=== PATIENT | female | born 1940 | race Caucasian/White ===

== ENCOUNTER 2020-03-26 14:16 | Outpatient (CLI) | payer MEDICARE, SELFPAY ==
--- NOTE | ~2020-03-26 | MM_ITS ---
EXAMINATION: MM screening bridger BI w mary HISTORY: Screening TECHNIQUE: Craniocaudal and mediolateral oblique 3-D tomosynthesis images were obtained and synthetic 2-D images were generated. CAD analysis was submitted and interpreted. COMPARISON: Comparison to multiple prior studies sequentially, with oldest reviewed study dated 02/12. BREAST PARENCHYMAL COMPOSITION: There are scattered areas of fibroglandular density. FINDINGS: There is no evidence of suspicious mass, calcification, or architectural distortion to sugg est malignancy in either breast. There has been no suspicious interval change. IMPRESSION: 1. No mammographic evidence of malignancy. 2. Recommend routine screening mammography in one year. BI-RADS Category 1: Negative Reviewed, dictated and finalized at location A.
== END 2020-03-26 14:17 | disposition home or self-care (01) ==
LOC: ANHIMG 14:18
PROVIDERS: PCP Family Medicine; Visit Provider Family Medicine
DX: Z12.31 Encounter for screening mammogram for malignant neoplasm of breast (principal)
CPT/HCPCS: 77063; 77067

== ENCOUNTER 2020-07-12 13:58 | Emergency (ER) | payer MEDICARE, SELFPAY ==
--- NOTE | ~2020-07-12 | XR_ITS ---
XR chest 1V portable 07/12/2020 14:39 Indication: Fever and cough Procedure: AP portable chest Comparison: Comparison to multiple prior studies sequentially, with oldest reviewed study dated 11/27. Findings: Heart size normal. Pacemaker leads stable. No focal air space disease, pulmonary edema, ple ural effusion or suspected pneumothorax. Impression: 1: No acute cardiopulmonary disease. Reviewed, dictated and finalized at location A. ITY ASSURANCE SPECIALIST Impression: 1: No acute cardiopulmonary disease.
[2020-07-12 14:01] VITALS: BP 146/78; PULSE 65; RESP 14; TEMP 36.1; O2SAT 99
--- NOTE | 2020-07-12 14:26 | ED.URI ---
HPI - URI/Sore Throat General Chief Complaint: Upper Respiratory Infection Stated Complaint: fever, cough, congestion Time Seen by Provider: 07/12/20 14:07 Source: patient Mode of arrival: ambulatory Limitations: no limitations History of Present Illness HPI Narrative: This is a 80 year old female that presents to the ER for cold symptoms x 3 days. Reports cough, congestion and fever. Also reports a couple episodes of loose stools today. Denies chest pain, shortness of breath or abdominal pain. Related Data Home Medications Medication Instructions Recorded Confirmed sotalol 80 mg tablet 80 mg PO DAILY 07/24/19 09/29/19 metoprolol tartrate 25 mg tablet 25 mg PO BID tablet 07/25/19 09/29/19 Allergies Allergy/AdvReac Type Severity Reaction Status Date / Time cefaclor Allergy Unknown upset Verified 05/20/20 12:35 stomach Cephalosporins Allergy Unknown Unknown Verified 05/20/20 12:35 ciprofloxacin Allergy Unknown rash Verified 05/20/20 12:35 hydrocodone Allergy Unknown UPSET Verified 05/20/20 12:35 STOMACH ibuprofen Allergy Unknown UPSET Verified 05/20/20 12:35 STOMACH propoxyphene Allergy Unknown UPSET Verified 05/20/20 12:35 STOMACH Quinolones Allergy Unknown Rash Verified 05/20/20 12:35 rofecoxib Allergy Unknown UPSET Verified 05/20/20 12:35 STOMACH OXYCODONE HCL Allergy Unknown very Uncoded 05/20/20 12:35 addictive Review of Systems Review of Systems: Narrative: CONSTITUTIONAL: Reports fever ENT: Reports rhinorrhea, congestion CARDIOVASCULAR: Denies chest pain, or edema. RESPIRATORY: Reports cough. Denies dyspnea. GASTROINTESTINAL: Reports diarrhea. Denies abdominal pain All systems reviewed & are unremarkable except as noted in HPI and below PMFSH Past Medical History Medical History (Updated 07/12/20 @ 15:48 by Rosita Adame PA-C) Abdominal pain Cervical disc disorder, unspecified, unspecified cervical region Depression with anxiety Mixed hyperlipidemia Other intervertebral disc degeneration, lumbar region Paroxysmal atrial fibrillation Family History Family History Mother Family history of malignant neoplasm of ovary Acute myocardial infarction Other Family history of arthritis Social History Social History Smoking status: Never smoker Alcohol intake: never Substance use: never Substance use type: does not use Gender identity (if verbalized by the patient): Female Exam Narrative: Exam Narrative: GENERAL: Elderly, well-nourished, and in no acute distress. HEAD: Normocephalic, atraumatic. EYES: EOMI. ENT: Nares clear, no rhinorrhea or epistaxis. Mucous membranes moist. Oropharynx without tonsillar hypertrophy exudate or other lesions. Bilateral TMs pearly xie non-bulging NECK: Supple. No adenopathy or masses. CHEST: Clear to auscultation. No respiratory distress. No wheezes rales or rhonchi HEART: Regular rate and rhythm. No murmur heard. Normal peripheral pulses. EXTREMITIES: Normal range of motion. No edema. SKIN: Warm, dry, no rash. NEURO: No focal deficits. Alert and oriented x3. PSYCH: Normal mood and affect Course Vital Signs Vital signs: Vital Signs Temperature 97.0 F L 07/12/20 14:01 Pulse Rate 65 07/12/20 14:01 Respiratory Rate 14 07/12/20 14:01 Blood Pressure 146/78 H 07/12/20 14:01 Pulse Oximetry 99 07/12/20 14:01 Temperature 97.0 F L 07/12/20 14:01 Pulse Rate 65 07/12/20 14:01 Respiratory Rate 14 07/12/20 14:01 Blood Pressure 146/78 H 07/12/20 14:01 Pulse Oximetry 99 07/12/20 14:01 MDM - URI/Sore Throat MDM Narrative Medical decision making narrative: Patient presents the emergency department for cold symptoms x3 days. She is afebrile and nontoxic-appearing. Denies any chest pain or shortness of breath. Oxygen saturation is normal on room air. CBC and metabolic panel without concerning finding
[2020-07-12 15:16] LABS: Basophils Percent Auto 0.5 % (0.2-1.2); Hematocrit 44.1 % (37.0-47.0); Hemoglobin 14.9 g/dL (12.0-15.0); Immature Granulocyte Absolute 0.01 K/mm3 (0.00-0.031); Immature Granulocyte Percent A 0.2 % (0-0.5); Immature Platelet Fraction Pct 5.2 % (0.9-11.2); Lymphocytes Absolute Auto 1.75 K/mm3 (0.9-3.2); Lymphocytes Percent Auto 41.3 % (18.3-44.2); Mean Corpuscular HGB Conc 33.8 g/dl (32-36); Mean Corpuscular Hemoglobin 32.3 pg (26-34); Mean Corpuscular Volume 95.7 fl (80-100); Monocytes Absolute Auto 0.6 K/mm3 (0.1-0.6); Monocytes Percent Auto 15.1 % (2.6-8.5); Neutrophils Absolute Auto 1.8 K/mm3 (1.3-6.7); Neutrophils Percent Auto 42.9 % (45.5-73.1); Platelet Count Result 147 k/mm3 (150-375); Red Blood Count 4.61 M/mm3 (4.2-5.4); Red Cell Distribution Width 12.4 % (11.5-14.5); White Blood Count 4.2 K/mm3 (4.5-10.0)
[2020-07-12 15:26] LABS: Alanine Aminotransferase 29 U/L (4-35); Albumin Level 4.1 g/dL (3.5-5.1); Alkaline Phosphatase 117 U/L (38-126); Anion Gap 8 mmol/L (8-16); Aspartate Amino Transferase 54 U/L (14-36); Bilirubin,Total 0.6 mg/dL (0.2-1.3); Blood Urea Nitrogen 18 mg/dL (7-17); Calcium 8.8 mg/dL (8.4-10.2); Carbon Dioxide 27 mmol/L (22-30); Chloride 101 mmol/L (98-107); Estimated CRCL calculation 44 ml/min; Estimated Glomerular Filt Rate 54; Glucose 107 mg/dL (65-105); Potassium 4.2 mmol/L (3.4-5.0); Sodium 136 mmol/L (137-145)
[2020-07-13 19:30] LABS: SARS-CoV-2 RNA PCR Positive
== END 2020-07-12 16:03 | disposition home or self-care (01) ==
PROVIDERS: Physician Assistant; Emergency Provider Emergency Medicine; PCP Family Medicine
DX: U07.1 COVID-19 (principal); F41.8 Other specified anxiety disorders; E78.2 Mixed hyperlipidemia; I48.0 Paroxysmal atrial fibrillation; Z95.0 Presence of cardiac pacemaker
CPT/HCPCS: 36415; 71045; 80053; 85025; 85055; 87635; 87804; 99283; C9803; U0003

== ENCOUNTER 2020-07-20 17:21 | Emergency (ER) | payer MEDICARE, SELFPAY ==
--- NOTE | ~2020-07-20 | XR_ITS ---
EXAMINATION: XR chest 1V portable INDICATION: Cough, COVID 19 positive TECHNIQUE: Portable AP chest at 1746 hours COMPARISON: 07/12/2020 FINDINGS: There are patchy bilateral airspace opacities. No pleural effusion or pneumothorax is ident ified. The cardiomediastinal silhouette is normal. A triple lead cardiac pacemaker of the left chest wall ends with leads in expected locations. IMPRESSION: 1. Patchy bilateral airspace opacities, consistent with atelectasis versus pneumonia. Reviewed, dictated and finalized at location A. OMER ACCOUNTS ADVISOR IMPRESSION: 1. Patchy bilateral airspace opacities, consistent with atelectasis versus pneu monia.
[2020-07-20 17:25] VITALS: BP 131/60; PULSE 98; RESP 22; TEMP 36.3; O2SAT 95
[2020-07-20 17:30] VITALS: PULSE 98
--- NOTE | 2020-07-20 17:31 | ECG_ITS ---
Measurements Intervals [place] Rate: 100 P: ID: 0 QRS: -23 QRSD: 80 T: 2 QT: 332 QTc: 429 Interpretive Statements ELECTRONIC VENTRICULAR PACEMAKER WITH INHIBITION UNDERLYING ATRIAL FIBRILLATION WITH RAPID VENTRICULAR RESPONSE CANNOT RULE OUT SEPTAL INFARCT, AGE INDETERMINATE BORDERLINE T WAVE ABNORMALITY- DIFFUSE LEADS ABNORMAL ECG Electronically Signed On 07-20-2020 17:58:14 TRAUMA REGISTRAR by Boby Bales D.O.
[2020-07-20 17:39] LABS: Basophils Percent Auto 0.2 % (0.2-1.2); Eosinophils Percent Auto 0.4 % (0-4.4); Hemoglobin 16.1 g/dL (12.0-15.0); Immature Granulocyte Absolute 0.01 K/mm3 (0.00-0.031); Immature Granulocyte Percent A 0.2 % (0-0.5); Lymphocytes Absolute Auto 2.15 K/mm3 (0.9-3.2); Lymphocytes Percent Auto 37.8 % (18.3-44.2); Mean Corpuscular HGB Conc 33.5 g/dl (32-36); Mean Corpuscular Hemoglobin 31.9 pg (26-34); Mean Corpuscular Volume 95.2 fl (80-100); Mean Platelet Volume 11.1 fl (7.4-10.4); Monocytes Absolute Auto 0.4 K/mm3 (0.1-0.6); Neutrophils Absolute Auto 3.1 K/mm3 (1.3-6.7); Neutrophils Percent Auto 54.4 % (45.5-73.1); Platelet Count Result 219 k/mm3 (150-375); Red Blood Count 5.04 M/mm3 (4.2-5.4); Red Cell Distribution Width 12.2 % (11.5-14.5); White Blood Count 5.7 K/mm3 (4.5-10.0)
[2020-07-20 17:52] LABS: Alanine Aminotransferase 26 U/L (4-35); Albumin Level 4.3 g/dL (3.5-5.1); Alkaline Phosphatase 121 U/L (38-126); Anion Gap 7 mmol/L (8-16); Aspartate Amino Transferase 45 U/L (14-36); Bilirubin,Total 0.7 mg/dL (0.2-1.3); Blood Urea Nitrogen 18 mg/dL (7-17); Calcium 9.1 mg/dL (8.4-10.2); Carbon Dioxide 31 mmol/L (22-30); Chloride 102 mmol/L (98-107); Estimated CRCL calculation 44 ml/min; Estimated Glomerular Filt Rate 54; Glucose 127 mg/dL (65-105); Potassium 4.2 mmol/L (3.4-5.0); Sodium 140 mmol/L (137-145)
--- NOTE | 2020-07-20 18:26 | ED.WEAKNESS ---
HPI - Weakness General Chief complaint: Weakness Stated complaint: COVID+/WEAKNESS Time Seen by Provider: 07/20/20 18:25 Source: patient Mode of arrival: ambulatory Limitations: no limitations History of Present Illness HPI Narrative: Patient 80 years old white female, presents with general weakness and sweating with activity. Patient is Covid +10 days ago. Patient denies any fever, chills, shortness of breath, chest pain. Related Data Home Medications Medication Instructions Recorded Confirmed sotalol 80 mg tablet 80 mg PO DAILY 07/24/19 09/29/19 metoprolol tartrate 25 mg tablet 25 mg PO BID tablet 07/25/19 09/29/19 Allergies Allergy/AdvReac Type Severity Reaction Status Date / Time cefaclor Allergy Unknown upset Verified 07/20/20 17:29 stomach Cephalosporins Allergy Unknown Unknown Verified 07/20/20 17:29 ciprofloxacin Allergy Unknown rash Verified 07/20/20 17:29 hydrocodone Allergy Unknown UPSET Verified 07/20/20 17:29 STOMACH ibuprofen Allergy Unknown UPSET Verified 07/20/20 17:29 STOMACH propoxyphene Allergy Unknown UPSET Verified 07/20/20 17:29 STOMACH Quinolones Allergy Unknown Rash Verified 07/20/20 17:29 rofecoxib Allergy Unknown UPSET Verified 07/20/20 17:29 STOMACH OXYCODONE HCL Allergy Unknown very Uncoded 05/20/20 12:35 addictive Review of Systems Review of Systems: Narrative: CONSTITUTIONAL: Denies fever, chills, or sweats. EYES: Denies visual changes, redness, or discharge. ENT: Denies rhinorrhea, congestion, sore throat, or otalgia. CARDIOVASCULAR: Denies chest pain, palpitations, or edema. RESPIRATORY: Denies cough or dyspnea. GASTROINTESTINAL: Denies abdominal pain, nausea, vomiting, or diarrhea. GENITOURINARY: Denies dysuria or hematuria. SKIN: Denies rash or itching. MUSCULOSKELETAL: Denies back pain, joint pain, or myalgia. NEUROLOGIC: Denies headache, numbness, or weakness. PSYCHIATRIC: Denies anxiety or depression. [facility] Past Medical History Medical History Abdominal pain Cervical disc disorder, unspecified, unspecified cervical region Depression with anxiety Mixed hyperlipidemia Other intervertebral disc degeneration, lumbar region Paroxysmal atrial fibrillation Family History Family History Mother Family history of malignant neoplasm of ovary Acute myocardial infarction Other Family history of arthritis Social History Social History Smoking status: Never smoker Alcohol intake: never Substance use: never Substance use type: does not use Gender identity (if verbalized by the patient): Female Exam Narrative: Exam Narrative: General appearance: Well-developed, well-nourished Skin: Normal color Head: Normocephalic, nontraumatic Eyes: Clear conjunctiva ENT: Oropharynx normal, ears normal, nose normal Neck: Supple, nontender Chest and respiratory: Airway patent, no respiratory distress, no accessory muscle use Heart: Regular rate/rhythm Abdomen: Soft, nontender, no organomegaly, quiet bowel sounds Vascular: Normal peripheral pulses, normal capillary refill. Musculoskeletal: Normal range of motion, nontender back Neurologic: Alert and oriented ?3, SMOKING PIPE DRILLER AND THREADER is normal as tested, no gross motor deficit Course Course Emergency Course: Stable Vital Signs Vital signs: Vital Signs Temperature 36.3 C L 07/20/20 17:25 Pulse Rate 98 07/20/20 17:25 Respiratory Rate 22 H 07/20/20 17:25 Blood Pressure 131/60 07/20/20 17:25 Pulse Oximetry 95 07/20/20 17:25 Temperature 36.3 C L 07/20/20 17:25 Pu
[2020-07-20 18:35] VITALS: BP 125/50; PULSE 75; RESP 16; O2SAT 95
--- NOTE | 2020-07-20 19:01 | PCRCNOTE ---
Attempted AGB'S twice pt refused Dr Crystal aware.
[2020-07-20 19:21] VITALS: BP 96/60; PULSE 79; RESP 18; O2SAT 94
[2020-07-20 19:58] VITALS: BP 113/63; PULSE 88; RESP 20; O2SAT 97
[2020-07-20 20:29] VITALS: BP 111/57; PULSE 87; RESP 16; O2SAT 96
== END 2020-07-20 20:33 | disposition home or self-care (01) ==
PROVIDERS: Emergency Provider Emergency Medicine; PCP Family Medicine
DX: U07.1 COVID-19 (principal); R53.1 Weakness; M50.90 Cervical disc disorder, unspecified, unspecified cervical region; E78.2 Mixed hyperlipidemia; I48.0 Paroxysmal atrial fibrillation; Z79.01 Long term (current) use of anticoagulants; Z95.0 Presence of cardiac pacemaker; R94.31 Abnormal electrocardiogram [ECG] [EKG]; F41.8 Other specified anxiety disorders
CPT/HCPCS: 36415; 36600; 71045; 80053; 85025; 93005; 99283

== ENCOUNTER 2020-11-20 22:36 | Emergency (ER) | payer MEDICARE, SELFPAY ==
--- NOTE | ~2020-11-20 | CT_ITS ---
EXAMINATION: CT abdomen pelvis w con INDICATION: Abdominal pain TECHNIQUE: Computed tomographic images of the abdomen and pelvis were obtained after the administrati on of 100 cc of Omnipaque 350 intravenous contrast. The dose-length product (DLP) was 1331.86 mGy-cm. Automated exposure control and iterative reconstruction technique were employed. COMPARISON: 01/03/2009 FINDINGS: Minimal dependent atelectasis is present in the lung bases. The heart size is normal. There is a small sliding hiatal hernia. Cysts of the liver measure up to 1.3 cm in the left hepatic lobe. The spleen, pancreas, and adrenal glands are normal. There is mild fundal thickening of the gallbladd er wall. The kidneys are unremarkable. There is wall thickening of the urinary bladder and urothelial enhancement of the bladder wall. There is also urothelial enhancement of the ureters and the renal p elves. No pathologically enlarged abdominal or pelvic lymph nodes are identified. There is no free in traperitoneal gas or evidence of bowel obstruction. There is severe thoracolumbar spondylosis. There are changes of posterior fusion at L5-S1. IMPRESSION: 1. Wall thickening of the urinary bladder and urothelial enhancement in the kidneys, ureters, and vishal dder, consistent with urinary tract infection. Reviewed, dictated and finalized at location A. IMPRESSION: 1. Wall thickening of the urinary bladder and urothelial enhancement in the kid neys, ureters, and bladder, consistent with urinary tract infection.
--- NOTE | ~2020-11-20 | XR_ITS ---
EXAMINATION: XR chest 1V portable DATE: 11/20/2020 23:38 INDICATION: Cough. TECHNIQUE: A single frontal view of the chest was obtained. COMPARISON: Chest single view 07/20/2020, thoracic spine CT 11/09/2017 FINDINGS: There is no pneumonia, pleural effusion, or pneumothorax. Cardiomegaly is noted. There is a left chest wall pacer with leads in the right atrium and right ventricle. Surgical clips overlie the neck. IMPRESSION: 1. Cardiomegaly. Reviewed, dictated and finalized at location A. IMPRESSION: 1. Cardiomegaly.
[2020-11-20 22:42] VITALS: BP 148/89; PULSE 88; RESP 20; TEMP 36.3; O2SAT 96
--- NOTE | 2020-11-20 23:09 | ED.GENADULT ---
HPI - General Adult General Chief complaint: Unspecified Stated complaint: hurt all over Time Seen by Provider: 11/20/20 23:14 Related Data Home Medications Medication Instructions Recorded Confirmed sotalol 80 mg tablet 80 mg PO DAILY 07/24/19 11/15/20 metoprolol tartrate 25 mg tablet 25 mg PO BID tablet 07/25/19 11/15/20 Allergies Allergy/AdvReac Type Severity Reaction Status Date / Time cefaclor Allergy Unknown upset Verified 11/15/20 11:01 stomach Cephalosporins Allergy Unknown Unknown Verified 11/15/20 11:01 ciprofloxacin Allergy Unknown rash Verified 11/15/20 11:01 hydrocodone Allergy Unknown UPSET Verified 11/15/20 11:01 STOMACH ibuprofen Allergy Unknown UPSET Verified 11/15/20 11:01 STOMACH propoxyphene Allergy Unknown UPSET Verified 11/15/20 11:01 STOMACH Quinolones Allergy Unknown Rash Verified 11/15/20 11:01 rofecoxib Allergy Unknown UPSET Verified 11/15/20 11:01 STOMACH OXYCODONE HCL Allergy Unknown very Uncoded 11/15/20 11:01 addictive PMFSH Past Medical History Medical History Abdominal pain Adult BMI 38.0-38.9 kg/sq m Cervical disc disorder, unspecified, unspecified cervical region Depression with anxiety Mixed hyperlipidemia Other intervertebral disc degeneration, lumbar region Paroxysmal atrial fibrillation Family History Family History Mother Family history of malignant neoplasm of ovary Acute myocardial infarction Other Family history of arthritis Social History Social History Smoking status: Never smoker Alcohol intake: never Substance use: never Substance use type: does not use Gender identity (if verbalized by the patient): Female Course Vital Signs Vital signs: Vital Signs Temperature 36.3 C L 11/20/20 22:42 Pulse Rate 88 11/20/20 22:42 Respiratory Rate 20 11/20/20 22:42 Blood Pressure 148/89 H 11/20/20 22:42 Pulse Oximetry 96 11/20/20 22:42 Temperature 36.3 C L 11/20/20 22:42 Pulse Rate 88 11/20/20 22:42 Respiratory Rate 20 05/05/21 22:42 Blood Pressure 148/89 H 11/20/20 22:42 Pulse Oximetry 96 11/20/20 22:42 Medical Decision Making Vital Signs Vital Signs: Vital Signs Temperature 36.3 C L 11/20/20 22:42 Pulse Rate 88 11/20/20 22:42 Respiratory Rate 20 11/20/20 22:42 Blood Pressure 148/89 H 11/20/20 22:42 Pulse Oximetry 96 11/20/20 22:42 Temperature 36.3 C L 11/20/20 22:42 Pulse Rate 88 11/20/20 22:42 Respiratory Rate 11/20/20 22:42 Blood Pressure 148/89 H 11/20/20 22:42 Pulse Oximetry 96 11/20/20 22:42 Discharge Plan Discharge Prescriptions: No Action warfarin [Coumadin] 5 mg tablet 5 mg PO DAILY Qty: 30 RF: 0 sotalol 80 mg tablet 80 mg PO DAILY RF: 0 metoprolol tartrate 25 mg tablet 25 mg PO BID RF: 0 meclizine 25 mg tablet 25 mg PO TID PRN (Reason: dizziness) Qty: 60 RF: 0 celecoxib [Celebrex] 100 mg capsule 100 mg PO BID Qty: 180 RF: 2 atorvastatin 10 mg tablet 10 mg PO DAILY Qty: 90 RF: 4 omeprazole 20 mg capsule,delayed release(DR/EC) See Rx Instructions .ROUTE .COMPLEX Qty: 180 RF: 3 warfarin 4 mg tablet 4 mg PO DAILY Qty: 30 RF: 5 benazepril 10 mg tablet 5 mg PO DAILY Qty: 90 RF: 4 furosemide 20 mg tablet See Rx Instructions .ROUTE .COMPLEX Qty: 180 RF: 3 warfarin 1 mg tablet 1 mg PO DAILY Qty: 90 RF: 0 venlafaxine 150 mg capsule,extended release 24hr See Rx Instructions .ROUTE .COMPLEX Qty: 90 RF: 1 levothyroxine 50 mcg tablet See Rx Instructions .ROUTE .COMPLEX Qty: 60 RF: 5
[2020-11-20 23:13] VITALS: RESP 21
--- NOTE | 2020-11-20 23:20 | PC.NURSE ---
EDMD presented to bedside.
--- NOTE | 2020-11-20 23:20 | PC.NURSE ---
Pt presents to ED with complaints of generalized body aches, nausea and fevers that onset today. Per daughter, who is present at bedside, pt was seen by pcp a few day ago and urine was tested for infection and she is due to receive results tomorrow. Pt states she is nauseous intermittently and denies diarrhea, headache, chest pain and sob at this time. 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 Pt denies constipation, pain and discomfort with urination. Noted to be alert and oriented x4. Breathing is even and unlabored and call button and personal items within reach. Pt advised to press call button for assistance.
[2020-11-20 23:24] VITALS: BP 152/74; PULSE 92; RESP 21; TEMP 37.6; O2SAT 95
--- NOTE | 2020-11-20 23:37 | PC.NURSE ---
CXR completed at bedside.
[2020-11-20] MEDS: SODIUM CHLORIDE 0.9% IV 1,000 ML 999 ML IV CONT (23:41)
--- NOTE | 2020-11-20 23:47 | PC.NURSE ---
Dana from lab called and said there was not enough urine to run the test
[2020-11-20 23:58] LABS: Basophils Percent Auto 0.2 % (0.2-1.2); Eosinophils Percent Auto 0.2 % (0-4.4); Hematocrit 39.7 % (37.0-47.0); Hemoglobin 13.2 g/dL (12.0-15.0); Immature Granulocyte Absolute 0.07 K/mm3 (0.00-0.031); Immature Granulocyte Percent A 0.5 % (0-0.5); Lymphocytes Absolute Auto 0.87 K/mm3 (0.9-3.2); Lymphocytes Percent Auto 6.7 % (18.3-44.2); Mean Corpuscular HGB Conc 33.2 g/dl (32-36); Mean Corpuscular Hemoglobin 31.8 pg (26-34); Mean Corpuscular Volume 95.7 fl (80-100); Mean Platelet Volume 11.2 fl (7.4-10.4); Monocytes Absolute Auto 0.7 K/mm3 (0.1-0.6); Neutrophils Absolute Auto 11.4 K/mm3 (1.3-6.7); Neutrophils Percent Auto 87.4 % (45.5-73.1); Platelet Count Result 154 k/mm3 (150-375); Red Blood Count 4.15 M/mm3 (4.2-5.4); White Blood Count 13.1 K/mm3 (4.5-10.0)
[2020-11-21 00:06] LABS: Alanine Aminotransferase 22 U/L (4-35); Albumin Level 3.8 g/dL (3.5-5.1); Alkaline Phosphatase 112 U/L (38-126); Anion Gap 5 mmol/L (8-16); Aspartate Amino Transferase 41 U/L (14-36); Bilirubin,Total 0.9 mg/dL (0.2-1.3); Blood Urea Nitrogen 20 mg/dL (7-17); Calcium 9.3 mg/dL (8.4-10.2); Carbon Dioxide 29 mmol/L (22-30); Chloride 103 mmol/L (98-107); Estimated CRCL calculation 43 ml/min; Estimated Glomerular Filt Rate 54; Glucose 119 mg/dL (65-105); Lactic Acid Reflex 1.2 mmol/L (0.7-2.1); Potassium 4.4 mmol/L (3.4-5.0); Sodium 137 mmol/L (137-145)
--- NOTE | 2020-11-21 01:16 | ED.GENADULT ---
HPI - General Adult General Chief complaint: Unspecified Stated complaint: hurt all over Time Seen by Provider: 11/20/20 23:14 History of Present Illness HPI narrative: Patient is a 80-year-old female who presents the emergency department with chief complaint of generalized malaise dysuria. The patient reports she saw her primary care physician and was started on Bactrim a urine culture was sent at that time and the patient has not received results. The patient reports he is taken a total of 3 doses of Bactrim but continues to have symptoms had a fever up to 102 today. Patient reports she just feels generally unwell feels very dehydrated. Patient reports that she took Tylenol about 4 PM this evening and reports that her temperature has come down. Related Data Home Medications Medication Instructions Recorded Confirmed sotalol 80 mg tablet 80 mg PO DAILY 07/24/19 11/15/20 metoprolol tartrate 25 mg tablet 25 mg PO BID tablet 07/25/19 11/15/20 Allergies Allergy/AdvReac Type Severity Reaction Status Date / Time cefaclor Allergy Unknown upset Verified 11/15/20 11:01 stomach Cephalosporins Allergy Unknown Unknown Verified 11/15/20 11:01 ciprofloxacin Allergy Unknown rash Verified 11/15/20 11:01 hydrocodone Allergy Unknown UPSET Verified 11/15/20 11:01 STOMACH ibuprofen Allergy Unknown UPSET Verified 11/15/20 11:01 STOMACH propoxyphene Allergy Unknown UPSET Verified 11/15/20 11:01 STOMACH Quinolones Allergy Unknown Rash Verified 11/15/20 11:01 rofecoxib Allergy Unknown UPSET Verified 11/15/20 11:01 STOMACH OXYCODONE HCL Allergy Unknown very Uncoded 11/15/20 11:01 addictive Review of Systems Review of Systems: Narrative: A 10 system review of systems was completed on the patient and is negative except for what is stated in the HPI. Nursing and ancillary documentation was reviewed. [facility] Past Medical History Medical History Abdominal pain Adult BMI 38.0-38.9 kg/sq m Cervical disc disorder, unspecified, unspecified cervical region Depression with anxiety Mixed hyperlipidemia Other intervertebral disc degeneration, lumbar region Paroxysmal atrial fibrillation Family History Family History Mother Family history of malignant neoplasm of ovary Acute myocardial infarction Other Family history of arthritis Social History Social History Smoking status: Never smoker Alcohol intake: never Substance use: never Substance use type: does not use Gender identity (if verbalized by the patient): Female Exam Narrative: Exam Narrative: GENERAL: Well-appearing, well-nourished, and in no acute distress. HEAD: Normocephalic, atraumatic. EYES: PERRLA and EOMI. ENT: Nares clear, no rhinorrhea or epistaxis. Mucous membranes moist. NECK: Supple. CHEST: Clear to auscultation. No respiratory distress. HEART: Regular rate and rhythm. No murmur heard. Normal peripheral pulses. ABDOMEN: Soft, nontender, nondistended, normal active bowel sounds. EXTREMITIES: Normal range of motion. No edema. SKIN: Warm, dry, no rash. NEURO: No focal deficits. Alert and oriented x3. PSYCH: Normal mood and affect. Course Vital Signs Vital signs: Vital Signs Temperature 36.3 C L 11/20/20 22:42 Pulse Rate 88 11/20/20 22:42 Respiratory Rate 20 11/20/20 22:42 Blood Pressure 148/89 H 11/20/20 22:42 Pulse Oximetry 96 11/20/20 22:42 Temperature 37.6 C H 11/20/20 23:24 Pulse Rate 92 11/20/20 23:24 Respiratory Rate 21 H 11/20/20 23:24 Blood Pressure 152/74 H 11/20/20 23:24 Pulse Oximetry 95 11/20/20 23:24 Medical Decision Making Vital Signs Vital Signs: Vital Signs Temperature 36.3 C L 11/20/20 22:42 Pulse Rate 88 11/20/20 22:42 Respiratory Rate 20 11/20/20 22:42 Blood Pressure
[2020-11-21 01:23] LABS: Add Urine Microscopic? YES; Appearance Urine Cloudy (Clear); Bacteria Urine Trace /hpf; Bilirubin Urine Negative (Negative); Blood Urine 3+ (Negative); Color Urine Yellow (Yellow); Glucose Urine UA Negative (Negative); Ketones Urine Negative (Negative); Leukocyte Esterase Ur 3+ LEU/UL (Negative); Nitrate Urine Negative (Negative); Protein Urine 2+ mg/dL (Negative); RBC Urine >75 /hpf (0-2); Specific Grav Ur 1.014 (1.001-1.035); Urobilinogen Urine Negative mg/dL (<2.0); WBC Clumps Urine Present /HPF; WBC Urine >75 /hpf
[2020-11-21 02:56] VITALS: BP 146/72; PULSE 88; RESP 19; TEMP 36.6; O2SAT 99
== END 2020-11-21 02:56 | disposition home or self-care (01) ==
PROVIDERS: Emergency Provider Emergency Medicine; PCP Family Medicine
DX: N39.0 Urinary tract infection, site not specified (principal); I48.0 Paroxysmal atrial fibrillation; Z79.01 Long term (current) use of anticoagulants; E78.2 Mixed hyperlipidemia; F41.8 Other specified anxiety disorders; M51.36 Other intervertebral disc degeneration, lumbar region; M50.90 Cervical disc disorder, unspecified, unspecified cervical region
CPT/HCPCS: 36415; 71045; 74177; 80053; 81001; 83605; 85025; 87077; 87086; 87088; 87186; 96361; 96374; 99284; A9270; J0131; J7030; Q9967

== ENCOUNTER 2020-11-23 10:58 | Inpatient (IN) | payer MEDICARE, SELFPAY ==
[2020-11-23] VITALS (8 sets, daily range): BP systolic 117–144; BP diastolic 52–78; PULSE 63–78; RESP 16–18; TEMP 36.2–37.9; O2SAT 92–98; BMI 40.4
[2020-11-23 11:29] LABS: Add Urine Microscopic? YES; Appearance Urine Cloudy (Clear); Bacteria Urine 2+ /hpf; Bilirubin Urine Negative (Negative); Blood Urine 3+ (Negative); Color Urine Yellow (Yellow); Glucose Urine UA Negative (Negative); Ketones Urine Negative (Negative); Leukocyte Esterase Ur 3+ LEU/UL (Negative); Mucus Urine Rare /lpf; Nitrate Urine Negative (Negative); Protein Urine 1+ mg/dL (Negative); RBC Urine >75 /hpf (0-2); Specific Grav Ur 1.008 (1.001-1.035); Urobilinogen Urine Negative mg/dL (<2.0); WBC Clumps Urine Present /HPF; WBC Urine >75 /hpf
--- NOTE | 2020-11-23 11:34 | ED.GENADULT ---
HPI - General Adult General Chief complaint: Urogenital-Female Stated complaint: UTI not feeling well Time Seen by Provider: 11/23/20 11:09 Source: patient Mode of arrival: ambulatory Limitations: no limitations History of Present Illness HPI narrative: Patient presents for evaluation of low back pain, malaise, generalized weakness and headache. She states she has a history of recurrent urinary tract infections was on antibiotics for 90 days. She completed antibiotic therapy about 9 days ago. 4 days later she developed urinary symptoms including dysuria, frequency, dribbling and suprapubic pressure. She states she saw her primary care provider 5 days ago and had a urinalysis performed. 3 days ago she experienced fever and she came to this emergency department for further evaluation. She was diagnosed with urinary tract infection was discharged on Bactrim. CT abdomen pelvis at that time showed inflammatory changes around the kidneys abd bladder consistent with urinary tract infection. Urine culture grew out E coli which was resistant to bactrim. She states two days ago her PCP contacted her and provided her with a prescription for another antibiotic. She took one dose of that medication and then resumed taking the bactim. She was not getting better so she came here for further evaluation. Currently she has low back pain, headache, nausea without vomiting and generalized weakness. Her daughter brought her here today and she was able to ambulate into the hospital. She denies any urinary symptoms at present. She also denies any abdominal pain. Related Data Home Medications Medication Instructions Recorded Confirmed sotalol 80 mg tablet 80 mg PO DAILY 07/24/19 11/15/20 metoprolol tartrate 25 mg tablet 25 mg PO BID tablet 07/25/19 11/15/20 sulfamethoxazole-trimethoprim 1 tablet 11/23/20 Allergies Allergy/AdvReac Type Severity Reaction Status Date / Time Cephalosporins Allergy Unknown Unknown Verified 11/23/20 11:13 ciprofloxacin Allergy Unknown rash Verified 11/23/20 11:13 Quinolones Allergy Unknown Rash Verified 11/23/20 11:13 cefaclor AdvReac Unknown upset Verified 11/23/20 11:49 stomach hydrocodone AdvReac Unknown UPSET Verified 11/23/20 11:49 STOMACH ibuprofen AdvReac Unknown UPSET Verified 11/23/20 11:49 STOMACH oxycodone AdvReac Unknown VERY Verified 11/23/20 11:49 ADDICTIVE propoxyphene AdvReac Unknown UPSET Verified 11/23/20 11:49 STOMACH rofecoxib AdvReac Unknown UPSET Verified 11/23/20 11:49 STOMACH Review of Systems Review of Systems: Narrative: CONSTITUTIONAL: Denies fever, chills, or sweats. EYES: Denies visual changes, redness, or discharge. ENT: Denies rhinorrhea, congestion, sore throat, or otalgia. CARDIOVASCULAR: Denies chest pain, palpitations, or edema. RESPIRATORY: Denies cough or dyspnea. GASTROINTESTINAL: Denies abdominal pain, nausea, vomiting, or diarrhea. GENITOURINARY: Denies dysuria or hematuria. SKIN: Denies rash or itching. MUSCULOSKELETAL: Reports low back pain. Denies joint pain, or myalgia. NEUROLOGIC: Reports headache and generalized weakness. Denies, numbness and dizziness PSYCHIATRIC: Denies anxiety or depression. [facility] Past Medical History Medical History Abdominal pain Adult BMI 38.0-38.9 kg/sq m Cervical disc disorder, unspecified, unspecified cervical region Depression with anxiety Mixed hyperlipidemia Other intervertebral disc degeneration, lumbar region Paroxysmal atrial fibrillation Family History Family History Mother Family history of malignant neoplasm of ovary Acute myocardial infarction Other Family history of arthritis Social History Social History Smoking status: Never smoker Alcohol intake: never Substance use: never Substance use type: does
[2020-11-23] MEDS: SODIUM CHLORIDE 0.9% IV 1,000 ML 100 ML IV CONT (12:13)
[2020-11-23] MEDS: diphenhydrAMINE HCl INJ 50 MG/ML VIAL 25 MG IV PUSH (12:13)
[2020-11-23] MEDS: ONDANSETRON INJ 4 MG/2 ML VIAL IV PUSH (12:13)
[2020-11-23 12:23] LABS: Basophils Percent Auto 0.2 % (0.2-1.2); Eosinophils Percent Auto 0.1 % (0-4.4); Hematocrit 36.9 % (37.0-47.0); Hemoglobin 12.2 g/dL (12.0-15.0); Immature Granulocyte Percent A 0.8 % (0-0.5); Lymphocytes Absolute Auto 0.83 K/mm3 (0.9-3.2); Lymphocytes Percent Auto 6.3 % (18.3-44.2); Mean Corpuscular HGB Conc 33.1 g/dl (32-36); Mean Corpuscular Hemoglobin 31.5 pg (26-34); Mean Corpuscular Volume 95.3 fl (80-100); Mean Platelet Volume 12.2 fl (7.4-10.4); Monocytes Absolute Auto 0.9 K/mm3 (0.1-0.6); Monocytes Percent Auto 6.5 % (2.6-8.5); Neutrophils Absolute Auto 11.3 K/mm3 (1.3-6.7); Neutrophils Percent Auto 86.1 % (45.5-73.1); Platelet Count Result 131 k/mm3 (150-375); Red Blood Count 3.87 M/mm3 (4.2-5.4); Red Cell Distribution Width 13.2 % (11.5-14.5); White Blood Count 13.1 K/mm3 (4.5-10.0)
[2020-11-23 12:32] LABS: Lactic Acid Reflex 1.1 mmol/L (0.7-2.1)
[2020-11-23 12:33] LABS: Alanine Aminotransferase 20 U/L (4-35); Albumin Level 3.5 g/dL (3.5-5.1); Alkaline Phosphatase 143 U/L (38-126); Anion Gap 3 mmol/L (8-16); Aspartate Amino Transferase 38 U/L (14-36); Bilirubin,Total 0.7 mg/dL (0.2-1.3); Blood Urea Nitrogen 22 mg/dL (7-17); Calcium 9.2 mg/dL (8.4-10.2); Carbon Dioxide 29 mmol/L (22-30); Chloride 100 mmol/L (98-107); Estimated CRCL calculation 28 ml/min; Estimated Glomerular Filt Rate 31; Glucose 126 mg/dL (65-105); Potassium 4.5 mmol/L (3.4-5.0); Sodium 132 mmol/L (137-145)
[2020-11-23 12:34] LABS: INR 4.6; Prothrombin Time 43.6 Seconds (11.1-14.7)
[2020-11-23 12:35] LABS: Alanine Aminotransferase 20 U/L (4-35); Albumin Level 3.5 g/dL (3.5-5.1); Alkaline Phosphatase 144 U/L (38-126); Anion Gap 4 mmol/L (8-16); Aspartate Amino Transferase 37 U/L (14-36); Bilirubin,Total 0.6 mg/dL (0.2-1.3); Blood Urea Nitrogen 22 mg/dL (7-17); Calcium 9.1 mg/dL (8.4-10.2); Carbon Dioxide 29 mmol/L (22-30); Chloride 100 mmol/L (98-107); Estimated CRCL calculation 28 ml/min; Estimated Glomerular Filt Rate 31; Glucose 129 mg/dL (65-105); Potassium 4.6 mmol/L (3.4-5.0); Sodium 133 mmol/L (137-145)
[2020-11-23 12:35] LABS: Partial Thromboplastin Time 86.2 SECONDS (22.3-36.8)
--- NOTE | 2020-11-23 15:14 | PC.NURSE ---
This patient, Arlet Richard, was admitted to [address] [place] [address] Room 330-01. Patient/family oriented to hospital policies and general routines including ID bracelet, bed and alarms, visiting hours, pain management, procedures, bathroom and other care routines, personal items, smoking policy, room service/diet, and visiting hours. Information on how to activate the Rapid Response Team has been discussed. Patient/Family are encouraged to report perceived risks to care and to ask questions if they do not understand what they are told or what they should do.
[2020-11-23] MEDS: ACETAMINOPHEN 325 MG TABLET 650 MG PO (18:49)
[2020-11-23] MEDS: SODIUM CHLORIDE 0.9% IV 1,000 ML 75 ML IV CONT (18:49)
[2020-11-23] MEDS: FAMOTIDINE 20 MG/2 ML VIAL IV PUSH (22:30)
[2020-11-24] VITALS (9 sets, daily range): BP systolic 137–143; BP diastolic 52–55; PULSE 78–86; RESP 16–18; TEMP 37.2–38.4; O2SAT 93–100
[2020-11-24] MEDS: ACETAMINOPHEN 325 MG TABLET 650 MG PO ×3 (04:34→22:12)
[2020-11-24 06:33] LABS: Basophils Percent Auto 0.1 % (0.2-1.2); Eosinophils Percent Auto 0.4 % (0-4.4); Hematocrit 31.5 % (37.0-47.0); Hemoglobin 10.6 g/dL (12.0-15.0); Immature Granulocyte Absolute 0.08 K/mm3 (0.00-0.031); Immature Granulocyte Percent A 0.8 % (0-0.5); Lymphocytes Absolute Auto 0.93 K/mm3 (0.9-3.2); Lymphocytes Percent Auto 9.5 % (18.3-44.2); Mean Corpuscular HGB Conc 33.7 g/dl (32-36); Mean Corpuscular Hemoglobin 31.5 pg (26-34); Mean Corpuscular Volume 93.5 fl (80-100); Monocytes Absolute Auto 1.3 K/mm3 (0.1-0.6); Neutrophils Absolute Auto 7.4 K/mm3 (1.3-6.7); Neutrophils Percent Auto 76.2 % (45.5-73.1); Platelet Count Result 124 k/mm3 (150-375); Red Blood Count 3.37 M/mm3 (4.2-5.4); Red Cell Distribution Width 13.2 % (11.5-14.5); White Blood Count 9.8 K/mm3 (4.5-10.0)
[2020-11-24 06:47] LABS: Alanine Aminotransferase 18 U/L (4-35); Alkaline Phosphatase 123 U/L (38-126); Anion Gap 5 mmol/L (8-16); Aspartate Amino Transferase 34 U/L (14-36); Bilirubin,Total 0.4 mg/dL (0.2-1.3); Blood Urea Nitrogen 20 mg/dL (7-17); Calcium 8.5 mg/dL (8.4-10.2); Carbon Dioxide 24 mmol/L (22-30); Chloride 103 mmol/L (98-107); Estimated CRCL calculation 37 ml/min; Estimated Glomerular Filt Rate 43; Glucose 98 mg/dL (65-105); Potassium 4.1 mmol/L (3.4-5.0); Sodium 132 mmol/L (137-145)
--- NOTE | 2020-11-24 09:20 | PM.IMHP ---
H&P: HPI History of Present Illness Date/Time: 11/24/20 14:20 80-year-old female presents to [facility] with chief complaint of weakness, LBP, malaise. Pt has h/o recurrent UTI usually on antibiotic prophylactically but ran out and unfortunately developed a PONCE. Pt was seen by her PCP and started on abx. She was then placed on Bactrim in local ER. When culture results were reviewed she was noted to have bacteria resistant to Bactrim and was switched back to her original medication by her PCP. However, patient felt that the 1st doctor did not have enough information to give her that antibiotic; therefore, she disagreed with the recommendation to return to using it. She continues using her Bactrim and has now come into the ER reporting the symptoms. UA continues to show positive for infection as anticipated since she has not adequately been treated. She states two days ago her PCP contacted her and provided her with a prescription for another antibiotic. She denies any urinary symptoms, abdominal pain, fever, chills, nausea, vomiting at present. Her admission is recommended for inpatient treatment of her SERGIO and urinary tract infection in light of poor medical compliance and failed outpatient treatment. Chief Complaint: weakness, back pain Review of Systems Review of Systems: All systems reviewed & are unremarkable except as noted in HPI and below PMFSH Past Medical History Medical History (Updated 11/24/20 @ 14:48 by Silvia Rodriguez MD) Abdominal pain Adult BMI 38.0-38.9 kg/sq m Cervical disc disorder, unspecified, unspecified cervical region Depression with anxiety Mixed hyperlipidemia Oral cancer Other intervertebral disc degeneration, lumbar region Paroxysmal atrial fibrillation Presence of permanent cardiac pacemaker Surgical History Surgical History (Updated 11/24/20 @ 14:48 by Silvia Rodriguez MD) History of hysterectomy History of oral surgery History of total knee arthroplasty Family History Family History Mother Family history of malignant neoplasm of ovary Acute myocardial infarction Other Family history of arthritis Social History Social History Smoking status: Never smoker Alcohol intake: never Substance use: never Substance use type: does not use Gender identity (if verbalized by the patient): Female Sexual Orientation (if Verbalized by the Patient): Straight or Heterosexual Spiritual care concerns: No Meds Home Medications and Allergies Home Medications Medication Instructions Recorded Confirmed Type sotalol 80 mg tablet 80 mg PO BID 07/24/19 11/23/20 History metoprolol tartrate 25 mg tablet 25 mg PO BID tablet 07/25/19 11/23/20 History atorvastatin 10 mg tablet 10 mg PO DAILY #90 tablet 05/07/20 11/23/20 Rx omeprazole 20 mg capsule,delayed See Rx Instructions .ROUTE 05/18/20 11/23/20 Rx release .COMPLEX #180 cap warfarin 4 mg tablet 4 mg PO DAILY #30 tablet 05/29/20 11/23/20 Rx benazepril 10 mg tablet 5 mg PO DAILY #90 tablet 07/17/20 11/23/20 Rx furosemide 20 mg tablet See Rx Instructions .ROUTE 07/23/20 11/23/20 Rx .COMPLEX #180 tablet venlafaxine 150 mg See Rx Instructions .ROUTE 09/06/20 11/23/20 Rx capsule,extended release 24 hr .COMPLEX #90 capsule levothyroxine 50 mcg tablet See Rx Instructions .ROUTE 11/04/20 11/23/20 Rx .COMPLEX #60 tablet celecoxib [Celebrex] 100 mg PO DAILY 11/23/20 11/23/20 History meclizine 25 mg PO DAILY PRN 11/23/20 11/23/20 History Allergies Allergy/AdvReac Type Severity Reaction Status Date / Time Cephalosporins Allergy Unknown Unknown Verified 11/23/20 11:13 ciprofloxacin Allergy Unknown rash Verified 11/23/20 11:13 Quinolones Allergy Unknown Rash Verified 11/23/20 11:13 cefaclor AdvReac Unknown upset Verified 11/23/20 11:49 stomach hydrocodone AdvReac Unknown UPSET Verified 11/23/20 11:49 STOMACH ib
[2020-11-24] MEDS: SODIUM CHLORIDE 0.9% IV 1,000 ML 75 ML IV CONT (10:28)
[2020-11-24] MEDS: FAMOTIDINE 20 MG/2 ML VIAL IV PUSH ×2 (10:29→22:06)
[2020-11-24] MEDS: SOTALOL HCL 80 MG TABLET PO (17:38)
[2020-11-24] MEDS: PANTOPRAZOLE 40 MG TABLET PO (17:38)
[2020-11-24] MEDS: METOPROLOL TARTRATE 25 MG TABLET PO (21:15)
[2020-11-25] VITALS (9 sets, daily range): BP systolic 114–173; BP diastolic 47–71; PULSE 63–88; RESP 16–20; TEMP 36.8–37.2; O2SAT 96–100
[2020-11-25] MEDS: SODIUM CHLORIDE 0.9% IV 1,000 ML 75 ML IV CONT ×2 (00:58→16:20)
[2020-11-25] MEDS: LEVOTHYROXINE SODIUM 50 MCG TABLET BY MOUTH (05:37)
[2020-11-25] MEDS: PANTOPRAZOLE 40 MG TABLET PO ×2 (06:05→16:21)
[2020-11-25 06:30] LABS: INR 2.7; Prothrombin Time 28.9 Seconds (11.1-14.7)
[2020-11-25] MEDS: VENLAFAXINE HCL XR 75 MG CAP.ER.24H BY MOUTH (10:54)
[2020-11-25] MEDS: METOPROLOL TARTRATE 25 MG TABLET PO ×2 (10:54→21:35)
[2020-11-25] MEDS: SOTALOL HCL 80 MG TABLET PO ×2 (10:55→16:21)
[2020-11-25] MEDS: lisinopriL 5 MG TABLET PO (10:56)
[2020-11-25] MEDS: ATORVASTATIN 10 MG TABLET PO (10:56)
[2020-11-25] MEDS: FAMOTIDINE 20 MG/2 ML VIAL IV PUSH ×2 (10:57→21:35)
[2020-11-25 12:39] LABS: Hematocrit 32.6 % (37.0-47.0); Hemoglobin 10.7 g/dL (12.0-15.0); Mean Corpuscular HGB Conc 32.8 g/dl (32-36); Mean Corpuscular Hemoglobin 31.3 pg (26-34); Mean Corpuscular Volume 95.3 fl (80-100); Mean Platelet Volume 11.2 fl (7.4-10.4); Platelet Count Result 151 k/mm3 (150-375); Red Blood Count 3.42 M/mm3 (4.2-5.4); Red Cell Distribution Width 13.5 % (11.5-14.5); White Blood Count 7.5 K/mm3 (4.5-10.0)
[2020-11-25 12:55] LABS: Anion Gap 3 mmol/L (8-16); Blood Urea Nitrogen 12 mg/dL (7-17); Calcium 8.4 mg/dL (8.4-10.2); Carbon Dioxide 29 mmol/L (22-30); Chloride 105 mmol/L (98-107); Estimated CRCL calculation 40 ml/min; Estimated Glomerular Filt Rate 48; Glucose 129 mg/dL (65-105); Potassium 3.7 mmol/L (3.4-5.0); Sodium 137 mmol/L (137-145)
--- NOTE | 2020-11-25 13:37 | PM.IMCN ---
Assessment and Plan Assessment and plan (1) Urinary tract infection: Qualifiers: Hematuria presence: with hematuria Urinary tract infection type: site unspecified Qualified Code(s): N39.0 - Urinary tract infection, site not specified; R31.9 - Hematuria, unspecified Code(s): N39.0 - Urinary tract infection, site not specified Status: Acute (2) Adult BMI 38.0-38.9 kg/sq m: Code(s): Z68.38 - Body mass index [BMI] 38.0-38.9, adult Status: Acute (3) Hypothyroid: Code(s): E03.9 - Hypothyroidism, unspecified Status: Acute (4) Paroxysmal atrial fibrillation: Code(s): I48.0 - Paroxysmal atrial fibrillation Status: Acute (5) Acute kidney injury superimposed on chronic kidney disease: Code(s): N17.9 - Acute kidney failure, unspecified; N18.9 - Chronic kidney disease, unspecified Status: Acute (6) CKD stage G3a/A1, GFR 45-59 and albumin creatinine ratio <30 mg/g: Code(s): N18.31 - Chronic kidney disease, stage 3a Status: Acute (7) Hypertension: Code(s): I10 - Essential (primary) hypertension Status: Acute Additional Plan Patient will be admitted for treatment of her UTI and light of high risk for continued noncompliance in the outpatient setting. She is placed on Zosyn due to multiple drug allergies. She reports having CKD 3 with GFR usually in the 40s. Currently she is with SERGIO on CKD and will be placed on IV fluids. Patient is on sotalol and warfarin for PAF as well as levothyroxine and continue his medications. Her antihypertensive in an antidepressant medication will be continued as well. Anticipate length of stay > 48 hours for IV antibiotic therapy. HPI Data of Consult Consult date: 11/25/20 Requesting Physician: Olga Thurman NP Primary Care Provider: Víctor Benson MD Consult Narrative Narrative: Arlet Richard is a 80 year old female Review of Systems Review of Systems: All systems reviewed & are unremarkable except as noted in HPI and below Constitutional: Constitutional: Denies excessive sweating, Denies headache(s), Denies increased appetite, Denies snoring and Denies weight gain Eyes: Eyes: Denies exophthalmos, Denies diplopia, Denies floaters and Denies loss of peripheral vision ENT: Denies facial pain, Denies headache(s), Denies odynophagia and Denies tinnitus Respiratory: Respiratory: Denies snoring Gastrointestinal: Gastrointestinal: Denies odynophagia Neurologic: Denies headache(s) Endocrine: Endocrine: Denies excessive sweating PMF Past Medical History Medical History (Updated 11/24/20 @ 14:48 by Silvia Rodriguez MD) Abdominal pain Adult BMI 38.0-38.9 kg/sq m Cervical disc disorder, unspecified, unspecified cervical region Depression with anxiety Mixed hyperlipidemia Oral cancer Other intervertebral disc degeneration, lumbar region Paroxysmal atrial fibrillation Presence of permanent cardiac pacemaker Surgical History Surgical History (Updated 11/24/20 @ 14:48 by Silvia Rodriguez MD) History of hysterectomy History of oral surgery History of total knee arthroplasty Family History Family History Mother Family history of malignant neoplasm of ovary Acute myocardial infarction Other Family history of arthritis Social History Social History Smoking status: Never smoker Alcohol intake: never Substance use: never Substance use type: does not use Gender identity (if verbalized by the patient): Female Sexual Orientation (if Verbalized by the Patient): Straight or Heterosexual Spiritual care concerns: No Meds Home Medications and Allergies Home Medications Medication Instructions Recorded Confirmed Type sotalol 80 mg tablet 80 mg PO BID 07/24/19 11/23/20 History metoprolol tartrate 25 mg tablet 25 mg PO BID tablet 07/25/19 11/23/20
[2020-11-25] MEDS: FUROSEMIDE 20 MG TABLET PO (14:10)
[2020-11-25] MEDS: ACETAMINOPHEN 325 MG TABLET 650 MG PO (16:19)
[2020-11-25] MEDS: SACCHAROMYCES BOULARDII 250 MG CAPSULE PO (16:23)
--- NOTE | 2020-11-25 21:57 | PM.IMPN ---
Progress Note: A&P Assessment and Plan (1) Urinary tract infection: Qualifiers: Hematuria presence: with hematuria Urinary tract infection type: site unspecified Qualified Code(s): N39.0 - Urinary tract infection, site not specified; R31.9 - Hematuria, unspecified Code(s): N39.0 - Urinary tract infection, site not specified Status: Acute Assessment and Plan: Patient admitted for treatment of her UTI and in light of high risk for continued noncompliance in the outpatient setting. Patient is on sotalol and warfarin for PAF as well as levothyroxine and continue his medications. Her antihypertensive in an antidepressant medication will be continued as well. Anticipate length of stay > 48 hours for IV antibiotic therapy. Tolerating PO well No N/V/D Aerobic and anaerobic blood cultures from November 23 returned as +Oxidase neg Gram neg bacillus. Appreciate Infectious Disease consult and recommendations. Will continue Zosyn 3.375g Q 6 hrs. Urine cultures from 11/21 and 11/23 were positive for E.coli and sensitive to Zosyn. Sees Urologist. Dr. Donovan for chronic UTIs and was on antibiotic prophylactically at home prior to this admission, but did not find an antibiotic on her home med list. started her on Florastor and yogurts with meals. (2) Adult BMI 38.0-38.9 kg/sq m: Code(s): Z68.38 - Body mass index [BMI] 38.0-38.9, adult Status: Acute Assessment and Plan: Monitor Diet continue treating hypothyroidism, maximizing thyroid function PT/OT ordered increase activity and ambulation (3) Hypothyroid: Code(s): E03.9 - Hypothyroidism, unspecified Status: Acute Assessment and Plan: no new complaints continue home Levothyroxine dosing. tolerating PO well (4) Paroxysmal atrial fibrillation: Code(s): I48.0 - Paroxysmal atrial fibrillation Status: Acute Assessment and Plan: Heart rate controlled with rate 60s and regular rhythm. She currently denies chest pain, SOB, N/V/Diarrhea. If patient will need a PICC placed or any other intervention, continue to hold Coumadin. Otherwise will need to be restarted tomorrow. INR better today at 2.7, down from 4.6 at admission. Restart home meds as possible tomorrow. (5) Acute kidney injury superimposed on chronic kidney disease: Code(s): N17.9 - Acute kidney failure, unspecified; N18.9 - Chronic kidney disease, unspecified Status: Acute Assessment and Plan: IMPROVING. reports having CKD 3 with GFR usually in the 40s. Currently she is with SERGIO on CKD and will be placed on IV fluids. Continue Zosyn. Treat UTI Re-Hydrated as needed to over 2 L. Disconitnued her IVFs at 50ml/hr. over 2L urine output Creatinine 1.2 Continue to monitor. (6) CKD stage G3a/A1, GFR 45-59 and albumin creatinine ratio <30 mg/g: Code(s): N18.31 - Chronic kidney disease, stage 3a Status: Acute Assessment and Plan: reports having CKD 3 with GFR usually in the 40s. Currently she is with SERGIO on CKD and will be placed on IV fluids. Continue Zosyn. Treat UTI Re-Hydrated as needed to over 2 L. Disconitnued her IVFs at 50ml/hr. over 2L urine output Creatinine 1.2 Continue to monitor. (7) Hypertension: Code(s): I10 - Essential (primary) hypertension Status: Acute Assessment and Plan: Controlled at this time. Denies pain. BP 114/47 with HR 63 this morning. Continue with home BP meds: Sotalol, Metoprolol, Lasix, Benazepril Continue to monitor. Subjective Date/time seen: today 11/25/20 21:57 Arlet was resting in bed today. She was starting to feel better, but still weak. Ordered PT and OT. Aerobic and anaerobic blood cultures from November 23 returned today as +Oxidase neg Gram neg bacillus. Appreciate Infectious Disease consult and recommendations. Will continue Zosyn 3.375g Q 6 hrs. Urine cultures from 11/21 and 11/23 were positive for E.coli and sensitive to Zosyn. She stated that
[2020-11-26] VITALS (7 sets, daily range): BP systolic 149–166; BP diastolic 62–68; PULSE 63–88; RESP 18–20; TEMP 36.5–37.1; O2SAT 97–99
[2020-11-26] MEDS: PANTOPRAZOLE 40 MG TABLET PO ×2 (05:34→17:45)
[2020-11-26] MEDS: LEVOTHYROXINE SODIUM 50 MCG TABLET BY MOUTH (05:36)
[2020-11-26 06:24] LABS: Hematocrit 31.9 % (37.0-47.0); Hemoglobin 10.6 g/dL (12.0-15.0); Mean Corpuscular HGB Conc 33.2 g/dl (32-36); Mean Corpuscular Hemoglobin 30.6 pg (26-34); Mean Corpuscular Volume 92.2 fl (80-100); Platelet Count Result 166 k/mm3 (150-375); Red Blood Count 3.46 M/mm3 (4.2-5.4); Red Cell Distribution Width 13.2 % (11.5-14.5); White Blood Count 9.6 K/mm3 (4.5-10.0)
[2020-11-26 06:32] LABS: INR 2.4; Prothrombin Time 26.8 Seconds (11.1-14.7)
[2020-11-26 06:35] LABS: Anion Gap 2 mmol/L (8-16); Blood Urea Nitrogen 10 mg/dL (7-17); Calcium 8.7 mg/dL (8.4-10.2); Carbon Dioxide 28 mmol/L (22-30); Chloride 106 mmol/L (98-107); Estimated CRCL calculation 40 ml/min; Estimated Glomerular Filt Rate 48; Glucose 109 mg/dL (65-105); Potassium 3.6 mmol/L (3.4-5.0); Sodium 136 mmol/L (137-145)
[2020-11-26] MEDS: VENLAFAXINE HCL XR 75 MG CAP.ER.24H BY MOUTH (08:44)
[2020-11-26] MEDS: lisinopriL 5 MG TABLET PO (08:45)
[2020-11-26] MEDS: SOTALOL HCL 80 MG TABLET PO ×2 (08:45→17:45)
[2020-11-26] MEDS: ATORVASTATIN 10 MG TABLET PO (08:46)
[2020-11-26] MEDS: LOPERAMIDE HCL 2 MG CAPSULE PO (08:46)
[2020-11-26] MEDS: FAMOTIDINE 20 MG/2 ML VIAL IV PUSH ×2 (08:46→20:07)
[2020-11-26] MEDS: FLUTICASONE PROPIONATE 0.05% NA SPR 16 GM BTL (*BKC) 2 SPRAY NASAL (08:47)
[2020-11-26] MEDS: SACCHAROMYCES BOULARDII 250 MG CAPSULE PO ×2 (08:47→17:46)
[2020-11-26] MEDS: LORATADINE 10 MG TABLET PO (08:47)
[2020-11-26] MEDS: METOPROLOL TARTRATE 25 MG TABLET PO ×2 (09:00→20:07)
[2020-11-26] MEDS: FUROSEMIDE 20 MG TABLET PO (09:00)
[2020-11-26] MEDS: ACETAMINOPHEN 325 MG TABLET 650 MG PO (14:35)
--- NOTE | 2020-11-26 14:44 | WPDINFPN2 ---
Progress Note: A&P Assessment and Plan (1) Urinary tract infection: Qualifiers: Hematuria presence: with hematuria Urinary tract infection type: site unspecified Qualified Code(s): N39.0 - Urinary tract infection, site not specified; R31.9 - Hematuria, unspecified Code(s): N39.0 - Urinary tract infection, site not specified Status: Acute Assessment and Plan: UTI with bacteremia and infection REC PipTazo through 11/30, no oral therapy needed unless deterioration. Call if Qs Subjective Date/time seen: 11/26/20 14:44 Objective Data Vital Signs Vital Signs: Vital Signs - 24 hr 11/25/20 16:21 11/25/20 21:35 11/25/20 22:00 Temperature 36.8 C Pulse Rate 84 65 63 Respiratory Rate 20 Blood Pressure 150/56 H Pulse Oximetry 99 11/26/20 06:00 11/26/20 08:45 11/26/20 13:55 Temperature 37.1 C 36.6 C Pulse Rate 69 84 88 Respiratory Rate 20 18 Blood Pressure 166/68 H 149/68 H Pulse Oximetry 97 99 Intake/Output Intake/Output: Intake & Output 11/23/20 11/24/20 11/25/20 11/26/20 23:59 23:59 23:59 23:59 Intake Total 290 3300 3970 1130 Output Total 500 2200 1800 Balance 290 2800 1770 -670 Meds/Results Medications: Active Medications Generic Name Dose Route Start Last Admin Trade Name Freq PRN Reason Stop Dose Admin Acetaminophen 650 mg 11/23/20 13:14 11/26/20 14:35 Acetaminophen 325 Mg Tablet PO 650 mg Q4H PRN Administration Mild Pain (1-3) or Fever Atorvastatin Calcium 10 mg 11/25/20 09:00 11/26/20 08:46 Atorvastatin 10 Mg Tablet PO 10 mg DAILY CÉSAR Administration Famotidine 20 mg 11/23/20 21:00 11/26/20 08:46 Famotidine 20 Mg/2 Ml Vial IV PUSH 20 mg Q12HR CÉSAR Administration Fluticasone Propionate 2 spray 11/26/20 09:00 11/26/20 08:47 Fluticasone Propionate 0.05% Na Spr 16 Gm Btl (*Bkc) NASAL 2 spray DAILY CÉSAR Administration Furosemide 20 mg 11/25/20 09:00 11/25/20 14:10 Furosemide 20 Mg Tablet PO 20 mg DAILY CÉSAR Administration Piperacillin Sod/Tazobactam Sod 2.25 gm in 50 mls @ 100 mls/hr 11/24/20 18:00 11/26/20 12:15 Zosyn 2.25 Gm/D5w 50 Ml IVPB 100 mls/hr Q6HR CÉSAR Administration Levothyroxine Sodium 50 mcg 11/25/20 06:30 11/26/20 05:36 Levothyroxine Sodium 50 Mcg Tablet BY MOUTH 50 mcg DAILY@0630 CÉSAR Administration Lisinopril 5 mg 11/25/20 09:00 11/26/20 08:45 Lisinopril 5 Mg Tablet PO 5 mg QAM CÉSAR Administration Loperamide HCl 2 mg 11/26/20 09:00 11/26/20 08:46 Loperamide Hcl 2 Mg Capsule PO 2 mg DAILY CÉSAR Administration Loratadine 10 mg 11/26/20 09:00 11/26/20 08:47 Loratadine 10 Mg Tablet PO 10 mg DAILY CÉSAR Administration Meclizine HCl 25 mg 11/24/20 14:18 Meclizine Hcl 25 Mg Tablet PO DAILY PRN dizziness Metoprolol Tartrate 25 mg 11/24/20 21:00 11/25/20 21:35 Metoprolol Tartrate 25 Mg Tablet PO 25 mg Q12HR CÉSAR Administration Ondansetron HCl 4 mg 11/23/20 13:14 Ondansetron Inj 4 Mg/2 Ml Vial IV PUSH Q4H PRN Nausea Pantoprazole Sodium 40 mg 11/24/20 16:30 11/26/20 05:34 Pantoprazole 40 Mg Tablet PO 40 mg BIDAC CÉSAR Administration Saccharomyces Boulardii 250 mg 11/25/20 17:00 11/26/20 08:47 Saccharomyces Boulardii 250 Mg Capsule PO 250 mg BID CÉSAR Administration Sotalol HCl 80 mg 11/24/20 17:00 11/26/20 08:45 Sotalol Hcl 80 Mg Tablet PO 80 mg BID CÉSAR Administration Venlafaxine HCl 75 mg 11/25/20 09:00 11/26/20 08:44 Venlafaxine Hcl Xr 75 Mg Cap.Er.24h BY MOUTH 75 mg DAILY CÉSAR Administration Warfarin Sodium 4 mg 11/24/20 17:00 11/24/20 18:52 Warfarin (*Pbkc) 4 Mg Tablet PO Not Given DAILY@1700 [facility] Labs Labs: Laboratory Results - last 24 hr 11/26/20 11/26/20 11/26/20 06:14 06:14 06:14 WBC 9.6 RBC 3.46 L Hgb 10.6 L Hct 31.9 L MCV 92.2 MCH 30.6 MCHC 33.2 RDW 13.2 Plt Count 166 MPV 11.0 H PT
--- NOTE | 2020-11-26 15:54 | PM.IMPN ---
Progress Note: A&P Assessment and Plan (1) Urinary tract infection: Qualifiers: Hematuria presence: with hematuria Urinary tract infection type: site unspecified Qualified Code(s): N39.0 - Urinary tract infection, site not specified; R31.9 - Hematuria, unspecified Code(s): N39.0 - Urinary tract infection, site not specified Status: Acute Assessment and Plan: Urine cx 11/17/20 + for Ecoli as well as her blood cultures -Pt was taking abx outpt but failed outpt treatment -Continue Zosyn through 11/30 per ID's recommendations -Follow up with Dr. Donovan for chronic UTIs. Encourage clean hygiene practices (2) Bacteremia: Code(s): R78.81 - Bacteremia Status: Acute Assessment and Plan: / to above -likely causing her weakness and symptoms -Continue Zosyn through 11/30/20 -Continue PT/OT (3) Paroxysmal atrial fibrillation: Code(s): I48.0 - Paroxysmal atrial fibrillation Status: Acute Assessment and Plan: Rate controlled -Continue metoprolol and sotalol for rate control -will continue warfarin tonight; INR 2.4 (4) Hypothyroid: Code(s): E03.9 - Hypothyroidism, unspecified Status: Acute Assessment and Plan: Continue levothyroxine (5) Acute kidney injury superimposed on chronic kidney disease: Code(s): N17.9 - Acute kidney failure, unspecified; N18.9 - Chronic kidney disease, unspecified Status: Acute Assessment and Plan: Resolved, likely due to bacteremia -Monitor (6) CKD stage G3a/A1, GFR 45-59 and albumin creatinine ratio <30 mg/g: Code(s): N18.31 - Chronic kidney disease, stage 3a Status: Acute Assessment and Plan: Sees Dr Harris and is at baseline (7) Hypertension: Code(s): I10 - Essential (primary) hypertension Status: Acute Assessment and Plan: Last bp 149/68 -Continue metorpolol, lasix, and lisinopril (8) Supratherapeutic INR: Code(s): R79.1 - Abnormal coagulation profile Status: Acute Assessment and Plan: 4.6 on admission -down to 2.4 -will restart warfarin Time Spent With Patient Time with patient: 25 - 35 minutes Subjective Date/time seen: 11/26/20 15:54 Interval history: Pt is a 80-year-old female here for UTI with bacteremia. Patient states she continues to feel weak but feeling better overall. She no longer has dysuria or abdominal pain. She denies chest pain, shortness of breath, fevers, chills, nausea, vomiting, diarrhea or constipation but is having softer stools than normal. She has been eating better. She is not really sleeping very well. Review of Systems Review of Systems: All systems reviewed & are unremarkable except as noted in HPI and below Exam Narrative: Exam Narrative: General: Well developed well nourished patient in NAD HEENT: normocephalic Neck: supple Neuro: Alert and oriented x4 CV:RRR Resp:CTA Abd: Soft, non distended. No pain to palpation. Positive bowel sounds Extremities: No swelling, erythema, or pain to palpation. Objective Data Vital Signs Vital Signs: Vital Signs - 24 hr 11/25/20 16:21 11/25/20 21:35 11/25/20 22:00 Temperature 98.3 F Pulse Rate 84 65 63 Respiratory Rate 20 Blood Pressure 150/56 H Pulse Oximetry 99 11/26/20 06:00 11/26/20 08:45 11/26/20 13:55 Temperature 98.7 F 97.9 F Pulse Rate 69 84 88 Respiratory Rate 20 18 Blood Pressure 166/68 H 149/68 H Pulse Oximetry 97 99 Intake/Output Intake/Output: Intake & Output 11/23/20 11/24/20 11/25/20 11/26/20 23:59 23:59 23:59 23:59 Intake Total 290 3300 3970 1180 Output Total 500 2200 1800 Balance 290 2800 1770 -620 Meds/Results Medications: Active Medications Generic Name Dose Route Start Last Admin Trade Name Freq PRN Reason Stop Dose Admin Acetaminophen 650 mg 11/23/20 13:14 11/26/20 14:35 Acetaminophen 325 Mg Tablet PO 650 mg Q4H
[2020-11-26] MEDS: WARFARIN (*PBKC) 3 MG TABLET PO (17:46)
[2020-11-26] MEDS: MELATONIN 5 MG TABLET PO (20:09)
--- NOTE | 2020-11-26 20:29 | CONS_ITS ---
DATE OF CONSULTATION: 11/26/2020 REASON FOR CONSULTATION: Bacteremia. HISTORY OF PRESENT ILLNESS: A 80-year-old female with multiple UTIs in the past. She apparently has used oral suppression in the past through Urology, but her home medication list does not confirm. She began feeling ill several days before admission with dysuria with radiation of the same urethral pain throughout her body for several seconds. She saw Dr. Beltre the following day, November 18, who prescribed different medication of unknown identity. The patient then presented to the Urgent Care on November 20 and again received a new medication, which she has not yet started. She presented to the emergency room here on the and was admitted. She has been given piperacillin. Consultation requested. Her urethral pain as well as diffuse body aches have resolved. She does have some back pain in the lower lumbar area, and not required any surgical intervention. ALLERGIES: CEFACLOR CAUSES UPSET STOMACH. OTHER CEPHALOSPORINS APPARENTLY CAUSED OTHER UNKNOWN REACTIONS. CIPROFLOXACIN CAUSES RASH. OTHERS NOT PERTINENT. HABITS: No tobacco. No alcohol to excess. PRESENT MEDICATIONS: List reviewed. No immunosuppressants. PAST MEDICAL HISTORY: Bilateral total knee arthroplasties in the distant past, hysterectomy, PAF, pacemaker, DDD, hyperlipidemia, depression, anxiety, and obesity. FAMILY HISTORY: Not pertinent to her present illness. SOCIAL HISTORY: Customarily sees Dr. Donohue. She lives locally. There is family at the bedside. REVIEW OF SYSTEMS: 14-point review otherwise negative. PHYSICAL EXAMINATION: GENERAL: Elderly female, who appears her actual age. No acute distress. VITAL SIGNS: On arrival, she was afebrile with T-max on the following morning 38.4, has been afebrile past 24 hours plus, pulse 88, respirations 18, saturation 99%, and blood pressure 149/68. SKIN: Warm and dry. No rashes. She has ecchymoses. NODES: No cervical adenopathy. EENT: Conjunctivae are clear. NECK: No masses, thyromegaly, meningismus. LUNGS: Clear to auscultation and percussion. BACK: No CVAT. CARDIAC: Regular rate and rhythm. No murmurs or gallops. ABDOMEN: Nontender soft, nondistended. No organomegaly. No masses. EXTREMITIES: No clubbing, cyanosis, edema. Well perfused. LABORATORY DATA: Urine culture from the in Urgent Care as well as the 8th, both revealed E coli. I reviewed those susceptibilities. Blood cultures from the 8th, same organism, same susceptibilities. White count consistently normal. Hemoglobin 10.6, platelets 166, earlier differential was normal. She has mild hyponatremia. Creatinine is 1.1 down from 1.2. Estimated GFR 48, glucose 109, albumin 3.0. Urinalysis, multiple abnormalities, which are reviewed. RADIOLOGY: CT of the abdomen and pelvis showed findings consistent with UTI as described by radiologist. ASSESSMENT: 1. Escherichia coli bacteremia with infection due to urinary tract infection. Other sources of the bacteremia are unlikely including pulmonary, primary bloodstream, skin, soft tissue, GI, biliary, hepatic. Other causes of her fever are also unlikely. 2. Mild renal insufficiency, previously listed as stage III. 3. Multiple antibiotic intolerances or allergies. 4. Past recurrent urinary tract infection. RECOMMENDATIONS: 1. Piperacillin tazobactam appropriate and would continue for 7-day course. 2. As long as no clinical deterioration, she then be followed off antibiotics altogether. Augmentin would be a reasonable alternative after 7 days of IV therapy, if needed. Thank you very much for asking me to see her. Call if further questions. ANUJA JOHN
[2020-11-27] VITALS (7 sets, daily range): BP systolic 142–151; BP diastolic 64–68; PULSE 62–80; RESP 16–20; TEMP 36.4–37.1; O2SAT 95–100
[2020-11-27] MEDS: LEVOTHYROXINE SODIUM 50 MCG TABLET BY MOUTH (05:51)
[2020-11-27] MEDS: PANTOPRAZOLE 40 MG TABLET PO ×2 (05:51→17:42)
[2020-11-27 06:20] LABS: Basophils Percent Auto 0.3 % (0.2-1.2); Eosinophils Absolute Auto 0.2 K/mm3 (0-0.3); Hemoglobin 10.9 g/dL (12.0-15.0); Immature Granulocyte Absolute 0.15 K/mm3 (0.00-0.031); Immature Granulocyte Percent A 1.5 % (0-0.5); Lymphocytes Absolute Auto 2.09 K/mm3 (0.9-3.2); Lymphocytes Percent Auto 20.9 % (18.3-44.2); Mean Corpuscular Hemoglobin 31.1 pg (26-34); Mean Corpuscular Volume 94.3 fl (80-100); Mean Platelet Volume 10.8 fl (7.4-10.4); Monocytes Percent Auto 9.5 % (2.6-8.5); Neutrophils Absolute Auto 6.6 K/mm3 (1.3-6.7); Neutrophils Percent Auto 65.8 % (45.5-73.1); Platelet Count Result 199 k/mm3 (150-375); Red Cell Distribution Width 13.4 % (11.5-14.5)
[2020-11-27 06:27] LABS: Prothrombin Time 23.6 Seconds (11.1-14.7)
[2020-11-27 06:32] LABS: Anion Gap 2 mmol/L (8-16); Blood Urea Nitrogen 9 mg/dL (7-17); Calcium 8.8 mg/dL (8.4-10.2); Carbon Dioxide 31 mmol/L (22-30); Chloride 105 mmol/L (98-107); Estimated CRCL calculation 40 ml/min; Estimated Glomerular Filt Rate 48; Glucose 100 mg/dL (65-105); Potassium 3.7 mmol/L (3.4-5.0); Sodium 138 mmol/L (137-145)
[2020-11-27] MEDS: FLUTICASONE PROPIONATE 0.05% NA SPR 16 GM BTL (*BKC) 2 SPRAY NASAL (09:09)
[2020-11-27] MEDS: lisinopriL 5 MG TABLET PO (09:09)
[2020-11-27] MEDS: SOTALOL HCL 80 MG TABLET PO ×2 (09:10→17:41)
[2020-11-27] MEDS: SACCHAROMYCES BOULARDII 250 MG CAPSULE PO ×2 (09:10→17:41)
[2020-11-27] MEDS: FUROSEMIDE 20 MG TABLET PO (09:11)
[2020-11-27] MEDS: LOPERAMIDE HCL 2 MG CAPSULE PO (09:11)
[2020-11-27] MEDS: LORATADINE 10 MG TABLET PO (09:11)
[2020-11-27] MEDS: FAMOTIDINE 20 MG/2 ML VIAL IV PUSH ×2 (09:11→20:16)
[2020-11-27] MEDS: ATORVASTATIN 10 MG TABLET PO (09:11)
[2020-11-27] MEDS: METOPROLOL TARTRATE 25 MG TABLET PO ×2 (09:12→20:15)
[2020-11-27] MEDS: VENLAFAXINE HCL XR 75 MG CAP.ER.24H BY MOUTH (09:12)
--- NOTE | 2020-11-27 10:16 | PM.IMPN ---
Progress Note: A&P Assessment and Plan (1) Urinary tract infection: Qualifiers: Hematuria presence: with hematuria Urinary tract infection type: site unspecified Qualified Code(s): N39.0 - Urinary tract infection, site not specified; R31.9 - Hematuria, unspecified Code(s): N39.0 - Urinary tract infection, site not specified Status: Acute Assessment and Plan: Urine cx 11/17/20 + for Ecoli as well as her blood cultures -Pt was taking abx outpt but failed outpt treatment -Continue Zosyn through 11/30 per ID's recommendations -Follow up with Dr. Donovan for chronic UTIs. Encourage clean hygiene practices (2) Bacteremia: Code(s): R78.81 - Bacteremia Status: Acute Assessment and Plan: 08/20 to above -likely causing her weakness and symptoms -Continue Zosyn through 11/30/20 -Continue PT/OT, pt transferring as a standby assist (3) Paroxysmal atrial fibrillation: Code(s): I48.0 - Paroxysmal atrial fibrillation Status: Acute Assessment and Plan: Rate controlled -Continue metoprolol and sotalol for rate control -will continue warfarin tonight; INR 2.0 (4) Hypothyroid: Code(s): E03.9 - Hypothyroidism, unspecified Status: Acute Assessment and Plan: Continue levothyroxine (5) Acute kidney injury superimposed on chronic kidney disease: Code(s): N17.9 - Acute kidney failure, unspecified; N18.9 - Chronic kidney disease, unspecified Status: Acute Assessment and Plan: Resolved, likely due to bacteremia -Monitor (6) CKD stage G3a/A1, GFR 45-59 and albumin creatinine ratio <30 mg/g: Code(s): N18.31 - Chronic kidney disease, stage 3a Status: Acute Assessment and Plan: Sees Dr Harris and is at baseline (7) Hypertension: Code(s): I10 - Essential (primary) hypertension Status: Acute Assessment and Plan: Last bp 151/68 and has been running a bit high -increase lisinorpil to 10mg, watch renal fx -Continue metorpolol and lasix as well (8) Supratherapeutic INR: Code(s): R79.1 - Abnormal coagulation profile Status: Acute Assessment and Plan: 4.6 on admission -down to 2.0 -continue warfarin (at slightly decreased dose). If she runs low, this may need to be re-adjusted. -monitor while on abx Subjective Date/time seen: 11/27/20 10:16 Interval history: Pt is a 80-year-old female here for UTI with bacteremia. Patient was seen today and was walking around the room. She said she still feels a little weak but overall doing okay. She still has some soft stool but no actual diarrhea. Pt denies nausea, vomiting, fevers, chills, constipation, dysuria, chest pain, sob, or abdominal pain. We reviewed hygiene habits for preventing UTI and spoke about the plan of care. Exam Narrative: Exam Narrative: General: Well developed well nourished patient in NAD HEENT: normocephalic Neck: supple Neuro: Alert and oriented x4 CV:RRR Resp:CTA Abd: Soft, non distended. No pain to palpation. Positive bowel sounds Extremities: No swelling, erythema, or pain to palpation. Objective Data Vital Signs Vital Signs: Vital Signs - 24 hr 11/26/20 13:55 11/26/20 17:45 11/26/20 20:07 Temperature 97.9 F Pulse Rate 88 88 63 Respiratory Rate 18 Blood Pressure 149/68 H Pulse Oximetry 99 11/26/20 21:17 11/27/20 05:38 11/27/20 09:10 Temperature 97.7 F 98.7 F Pulse Rate 63 73 80 Respiratory Rate 19 18 Blood Pressure 161/62 H 151/68 H Pulse Oximetry 98 95 11/27/20 09:12 Temperature Pulse Rate 80 Respiratory Rate Blood Pressure Pulse Oximetry Intake/Output Intake/Output: Intake & Output 11/24/20 11/25/20 11/26/20 11/27/20 23:59 23:59 23:59 23:59 Intake Total 3300 3970 2210 100 Output Total 500 2200 3400 Balance 2800 1770 -1190 100 Meds/Results Medications: Active Medications Generic Name Dose Route Sta
[2020-11-27] MEDS: ACETAMINOPHEN 325 MG TABLET 650 MG PO (17:41)
[2020-11-27] MEDS: WARFARIN (*PBKC) 3 MG TABLET PO (17:42)
[2020-11-27] MEDS: MELATONIN 5 MG TABLET PO (20:16)
[2020-11-28] VITALS (7 sets, daily range): BP systolic 139–141; BP diastolic 66–69; PULSE 66–88; RESP 16–20; TEMP 36.2–36.8; O2SAT 95–97
[2020-11-28] MEDS: PANTOPRAZOLE 40 MG TABLET PO ×2 (06:08→17:27)
[2020-11-28] MEDS: LEVOTHYROXINE SODIUM 50 MCG TABLET BY MOUTH (06:08)
[2020-11-28 06:24] LABS: Hematocrit 35.2 % (37.0-47.0); Hemoglobin 11.4 g/dL (12.0-15.0); Mean Corpuscular HGB Conc 32.4 g/dl (32-36); Mean Corpuscular Volume 95.7 fl (80-100); Mean Platelet Volume 10.7 fl (7.4-10.4); Platelet Count Result 230 k/mm3 (150-375); Red Blood Count 3.68 M/mm3 (4.2-5.4); Red Cell Distribution Width 13.3 % (11.5-14.5); White Blood Count 11.5 K/mm3 (4.5-10.0)
[2020-11-28 06:37] LABS: Anion Gap 3 mmol/L (8-16); Blood Urea Nitrogen 12 mg/dL (7-17); CRP 6.9 mg/dL (<1.0); Calcium 9.1 mg/dL (8.4-10.2); Carbon Dioxide 31 mmol/L (22-30); Chloride 104 mmol/L (98-107); Estimated CRCL calculation 40 ml/min; Estimated Glomerular Filt Rate 48; Glucose 99 mg/dL (65-105); Magnesium 2.1 mg/dL (1.6-2.3); Potassium 3.8 mmol/L (3.4-5.0); Sodium 138 mmol/L (137-145)
[2020-11-28 06:40] LABS: INR 1.7; Prothrombin Time 20.7 Seconds (11.1-14.7)
[2020-11-28 08:59] LABS: Basophils Absolute Auto 0.1 K/mm3 (0.0-0.1); Basophils Percent Auto 0.5 % (0.2-1.2); Eosinophils Absolute Auto 0.2 K/mm3 (0-0.3); Eosinophils Percent Auto 2.1 % (0-4.4); Hematocrit 33.8 % (37.0-47.0); Hemoglobin 11.4 g/dL (12.0-15.0); Immature Granulocyte Absolute 0.14 K/mm3 (0.00-0.031); Immature Granulocyte Percent A 1.3 % (0-0.5); Lymphocytes Absolute Auto 2.14 K/mm3 (0.9-3.2); Lymphocytes Percent Auto 19.3 % (18.3-44.2); Mean Corpuscular HGB Conc 33.7 g/dl (32-36); Mean Corpuscular Hemoglobin 31.7 pg (26-34); Mean Corpuscular Volume 93.9 fl (80-100); Mean Platelet Volume 11.1 fl (7.4-10.4); Monocytes Absolute Auto 0.8 K/mm3 (0.1-0.6); Monocytes Percent Auto 7.6 % (2.6-8.5); Neutrophils Absolute Auto 7.7 K/mm3 (1.3-6.7); Neutrophils Percent Auto 69.2 % (45.5-73.1); Platelet Count Result 243 k/mm3 (150-375); Red Cell Distribution Width 13.2 % (11.5-14.5); White Blood Count 11.1 K/mm3 (4.5-10.0)
--- NOTE | 2020-11-28 09:48 | PM.IMPN ---
Progress Note: A&P Assessment and Plan (1) Leukocytosis: Code(s): D72.829 - Elevated white blood cell count, unspecified Status: Acute Assessment and Plan: Patient with leukocytosis this morning, normal differential. No recorded fevers, but patient had symptomatic fever last night, but states its improving since arrival. She is nontachycardic, stable BP, normal respiratory rate and oxygenation on room air. She is on IV Zosyn for bactermia from UTI at this time without any new or concerning symptoms at this time. Continue monitoring. (2) Urinary tract infection: Qualifiers: Hematuria presence: with hematuria Urinary tract infection type: site unspecified Qualified Code(s): N39.0 - Urinary tract infection, site not specified; R31.9 - Hematuria, unspecified Code(s): N39.0 - Urinary tract infection, site not specified Status: Acute Assessment and Plan: Urine cx 11/17/20 + for Ecoli as well as her blood cultures -Pt was taking abx outpt but failed outpt treatment -Continue Zosyn through 11/30 per ID's recommendations -Follow up with Dr. Donovan for chronic UTIs. Encourage clean hygiene practices (3) Bacteremia: Code(s): R78.81 - Bacteremia Status: Acute Assessment and Plan: 2/ to above -likely causing her weakness and symptoms -Continue Zosyn through 11/30/20 -Continue PT/OT, pt transferring as a standby assist (4) Paroxysmal atrial fibrillation: Code(s): I48.0 - Paroxysmal atrial fibrillation Status: Acute Assessment and Plan: In normal sinus rhythm at this time. Rate controlled -Continue metoprolol and sotalol for rate control -patient was restarted back on her warfarin the evening of 11/27. (5) Hypothyroid: Code(s): E03.9 - Hypothyroidism, unspecified Status: Acute Assessment and Plan: Continue levothyroxine (6) Acute kidney injury superimposed on chronic kidney disease: Code(s): N17.9 - Acute kidney failure, unspecified; N18.9 - Chronic kidney disease, unspecified Status: Acute Assessment and Plan: Resolved, likely due to bacteremia -Monitor (7) CKD stage G3a/A1, GFR 45-59 and albumin creatinine ratio <30 mg/g: Code(s): N18.31 - Chronic kidney disease, stage 3a Status: Acute Assessment and Plan: Sees Dr Harris and is at baseline (8) Hypertension: Code(s): I10 - Essential (primary) hypertension Status: Acute Assessment and Plan: Last bp 141/68 prior to medications this morning. Slightly elevated. -Continue on lisinorpil with increased dose at 10mg, watch renal fx -Continue metorpolol and lasix as well (9) Supratherapeutic INR: Code(s): R79.1 - Abnormal coagulation profile Status: Acute Assessment and Plan: 4.6 on admission, most likely due to underlying infection. -down to 1.7 this morning. She was restarted on her Warfarin last night. Will give Warfarin 6 mg for 2 nights, then restart her home dose of 4 mg upon discharge. Will continue to monitor while on abx Time Spent With Patient Time with patient: 25 - 35 minutes Subjective Date/time seen: 11/28/20 09:48 Interval history: Date of service 11/28/2020: Pt is a 80-year-old female here for UTI with bacteremia. She said she still feels a little weak but overall doing okay, without any new complaints. She still has some soft stool but no actual diarrhea. She does report a slight fever last night, but denies any chills. Denies any cough, worsening shortness of breath from her baseline. She states her urine is clearing up and is normal color now. Pt denies denies any chest pain, nausea, vomiting, abdominal pain, leg swelling, calf pain, dysuria, lightheadedness, dizziness or any other symptoms at this time. Review of Systems Review of Systems: All systems reviewed & are unremarkable except as noted in HPI and below Ex
[2020-11-28] MEDS: METOPROLOL TARTRATE 25 MG TABLET PO ×2 (10:34→20:03)
[2020-11-28] MEDS: SACCHAROMYCES BOULARDII 250 MG CAPSULE PO ×2 (10:34→17:27)
[2020-11-28] MEDS: lisinopriL 10 MG TABLET PO (10:34)
[2020-11-28] MEDS: FUROSEMIDE 20 MG TABLET PO (10:34)
[2020-11-28] MEDS: FAMOTIDINE 20 MG/2 ML VIAL IV PUSH ×2 (10:34→20:01)
[2020-11-28] MEDS: ATORVASTATIN 10 MG TABLET PO (10:34)
[2020-11-28] MEDS: SOTALOL HCL 80 MG TABLET PO ×2 (10:34→17:27)
[2020-11-28] MEDS: LOPERAMIDE HCL 2 MG CAPSULE PO (10:34)
[2020-11-28] MEDS: VENLAFAXINE HCL XR 75 MG CAP.ER.24H BY MOUTH (10:34)
[2020-11-28] MEDS: FLUTICASONE PROPIONATE 0.05% NA SPR 16 GM BTL (*BKC) 2 SPRAY NASAL (10:35)
[2020-11-28] MEDS: ENOXAPARIN 40 MG/0.4 ML SYRINGE SUB-Q (10:35)
[2020-11-28] MEDS: ACETAMINOPHEN 325 MG TABLET 650 MG PO ×2 (10:37→20:12)
[2020-11-28] MEDS: LORATADINE 10 MG TABLET PO (10:38)
[2020-11-28] MEDS: WARFARIN (*PBKC) 3 MG TABLET 6 MG PO (17:28)
[2020-11-28] MEDS: MELATONIN 5 MG TABLET PO (20:03)
[2020-11-29] VITALS (8 sets, daily range): BP systolic 130–151; BP diastolic 57–74; PULSE 66–70; RESP 16–18; TEMP 36.6–37.3; O2SAT 97–99
[2020-11-29 07:12] LABS: Basophils Percent Auto 0.2 % (0.2-1.2); Eosinophils Absolute Auto 0.2 K/mm3 (0-0.3); Eosinophils Percent Auto 1.8 % (0-4.4); Hematocrit 36.8 % (37.0-47.0); Hemoglobin 11.8 g/dL (12.0-15.0); Immature Granulocyte Absolute 0.14 K/mm3 (0.00-0.031); Immature Granulocyte Percent A 1.5 % (0-0.5); Lymphocytes Absolute Auto 2.08 K/mm3 (0.9-3.2); Lymphocytes Percent Auto 21.9 % (18.3-44.2); Mean Corpuscular HGB Conc 32.1 g/dl (32-36); Mean Corpuscular Volume 96.6 fl (80-100); Mean Platelet Volume 10.5 fl (7.4-10.4); Monocytes Absolute Auto 0.7 K/mm3 (0.1-0.6); Monocytes Percent Auto 7.1 % (2.6-8.5); Neutrophils Absolute Auto 6.4 K/mm3 (1.3-6.7); Neutrophils Percent Auto 67.5 % (45.5-73.1); Platelet Count Result 277 k/mm3 (150-375); Red Blood Count 3.81 M/mm3 (4.2-5.4); Red Cell Distribution Width 13.2 % (11.5-14.5); White Blood Count 9.5 K/mm3 (4.5-10.0)
[2020-11-29 07:20] LABS: INR 1.7; Prothrombin Time 20.5 Seconds (11.1-14.7)
[2020-11-29] MEDS: LOPERAMIDE HCL 2 MG CAPSULE PO (08:51)
[2020-11-29] MEDS: lisinopriL 10 MG TABLET PO (08:51)
[2020-11-29] MEDS: FUROSEMIDE 20 MG TABLET PO (08:51)
[2020-11-29] MEDS: VENLAFAXINE HCL XR 75 MG CAP.ER.24H BY MOUTH (08:51)
[2020-11-29] MEDS: LEVOTHYROXINE SODIUM 50 MCG TABLET BY MOUTH (08:51)
[2020-11-29] MEDS: PANTOPRAZOLE 40 MG TABLET PO ×2 (08:52→16:26)
[2020-11-29] MEDS: SOTALOL HCL 80 MG TABLET PO ×2 (08:52→16:28)
[2020-11-29] MEDS: METOPROLOL TARTRATE 25 MG TABLET PO ×2 (08:52→21:44)
[2020-11-29] MEDS: ATORVASTATIN 10 MG TABLET PO (08:52)
[2020-11-29] MEDS: LORATADINE 10 MG TABLET PO (08:53)
[2020-11-29] MEDS: SACCHAROMYCES BOULARDII 250 MG CAPSULE PO ×2 (08:53→16:27)
[2020-11-29] MEDS: FAMOTIDINE 20 MG/2 ML VIAL IV PUSH ×2 (08:53→21:44)
[2020-11-29] MEDS: FLUTICASONE PROPIONATE 0.05% NA SPR 16 GM BTL (*BKC) 2 SPRAY NASAL (08:53)
[2020-11-29] MEDS: ENOXAPARIN 100 MG/ML SYRINGE SUB-Q ×2 (09:04→21:43)
--- NOTE | 2020-11-29 10:42 | PM.IMPN ---
Progress Note: A&P Assessment and Plan (1) Leukocytosis: Code(s): D72.829 - Elevated white blood cell count, unspecified Status: Acute Assessment and Plan: Patients leukocytosis resolved. Normal differential. Vitals are stable. Feeling much better from arrival with resolved urinary symptoms and no new issues or complaints at this time. She is on IV Zosyn for bactermia from UTI, will continue one more day. (2) Urinary tract infection: Qualifiers: Hematuria presence: with hematuria Urinary tract infection type: site unspecified Qualified Code(s): N39.0 - Urinary tract infection, site not specified; R31.9 - Hematuria, unspecified Code(s): N39.0 - Urinary tract infection, site not specified Status: Acute Assessment and Plan: Urine cx 11/17/20 + for Ecoli as well as her blood cultures -Pt was taking abx outpt but failed outpt treatment -Continue Zosyn through 11/30 per ID's recommendations -Follow up with Dr. Donovan for chronic UTIs. Encourage clean hygiene practices (3) Bacteremia: Code(s): R78.81 - Bacteremia Status: Acute Assessment and Plan: 08/20 to above -likely causing her weakness and symptoms -Continue Zosyn through 11/30/20 -Continue PT/OT, pt transferring as a standby assist (4) Paroxysmal atrial fibrillation: Code(s): I48.0 - Paroxysmal atrial fibrillation Status: Acute Assessment and Plan: In normal sinus rhythm at this time. Rate controlled -Continue metoprolol and sotalol for rate control -patient was restarted back on her warfarin the evening of 11/27. (5) Hypothyroid: Code(s): E03.9 - Hypothyroidism, unspecified Status: Acute Assessment and Plan: Continue levothyroxine (6) Acute kidney injury superimposed on chronic kidney disease: Code(s): N17.9 - Acute kidney failure, unspecified; N18.9 - Chronic kidney disease, unspecified Status: Acute Assessment and Plan: Resolved, likely due to bacteremia -Monitor (7) CKD stage G3a/A1, GFR 45-59 and albumin creatinine ratio <30 mg/g: Code(s): N18.31 - Chronic kidney disease, stage 3a Status: Acute Assessment and Plan: Sees Dr Harris and is at baseline (8) Hypertension: Code(s): I10 - Essential (primary) hypertension Status: Acute Assessment and Plan: Last bp 151/74 prior to medications this morning. Slightly elevated. -Continue on lisinorpil with increased dose at 10mg, watch renal fx -Continue metoprolol and lasix as well (9) Supratherapeutic INR: Code(s): R79.1 - Abnormal coagulation profile Status: Acute Assessment and Plan: 4.6 on admission, most likely due to underlying infection. -Still 1.7 this morning. She was restarted on her Warfarin last night. Will give Warfarin 6 mg for 2 nights (night #2), then restart her home dose of 4 mg upon discharge. Will continue to monitor while on abx Time Spent With Patient Time with patient: 25 - 35 minutes Subjective Date/time seen: 11/29/20 10:42 Interval history: Date of service 11/29/2020: Pt is a 80-year-old female here for UTI with bacteremia. She said she still feels a little weak but overall doing okay, without any new complaints. She still has some soft stool but no actual diarrhea. She denies fever or chills. States her urinary symptoms have resolved. No new symptoms or complaints at this time. Denies any cough, worsening shortness of breath from her baseline. Pt denies denies any chest pain, nausea, vomiting, abdominal pain, leg swelling, calf pain, dysuria, lightheadedness, dizziness or any other symptoms at this time. Review of Systems Review of Systems: All systems reviewed & are unremarkable except as noted in HPI and below Exam Narrative: Exam Narrative: General: 80-year-old woman sitting up on the side of the bed reading the lunch menu. Appears comfort
[2020-11-29 11:02] LABS: Anion Gap 4 mmol/L (8-16); Blood Urea Nitrogen 16 mg/dL (7-17); CRP 5.3 mg/dL (<1.0); Calcium 9.3 mg/dL (8.4-10.2); Carbon Dioxide 29 mmol/L (22-30); Chloride 105 mmol/L (98-107); Estimated CRCL calculation 37 ml/min; Estimated Glomerular Filt Rate 43; Glucose 101 mg/dL (65-105); Potassium 3.8 mmol/L (3.4-5.0); Sodium 138 mmol/L (137-145)
[2020-11-29] MEDS: WARFARIN (*PBKC) 3 MG TABLET 6 MG PO (16:28)
[2020-11-29] MEDS: MELATONIN 5 MG TABLET PO (21:46)
[2020-11-30 06:00] VITALS: BP 132/57; PULSE 61; RESP 16; TEMP 37.2; O2SAT 98
[2020-11-30] MEDS: PANTOPRAZOLE 40 MG TABLET PO (09:31)
[2020-11-30] MEDS: ATORVASTATIN 10 MG TABLET PO (09:31)
[2020-11-30] MEDS: LEVOTHYROXINE SODIUM 50 MCG TABLET BY MOUTH (09:31)
[2020-11-30] MEDS: FAMOTIDINE 20 MG/2 ML VIAL IV PUSH (09:32)
[2020-11-30] MEDS: lisinopriL 10 MG TABLET PO (09:32)
[2020-11-30] MEDS: LOPERAMIDE HCL 2 MG CAPSULE PO (09:32)
[2020-11-30] MEDS: LORATADINE 10 MG TABLET PO (09:32)
[2020-11-30] MEDS: FLUTICASONE PROPIONATE 0.05% NA SPR 16 GM BTL (*BKC) 2 SPRAY NASAL (09:32)
[2020-11-30] MEDS: ENOXAPARIN 100 MG/ML SYRINGE SUB-Q (09:32)
[2020-11-30] MEDS: FUROSEMIDE 20 MG TABLET PO (09:32)
[2020-11-30 09:33] VITALS: PULSE 61
[2020-11-30] MEDS: SOTALOL HCL 80 MG TABLET PO (09:33)
[2020-11-30] MEDS: METOPROLOL TARTRATE 25 MG TABLET PO (09:33)
[2020-11-30] MEDS: VENLAFAXINE HCL XR 75 MG CAP.ER.24H BY MOUTH (09:33)
[2020-11-30] MEDS: SACCHAROMYCES BOULARDII 250 MG CAPSULE PO (09:33)
[2020-11-30 10:04] VITALS: BP 136/60; PULSE 73; RESP 14; TEMP 36.7; O2SAT 100
[2020-11-30] MEDS: ACETAMINOPHEN 325 MG TABLET 650 MG PO (11:32)
--- NOTE | 2020-11-30 13:16 | PM.DS ---
DS: Admitting Diagnosis Admitting Diagnosis Admitting Diagnosis: Weakness DS: Discharge Diagnosis Discharge Diagnosis (1) Leukocytosis: Code(s): D72.829 - Elevated white blood cell count, unspecified Status: Acute (2) Urinary tract infection: Qualifiers: Hematuria presence: with hematuria Urinary tract infection type: site unspecified Qualified Code(s): N39.0 - Urinary tract infection, site not specified; R31.9 - Hematuria, unspecified Code(s): N39.0 - Urinary tract infection, site not specified Status: Acute (3) Bacteremia: Code(s): R78.81 - Bacteremia Status: Acute (4) Paroxysmal atrial fibrillation: Code(s): I48.0 - Paroxysmal atrial fibrillation Status: Acute Assessment and Plan: (5) Hypothyroid: Code(s): E03.9 - Hypothyroidism, unspecified Status: Acute (6) Acute kidney injury superimposed on chronic kidney disease: Code(s): N17.9 - Acute kidney failure, unspecified; N18.9 - Chronic kidney disease, unspecified Status: Acute (7) CKD stage G3a/A1, GFR 45-59 and albumin creatinine ratio <30 mg/g: Code(s): N18.31 - Chronic kidney disease, stage 3a Status: Acute Assessment and Plan: (8) Hypertension: Code(s): I10 - Essential (primary) hypertension Status: Acute (9) Supratherapeutic INR: Code(s): R79.1 - Abnormal coagulation profile Status: Acute DS: Summary Hospital Course Hospital Course: The patient is a 80 year old woman with a history of Parox Afib, recurrent UTI, who presented to the ER with increased weakness, malaise. She saw her PCP who started her on Abx for UTI Bactrim. Her sx did not improve and she came to the ER for further evaluation. Initial vitals showed temp 100.2F, HR 77, BP 144/70, O2 93% on RA, RR 16. Labs showed leukocytosis at 13,100 elevated neutrophils 87%, normal H&H, normal renal function, electrolytes, slightly elevated AST at 41, urinalysis showing 3+ leukocytosis, greater than 75 WBCs, WBC clumps present. Was admitted into the hospital with urinary tract infection, started on IV antibiotics, pending urine culture and blood culture results. She was found to have E coli UTI and bacteremia. Infectious disease was consulted who recommended IV Zosyn for a total of 7 days due to multiple antibiotic allergies. She received antibiotics for 7 days and was discharged on 11/30/2020. She was feeling much better, no more urinary symptoms and stable vital signs. She does have intermittent temperatures of 99? in the evening time, which the patient states she has been having issues with for the last 1 years. She has no change to her cough, shortness of breath, nonhealing wounds, or any other symptoms at this time. After discussing with my attending provider, we feel the patient is at her baseline and to be discharged home to follow-up with her primary care provider for further evaluation. Patient understands, agrees the plan all questions answered. Status at Discharge Cognitive/behavioral status at discharge: Stable, improved. Time Spent with Patient Time attestation: Total time spent providing and/or coordinating discharge services: 41 Time spent: Greater than 30 minutes Exam Narrative: Exam Narrative: General: 80-year-old woman sitting up in bed. Appears comfortable. In no acute distress. Skin: No jaundice or cyanosis. Good skin turgor. Neck: No LAD. Full range of motion. Supple. Respiratory: Lungs are clear to auscultation bilaterally. No wheezing, rales or rhonchi. No bony chest wall tenderness. Cardiovascular: The heart has a regular rate and rhythm without murmur. Lower extremities: No lower extremity edema. Distal pulses are easily palpated. No calf tenderness to palpation. Gastrointestinal: The abdomen is soft, nontender and nondistended with active bowel sounds. Psychiatric: Lucid and
== END 2020-11-30 14:45 | disposition home or self-care (01) | DRG 690 ==
LOC: ANHED 11:47 → ANH3MEDSUR 13:55
PROVIDERS: Nurse Practitioner; Physician Assistant; Admitting Provider Hospitalist; Emergency Provider Nurse Practitioner; PCP Family Medicine; Visit Provider Physician Assistant
DX: N39.0 Urinary tract infection, site not specified (principal); N17.9 Acute kidney failure, unspecified; R78.81 Bacteremia; R31.9 Hematuria, unspecified; D72.829 Elevated white blood cell count, unspecified; F41.8 Other specified anxiety disorders; E78.2 Mixed hyperlipidemia; I48.0 Paroxysmal atrial fibrillation; R79.1 Abnormal coagulation profile; E03.9 Hypothyroidism, unspecified; I12.9 Hypertensive chronic kidney disease with stage 1 through stage 4 chronic kidney disease, or unspecified chronic kidney disease; N18.31 Chronic kidney disease, stage 3a; M50.90 Cervical disc disorder, unspecified, unspecified cervical region; M51.36 Other intervertebral disc degeneration, lumbar region; Z96.659 Presence of unspecified artificial knee joint; Z79.01 Long term (current) use of anticoagulants; Z79.899 Other long term (current) drug therapy; Z88.1 Allergy status to other antibiotic agents; Z88.8 Allergy status to other drugs, medicaments and biological substances; Z91.19 Patient's noncompliance with other medical treatment and regimen; Z95.0 Presence of cardiac pacemaker; Z87.440 Personal history of urinary (tract) infections
CPT/HCPCS: 36415; 51701; 74177; 80048; 80053; 81001; 83605; 83735; 85025; 85027; 85610; 85730; 86140; 87040; 87077; 87086; 87088; 87186; 96361; 96365; 96375; 97110; 97116; 97161; 99285; A9270; G0378; J0696; J1200; J1650; J2405; J2543; J7030; Q9967

== ENCOUNTER 2021-05-22 08:50 | Outpatient (CLI) | payer MEDICARE, SELFPAY ==
--- NOTE | ~2021-05-22 | MM_ITS ---
EXAMINATION: MM screening bridger BI w mary HISTORY: Screening TECHNIQUE: Craniocaudal and mediolateral oblique 3-D tomosynthesis images were obtained and synthetic 2-D images were generated. CAD analysis was submitted and interpreted. COMPARISON: Comparison to multiple prior studies sequentially, with oldest reviewed study dated 02/14. BREAST PARENCHYMAL COMPOSITION: There are scattered areas of fibroglandular density. FINDINGS: There is no evidence of suspicious mass, calcification, or architectural distortion to sugg est malignancy in either breast. There has been no suspicious interval change. IMPRESSION: 1. No mammographic evidence of malignancy. 2. Recommend routine screening mammography in one year. BI-RADS Category 1: Negative Reviewed, dictated and finalized at location A.
== END 2021-05-22 08:51 | disposition home or self-care (01) ==
LOC: ANHIMG 08:53
PROVIDERS: PCP Family Medicine; Visit Provider Family Medicine
DX: Z12.31 Encounter for screening mammogram for malignant neoplasm of breast (principal)
CPT/HCPCS: 77063; 77067

== ENCOUNTER 2022-02-18 11:55 | Emergency (ER) | payer MEDICARE, SELFPAY ==
[2022-02-18] VITALS (19 sets, daily range): BP systolic 124–171; BP diastolic 52–76; PULSE 60–79; RESP 12–22; TEMP 36.6–36.9; O2SAT 96–100
--- NOTE | ~2022-02-18 | XR_ITS ---
XR chest 2V DATE: 02/18/2022 12:40 INDICATION: Midsternal chest pain and shortness of breath for 2 to 3 days TECHNIQUE: 2 views, PA and lateral projections COMPARISON: 11/20/2020 portable AP chest FINDINGS: Left-sided pacemaker device with right atrial and right ventricular leads. Normal heart siz e. No hilar or mediastinal enlargement. No pulmonary infiltrate or consolidation, pleural effusion or pulmonary vascular congestion or pneumo thorax. Surgical clips overlie the anterior lower mid neck. Mild thoracolumbar dextroscoliosis. Degenerative spurring of the thoracic and lumbar spine. Wilma mendoza IMPRESSION: No active cardiopulmonary disease or significant change since 11/20/2020. Reviewed, dictated and finalized at location B. IMPRESSION: No active cardiopulmonary disease or significant change since 021.
--- NOTE | 2022-02-18 11:58 | ECG_ITS ---
Measurements Intervals [place] Rate: 60 P: 110 MA: 196 QRS: -27 QRSD: 86 T: 0 QT: 431 QTc: 433 Interpretive Statements ELECTRONIC ATRIAL PACEMAKER LOW QRS VOLTAGE IN PRECORDIAL LEADS CANNOT RULE OUT SEPTAL INFARCT, AGE INDETERMINATE ABNORMAL ECG COMPARED TO ECG 07/20/2020 17:29:29 SINUS RHYTHM HAS REPLACED ATRIAL FIBRILLATION ELECTRONIC ATRIAL PACING IS NOW APPRECIATED Electronically Signed On 02-18-2022 13:02:54 CDT by Rony Beltran M.D.
[2022-02-18 12:16] LABS: Basophils Percent Auto 0.4 % (0.2-1.2); Eosinophils Absolute Auto 0.1 K/mm3 (0-0.3); Hematocrit 40.2 % (37.0-47.0); Hemoglobin 13.5 g/dL (12.0-15.0); Immature Granulocyte Absolute 0.02 K/mm3 (0.00-0.031); Immature Granulocyte Percent A 0.4 % (0-0.5); Lymphocytes Absolute Auto 2.03 K/mm3 (0.9-3.2); Lymphocytes Percent Auto 37.2 % (18.3-44.2); Mean Corpuscular HGB Conc 33.6 g/dl (32-36); Mean Corpuscular Hemoglobin 32.1 pg (26-34); Mean Corpuscular Volume 95.7 fl (80-100); Mean Platelet Volume 11.1 fl (7.4-10.4); Monocytes Absolute Auto 0.5 K/mm3 (0.1-0.6); Neutrophils Absolute Auto 2.8 K/mm3 (1.3-6.7); Platelet Count Result 202 k/mm3 (150-375); Red Cell Distribution Width 12.4 % (11.5-14.5); White Blood Count 5.5 K/mm3 (4.5-10.0)
[2022-02-18 12:28] LABS: INR 2.2; Prothrombin Time 23.9 Seconds (11.1-14.7)
[2022-02-18 12:29] LABS: Partial Thromboplastin Time 30.8 SECONDS (22.3-36.8)
[2022-02-18 14:08] LABS: Alanine Aminotransferase 18 U/L (6-35); Albumin Level 4.2 g/dL (3.5-5.1); Alkaline Phosphatase 107 U/L (38-126); Anion Gap 10 mmol/L (8-16); Aspartate Amino Transferase 36 U/L (14-36); Bilirubin,Total 0.9 mg/dL (0.2-1.3); Blood Urea Nitrogen 20 mg/dL (7-17); Calcium 8.9 mg/dL (8.4-10.2); Carbon Dioxide 26 mmol/L (22-30); Chloride 101 mmol/L (98-107); Estimated CRCL calculation 36 ml/min; Estimated Glomerular Filt Rate 43; Glucose 101 mg/dL (65-110); Lipase 151 U/L (23-300); Potassium 4.7 mmol/L (3.4-5.0); Sodium 137 mmol/L (137-145)
[2022-02-18 14:18] LABS: Troponin I < 0.012 ng/mL (0.000-0.034)
[2022-02-18 17:27] LABS: Troponin I < 0.012 ng/mL (0.000-0.034)
[2022-02-18 19:49] LABS: Troponin I < 0.012 ng/mL (0.000-0.034)
[2022-02-18] MEDS: ACETAMINOPHEN 500 MG TABLET 1000 MG PO (19:52)
--- NOTE | 2022-02-18 20:17 | ED.CHESTPAIN ---
HPI - Chest Pain General Chief Complaint: Chest Pain Stated Complaint: SOB and intermittent chest tightness x several day Time Seen by Provider: 02/18/22 19:08 History of Present Illness HPI narrative: Patient is a 81-year-old female who presents ER with chest tightness. Ongoing for couple of days. Central and also tight in her left arm. No aggravating or alleviating factors. She did take some Tums. No fevers or chills or sweats. Has a mild cough that is nonproductive. She took a COVID test at home which was negative. She has no history of coronary disease but does have a pacemaker due to having atrial fibrillation. She sees Dr. Beltran. Related Data Home Medications Medication Instructions Recorded Confirmed sotalol 80 mg tablet 80 mg PO BID 07/24/19 12/16/20 metoprolol tartrate 25 mg tablet 25 mg PO BID 07/25/19 12/16/20 fluticasone propionate 50 2 spray intranasal DAILY 11/25/20 12/16/20 mcg/actuation nasal spray,suspension loratadine 10 mg tablet (Claritin) 10 mg PO DAILY 11/25/20 12/16/20 loperamide 2 mg capsule 2 mg PO Q6H PRN 08/28/21 trimethoprim 100 mg tablet 100 mg PO DAILY 08/28/21 Allergies Allergy/AdvReac Type Severity Reaction Status Date / Time Cephalosporins Allergy Unknown Unknown Verified 02/18/22 11:56 ciprofloxacin Allergy Unknown rash Verified 02/18/22 11:56 Quinolones Allergy Unknown Rash Verified 02/18/22 11:56 cefaclor AdvReac Unknown upset Verified 02/18/22 11:56 stomach hydrocodone AdvReac Unknown UPSET Verified 02/18/22 11:56 STOMACH ibuprofen AdvReac Unknown UPSET Verified 02/18/22 11:56 STOMACH oxycodone AdvReac Unknown VERY Verified 02/18/22 11:56 ADDICTIVE propoxyphene AdvReac Unknown UPSET Verified 02/18/22 11:56 STOMACH rofecoxib AdvReac Unknown UPSET Verified 02/18/22 11:56 STOMACH Review of Systems Review of Systems: All systems reviewed & are unremarkable except as noted in HPI and below Constitutional: Constitutional: Denies chills and Denies fever(s) ENT: Denies dysphagia, Denies nasal congestion and Denies sore throat Cardiovascular: Cardiovascular: Reports chest pain, Denies rapid heart rate and Reports radiating jaw, neck or arm pain Respiratory: Respiratory: Denies cough and Denies dyspnea Gastrointestinal: Gastrointestinal: Denies abdominal pain, Denies nausea and Denies vomiting Genitourinary: Genitourinary: Denies nocturia and Denies dysuria Musculoskeletal: Musculoskeletal: Denies joint swelling and Denies muscle cramps PMFSH Past Medical History Medical History Abdominal pain Abnormal sialogram Arthritis Cervical disc disorder, unspecified, unspecified cervical region Depression with anxiety History of radiation exposure Mixed hyperlipidemia Oral cancer Other intervertebral disc degeneration, lumbar region Paroxysmal atrial fibrillation Presence of permanent cardiac pacemaker Surgical History Surgical History H/O laparoscopy History of back surgery History of dilation and curettage History of hysterectomy History of oral surgery History of total knee arthroplasty S/P myomectomy S/P placement of cardiac pacemaker S/P thyroidectomy Family History Family History Mother Family history of malignant neoplasm of ovary Acute myocardial infarction Other Family history of arthritis Social History Social History Smoking status: Never smoker Alcohol intake: never Substance use: never Substance use type: does not use Gender identity (if verbalized by the patient): Female Sexual Orientation (if Verbalized by the Patient): Straight or Heterosexual Spiritual care concerns: No Exam Narrative: GENERAL: Well-appearing, well-nourished, and in no acute distress. HEAD: Normo
== END 2022-02-18 21:37 | disposition home or self-care (01) ==
PROVIDERS: Emergency Medicine; Emergency Provider Emergency Medicine; PCP Family Medicine
DX: R07.89 Other chest pain (principal); M19.90 Unspecified osteoarthritis, unspecified site; F32.9 Major depressive disorder, single episode, unspecified; F41.9 Anxiety disorder, unspecified; I48.91 Unspecified atrial fibrillation; Z95.0 Presence of cardiac pacemaker; E89.0 Postprocedural hypothyroidism
CPT/HCPCS: 36415; 71046; 80053; 83690; 84484; 85025; 85610; 85730; 93005; 99284; A9270

== ENCOUNTER 2022-02-19 14:54 | Outpatient (CLI) | payer MEDICARE, SELFPAY ==
--- NOTE | ~2022-02-19 | US_ITS ---
US abdomen limited INDICATION: Epigastric pain PROCEDURE: Realtime right upper abdominal ultrasound. COMPARISON: No prior studies for comparison. FINDINGS: The pancreas is normal without focal mass or pancreatic ductal dilation. Liver echotexture is mildly heterogeneous and slightly increased, consistent with fatty infiltration. There is normal directional flow in the portal vein. The gallbladder is normal without stones, gallbladder wall thickening or pericholecystic fluid. Comm on bile duct measures 5 mm. No sonographic Alcantara's sign. IMPRESSION: 1: Hepatic steatosis. Reviewed, dictated and finalized at location A. IMPRESSION: 1: Hepatic steatosis.
== END 2022-02-19 14:55 | disposition home or self-care (01) ==
PROVIDERS: PCP Family Medicine; Visit Provider Nurse Practitioner Family
DX: R10.13 Epigastric pain (principal); K76.0 Fatty (change of) liver, not elsewhere classified
CPT/HCPCS: 76705

== ENCOUNTER 2022-04-29 14:23 | Outpatient (CLI) | payer MEDICARE, SELFPAY ==
--- NOTE | ~2022-04-29 | XR_ITS ---
EXAMINATION: XR lumbar spine 2-3V DATE: 04/29/2022 14:51 INDICATION: Low back pain. TECHNIQUE: 3 views of lumbar spine were obtained. COMPARISON: Lumbar spine radiograph 07/22/2016 FINDINGS: There is 12 degrees levoscoliosis of lumbar spine. There is 3 mm retrolisthesis of T12 on L 1 and L1 on L2. There are changes of anterior and posterior fusion procedures at L5-S1 with interbody devices and pedicle screws. There is mild chronic anterior wedging of T11 vertebral body. There is s everely decreased disc height from T12-L1 through L4-L5 with endplate remodeling. There is interbody fusion at T12-L1 and L1-L2. There is multilevel severe facet joint osteoarthritis. IMPRESSION: 1. Severe lumbar spondylosis. 2. Anterior and posterior fusion procedures at L5-S1. Interbody fusion at T12-L1 and L1-L2. 3. Lumbar levoscoliosis. Reviewed, dictated and finalized at location A. IMPRESSION: 1. Severe lumbar spondylosis. 2. Anterior and posterior fusion procedures at L5-S1. Interbody fusion at T12-L 1 and L1-L2. 3. Lumbar levoscoliosis.
--- NOTE | ~2022-04-29 | XR_ITS ---
EXAMINATION: XR hip RT min 2V DATE: 04/29/2022 14:51 INDICATION: Right hip pain. TECHNIQUE: 2 views of right hip were obtained. COMPARISON: None. FINDINGS: Bone alignment is normal. No fracture. There is severe right hip osteoarthritis. There are changes of anterior and posterior fusion procedures at L5-S1. IMPRESSION: 1. Severe right hip osteoarthritis. Reviewed, dictated and finalized at location A.
== END 2022-04-29 14:24 | disposition home or self-care (01) ==
PROVIDERS: PCP Family Medicine; Visit Provider Nurse Practitioner Family
DX: M47.815 Spondylosis without myelopathy or radiculopathy, thoracolumbar region (principal); M41.9 Scoliosis, unspecified; Z98.1 Arthrodesis status; M16.11 Unilateral primary osteoarthritis, right hip
CPT/HCPCS: 72100; 73502

== ENCOUNTER 2022-07-02 09:44 | Outpatient (CLI) | payer MEDICARE, SELFPAY ==
--- NOTE | ~2022-07-02 | MM_ITS ---
EXAMINATION: MM screening bridger BI w mary HISTORY: Screening TECHNIQUE: Craniocaudal and mediolateral oblique 3-D tomosynthesis images were obtained and synthetic 2-D images were generated. CAD analysis was submitted and interpreted. COMPARISON: Comparison to multiple prior studies sequentially, with oldest reviewed study dated 02/25. BREAST PARENCHYMAL COMPOSITION: The breasts are almost entirely fatty. FINDINGS: There is no evidence of suspicious mass, calcification, or architectural distortion to sugg est malignancy in either breast. There has been no suspicious interval change. IMPRESSION: 1. No mammographic evidence of malignancy. 2. Recommend routine screening mammography in one year. BI-RADS Category 1: Negative Reviewed, dictated and finalized at location B. E [employer]ESSING [employer]ER
== END 2022-07-02 09:45 | disposition home or self-care (01) ==
PROVIDERS: PCP Family Medicine; Visit Provider Family Medicine
DX: Z12.31 Encounter for screening mammogram for malignant neoplasm of breast (principal)
CPT/HCPCS: 77063; 77067

== ENCOUNTER 2022-07-13 12:15 | Emergency (ER) | payer MEDICARE, SELFPAY ==
--- NOTE | ~2022-07-13 | XR_ITS ---
EXAMINATION: XR chest 2V Exam Date/Time: 07/13/2022 15:05 [facility] HISTORY: cough X's 1 month Comparison: 02/18/2022. RESULT: Lines, tubes, and devices: Left chest pacer with intact leads. Right neck surgical seven. Lungs and pleura: Minimal bibasilar atelectasis, otherwise clear. Cardiomediastinal silhouette: Stable. Other: No acute osseous or upper abdominal finding. IMPRESSION: No acute cardiopulmonary process. Reviewed, dictated and finalized at location [facility]
[2022-07-13 13:40] VITALS: BP 135/65; PULSE 66; RESP 20; TEMP 36.3; O2SAT 99
--- NOTE | 2022-07-13 15:15 | ED.URI ---
HPI - URI/Sore Throat General Chief Complaint: Upper Respiratory Infection Stated Complaint: chest congestion Time Seen by Provider: 07/13/22 15:15 Source: patient Mode of arrival: ambulatory Limitations: no limitations History of Present Illness HPI Narrative: 82-year-old female presents with complaint of cough since June 20. Afebrile. Denies chest pain and shortness of breath. Reports that she cannot get rid of the rattling sound in her chest. It is keeping her awake at night. Is taking a daily antihistamine and cough drops. Has not tried any other medications to treat her symptoms. Called her primary care physician approximately a week ago to discuss symptoms and was prescribed a Z-Alex. Reports no change in symptoms. Would like a chest x-ray to rule out pneumonia. All systems reviewed and negative except as noted above. Related Data Home Medications Medication Instructions Recorded Confirmed sotalol 80 mg tablet 80 mg PO BID 07/24/19 07/13/22 metoprolol tartrate 25 mg tablet 25 mg PO BID 07/25/19 07/13/22 fluticasone propionate 50 2 spray intranasal DAILY 11/25/20 07/13/22 mcg/actuation nasal spray,suspension loratadine 10 mg tablet (Claritin) 10 mg PO DAILY 11/25/20 07/13/22 loperamide 2 mg capsule 2 mg PO Q6H PRN Pain 08/28/21 07/13/22 trimethoprim 100 mg tablet 100 mg PO DAILY 08/28/21 07/13/22 Allergies Allergy/AdvReac Type Severity Reaction Status Date / Time Cephalosporins Allergy Unknown Unknown Verified 07/13/22 14:55 ciprofloxacin Allergy Unknown rash Verified 07/13/22 14:55 Quinolones Allergy Unknown Rash Verified 07/13/22 14:55 cefaclor AdvReac Unknown upset Verified 07/13/22 14:55 stomach hydrocodone AdvReac Unknown UPSET Verified 07/13/22 14:55 STOMACH ibuprofen AdvReac Unknown UPSET Verified 07/13/22 14:55 STOMACH oxycodone AdvReac Unknown VERY Verified 07/13/22 14:55 ADDICTIVE propoxyphene AdvReac Unknown UPSET Verified 07/13/22 14:55 STOMACH rofecoxib AdvReac Unknown UPSET Verified 07/13/22 14:55 STOMACH Review of Systems Review of Systems: CONSTITUTIONAL: Denies fever, chills, or sweats. EYES: Denies visual changes, redness, or discharge. ENT: Denies rhinorrhea, congestion, sore throat, or otalgia. CARDIOVASCULAR: Denies chest pain, palpitations, or edema. RESPIRATORY: reports cough, rattling in chest foot. Denies dyspnea. GASTROINTESTINAL: Denies abdominal pain, nausea, vomiting, or diarrhea. GENITOURINARY: Denies dysuria or hematuria. SKIN: Denies rash or itching. MUSCULOSKELETAL: Denies back pain, joint pain, or myalgia. NEUROLOGIC: Denies headache, numbness, or weakness. PSYCHIATRIC: Denies anxiety or depression. All other systems reviewed are negative, except as documented in HPI. [facility] Past Medical History Medical History Abdominal pain Abnormal sialogram Arthritis BMI 36.0-36.9,adult Cervical disc disorder, unspecified, unspecified cervical region Depression with anxiety History of radiation exposure Mixed hyperlipidemia Oral cancer Other intervertebral disc degeneration, lumbar region Paroxysmal atrial fibrillation Presence of permanent cardiac pacemaker Surgical History Surgical History H/O laparoscopy History of back surgery History of dilation and curettage History of hysterectomy History of oral surgery History of total knee arthroplasty S/P myomectomy S/P placement of cardiac pacemaker S/P thyroidectomy Family History Family History Mother Family history of malignant neoplasm of ovary Acute myocardial infarction Father No problems noted. Sibling No problems noted. Other Family history of arthritis Social History Social History Smoking status:
== END 2022-07-13 15:48 | disposition home or self-care (01) ==
PROVIDERS: Emergency Provider Nurse Practitioner Family; PCP Family Medicine
DX: J20.9 Acute bronchitis, unspecified (principal); J21.9 Acute bronchiolitis, unspecified; M19.90 Unspecified osteoarthritis, unspecified site; E78.2 Mixed hyperlipidemia; M51.36 Other intervertebral disc degeneration, lumbar region; I48.0 Paroxysmal atrial fibrillation; Z95.0 Presence of cardiac pacemaker; Z85.819 Personal history of malignant neoplasm of unspecified site of lip, oral cavity, and pharynx
CPT/HCPCS: 71046; 99213; G0463

== ENCOUNTER 2022-09-21 12:49 | Outpatient (CLI) | payer MEDICARE, SELFPAY ==
[2022-09-21 14:39] LABS: Basophils Percent Auto 0.3 % (0.2-1.2); Eosinophils Absolute Auto 0.1 K/mm3 (0-0.3); Eosinophils Percent Auto 1.6 % (0-4.4); Hemoglobin 12.6 g/dL (12.0-15.0); Immature Granulocyte Absolute 0.01 K/mm3 (0.00-0.031); Immature Granulocyte Percent A 0.1 % (0-0.5); Lymphocytes Absolute Auto 2.76 K/mm3 (0.9-3.2); Lymphocytes Percent Auto 41.1 % (18.3-44.2); Mean Corpuscular HGB Conc 32.3 g/dl (32-36); Mean Corpuscular Hemoglobin 30.9 pg (26-34); Mean Corpuscular Volume 95.6 fl (80-100); Mean Platelet Volume 11.3 fl (7.4-10.4); Monocytes Absolute Auto 0.7 K/mm3 (0.1-0.6); Monocytes Percent Auto 10.4 % (2.6-8.5); Neutrophils Absolute Auto 3.1 K/mm3 (1.3-6.7); Neutrophils Percent Auto 46.5 % (45.5-73.1); Platelet Count Result 211 k/mm3 (150-375); Red Blood Count 4.08 M/mm3 (4.2-5.4); White Blood Count 6.7 K/mm3 (4.5-10.0)
[2022-09-21 14:52] LABS: INR 2.4; Prothrombin Time 25.5 Seconds (11.1-14.7)
[2022-09-21 14:53] LABS: Partial Thromboplastin Time 34.7 SECONDS (22.3-36.8)
[2022-09-21 14:59] LABS: Albumin Level 4.1 g/dL (3.5-5.1); Anion Gap 5 mmol/L (8-16); Blood Urea Nitrogen 19 mg/dL (7-17); Carbon Dioxide 30 mmol/L (22-30); Chloride 103 mmol/L (98-107); Estimated Glomerular Filt Rate 43; Glucose 91 mg/dL (65-110); Potassium 5.1 mmol/L (3.4-5.0); Sodium 138 mmol/L (137-145)
[2022-09-21 16:45] LABS: Hemoglobin A1C 5.2 % (<5.7)
[2022-09-21 19:20] LABS: Urine Cotinine NEGATIVE
== END 2022-09-21 12:50 | disposition home or self-care (01) ==
LOC: ANHSURGERY 12:54
PROVIDERS: Anesthesiology; PCP Family Medicine; Visit Provider Orthopaedic Surgery
DX: M16.11 Unilateral primary osteoarthritis, right hip (principal); Z79.01 Long term (current) use of anticoagulants; Z01.818 Encounter for other preprocedural examination
CPT/HCPCS: 36415; 80048; 80307; 82040; 83036; 85025; 85610; 85730; 87081

== ENCOUNTER 2022-09-30 14:09 | Outpatient (CLI) | payer MEDICARE, SELFPAY ==
[2022-09-30 15:30] LABS: Potassium 4.7 mmol/L (3.4-5.0)
== END 2022-09-30 14:10 | disposition home or self-care (01) ==
PROVIDERS: PCP Family Medicine; Visit Provider Internal Medicine Nephrology
DX: N18.31 Chronic kidney disease, stage 3a (principal)
CPT/HCPCS: 36415; 84132

== ENCOUNTER 2022-10-08 10:07 | Observation (INO) | payer MEDICARE, SELFPAY ==
[2022-09-21 13:02] VITALS: BMI 38.7
--- NOTE | 2022-09-21 13:34 | PC.NURSE ---
Report to the Outpatient Waiting Room, entrance under the green pavilion located off [facility], at time 0600 on date ___10/19/22____. Planned Procedure Time: __729 . Time changes happen often and if your time is changed the preop area will call you the afternoon before. - You and your visitor will be asked to self-screen and do not enter if you have any COVID symptoms. - Only one visitor is requested with a max of two and NO children visitors are allowed at this time. - The patient visitor may be requested to leave or wait in car when not with patient due to distancing restrictions. - A mask is optional within the hospital at this time. Patients may have clear liquids (water, carbonated beverages, clear teas, apple juice) until 3 hours prior to surgery with a maximum of 20 ounces. - No food from midnight until time of surgery - Infants may have breast milk until 4 hours before surgery, infant formula 6 hours prior to surgery. - Children will be allowed to drink immediately following surgery. If applicable, please bring a bottle or sippy cup to assist with drinking. Juice, water, soda, and popsicles are readily available. For infants on formula, please bring formula the day of surgery. Pacifiers are allowed. Take the following medications with a SIP of water the morning of surgery: __LEVOTHYROXINE,METOPROLOL,SOTALOL,VENLAFAXINE DO NOT STOP ANY OF YOUR OTHER PRESCRIPTION MEDICATIONS PRIOR TO SURGERY ?EXCEPT THE FOLLOWING Medications to discontinue per physician ___WARFARIN 5 DAYS PRE OP PER DR FRASER.LAST DOSE 10/13/22__. ALL VITAMINS/SUPPLEMENTS 3 DAYS PRE OP .LAST DOSE 10/15/22 Please no make-up, nail haitian, hairspray, perfume, deodorant, or body powder the day of surgery. No jewelry (including any body piercings) or valuables the day of surgery, leave them at home. Please take a shower or bath the night before, or the morning of, surgery with an antibacterial soap. Wear comfortable, loose fitting clothing. Children are encouraged to wear pajamas. - Jewelry must be removed prior to entering the operating room. Rings and piercings that are not removed may be cut off. - The hospital will not accept responsibility for valuables. - Please leave all valuables, including medications, at home the day of surgery. If you are going home after surgery, a licensed food mobile driver must drive you home. - NO public transportation without another adult if you receive anesthesia. - We recommend that an adult stay with you for 24 hours following discharge. - We also recommend that you do not drive, make important decision, drink alcoholic beverages, or take any drugs that were not prescribed by your health care provider for at least 24 hours after your discharge time. For Pediatric surgeries, we recommend two adults accompany the child home. Follow any additional instructions given to you from your surgeon. If you or anyone in your household have experienced Covid symptoms in the past week, please notify your surgeon or the nurse liaison at the phone number below for possible testing. VERBAL AND WRITTEN instructions given to __PATIENT and asked if any additional questions and then verbalized understanding. Patient advised to call surgeon office or pre surgery nurse liaison [phone] if any additional questions.
[2022-09-21 13:56] VITALS: BP 126/66; PULSE 80; RESP 18; TEMP 37.1; O2SAT 97
--- NOTE | 2022-10-01 11:09 | PC.NURSE ---
Report to the Outpatient Waiting Room, entrance under the green pavilion located off [facility], at time _1000 on date __10/07/22 . Planned Procedure Time: _1200 . Time changes happen often and if your time is changed the preop area will call you the afternoon before. - You and your visitor will be asked to self-screen and do not enter if you have any COVID symptoms. - Only one visitor is requested with a max of two and NO children visitors are allowed at this time. - The patient visitor may be requested to leave or wait in car when not with patient due to distancing restrictions. - A mask is optional within the hospital at this time. Patients may have clear liquids (water, carbonated beverages, clear teas, apple juice) until 3 hours prior to surgery with a maximum of 20 ounces. - No food from midnight until time of surgery - Infants may have breast milk until 4 hours before surgery, infant formula 6 hours prior to surgery. - Children will be allowed to drink immediately following surgery. If applicable, please bring a bottle or sippy cup to assist with drinking. Juice, water, soda, and popsicles are readily available. For infants on formula, please bring formula the day of surgery. Pacifiers are allowed. Take the following medications with a SIP of water the morning of surgery: ___LEVOTHYROXINE,METOPROLOL,SOTALOL,VENLAFAXINE DO NOT STOP ANY OF YOUR OTHER PRESCRIPTION MEDICATIONS PRIOR TO SURGERY ?EXCEPT THE FOLLOWING Medications to discontinue per physician HOLD WARFARIN 5 DAYS PRE OP PER DR FRASER.LAST DOSE 10/01/22. PT STATES ALL VITAMINS AND SUPPLEMENTS 7 DAYS PRE OP PER DR FRASER LAST DOSE 09/30/22 Please no make-up, nail vietnamese, hairspray, perfume, deodorant, or body powder the day of surgery. No jewelry (including any body piercings) or valuables the day of surgery, leave them at home. Please take a shower or bath the night before, or the morning of, surgery with an antibacterial soap. Wear comfortable, loose fitting clothing. Children are encouraged to wear pajamas. - Jewelry must be removed prior to entering the operating room. Rings and piercings that are not removed may be cut off. - The hospital will not accept responsibility for valuables. - Please leave all valuables, including medications, at home the day of surgery. If you are going home after surgery, a licensed cdl driver must drive you home. - NO public transportation without another adult if you receive anesthesia. - We recommend that an adult stay with you for 24 hours following discharge. - We also recommend that you do not drive, make important decision, drink alcoholic beverages, or take any drugs that were not prescribed by your health care provider for at least 24 hours after your discharge time. For Pediatric surgeries, we recommend two adults accompany the child home. Follow any additional instructions given to you from your surgeon. If you or anyone in your household have experienced Covid symptoms in the past week, please notify your surgeon or the nurse liaison at the phone number below for possible testing. Telephone instructions given to ___PATIENT and asked if any additional questions and then verbalized understanding. Patient advised to call surgeon office or pre surgery nurse liaison [phone] if any additional questions.
--- NOTE | 2022-10-01 11:11 | PC.NURSE ---
PT STATES NO CHANGE IN HEALTH HX SINCE LAST INTERVIEW ON 09/21/[address] BURNETT ON 09/30/22 AND IS CLEARED FOR SURGERY
[2022-10-07] VITALS (16 sets, daily range): BP systolic 126–144; BP diastolic 56–94; PULSE 70–103; RESP 12–20; TEMP 36.6–37.6; O2SAT 92–100
--- NOTE | 2022-10-07 07:45 | PM.IMHP ---
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 Patient has been pain for several years. It is at a point where she has advanced osteoarthritis of the right hip. She has severe symptoms on a daily basis and is miserable. She has been on Celebrex 100 mg daily without improvement of her symptoms. She feels at this point she would rather proceed with total hip arthroplasty rather than continue with nonsurgical treatment. Review of Systems Review of Systems: All systems reviewed & are unremarkable except as noted in HPI and below PMFSH Past Medical History Medical History Abdominal pain Abnormal sialogram Arthritis BMI 36.0-36.9,adult Cervical disc disorder, unspecified, unspecified cervical region Depression with anxiety History of radiation exposure Mixed hyperlipidemia Oral cancer Other intervertebral disc degeneration, lumbar region Paroxysmal atrial fibrillation Presence of permanent cardiac pacemaker Surgical History Surgical History H/O laparoscopy History of back surgery History of dilation and curettage History of hysterectomy History of oral surgery History of total knee arthroplasty S/P myomectomy S/P placement of cardiac pacemaker S/P thyroidectomy Family History Family History Mother Family history of malignant neoplasm of ovary Acute myocardial infarction Father No problems noted. Sibling No problems noted. Other Family history of arthritis Social History Social History Smoking status: Never smoker Second hand tobacco smoke exposure: No Additional smoking assessment comments: DENIES ANY FORM OF TOBACCO USE Alcohol intake: never Substance use: never Substance use type: does not use Lack of Transportation: No Lack of Food: Never True Current Housing: I Have Housing Concerned About Future Housing: No Difficulty Paying Gas/Electric Bills: No Difficulty Paying for Meds: No Currently Unemployed: No Education: High School Diploma/GED Difficulty w/ Childcare or Family Care: No Living arrangements: with family Occupation/Education: retired Additional occupation/education comments: [employer] Gender identity (if verbalized by the patient): Female Sexual Orientation (if Verbalized by the Patient): Straight or Heterosexual Spiritual care concerns: No Meds Home Medications and Allergies Home Medications Medication Instructions Recorded Confirmed Type sotalol 80 mg tablet 80 mg PO BID 07/24/19 10/01/22 History metoprolol tartrate 25 mg tablet 25 mg PO BID 07/25/19 10/01/22 History fluticasone propionate 50 2 spray intranasal DAILY 11/25/20 10/01/22 History mcg/actuation nasal spray,suspension loratadine 10 mg tablet (Claritin) 10 mg PO DAILY 11/25/20 10/01/22 History melatonin 5 mg tablet 5 mg PO HS #30 tabs 11/30/20 10/01/22 Rx loperamide 2 mg capsule 2 mg PO Q6H PRN Pain 08/28/21 10/01/22 History trimethoprim 100 mg tablet 100 mg PO DAILY 08/28/21 10/01/22 History warfarin 1 mg tablet See Rx Instructions .Route 01/19/22 10/01/22 Rx .COMPLEX #90 tabs meclizine 25 mg tablet 25 mg PO BID PRN dizziness #20 tabs 02/11/22 10/01/22 Rx venlafaxine 150 mg See Rx Instructions .Route 06/17/22 10/01/22 Rx capsule,extended release 24 hr .COMPLEX #90 caps atorvastatin 10 mg tablet See Rx Instructions .Route 07/21/22 10/01/22 Rx .COMPLEX #90 tabs benazepril 10 mg tablet 10 mg PO DAILY #90 tabs 07/21/22 10/01/22 Rx celecoxib 100 mg capsule (Celebrex) 100 mg PO BID #180 caps 07/21/22 10/01/22 Rx warfarin 4 mg tablet See Rx Instructions .Route 08/02/22 10/01/22 Rx
[2022-10-07] MEDS: ACETAMINOPHEN 500 MG TABLET 1000 MG PO ×2 (10:54→21:53)
[2022-10-07] MEDS: LACTATED RINGERS 1,000 ML 30 ML IV CONT ×2 (11:05→16:12)
[2022-10-07 11:26] LABS: INR 1.1; Prothrombin Time 13.3 Seconds (11.1-14.7)
--- NOTE | 2022-10-07 11:31 | WPDANESEPPF ---
Anes - Initial Pre Proc Eval Procedure: Operation Date: 10/07/22 12:00 Proposed Procedures p Right Total Hip Arthroplasty Anterior Approach - Samy Marte MD Date/Time: 10/07/22 11:31 Surgeon: Samy Marte MD Pre Op Diagnosis: oa right hip Patient Data Age: 82 Gender: F Height: 1.57 m Weight: 95.4 kg Last Vital Signs Temp 36.7 C 10/07/22 10:10 Pulse 78 10/07/22 10:10 Resp 20 10/07/22 10:10 BP 143/75 H 10/07/22 10:10 Pulse Ox 100 10/07/22 10:10 O2 Del Method Room Air 10/07/22 10:10 Allergies Allergy/AdvReac Type Severity Reaction Status Date / Time Cephalosporins AdvReac Mild upset Verified 10/07/22 10:28 stomach ciprofloxacin AdvReac Mild rash Verified 10/07/22 10:28 cefaclor AdvReac Unknown upset Verified 10/01/22 11:13 stomach hydrocodone AdvReac Unknown UPSET Verified 10/07/22 10:28 STOMACH ibuprofen AdvReac Unknown UPSET Verified 10/07/22 10:28 STOMACH oxycodone AdvReac Unknown VERY Verified 10/01/22 11:13 ADDICTIVE propoxyphene AdvReac Unknown UPSET Verified 10/07/22 10:28 STOMACH Quinolones AdvReac Unknown Rash Verified 10/07/22 10:28 rofecoxib AdvReac Unknown UPSET Verified 10/07/22 10:28 STOMACH Home Medications Medication Instructions Recorded Confirmed Type sotalol 80 mg tablet 80 mg PO BID 07/24/19 10/07/22 History metoprolol tartrate 25 mg tablet 25 mg PO BID 07/25/19 10/07/22 History fluticasone propionate 50 2 spray intranasal DAILY 11/25/20 10/01/22 History mcg/actuation nasal spray,suspension loratadine 10 mg tablet (Claritin) 10 mg PO DAILY 11/25/20 10/07/22 History melatonin 5 mg tablet 5 mg PO HS #30 tabs 11/30/20 10/07/22 Rx trimethoprim 100 mg tablet 100 mg PO DAILY 08/28/21 10/07/22 History warfarin 1 mg tablet See Rx Instructions .Route 01/19/22 10/07/22 Rx .COMPLEX #90 tabs meclizine 25 mg tablet 25 mg PO BID PRN dizziness #20 tabs 02/11/22 10/01/22 Rx venlafaxine 150 mg See Rx Instructions .Route 06/17/22 10/07/22 Rx capsule,extended release 24 hr .COMPLEX #90 caps atorvastatin 10 mg tablet See Rx Instructions .Route 07/21/22 10/07/22 Rx .COMPLEX #90 tabs benazepril 10 mg tablet 10 mg PO DAILY #90 tabs 07/21/22 10/07/22 Rx celecoxib 100 mg capsule (Celebrex) 100 mg PO BID #180 caps 07/21/22 10/07/22 Rx warfarin 4 mg tablet See Rx Instructions .Route 08/02/22 10/07/22 Rx .COMPLEX #90 tabs acetaminophen 325 mg capsule 650 mg PO PRN PRN Pain 09/21/22 10/07/22 History (Tylenol) ascorbic acid (vitamin C) 1,000 mg 1 g PO DAILY 09/21/22 10/07/22 History tablet (Vitamin C With Roseanne Hips) calcium carbonate 600 mg-vitamin 2 cap PO DAILY 09/21/22 10/07/22 History D3 10 mcg (400 unit) capsule cholecalciferol (vitamin D3) 125 125 mcg PO DAILY 09/21/22 10/07/22 History mcg (5,000 unit) capsule glucosamine sulf dipot 2 cap PO DAILY 09/21/22 10/07/22 History chlr,msm,chond 550 mg-C 30 mg-dipti 1 mg capsule (Glucosamine Chondroitin) multivitamin (Daily Multi-Vitamin 1 tablet PO DAILY 09/21/22 10/07/22 History tablet) omeprazole 20 mg capsule,delayed 20 mg PO BID 09/21/22 10/07/22 History release levothyroxine 50 mcg tablet See Rx Instructions .Route 09/28/22 10/07/22 Rx .COMPLEX #90 tabs furosemide 20 mg tablet 10 mg PO DAILY #30 tabs 10/01/22 10/07/22 Rx Laboratory Tests 10/07/22 10:57 PT 13.3 Seconds Seconds (11.1-14.7) INR 1.1 Patient hx anesthesia problems: none Family hx anesthesia problems: none Results Review: All pre-operative results and documents have been reviewed as part of the pre-operative evaluation. [facility] Past Medical History Medical History Abdominal pain Abnormal sialogram Arthritis BMI 36.0-36.9,adult Cervical disc disorder, unspecified, unspecified cervical region Depression with anxiety History of radiation exposure Mixed hyperlipidemia Oral cancer Other int
[2022-10-07] MEDS: TRANEXAMIC ACID 1,000MG/ISO100 1,000 MG/100 ML BAG 200 MG IVPB (11:34)
--- NOTE | 2022-10-07 11:58 | WPDHPUPDATE1 ---
History and Physical Update Update Date/Time: 10/07/22 11:58 History and Physical has been reviewed, including an updated exam of the patient. There are NO changes in the patient's condition. Risks, benefits, and alternatives have been discussed and questions answered. Patient agrees to proceed with procedure.
[2022-10-07] MEDS: ceFAZolin 2 GM/D5W 50 ML 2 GM/50 ML BAG IVPB (12:13)
[2022-10-07] MEDS: ceFAZolin SODIUM 1 GM VIAL 3 GM (13:13)
[2022-10-07] MEDS: TRANEXAMIC ACID 1,000 MG/10 ML AMPUL 1000 MG IV PUSH (15:22)
[2022-10-07] MEDS: ceFAZolin SODIUM 1 GM VIAL 2 GM IV PUSH (15:24)
--- NOTE | 2022-10-07 16:09 | W.PM.PROC2 ---
Procedure Note - Detailed Date of Procedure 10/07/22 Pre-op Diagnosis oa right hip Post-op Diagnosis Same Procedure Performed Right total hip arthroplasty Surgeon Samy Marte MD Intern [employer] [facility] Anesthesia General Description of Procedure Patient was brought to the operating room and general anesthesia was administered. Boots were applied to the feet after application soft roll additional padding and the patient transferred to the OSI [place] table and the fluoro brought in for pre surgical fluoroscopic view of the hip. Tracing was outlined. My goal was to lengthen her hip approximately 4 mm to 5 mm to make up for lost joint space. She held her Coumadin 4 days ago and her preop INR was 1.1 today. She received 2 g of Ancef weight based vancomycin and 1 g of tranexamic acid preoperatively. Left hip was prepped draped usual fashion. 10 cm longitudinal incision was made 3 cm lateral to the ASIS dissection was carried down to the fascia over the tensor fascia deion which was longitudinally incised. We found that we had to increase the length of the incision 2 cm proximally to expose the femur later in the case to avoid undue tension on the skin in that area. Fascia deion was incised and elevated off the anterior 1/2 the tensor fascia deion muscle. Interval between rectus femoris and tensor fascia deion developed isolating and ligating with suture the crossing branches of a ascending lateral femoral circumflex vessels and this was divided. Retractor placed anterior to the capsule the hip abducted internally rotated the gluteus minimus which was mostly fatty was elevated off the lateral capsule. The gluteus minimus tendon was attached to the femur. Standard inverted T capsulotomy performed femoral neck osteotomy made according to preoperative templating. A napkin ring of bone was removed. The hypertrophic changes around the femoral neck and around the femoral head mated difficult to dislocate the femoral head particularly since the phone in the center of the femoral head was soft so did not gain excellent purchase with the corkscrew therefore we broke the head up piece male in the smaller pieces and removed the remaining superior 2/3 without difficulty. The acetabulum was exposed. Residual labrum excised. Remaining articular cartilage curetted. The leg was externally rotated extended the table hook and placing the interval between conjoined tendon and piriformis incised which allowed the piriformis to flipped posteriorly. With the leg back in external rotation and traction the acetabulum was exposed and under fluoroscopic visualization the acetabulum was reamed medialized to the medial wall with a 44 Reamer and upsizing until we reached 47. Biomet Osteo ti acetabular shell and this was seated with an excellent Press-Fit. Full seating was confirmed and 2 screws were placed in the ilium for additional fixation. The cup was placed at 40? of abduction and anteversion matching the anatomy. The cup was about 4 mm proud the posterior margin of the acetabulum where she had sclerosis eburnation and wear the posterior rim of the acetabulum and rested about 5 mm under the anterior rim which had some osteophyte which was trimmed. 32 mm inner diameter trial liner was placed. Leg was externally rotated extended and we broached the femur up to a size 5 Actis broach which gave excellent torsional stability. Trialed with a 1.5 head taking we are probably still a little bit high broach height and x-ray confirmed that we were about 5 mm high respect to her neck cut. We calcar planed and broached down 5 mm trialed again with the +5 head which gave appropriate stability and leg lengths were noted to be appropriate on fluoroscopic evaluation. Because of her L5-S1 fusion she was deemed at higher risk for dislocation and we plan to use dual mobility. At this point we exposed the acetabulum was thoroughly irrigated with antibiotic solution and implanted the to mobility steel octavio
--- NOTE | 2022-10-07 16:23 | P.OPB_ITS ---
Procedure Note - Brief Procedure Note - Brief Date of procedure: 10/07/22 <GINGER Eddy - Last Filed: 10/07/22 16:26> 10/07/22 <Samy Marte MD - Last Filed: 10/07/22 16:35> Pre-op diagnosis: oa right hip <GINGER Eddy - Last Filed: 10/07/22 16:26> right hip DJD <GINGER Eddy - Last Filed: 10/07/22 16:26> Procedure performed: Right total hip arthroplasty <GINGER Eddy - Last Filed: 10/07/22 16 :26> Description of procedure: 82 y/o who under went right ant. total hip arthroplasty on 10/07. I was involved in procedure including positioning pt on OR table, first assisting through surgery.I also assisted in getting pt to recovery. total time spent was 4 hours. <GINGER Eddy - Last Filed: 10/07/22 16:26> Surgeon: GINGER Eddy <GINGER Eddy - Last Filed: 10/07/22 16:26>
[2022-10-07] MEDS: fentaNYL CITRATE INJ (*CRX) 100 MCG/2 ML VIAL 25 MCG IV PUSH ×3 (16:50→17:55)
[2022-10-07] MEDS: LACTATED RINGERS 500 ML 999 ML IV CONT (17:45)
--- NOTE | 2022-10-07 17:52 | SUR.PHASEI ---
1730: Dr. Marte notified of patients urine output= 40ml. new orders received.
[2022-10-07] MEDS: SODIUM CHLORIDE 0.9% IV 1,000 ML 125 ML IV CONT (18:57)
[2022-10-07] MEDS: oxyCODONE HCL (*CRX) 2.5 MG TAB IR PO ×2 (18:58→21:54)
--- NOTE | 2022-10-07 19:48 | ADMGEN ---
This patient, Arlet Richard, was admitted to Medical Room 248-. Patient/family oriented to hospital policies and general routines including ID bracelet, bed and alarms, visiting hours, pain management, procedures, bathroom and other care routines, personal items, smoking policy, room service/diet, and visiting hours. Information on how to activate the Rapid Response Team has been discussed. Patient/Family are encouraged to report perceived risks to care and to ask questions if they do not understand what they are told or what they should do.
[2022-10-07] MEDS: SENNA/DOCUSATE SODIUM TABLET 2 TAB PO (21:54)
[2022-10-07] MEDS: FAMOTIDINE 20 MG TABLET PO (21:54)
[2022-10-07] MEDS: SOTALOL HCL 80 MG TABLET PO (21:54)
[2022-10-07] MEDS: METOPROLOL TARTRATE 25 MG TABLET PO (21:54)
[2022-10-07] MEDS: ceFAZolin 1 GM/NS 50 ML 1 GM/50 ML BAG IVPB (21:55)
--- NOTE | 2022-10-07 23:00 | WPDCN ---
Assessment and Plan Assessment and plan (1) Arthritis of right hip: Code(s): M16.11 - Unilateral primary osteoarthritis, right hip Status: Acute Assessment and Plan: Postoperative day 0 status post right hip arthroplasty. Wound care, pain control, DVT prophylaxis deferred to Dr. Marte. Check baseline labs in a.m.. (2) Paroxysmal atrial fibrillation: Code(s): I48.0 - Paroxysmal atrial fibrillation Status: Acute Assessment and Plan: Currently sounds to be in a sinus rhythm. Continue sotalol. (3) Chronic anticoagulation: Code(s): Z79.01 - watermelon harvesting supervisor (current) use of anticoagulants Status: Acute Assessment and Plan: Resume warfarin when okay with Dr. Marte. (4) Chronic kidney disease: Code(s): N18.9 - Chronic kidney disease, unspecified Status: Acute Assessment and Plan: Baseline creatinine is between 1.1 and 1.20. Check BMP in a.m. (5) Hypertension: Code(s): I10 - Essential (primary) hypertension Status: Acute Assessment and Plan: Blood pressures were reviewed and they are stable postoperatively. Continue antihypertensives and monitor daily. (6) Hypothyroidism: Code(s): E03.9 - Hypothyroidism, unspecified Status: Acute Assessment and Plan: Continue levothyroxine and check TSH. (7) Depression with anxiety: Code(s): F41.8 - Other specified anxiety disorders Status: Acute Assessment and Plan: Continue venlafaxine. Plan Thank you for allowing us to participate in this patient's care. Please do not hesitate to contact us with any questions. HPI Data of Consult Date/Time: 10/07/22 23:00 Requesting Physician: Samy Marte MD Consult Narrative Reason for consult: Postoperative medical management. Narrative: This is a very pleasant 82-year-old female with osteoarthritis, paroxysmal atrial fibrillation, hypertension, chronic kidney disease, GERD, hypothyroidism, depression, and anxiety whom the hospitalist service has been consulted for help managing her medical conditions postoperatively. She has had longstanding pain in her right hip not amenable to conservative outpatient treatment and she elected for replacement. Her surgery was performed under general anesthesia with no immediate complications documented. Estimated blood loss was 1050 mL, 500 mL returned via [facility]. Postoperatively she had a little bit of nausea as not eat much this evening. Her pain is pretty well controlled. She has been up to the chair and seems to be doing well with that. She denies fever, chills, sweats, chest pain, shortness a breath, and vomiting. She denies personal and family history of venous thromboembolism. On discharge her and daughter will be helping take care of her at home. Review of Systems Review of Systems: Twelve systems were reviewed and are negative except for as per HPI. FORMERLY [facility] Past Medical History Medical History (Updated 10/08/22 @ 01:09 by Maite Majano PA-C) Arthritis Chronic anticoagulation Chronic kidney disease Degenerative disc disease Depression with anxiety Gastroesophageal reflux disease Hypothyroidism Mixed hyperlipidemia Oral cancer Status post resection and radiation therapy. Paroxysmal atrial fibrillation Surgical History Surgical History (Updated 10/08/22 @ 00:48 by Maite Majano PA-C) History of back surgery History of cardiac pacemaker History of cataract extraction History of dilation and curettage History of hysterectomy History of laparoscopy History of myomectomy History of oral surgery History of thyroidectomy History of total knee arthroplasty Presence of permanent cardiac pacemaker Family History Family History Mother Family history of malignant neoplasm of ovary Acute myocardial infarction Father No problems
[2022-10-08] VITALS (13 sets, daily range): BP systolic 121–130; BP diastolic 48–58; PULSE 76–106; RESP 16–18; TEMP 36.7–37.2; O2SAT 93–98
--- NOTE | ~2022-10-08 | XR_ITS ---
EXAMINATION: XR hip RT 1V w AP pelvis DATE: 10/07/2022 16:32 INDICATION: Right total hip arthroplasty. TECHNIQUE: Anteroposterior view of the pelvis and cross-table lateral views of the right hip were obt ained. COMPARISON: 04/29/2022 FINDINGS: Interval placement of a noncemented right total hip arthroplasty which is in near-anatomic alignment. Acetabular component is affixed with at least 2 screws. No fracture. Partially visualized bilateral vertical phyllis and pedicle screw fixation and markers for bone graft cage for combined anterior and pos terior spinal fusion at L5-S1. Expected postoperative soft tissue gas at the right hip with surgical drain positioned anterolateral to the greater trochanter. 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 IMPRESSION: 1. Right total hip arthroplasty negative for postoperative purposes. Reviewed, dictated and finalized at location A.
--- NOTE | ~2022-10-08 | XR_ITS ---
EXAMINATION: XR surgery orthopedic DATE: 10/07/2022 16:31 INDICATION: Anterior approach right total hip arthroplasty TECHNIQUE: 2 fluoroscopic images of the right hip were obtained during procedure performed by Dr. Coni hollis. Radiologist was not present for the imaging or procedure. The amount of fluoroscopy time used d uring this procedure was 0.9 minutes. COMPARISON: None. FINDINGS: Interval placement of a right total hip arthroplasty which appears well seated in near-casey omic alignment. No fracture. Expected soft tissue gas at the operative bed. IMPRESSION: 1. Expected appearance during right total hip arthroplasty. Reviewed, dictated and finalized at location A.
[2022-10-08] MEDS: oxyCODONE HCL (*CRX) 2.5 MG TAB IR PO ×2 (02:00→05:58)
[2022-10-08] MEDS: ACETAMINOPHEN 500 MG TABLET 1000 MG PO ×4 (02:00→20:09)
[2022-10-08] MEDS: ceFAZolin 1 GM/NS 50 ML 1 GM/50 ML BAG IVPB ×2 (03:34→11:22)
[2022-10-08 05:52] LABS: Basophils Percent Auto 0.2 % (0.2-1.2); Hemoglobin 10.3 g/dL (12.0-15.0); Immature Granulocyte Absolute 0.04 K/mm3 (0.00-0.031); Immature Granulocyte Percent A 0.3 % (0-0.5); Lymphocytes Absolute Auto 2.37 K/mm3 (0.9-3.2); Lymphocytes Percent Auto 19.8 % (18.3-44.2); Mean Corpuscular HGB Conc 32.2 g/dl (32-36); Mean Corpuscular Hemoglobin 31.1 pg (26-34); Mean Corpuscular Volume 96.7 fl (80-100); Mean Platelet Volume 11.4 fl (7.4-10.4); Monocytes Absolute Auto 1.2 K/mm3 (0.1-0.6); Monocytes Percent Auto 9.8 % (2.6-8.5); Neutrophils Absolute Auto 8.4 K/mm3 (1.3-6.7); Neutrophils Percent Auto 69.9 % (45.5-73.1); Platelet Count Result 143 k/mm3 (150-375); Red Blood Count 3.31 M/mm3 (4.2-5.4); Red Cell Distribution Width 12.2 % (11.5-14.5)
[2022-10-08] MEDS: LEVOTHYROXINE SODIUM 50 MCG TABLET PO (05:58)
[2022-10-08 06:13] LABS: Alanine Aminotransferase 17 U/L (6-35); Albumin Level 3.1 g/dL (3.5-5.1); Alkaline Phosphatase 79 U/L (38-126); Anion Gap 2 mmol/L (8-16); Aspartate Amino Transferase 38 U/L (14-36); Bilirubin,Total 0.6 mg/dL (0.2-1.3); Blood Urea Nitrogen 18 mg/dL (7-17); Calcium 8.5 mg/dL (8.4-10.2); Carbon Dioxide 28 mmol/L (22-30); Chloride 103 mmol/L (98-107); Estimated CRCL calculation 44 ml/min; Estimated Glomerular Filt Rate 53; Glucose 120 mg/dL (65-110); Magnesium 1.7 mg/dL (1.6-2.3); Sodium 133 mmol/L (137-145)
[2022-10-08 06:49] LABS: Thyroid Stimulating Hormone Reflex 0.326 uIU/mL (0.465-4.68)
--- NOTE | 2022-10-08 07:13 | PM.PNORT ---
Subjective Subjective Date/Time Seen: 10/08/22 07:13 Postop day 1 patient is alert. Afebrile vital signs are stable. Morning labs are noted. Creatinine is normal at 1.0 this morning we will start her on Celebrex 100 mg this should help with pain. She was having more pain overnight and I have increased her pain medication to 5 mg and 2.5 mg of oxycodone. Her drain is out. Incision is dry. Neurovascularly she is intact. She is unable to lift the leg this morning to pain which is not uncommon. She was up to the chair last night. Silva catheter has been removed this morning. Plan at this point is to have patient work with therapy and see how she progresses today. She is 82 and deconditioned and obese and if she does not do well with therapy today she may need to stay an additional night. At this point we will wait and see how she is doing this afternoon. We will set up home health to do INR draws when she is discharged to monitor her Coumadin level and till she is therapeutic. Objective Data Vital Signs Vital Signs: Vital Signs - 24 hr 10/07/22 10:10 10/07/22 16:12 10/07/22 16:15 Temperature 36.7 C 37.6 C H Pulse Rate 78 93 103 H Respiratory Rate 20 12 12 Blood Pressure 143/75 H 134/71 138/94 H Pulse Oximetry 100 100 98 Oxygen Delivery Room Air Simple Face Mask Simple Face Mask Oxygen Flow Rate 8 8 10/07/22 16:30 10/07/22 16:45 10/07/22 16:59 Temperature Pulse Rate 93 83 82 Respiratory Rate 15 16 16 Blood Pressure 143/75 H 135/66 129/71 Pulse Oximetry 98 98 98 Oxygen Delivery Simple Face Mask Simple Face Mask Nasal Cannula Oxygen Flow Rate 8 8 3 10/07/22 17:15 10/07/22 17:30 10/07/22 17:45 Temperature Pulse Rate 89 83 70 Respiratory Rate 12 14 12 Blood Pressure 138/79 126/72 135/80 Pulse Oximetry 97 97 97 Oxygen Delivery Nasal Cannula Nasal Cannula Nasal Cannula Oxygen Flow Rate 3 3 3 10/07/22 18:00 10/07/22 18:42 10/07/22 19:00 Temperature 36.9 C 36.9 C Pulse Rate 70 71 70 Respiratory Rate 12 12 14 Blood Pressure 138/56 L 144/60 H 142/62 H Pulse Oximetry 92 96 96 Oxygen Delivery Room Air Oxygen Flow Rate 10/07/22 19:40 10/07/22 19:30 10/07/22 21:54 Temperature 36.6 C Pulse Rate 89 89 Respiratory Rate 16 Blood Pressure 144/75 H Pulse Oximetry 96 Oxygen Delivery Room Air Oxygen Flow Rate 10/07/22 21:54 10/07/22 20:00 10/08/22 00:12 Temperature 36.8 C Pulse Rate 88 80 Respiratory Rate 16 Blood Pressure 130/58 L Pulse Oximetry 93 Oxygen Delivery Room Air Oxygen Flow Rate 10/07/22 20:00 10/08/22 00:00 10/07/22 20:30 Temperature 36.8 C Pulse Rate 84 82 97 Respiratory Rate 16 Blood Pressure 131/68 Pulse Oximetry 97 Oxygen Delivery Oxygen Flow Rate 10/08/22 05:38 10/08/22 04:00 Temperature 36.7 C Pulse Rate 82 76 Respiratory Rate 16 Blood Pressure 123/54 L Pulse Oximetry 94 Oxygen Delivery Oxygen Flow Rate Intake/Output Intake/Output: Intake & Output 10/05/22 10/06/22 10/07/22 10/08/22 23:59 23:59 23:59 23:59 Intake Total 2425 1850 Output Total 40 715 Balance 2385 1135 Meds/Results Medications: Active Medications Generic Name Dose Route Start Last Admin Trade Name Freq PRN Reason Stop Dose Admin Acetaminophen 1,000 mg 10/07/22 20:00 10/08/22 02:00 Acetaminophen 500 Mg Tablet PO 1,000 mg Q6H CÉSAR Administration Atorvastatin Calcium 10 mg 10/08/22 09:00 Atorvastatin 10 Mg Tablet PO DAILY CÉSAR Celecoxib 100 mg 10/08/22 08:00 Celecoxib 100 Mg Capsule PO DAILY@0800 [facility] Diphenhydramine HCl 25 mg 10/07/22 18:27 Diphenhydramine Hcl Inj 50 Mg/Ml Vial IV PUSH Q6H PRN Itching Doxycycline Hyclate 100 mg 10/08/22 09:00 Doxycycline Hyclate 100 Mg Tablet PO Q12HR [facility] Enoxaparin Sodium 30 mg 10/08/22 09:00 Enoxaparin 30 Mg/0.3 Ml Syringe SUB-Q Q12HR [facility] Famotidine 20 mg 10/07/22 21:00 10/07/22 21:54 Famotidin
[2022-10-08] MEDS: polyethylene glycoL 3350 17 GM POWD.PACK PO (08:40)
[2022-10-08] MEDS: PANTOPRAZOLE 40 MG TABLET PO ×2 (08:41→16:49)
[2022-10-08] MEDS: oxyCODONE HCL (*CRX) 5 MG TAB IR PO ×4 (08:41→20:10)
[2022-10-08] MEDS: ENOXAPARIN 30 MG/0.3 ML SYRINGE SUB-Q ×2 (08:42→20:10)
[2022-10-08] MEDS: FUROSEMIDE 10 MG TABLET PO (08:42)
[2022-10-08] MEDS: ATORVASTATIN 10 MG TABLET PO (08:42)
[2022-10-08] MEDS: METOPROLOL TARTRATE 25 MG TABLET PO ×2 (08:42→20:11)
[2022-10-08 08:43] LABS: Free T4 Free Thyroxine Reflex 1.15 ng/dL (0.78-2.19)
[2022-10-08] MEDS: SOTALOL HCL 80 MG TABLET PO ×2 (08:43→20:10)
[2022-10-08] MEDS: FLUTICASONE PROPIONATE 0.05% NA SPR 16 GM BTL (*BKC) 2 SPRAY NASAL (08:43)
[2022-10-08] MEDS: CHOLECALCIFEROL 1,000 UNITS TABLET 5000 UNITS PO (08:44)
[2022-10-08] MEDS: FAMOTIDINE 20 MG TABLET PO ×2 (08:44→20:11)
[2022-10-08] MEDS: VENLAFAXINE HCL XR 75 MG CAP.ER.24H PO (08:45)
[2022-10-08] MEDS: DOXYCYCLINE HYCLATE 100 MG TABLET PO ×2 (08:45→20:10)
[2022-10-08] MEDS: SENNA/DOCUSATE SODIUM TABLET 2 TAB PO ×2 (08:45→16:48)
[2022-10-08] MEDS: CELECOXIB 100 MG CAPSULE PO (08:46)
--- NOTE | 2022-10-08 08:46 | PM.IMPN ---
Progress Note: A&P Assessment and Plan (1) Arthritis of right hip: Code(s): M16.11 - Unilateral primary osteoarthritis, right hip Status: Acute Assessment and Plan: POD1 status post right hip arthroplasty. Wound care, pain control, DVT prophylaxis deferred to Dr. Marte. (2) Paroxysmal atrial fibrillation: Code(s): I48.0 - Paroxysmal atrial fibrillation Status: Chronic Assessment and Plan: Currently sounds to be in a sinus rhythm. Continue sotalol and metoprolol continued. Monitored on telemetry overnight and in sinus rhythm. (3) Chronic anticoagulation: Code(s): Z79.01 - buttermilk drier operator (current) use of anticoagulants Status: Chronic Assessment and Plan: Continued warfarin 5 mg daily. Daily INR. Lovenox bridge per Ortho (4) Chronic kidney disease: Code(s): N18.9 - Chronic kidney disease, unspecified Status: Chronic Assessment and Plan: Baseline creatinine is between 1.1 and 1.20. Stable. Monitor I/O. (5) Hypertension: Qualifiers: Hypertension type: primary hypertension Qualified Code(s): I10 - Essential (primary) hypertension Code(s): I10 - Essential (primary) hypertension Status: Chronic Assessment and Plan: Blood pressures were reviewed and they are stable postoperatively. Continue antihypertensives and monitor daily. (6) Hypothyroidism: Qualifiers: Hypothyroidism type: acquired Qualified Code(s): E03.9 - Hypothyroidism, unspecified Code(s): E03.9 - Hypothyroidism, unspecified Status: Chronic Assessment and Plan: TSH and total T3 low, free T4 within normal limits. May be skewed due to hospitalization and surgery. Continue levothyroxine and consider repeat thyroid panel in 4-6 weeks. (7) Depression with anxiety: Code(s): F41.8 - Other specified anxiety disorders Status: Chronic Assessment and Plan: Continue venlafaxine. Plan Thank you for allowing us to participate in this patient's care. Please do not hesitate to contact us with any questions. Time Spent With Patient Time with patient: 15 - 25 minutes Subjective Date/time seen: 10/08/22 08:46 She reports right hip pain and difficulty working with therapy today. No chest pain, SOB, cough, sputum, abdominal pain, N/V/D, or dysuria. Review of Systems Review of Systems: All systems reviewed & are unremarkable except as noted in HPI and below Exam Narrative: General: Well-developed female lying in bed, in no distress. HEENT: Normocephalic, pupils equal and round. EOMI. Sclera anicteric. Oral mucosa moist. Oropharynx clear. Neck: Supple. Respiratory: Lungs are clear to auscultation bilaterally. RR regular and unlabored. Cardiovascular: Regular rate and rhythm with S1-S2. No murmurs, gallops or rubs. Gastrointestinal: Abdomen is soft, nontender, and nondistended with positive bowel sounds. No organomegaly. Skin: Warm and dry. No rash or lesions on limited exam. Extremities: No cyanosis, clubbing, or edema. Radial and pedal pulses intact. Musculoskeletal: Right hip dressing is clean, dry, and intact. No bruising or hematoma noted. Hemovac is in place. She is neurovascularly intact distal to the surgical site. Neurological: Alert and oriented x4. Cranial nerves 2-12 are grossly intact. Speech is clear. No facial asymmetry. No gross focal deficits to casual conversation. Psychiatric: Pleasant and cooperative with normal mood and affect. Objective Data Vital Signs Vital Signs: Vital Signs - 24 hr 10/07/22 10:10 10/07/22 16:12 10/07/22 16:15 Temperature 98.0 F 99.7 F H Pulse Rate 78 93 103 H Respiratory Rate 20 12 12 Blood Pressure 143/75 H 134/71 138/94 H Pulse Oximetry 100 100 98 Oxygen Delivery Room Air Simple Face Mask Simple Face Mask Oxygen Flow Rate 8 8 10/07/22 16:30 10/07/22 16:45 10/07/22 16:59 Temperature Pulse Rate 93 83 82 Resp
[2022-10-08] MEDS: TRIMETHOPRIM 100 MG TABLET PO (08:47)
--- NOTE | 2022-10-08 09:07 | WPDANESPN ---
Anes - Prog Note Post-Op Date/Time: 10/08/22 09:07 Cardiovascular status: normal Respiratory status: normal Airway patency: baseline Mental status: baseline Post-Op hydration status: normal Vital Signs: Last Vital Signs Temp 98.0 F 10/08/22 05:38 Pulse 89 10/08/22 08:43 Resp 16 10/08/22 05:38 BP 123/54 L 10/08/22 05:38 Pulse Ox 94 10/08/22 05:38 O2 Del Method Room Air 10/08/22 07:46 O2 Flow Rate 3 10/07/22 17:45 Pain Score (VAS): 0/10 I/O: Intake & Output 10/07/22 10/08/22 10/08/22 23:59 07:59 15:59 Intake Total 1775 1850 Output Total 40 715 Balance 1735 1135 Laboratory Tests 10/08/22 05:23 10/08/22 05:23 10/07/22 10/07/22 10/08/22 10:56 10:57 05:23 WBC 12.0 H RBC 3.31 L Hgb 10.3 L Hct 32.0 L MCV 96.7 MCH 31.1 MCHC 32.2 RDW 12.2 Plt Count 143 L MPV 11.4 H Immature Gran % (Auto) 0.3 Neut % (Auto) 69.9 Lymph % (Auto) 19.8 Hand % (Auto) 9.8 H Eos % (Auto) 0.0 Baso % (Auto) 0.2 Lymph # (Auto) 2.37 Hand # (Auto) 1.2 H Eos # (Auto) 0.0 Baso # (Auto) 0.0 Abs Immat Gran (auto) 0.04 H Absolute Neuts (auto) 8.4 H Absolute Nucleated RBC 0.0 Nucleated RBC % 0.0 PT 13.3 INR 1.1 Sodium Potassium Chloride Carbon Dioxide Anion Gap BUN Creatinine Estim Creat Clear Calc Estimated GFR Glucose Calcium Magnesium Total Bilirubin AST ALT Alkaline Phosphatase Total Protein Albumin TSH (Reflex) Free T4 Total T3 Blood Type O Positive Antibody Screen Negative 10/08/22 10/08/22 10/08/22 05:23 05:23 05:23 WBC RBC Hgb Hct MCV MCH MCHC RDW Plt Count MPV Immature Gran % (Auto) Neut % (Auto) Lymph % (Auto) Hand % (Auto) Eos % (Auto) Baso % (Auto) Lymph # (Auto) Hand # (Auto) Eos # (Auto) Baso # (Auto) Abs Immat Gran (auto) Absolute Neuts (auto) Absolute Nucleated RBC Nucleated RBC % PT INR Sodium 133 L Potassium 5.0 Chloride 103 Carbon Dioxide 28 Anion Gap 2 L BUN 18 H Creatinine 1.00 Estim Creat Clear Calc 44 Estimated GFR 53 L Glucose 120 H Calcium 8.5 Magnesium 1.7 Total Bilirubin 0.6 AST 38 H ALT 17 Alkaline Phosphatase 79 Total Protein 5.0 L Albumin 3.1 L TSH (Reflex) 0.326 L Free T4 1.15 Total T3 Blood Type Antibody Screen 10/08/22 05:23 WBC RBC Hgb Hct MCV MCH MCHC RDW Plt Count MPV Immature Gran % (Auto) Neut % (Auto) Lymph % (Auto) Hand % (Auto) Eos % (Auto) Baso % (Auto) Lymph # (Auto) Hand # (Auto) Eos # (Auto) Baso # (Auto) Abs Immat Gran (auto) Absolute Neuts (auto) Absolute Nucleated RBC Nucleated RBC % PT INR Sodium Potassium Chloride Carbon Dioxide Anion Gap BUN Creatinine Estim Creat Clear Calc Estimated GFR Glucose Calcium Magnesium Total Bilirubin AST ALT Alkaline Phosphatase Total Protein Albumin TSH (Reflex) Free T4 Total T3 Pending Blood Type Antibody Screen Post-procedural complaints: none Patient Feedback: Patient satisfied with anesthetic care.
[2022-10-08 10:56] LABS: Total Triiodothyronine (T3) 0.74 NG/ML (0.97-1.69)
--- NOTE | 2022-10-08 13:34 | PCPTNOTE ---
Patient refused treatment this session due to patient wanting to wait an hour after taking pain medication to work with therapy.
--- NOTE | 2022-10-08 14:33 | PM.PNORT ---
Subjective Subjective Date/Time Seen: 10/08/22 14:33 Patient did work with physical therapy today and at this point she feels unsafe to go home. She is elderly and obese and deconditioned and would benefit from an additional night in the hospital so that she can work more with therapy tomorrow so that she feels safe to go home on. We will admit her at this point and hopefully tomorrow she we will continue to improve therapy and discharge tomorrow afternoon Objective Data Vital Signs Vital Signs: Vital Signs - 24 hr 10/07/22 16:12 10/07/22 16:15 10/07/22 16:30 Temperature 37.6 C H Pulse Rate 93 103 H 93 Respiratory Rate 12 12 15 Blood Pressure 134/71 138/94 H 143/75 H Pulse Oximetry 100 98 98 Oxygen Delivery Simple Face Mask Simple Face Mask Simple Face Mask Oxygen Flow Rate 8 8 8 10/07/22 16:45 10/07/22 16:59 10/07/22 17:15 Temperature Pulse Rate 83 82 89 Respiratory Rate 16 16 12 Blood Pressure 135/66 129/71 138/79 Pulse Oximetry 98 98 97 Oxygen Delivery Simple Face Mask Nasal Cannula Nasal Cannula Oxygen Flow Rate 8 3 3 10/07/22 17:30 10/07/22 17:45 10/07/22 18:00 Temperature Pulse Rate 83 70 70 Respiratory Rate 14 12 12 Blood Pressure 126/72 135/80 138/56 L Pulse Oximetry 97 97 92 Oxygen Delivery Nasal Cannula Nasal Cannula Room Air Oxygen Flow Rate 3 3 10/07/22 18:42 10/07/22 19:00 10/07/22 19:40 Temperature 36.9 C 36.9 C Pulse Rate 71 70 Respiratory Rate 12 14 Blood Pressure 144/60 H 142/62 H Pulse Oximetry 96 96 Oxygen Delivery Room Air Oxygen Flow Rate 10/07/22 19:30 10/07/22 21:54 10/07/22 21:54 Temperature 36.6 C Pulse Rate 89 89 88 Respiratory Rate 16 Blood Pressure 144/75 H Pulse Oximetry 96 Oxygen Delivery Oxygen Flow Rate 10/07/22 20:00 10/08/22 00:12 10/07/22 20:00 Temperature 36.8 C Pulse Rate 80 84 Respiratory Rate 16 Blood Pressure 130/58 L Pulse Oximetry 93 Oxygen Delivery Room Air Oxygen Flow Rate 10/08/22 00:00 10/07/22 20:30 10/08/22 05:38 Temperature 36.8 C 36.7 C Pulse Rate 82 97 82 Respiratory Rate 16 16 Blood Pressure 131/68 123/54 L Pulse Oximetry 97 94 Oxygen Delivery Oxygen Flow Rate 10/08/22 04:00 10/08/22 07:46 10/08/22 08:42 Temperature Pulse Rate 76 89 Respiratory Rate Blood Pressure Pulse Oximetry Oxygen Delivery Room Air Oxygen Flow Rate 10/08/22 08:43 10/08/22 08:17 10/08/22 08:00 Temperature Pulse Rate 89 106 H Respiratory Rate Blood Pressure Pulse Oximetry Oxygen Delivery Room Air Oxygen Flow Rate 10/08/22 08:47 10/08/22 13:14 Temperature 37.0 C Pulse Rate 82 Respiratory Rate 18 18 Blood Pressure 121/50 L Pulse Oximetry 94 98 Oxygen Delivery Room Air Oxygen Flow Rate Intake/Output Intake/Output: Intake & Output 10/05/22 10/06/22 10/07/22 10/08/22 23:59 23:59 23:59 23:59 Intake Total 2425 2870 Output Total 40 715 Balance 2385 2155 Meds/Results Medications: Active Medications Generic Name Dose Route Start Last Admin Trade Name Freq PRN Reason Stop Dose Admin Acetaminophen 1,000 mg 10/07/22 20:00 10/08/22 13:25 Acetaminophen 500 Mg Tablet PO 1,000 mg Q6H CÉSAR Administration Atorvastatin Calcium 10 mg 10/08/22 09:00 10/08/22 08:42 Atorvastatin 10 Mg Tablet PO 10 mg DAILY CÉSAR Administration Celecoxib 100 mg 10/08/22 08:00 10/08/22 08:46 Celecoxib 100 Mg Capsule PO 100 mg DAILY@0800 CÉSAR Administration Diphenhydramine HCl 25 mg 10/07/22 18:27 Diphenhydramine Hcl Inj 50 Mg/Ml Vial IV PUSH Q6H PRN Itching Doxycycline Hyclate 100 mg 10/08/22 09:00 10/08/22 08:45 Doxycycline Hyclate 100 Mg Tablet PO 100 mg Q12HR CÉSAR Administration Enoxaparin Sodium 30 mg 10/08/22 09:00 10/08/22 08:42 Enoxaparin 30 Mg/0.3 Ml Syringe SUB-Q 30 mg Q12HR CÉSAR Administration Famotidine 20 mg 10/07/22 21:00 10/08/22 08:44 Famotidine
[2022-10-08] MEDS: WARFARIN (*PBKC) 7.5 MG TABLET PO (17:02)
[2022-10-09] MEDS: oxyCODONE HCL (*CRX) 5 MG TAB IR PO ×3 (01:10→09:23)
[2022-10-09] MEDS: ACETAMINOPHEN 500 MG TABLET 1000 MG PO ×2 (01:11→09:22)
[2022-10-09 05:53] VITALS: BP 117/45; PULSE 76; RESP 18; TEMP 36.7; O2SAT 94
[2022-10-09] MEDS: LEVOTHYROXINE SODIUM 50 MCG TABLET PO (05:54)
--- NOTE | 2022-10-09 07:17 | PM.PNORT ---
Subjective Subjective Date/Time Seen: 10/09/22 07:17 postop day 2 patient is alert. Afebrile vital signs are stable. Dressing is dry and intact. She was up walking with physical therapy yesterday. She is making overall good progress. Pain is tolerable at this point. She was given a dose of Coumadin last night. INR is not back yet this morning. Morning labs have been ordered as well. Plan will be to have the patient work with therapy today and discharge to home either later this morning or this afternoon pending on how she is doing with therapy. Care coordination is set up INR draws at her house to monitor her Coumadin once she is discharged. Objective Data Vital Signs Vital Signs: Vital Signs - 24 hr 10/08/22 07:46 10/08/22 08:42 10/08/22 08:43 Temperature Pulse Rate 89 89 Respiratory Rate Blood Pressure Pulse Oximetry Oxygen Delivery Room Air 10/08/22 08:17 10/08/22 08:00 10/08/22 08:47 Temperature Pulse Rate 106 H Respiratory Rate 18 Blood Pressure Pulse Oximetry 94 Oxygen Delivery Room Air Room Air 10/08/22 13:14 10/08/22 18:22 10/08/22 20:10 Temperature 37.0 C 37.2 C Pulse Rate 82 95 85 Respiratory Rate 18 18 Blood Pressure 121/50 L 123/50 L Pulse Oximetry 98 96 Oxygen Delivery 10/08/22 20:11 10/08/22 20:12 10/08/22 20:00 Temperature 36.8 C Pulse Rate 85 85 Respiratory Rate 17 Blood Pressure 128/48 L Pulse Oximetry 98 Oxygen Delivery Room Air 10/09/22 05:53 Temperature 36.7 C Pulse Rate 76 Respiratory Rate 18 Blood Pressure 117/45 L Pulse Oximetry 94 Oxygen Delivery Intake/Output Intake/Output: Intake & Output 10/06/22 10/07/22 10/08/22 10/09/22 23:59 23:59 23:59 23:59 Intake Total 2425 3560 250 Output Total 40 1015 Balance 2385 0925 250 Meds/Results Medications: Active Medications Generic Name Dose Route Start Last Admin Trade Name Freq PRN Reason Stop Dose Admin Acetaminophen 1,000 mg 10/07/22 20:00 10/09/22 01:11 Acetaminophen 500 Mg Tablet PO 1,000 mg Q6H CÉSAR Administration Atorvastatin Calcium 10 mg 10/08/22 09:00 10/08/22 08:42 Atorvastatin 10 Mg Tablet PO 10 mg DAILY CÉSAR Administration Celecoxib 100 mg 10/08/22 08:00 10/08/22 08:46 Celecoxib 100 Mg Capsule PO 100 mg DAILY@0800 CÉSAR Administration Diphenhydramine HCl 25 mg 10/07/22 18:27 Diphenhydramine Hcl Inj 50 Mg/Ml Vial IV PUSH Q6H PRN Itching Doxycycline Hyclate 100 mg 10/08/22 09:00 10/08/22 20:10 Doxycycline Hyclate 100 Mg Tablet PO 100 mg Q12HR CÉSAR Administration Enoxaparin Sodium 30 mg 10/08/22 09:00 10/08/22 20:10 Enoxaparin 30 Mg/0.3 Ml Syringe SUB-Q 30 mg Q12HR CÉSAR Administration Famotidine 20 mg 10/07/22 21:00 10/08/22 20:11 Famotidine 20 Mg Tablet PO 20 mg Q12HR CÉSAR Administration Fluticasone Propionate 2 spray 10/08/22 09:00 10/08/22 08:43 Fluticasone Propionate 0.05% Na Spr 16 Gm Btl (*Bkc) NASAL 2 spray DAILY CÉSAR Administration Furosemide 10 mg 10/08/22 09:00 10/08/22 08:42 Furosemide 10 Mg Tablet PO 10 mg DAILY CÉSAR Administration Levothyroxine Sodium 50 mcg 10/08/22 06:30 10/09/22 05:54 Levothyroxine Sodium 50 Mcg Tablet PO 50 mcg DAILY@0630 CÉSAR Administration Metoprolol Tartrate 25 mg 10/07/22 18:27 10/08/22 20:11 Metoprolol Tartrate 25 Mg Tablet PO 25 mg Q12HR CÉSAR Administration Naloxone HCl 0.1 mg 10/07/22 18:27 Naloxone Hcl 0.4 Mg/Ml Vial IV PUSH Q2M PRN Opiate Reversal Ondansetron HCl 4 mg 10/07/22 18:27 Ondansetron Inj 4 Mg/2 Ml Vial IV PUSH Q4H PRN Nausea And Vomiting Oxycodone HCl 5 mg 10/08/22 09:00 10/09/22 05:54 Oxycodone Hcl (*Crx) 5 Mg Tab Ir PO 5 mg Q4HR CÉSAR Administration Oxycodone HCl 5 mg 10/08/22 07:11 Oxycodone Hcl (*Crx) 5 Mg Tab Ir PO Q4H PRN Pain Rated 7-10 Pantoprazole Sodium 40 mg 10/08/22 09:00 10/08/22 16:49
--- NOTE | 2022-10-09 07:24 | PM.DS ---
DS: Admitting Diagnosis Discharge Date 10/09 Admitting Diagnosis Right hip DJD DS: Discharge Diagnosis Discharge Diagnosis (1) Arthritis of right hip: Code(s): M16.11 - Unilateral primary osteoarthritis, right hip Status: Acute DS: Summary Hospital Course Hospital Course: 82-year-old female who underwent right anterior total hip arthroplasty on 10/07. Underwent the procedure without complications. Postoperatively she has been afebrile vital signs are stable. Patient having increased pain on postop day 1. Pain medicine was increased. She was also started on Celebrex 100 mg a day, her creatinine was at 1.0. She had a difficult time with physical therapy on postop day 1. Patient is deconditioned and obese as well as elderly. She was kept an additional night for continued pain control as well as giving her more time to work with therapy so she is comfortable. She felt very in safe about going home on postop day 1. Morning of postop day 2 patient was doing much better. Pain was well controlled. She feels that she is getting around better she has been up to the restroom multiple times. She is making good progress. Plan to discharge patient home 10/09. She is on bridging Lovenox 30 mg b.i.d.. She was given 7.5 mg of Coumadin on 10/08. The time of this dictation her morning INR was not completed yet. We do have home health set up to out to do INR checks. She will be on the Lovenox until her INR is back up up 2.0. Patient is weight-bearing as tolerated. She is taking Tylenol as well as oxycodone 5 mg for pain control. She is on Celebrex 100 mg a day for 10 days for heterotopic bone formation prophylaxis. She is on doxycycline for 2 weeks. She also go home on Senokot MiraLax. Patient was advised to keep leg elevated home prevent swelling. If she has any questions or concerns she will call the office. I will be in contact with the patient when I get reports on her INRs from home health for Coumadin adjustments as well as stopping her Lovenox. Time Spent with Patient Time attestation: Total time spent providing and/or coordinating discharge services: DS: Data Data Completed and Pending Labs on day of discharge: Labs from last 24 hours 10/09/22 10/09/22 10/08/22 06:49 06:46 05:23 PT Pending INR Pending Sodium Pending Potassium Pending Chloride Pending Carbon Dioxide Pending Anion Gap Pending BUN Pending Creatinine Pending Estim Creat Clear Calc Pending Estimated GFR Pending Glucose Pending Calcium Pending Free T4 Total T3 0.74 L 10/08/22 05:23 PT INR Sodium Potassium Chloride Carbon Dioxide Anion Gap BUN Creatinine Estim Creat Clear Calc Estimated GFR Glucose Calcium Free T4 1.15 Total T3 Discharge Plan Discharge Attending physician on discharge: Samy Marte Consulting providers: Andrews Goldstein Discharging Clinician: Raudel Vance Anticipated Discharge Date/Time: 10/09/22 07:19 Patient Disposition: Home Health Service Activity: may shower, follow weight bearing status and other - see discharge instructions Diet: as tolerated Wound Care Instructions: remove dressing to shower and change dressing daily Discharge Instructions: Per Care Coordination, patient to discharge with [facility] ([phone]) for PT/OT and custodial services. Agency will call to arrange initial visit. SAMY MARTE M.D [facility] [address] [place] [id number] POST-OPERATIVE DISCHARGE INSTRUCTIONS ANTERIOR TOTAL HIP ARTHROPLASTY 1. Move toes/feet up and down every hour while awake. 2. Be up walking every hour while awake. 3. Use cane in hand opposite of side of hip surgery or walker as comfort allows. Avoid sitting in a chair unless eating, receiving visitors or using the toilet. 4. When resting, lie on back with leg elevated above he
[2022-10-09 07:32] LABS: Anion Gap -2 mmol/L (8-16); Blood Urea Nitrogen 19 mg/dL (7-17); Calcium 8.1 mg/dL (8.4-10.2); Carbon Dioxide 30 mmol/L (22-30); Chloride 106 mmol/L (98-107); Estimated CRCL calculation 44 ml/min; Estimated Glomerular Filt Rate 53; Glucose 104 mg/dL (65-110); Potassium 3.9 mmol/L (3.4-5.0); Sodium 134 mmol/L (137-145)
[2022-10-09 07:35] LABS: INR 1.3; Prothrombin Time 15.8 Seconds (11.1-14.7)
[2022-10-09 07:44] LABS: Basophils Percent Auto 0.4 % (0.2-1.2); Eosinophils Percent Auto 0.2 % (0-4.4); Hematocrit 25.8 % (37.0-47.0); Hemoglobin 8.3 g/dL (12.0-15.0); Immature Granulocyte Absolute 0.04 K/mm3 (0.00-0.031); Immature Granulocyte Percent A 0.5 % (0-0.5); Lymphocytes Absolute Auto 2.36 K/mm3 (0.9-3.2); Lymphocytes Percent Auto 27.7 % (18.3-44.2); Mean Corpuscular HGB Conc 32.2 g/dl (32-36); Mean Corpuscular Hemoglobin 31.6 pg (26-34); Mean Corpuscular Volume 98.1 fl (80-100); Monocytes Absolute Auto 1.3 K/mm3 (0.1-0.6); Monocytes Percent Auto 14.9 % (2.6-8.5); Neutrophils Absolute Auto 4.8 K/mm3 (1.3-6.7); Neutrophils Percent Auto 56.3 % (45.5-73.1); Platelet Count Result 109 k/mm3 (150-375); Red Blood Count 2.63 M/mm3 (4.2-5.4); Red Cell Distribution Width 12.4 % (11.5-14.5); White Blood Count 8.5 K/mm3 (4.5-10.0)
[2022-10-09] MEDS: FAMOTIDINE 20 MG TABLET PO (09:22)
[2022-10-09] MEDS: CHOLECALCIFEROL 1,000 UNITS TABLET 5000 UNITS PO (09:22)
[2022-10-09] MEDS: ENOXAPARIN 30 MG/0.3 ML SYRINGE SUB-Q (09:22)
[2022-10-09] MEDS: FLUTICASONE PROPIONATE 0.05% NA SPR 16 GM BTL (*BKC) 2 SPRAY NASAL (09:22)
[2022-10-09] MEDS: ATORVASTATIN 10 MG TABLET PO (09:22)
[2022-10-09] MEDS: DOXYCYCLINE HYCLATE 100 MG TABLET PO (09:22)
[2022-10-09] MEDS: SENNA/DOCUSATE SODIUM TABLET 2 TAB PO (09:22)
[2022-10-09] MEDS: CELECOXIB 100 MG CAPSULE PO (09:22)
[2022-10-09 09:23] VITALS: PULSE 95
[2022-10-09] MEDS: polyethylene glycoL 3350 17 GM POWD.PACK PO (09:23)
[2022-10-09] MEDS: TRIMETHOPRIM 100 MG TABLET PO (09:23)
[2022-10-09] MEDS: SOTALOL HCL 80 MG TABLET PO (09:23)
[2022-10-09] MEDS: METOPROLOL TARTRATE 25 MG TABLET PO (09:23)
[2022-10-09] MEDS: PANTOPRAZOLE 40 MG TABLET PO (09:23)
[2022-10-09] MEDS: VENLAFAXINE HCL XR 75 MG CAP.ER.24H PO (09:24)
[2022-10-09 09:45] VITALS: BP 117/45; PULSE 95
--- NOTE | 2022-10-09 11:07 | PC.NURSE ---
On 10/09/22, the student, [Cruz Boggs], provided care and completed [facility] documentation on this patient. I have reviewed the student's documentation and agree with the findings.
--- NOTE | 2022-10-09 11:35 | PC.NURSE ---
On 10/09/22, the student, Cruz, provided care and completed [facility] documentation on this patient. I have reviewed the student's documentation and agree with the findings.
== END 2022-10-09 12:23 | disposition home health service (06) ==
LOC: ANHSURGERY 10:15 → ANH2MED 10:15
PROVIDERS: Anesthesiology; Physician Assistant; Physician Assistant Surgical; Admitting Provider Orthopaedic Surgery; PCP Family Medicine; Visit Provider Orthopaedic Surgery
PROC: (CPT 27130; principal; 2022-10-07 12:00)
DX: M16.11 Unilateral primary osteoarthritis, right hip (principal); I48.0 Paroxysmal atrial fibrillation; F48.1 Depersonalization-derealization syndrome; E78.2 Mixed hyperlipidemia; M51.36 Other intervertebral disc degeneration, lumbar region; N18.9 Chronic kidney disease, unspecified; I12.9 Hypertensive chronic kidney disease with stage 1 through stage 4 chronic kidney disease, or unspecified chronic kidney disease; Z85.819 Personal history of malignant neoplasm of unspecified site of lip, oral cavity, and pharynx; E03.9 Hypothyroidism, unspecified; E66.9 Obesity, unspecified; Z68.41 Body mass index [BMI] 40.0-44.9, adult; Z95.0 Presence of cardiac pacemaker; Z92.3 Personal history of irradiation; Z79.01 Long term (current) use of anticoagulants
CPT/HCPCS: 27447; 36415; 73501; 80048; 80053; 83735; 84439; 84443; 84480; 85025; 85610; 86850; 86900; 86901; 97110; 97116; 97161; 97165; 97530; 97535; 99199; A9270; G0378; J0171; J0330; J0690; J1100; J1650; J2405; J2704; J2795; J3010; J3370; J7030; J7120

== ENCOUNTER 2022-10-10 11:09 | Outpatient (NON) | payer MEDICARE, SELFPAY ==
[2022-10-10 11:25] LABS: Hematocrit 26.4 % (37.0-47.0); Hemoglobin 8.5 g/dL (12.0-15.0); Mean Corpuscular HGB Conc 32.2 g/dl (32-36); Mean Corpuscular Hemoglobin 31.4 pg (26-34); Mean Corpuscular Volume 97.4 fl (80-100); Mean Platelet Volume 11.8 fl (7.4-10.4); Platelet Count Result 122 k/mm3 (150-375); Red Blood Count 2.71 M/mm3 (4.2-5.4); Red Cell Distribution Width 12.5 % (11.5-14.5); White Blood Count 8.3 K/mm3 (4.5-10.0)
[2022-10-10 11:35] LABS: INR 1.6; Prothrombin Time 18.5 Seconds (11.1-14.7)
== END 2022-10-10 11:10 | disposition home or self-care (01) ==
PROVIDERS: PCP Family Medicine; Visit Provider Physician Assistant Surgical
DX: Z79.01 Long term (current) use of anticoagulants (principal)
CPT/HCPCS: 85027; 85610

== ENCOUNTER 2022-10-11 09:16 | Outpatient (CLI) | payer MEDICARE, SELFPAY ==
[2022-10-11 10:19] LABS: INR 1.7; Prothrombin Time 19.7 Seconds (11.1-14.7)
== END 2022-10-11 09:17 | disposition home or self-care (01) ==
LOC: ANHLAB 09:24
PROVIDERS: PCP Family Medicine; Visit Provider Family Medicine
DX: Z79.01 Long term (current) use of anticoagulants (principal)
CPT/HCPCS: 36415; 85610

== ENCOUNTER 2022-10-12 12:13 | Outpatient (NON) | payer MEDICARE, SELFPAY ==
[2022-10-12 13:55] LABS: INR 2.2; Prothrombin Time 23.3 Seconds (11.1-14.7)
== END 2022-10-12 12:14 | disposition home or self-care (01) ==
PROVIDERS: PCP Family Medicine; Visit Provider Physician Assistant Surgical
DX: I48.0 Paroxysmal atrial fibrillation (principal); F41.8 Other specified anxiety disorders; Z96.641 Presence of right artificial hip joint; Z79.01 Long term (current) use of anticoagulants
CPT/HCPCS: 85610

== ENCOUNTER 2022-10-15 09:25 | Outpatient (NON) | payer MEDICARE, SELFPAY ==
[2022-10-15 10:06] LABS: INR 2.8; Prothrombin Time 28.8 Seconds (11.1-14.7)
== END 2022-10-15 09:26 | disposition home or self-care (01) ==
LOC: ANHLAB 09:35 → HOME HLTH 09:45
PROVIDERS: PCP Family Medicine; Visit Provider Orthopaedic Surgery
DX: Z70.1 Counseling related to patient's sexual behavior and orientation (principal); I48.0 Paroxysmal atrial fibrillation; F41.8 Other specified anxiety disorders; Z47.1 Aftercare following joint replacement surgery; Z96.641 Presence of right artificial hip joint
CPT/HCPCS: 85610

== ENCOUNTER 2022-12-11 11:11 | Outpatient (CLI) | payer MEDICARE, SELFPAY ==
[2022-12-11 11:59] LABS: Iron 30 ug/dL (37-170)
[2022-12-11 12:12] LABS: Percent Iron Saturation 7 % (20-50)
== END 2022-12-11 11:12 | disposition home or self-care (01) ==
LOC: ANHLAB 11:13
PROVIDERS: PCP Family Medicine; Visit Provider Physician Assistant Medical
DX: R71.8 Other abnormality of red blood cells (principal)
CPT/HCPCS: 36415; 83540; 83550

== ENCOUNTER 2023-02-17 11:17 | Outpatient (CLI) | payer MEDICARE, SELFPAY ==
[2023-02-17 12:01] LABS: Hematocrit 36.8 % (37.0-47.0); Hemoglobin 11.5 g/dL (12.0-15.0); Mean Corpuscular HGB Conc 31.3 g/dl (32-36); Mean Corpuscular Volume 86.4 fl (80-100); Mean Platelet Volume 11.4 fl (7.4-10.4); Platelet Count Result 202 k/mm3 (150-375); Red Blood Count 4.26 M/mm3 (4.2-5.4); Red Cell Distribution Width 20.5 % (11.5-14.5); White Blood Count 5.3 K/mm3 (4.5-10.0)
[2023-02-17 13:01] LABS: Iron 57 ug/dL (37-170)
[2023-02-17 13:10] LABS: Percent Iron Saturation 15 % (20-50)
[2023-02-17 13:18] LABS: Folic Acid > 20.0 ng/mL (2.76->20)
== END 2023-02-17 11:18 | disposition home or self-care (01) ==
PROVIDERS: PCP Family Medicine; Visit Provider Nurse Practitioner
DX: D50.9 Iron deficiency anemia, unspecified (principal); R19.5 Other fecal abnormalities; U07.1 COVID-19; M50.90 Cervical disc disorder, unspecified, unspecified cervical region
CPT/HCPCS: 36415; 82607; 82728; 82746; 83540; 83550; 85027

== ENCOUNTER 2023-03-08 01:11 | Day surgery (SDC) | payer MEDICARE, SELFPAY ==
[2023-02-24 15:03] VITALS: BMI 36.6
[2023-03-08 12:24] VITALS: BP 172/69; PULSE 68; RESP 17; TEMP 36.9; O2SAT 98; BMI 38.1
[2023-03-08] MEDS: ceFAZolin 1 GM/NS 50 ML 1 GM/50 ML BAG IVPB (12:37)
[2023-03-08] MEDS: LACTATED RINGERS 1,000 ML 150 ML IV CONT (12:38)
--- NOTE | 2023-03-08 12:54 | WPDANESEPPF ---
Anes - Initial Pre Proc Eval Procedure: Operation Date: 03/08/23 13:30 Proposed Procedures p Esophagogastroduodenoscopy & Colonoscopy - Eric Virk MD Date/Time: 03/08/23 12:54 Surgeon: Eric Virk MD Pre Op Diagnosis: Iron Deficiency Anemia,GERD,other fecal abnormalit Patient Data Age: 82 Gender: F Height: 1.57 m Weight: 94.6 kg Last Vital Signs Temp 36.9 C 03/08/23 12:24 Pulse 68 03/08/23 12:24 Resp 17 03/08/23 12:24 BP 172/69 H 03/08/23 12:24 Pulse Ox 98 03/08/23 12:24 O2 Del Method Room Air 03/08/23 12:24 Allergies Allergy/AdvReac Type Severity Reaction Status Date / Time Cephalosporins AdvReac Mild upset Verified 03/08/23 12:19 stomach ciprofloxacin AdvReac Mild rash Verified 03/08/23 12:19 cefaclor AdvReac Unknown upset Verified 03/08/23 12:19 stomach hydrocodone AdvReac Unknown UPSET Verified 03/08/23 12:19 STOMACH ibuprofen AdvReac Unknown UPSET Verified 03/08/23 12:19 STOMACH oxycodone AdvReac Unknown VERY Verified 03/08/23 12:19 ADDICTIVE propoxyphene AdvReac Unknown UPSET Verified 03/08/23 12:19 STOMACH Quinolones AdvReac Unknown Rash Verified 03/08/23 12:19 rofecoxib AdvReac Unknown UPSET Verified 03/08/23 12:19 STOMACH Home Medications Medication Instructions Recorded Confirmed Type sotalol 80 mg tablet 80 mg PO BID 07/24/19 03/08/23 History metoprolol tartrate 25 mg tablet 25 mg PO BID 07/25/19 03/08/23 History fluticasone propionate 50 2 spray intranasal DAILY PRN 11/25/20 03/08/23 History mcg/actuation nasal Allergy Symptoms spray,suspension loratadine 10 mg tablet (Claritin) 10 mg PO DAILY 11/25/20 03/08/23 History melatonin 5 mg tablet 5 mg PO HS #30 tabs 11/30/20 03/08/23 Rx trimethoprim 100 mg tablet 100 mg PO DAILY 08/28/21 03/08/23 History meclizine 25 mg tablet 25 mg PO BID PRN dizziness #20 tabs 02/11/22 03/08/23 Rx warfarin 4 mg tablet See Rx Instructions .Route 08/02/22 03/08/23 Rx .COMPLEX #90 tabs acetaminophen 325 mg capsule 650 mg PO PRN PRN Pain 09/21/22 03/08/23 History (Tylenol) ascorbic acid (vitamin C) 1,000 mg 1 g PO DAILY 09/21/22 03/08/23 History tablet (Vitamin C With Roseanne Hips) calcium carbonate 600 mg-vitamin 2 cap PO DAILY 09/21/22 03/08/23 History D3 10 mcg (400 unit) capsule cholecalciferol (vitamin D3) 125 125 mcg PO DAILY 09/21/22 03/08/23 History mcg (5,000 unit) capsule glucosamine sulf dipot 2 cap PO DAILY 09/21/22 03/08/23 History chlr,msm,chond 550 mg-C 30 mg-dipti 1 mg capsule (Glucosamine Chondroitin) multivitamin (Daily Multi-Vitamin 1 tablet PO DAILY 09/21/22 03/08/23 History tablet) warfarin 1 mg tablet See Rx Instructions .Route 12/11/22 03/08/23 Rx .COMPLEX #90 tabs furosemide 20 mg tablet 20 mg PO DAILY #30 tabs 02/10/23 03/08/23 Rx omeprazole 40 mg capsule,delayed 40 mg PO BID #60 caps 02/17/23 03/08/23 Rx release atorvastatin 10 mg tablet 10 mg PO DAILY 02/24/23 03/08/23 History benazepril 10 mg tablet 10 mg PO DAILY 02/24/23 03/08/23 History celecoxib 100 mg capsule (Celebrex) 100 mg PO DAILY 02/24/23 03/08/23 History levothyroxine 50 mcg tablet 50 mcg PO DAILY 02/24/23 03/08/23 History loperamide 2 mg capsule 2 mg PO DAILY 02/24/23 03/08/23 History venlafaxine 150 mg 75 mg PO DAILY 02/24/23 03/08/23 History capsule,extended release 24 hr Patient hx anesthesia problems: none Family hx anesthesia problems: none Results Review: All pre-operative results and documents have been reviewed as part of the pre-operative evaluation. [facility] Past Medical History Medical History Arthritis Chronic anticoagulation Chronic kidney disease Degenerative disc disease Depression with anxiety Gastroesophageal reflux disease Hypothyroidism IRVING (iron deficiency anemia) Mixed hyperlipidemia Obesity Oral cancer Status post resection and radiation therapy. Paroxysmal atrial fibrill
--- NOTE | 2023-03-08 13:13 | PM.HPGS ---
History of Present Illness History of Present Illness Consent: Risks, benefits, and alternatives have been discussed and questions answered. Patient agrees to proceed with procedure. Chief complaint: Iron Deficiency Anemia,GERD,other fecal abnormalit Narrative: Arlet Richard is a 82 year old female Who was referred to our office because of anemia and Hemoccult-positive stool. She does take Coumadin and has done that for few years because of atrial fibrillation. She has chronic kidney disease. The stool Hemoccult few months ago was positive. She was found have a drop in her hemoglobin from 12.6 in early September to 10.3 later that month and then down to 8.5 Two days later following Orthopedic surgery. he does not see blood her stools. She denies having black or tarry stools. She does have a history of having had reflux esophagitis when I performed an EGD about 6 years ago. A colonoscopy in 2014 was normal except for hemorrhoids and a lipoma. She has not been losing weight. She denies abdominal pain. She has been taking omeprazole 40 mg b.i.d. since her office visit. Review of Systems Review of Systems: All systems reviewed & are unremarkable except as noted in HPI and below PMFSH Past Medical History Medical History Arthritis Chronic anticoagulation Chronic kidney disease Degenerative disc disease Depression with anxiety Gastroesophageal reflux disease Hypothyroidism IRVING (iron deficiency anemia) Mixed hyperlipidemia Obesity Oral cancer Status post resection and radiation therapy. Paroxysmal atrial fibrillation Positive occult stool blood test Surgical History Surgical History History of back surgery History of cardiac pacemaker History of cataract extraction History of dilation and curettage History of hysterectomy History of laparoscopy History of myomectomy History of oral surgery History of thyroidectomy History of total knee arthroplasty Presence of permanent cardiac pacemaker Family History Family History Mother Family history of malignant neoplasm of ovary Acute myocardial infarction Father No problems noted. Sibling No problems noted. Other Family history of arthritis Social History Social History Social History: Surrogate medical decision maker: Jose (spouse) or Samantha (daughter) Hilary. Code status: Full code. Smoking status: Never smoker Second hand tobacco smoke exposure: No Alcohol intake: never Substance use: never Substance use type: does not use Lack of Transportation: No Lack of Food: Never True Current Housing: I Have Housing Concerned About Future Housing: No Difficulty Paying Gas/Electric Bills: No Difficulty Paying for Meds: No Currently Unemployed: No Education: High School Diploma/GED Difficulty w/ Childcare or Family Care: No Living arrangements: with family Additional living arrangements comments: Lives with family in [place]. Occupation/Education: retired Additional occupation/education comments: Retired from [employer]. Spiritual care concerns: No Meds Home Medications and Allergies Home Medications Medication Instructions Recorded Confirmed Type sotalol 80 mg tablet 80 mg PO BID 07/24/19 03/08/23 History metoprolol tartrate 25 mg tablet 25 mg PO BID 07/25/19 03/08/23 History fluticasone propionate 50 2 spray intranasal DAILY PRN 11/25/20 03/08/23 History mcg/actuation nasal Allergy Symptoms spray,suspension loratadine 10 mg tablet (Claritin) 10 mg PO DAILY 11/25/20 03/08/23 History melatonin 5 mg tablet 5 mg PO HS #30 tabs 11/30/20 03/08/23 Rx trimethoprim 100 mg tablet 100 mg PO DAILY 08/28/21 03/08/23 History meclizine 25 mg tablet 25 mg PO BID MT
--- NOTE | 2023-03-08 13:32 | SUR.OPER ---
EGD: [id number] COLON: [id number]
[2023-03-08] MEDS: SIMETHICONE ORAL SUSPENSION 20 MG/0.3 ML 30 ML BOTTLE 0.6 ML IRRIGATION (13:51)
[2023-03-08 14:03] VITALS: BP 126/76; PULSE 60; RESP 15; O2SAT 100
[2023-03-08 14:13] VITALS: BP 130/78; PULSE 66; RESP 15; O2SAT 100
== END 2023-03-08 14:38 | disposition home or self-care (01) ==
PROVIDERS: PCP Family Medicine; Visit Provider Internal Medicine Gastroenterology
PROC: 0DJ08ZZ Inspection of Upper Intestinal Tract, Via Natural or Artificial Opening Endoscopic (ICD-10-PCS; CPT 43235; principal; 2023-03-08 13:30)
DX: D50.9 Iron deficiency anemia, unspecified (principal); D17.5 Benign lipomatous neoplasm of intra-abdominal organs; D12.5 Benign neoplasm of sigmoid colon; K64.8 Other hemorrhoids; E78.2 Mixed hyperlipidemia; N18.9 Chronic kidney disease, unspecified; I48.0 Paroxysmal atrial fibrillation; F41.8 Other specified anxiety disorders; K21.9 Gastro-esophageal reflux disease without esophagitis; E03.9 Hypothyroidism, unspecified; E66.9 Obesity, unspecified; Z68.38 Body mass index [BMI] 38.0-38.9, adult; Z85.819 Personal history of malignant neoplasm of unspecified site of lip, oral cavity, and pharynx; Z92.3 Personal history of irradiation; Z79.01 Long term (current) use of anticoagulants; Z95.0 Presence of cardiac pacemaker
CPT/HCPCS: 45385; 88305; J0690; J2704; J7120

== ENCOUNTER 2023-04-14 16:48 | Outpatient (CLI) | payer MEDICARE, SELFPAY ==
--- NOTE | ~2023-04-14 | XR_ITS ---
XR lumbar spine 2-3V 04/14/2023 17:10 Indication: Low back pain Procedure: 3 views lumbar spine Comparison: 04/29/2022 Findings: There is severe disc narrowing, endplate sclerosis and multilevel facet hypertrophy with le voscoliosis. There are surgical fusion changes posteriorly at L5-S1. Hardware intact. There is lower thoracic spondylosis. Partially visualized right hip arthroplasty. Sacral foramen are symmetric. Ther e are laminectomy changes at L5. Impression: 1: Severe lumbar spondylosis with levoscoliosis and fusion at L5-S1. Reviewed, dictated and finalized at location L. Impression: 1: Severe lumbar spondylosis with levoscoliosis and fusion at L5-S1.
== END 2023-04-14 16:49 | disposition home or self-care (01) ==
PROVIDERS: PCP Family Medicine; Visit Provider Nurse Practitioner Family
DX: M47.896 Other spondylosis, lumbar region (principal); Z98.1 Arthrodesis status
CPT/HCPCS: 72100

== ENCOUNTER 2023-04-15 19:47 | Inpatient (IN) | payer MEDICARE, SELFPAY ==
--- NOTE | ~2023-04-15 | CT_ITS ---
EXAMINATION: CT diagnostic chest wo con DATE: 04/15/2023 23:04 INDICATION: Chest pain, rib fractures TECHNIQUE: Computed tomography (CT) of the chest was performed without intravenous contrast. The dose -length product (DLP) was 613.93 mGy-cm. Automated exposure control and iterative reconstruction tech Revuzeque were employed. COMPARISON: None FINDINGS: There are posterior fractures of the right 10th and 11th ribs. There is an oblique fracture through body of the T12 vertebral body which extends to the posterior elements. There is widening of the T11-12 disc space. Severe thoracic spondylosis is noted. There is a fracture of the right L1 tra nsverse process. There are small pleural effusions with mild adjacent passive atelectasis. Cardiomega ly is noted. No pneumothorax is identified. A dual-lead pacemaker of the left chest wall ends with it s leads in the right atrium and right ventricle. There are no pathologically enlarged thoracic lymph nodes. IMPRESSION: 1. Unstable fracture of the T12 vertebral body and posterior elements. 2. Fractures of the right ninth and 10th ribs. 3. Right L1 transverse process fracture. 4. Small pleural effusions. Reviewed, dictated and finalized at location F.
--- NOTE | ~2023-04-15 | CT_ITS ---
EXAMINATION: CT abdomen pelvis w con INDICATION: Back pain after fall TECHNIQUE: Computed tomographic images of the abdomen and pelvis were obtained after the administrati on of 100 cc of Omnipaque 350 intravenous contrast. The dose-length product (DLP) was 1445.31 mGy-cm. Automated exposure control and iterative reconstruction technique were employed. COMPARISON: None available FINDINGS: There are small pleural effusions. Cardiomegaly is noted. There are minimally displaced acu te fractures of the posterior right 11th and 12th ribs. There is an oblique fracture of the T12 verte bral body which extends posteriorly through the posterior elements. There is widening of the T11-12 d isc space. There is a mildly comminuted fracture of the right L1 transverse process. Changes of poste rior fusion are noted at L5-S1. Cysts of the liver measure up to 11 mm in the left hepatic lobe. The spleen, pancreas, gallbladder, a nd adrenal glands are normal. The kidneys are unremarkable. Streak artifact from right hip arthroplas ty partially obscures visualization of the pelvis. There is an approximately 9.9 x 7.6 cm soft tissue hematoma in the right buttock. No pathologically enlarged abdominal or pelvic lymph nodes are identi fied. No free intraperitoneal gas or evidence of bowel obstruction. IMPRESSION: 1. Unstable fracture of the T12 vertebral body extending to the posterior elements. Spine surgical ev aluation is recommended. 2. Fractures of the posterior right 11th and 12th ribs and right L1 transverse process. 3. Large soft tissue hematoma of the right buttocks. 4. Small pleural effusions. These findings were discussed with Dr. Celina Stuart MD in the Emergency Department at 2248 hours on . Reviewed, dictated and finalized at location F. IMPRESSION: 1. Unstable fracture of the T12 vertebral body extending to the posterior eleme nts. Spine surgical evaluation is recommended. 2. Fractures of the posterior right 11th and 12th ribs and right L1 transverse process. 3. Large soft tissue hematoma of the right buttocks. 4. Small pleural effusions. These findings were discussed with Dr. Celina Stuart MD in the Emergency Departm ent at 2248 hours on 04/15/2023.
--- NOTE | ~2023-04-15 | XR_ITS ---
EXAMINATION: XR chest 1V portable Exam Date/Time: 04/21/2023 17:20 CDT HISTORY: INCREASING SOB Comparison: 07/13/2022. RESULT: Lines, tubes, and devices: Surgical clips at the right lower neck. Left chest pacer with intact lead s. Lungs and pleura: Streaky and subsegmental left basilar opacities. Mild left costophrenic angle blun ting. Cardiomediastinal silhouette: Stable. Other: No acute osseous or upper abdominal finding. IMPRESSION: Left basilar atelectasis/consolidation. Small left pleural effusion. Reviewed, dictated and finalized at location K.
--- NOTE | ~2023-04-15 | CT_ITS ---
Noncontrast CT scan of the thoracolumbar spine CLINICAL HISTORY: Back pain TECHNIQUE: Reformatted imaging of the thoracolumbar spine was performed, utilizing data/images from p rior abdominal pelvic CT dated 04/15/2023. Sagittal and coronal reformatted images were also construct ed. Dose reduction technique was used on this scan by utilizing automated exposure control and iterat shaneka reconstruction technique. The dose-length product (DLP) was 0.00 mGy-cm, as these images were ref ormatted from prior abdominal pelvic CT. FINDINGS: There is an oblique/horizontal fracture through the posterior superior aspect of the T12 ve rtebral body, with distraction of the posterior superior corner by up to 7 mm. The remaining bulk of the T12 vertebral body is relatively displaced inferiorly, especially with respect to the T11-T12 dis c space. The fracture extends as a horizontal, otherwise nondisplaced fracture through the bilateral lamina and pedicles, and spinous process, of T12. Extension of the fractures of the posterior element s probably best seen on coronal reformatted images. There is nondisplaced fracture of the right transverse process of L1. There there are minimally displ aced fractures of the right 11th and 12th ribs posteriorly. No other acute fracture is identified in the thoracolumbar spine. There is a 3 mm anterolisthesis of T1 over T2, likely on a chronic/degenerative basis. There is a 3 mm retrolisthesis of L1 over L2, als o likely chronic degenerative basis. There is advanced degenerative disc narrowing throughout the thoracolumbar spine. There is probable p artial fusion across the T2-T3 and T3-T4 disc spaces. There is also probable partial fusion across th e T12-L1 and L1-L2 disc spaces. There is severe degenerative disc narrowing in the remaining of the l umbar spine. There is posterior fusion hardware from L5 to S1, with associated left hemilaminectomy. There are ext ensive anterior flowing osteophytes of the lower thoracic spine, compatible with DISH. There is moderate to advanced facet arthropathy at T10-T11 and T11-T12. No definite spinal canal sten osis or cord compression in the thoracic spine. No definite significant disc bulge identified in the thoracic spine. There are extensive facet joint degenerative changes throughout the lumbar spine. There is probable s evere bilateral neural foraminal narrowing at L1-L2. There is probable mild neural foraminal narrowin g at L2-L3. There is moderate to severe bilateral neural foraminal narrowing at L3-L4, especially in the right side. There is severe left neural foraminal narrowing at L5-S1, and probable moderate to se stephon right neural foraminal narrowing at this level. There is probable small left paravertebral/paraspinal hematoma at the T12 level, measuring approximat izaiah 3.0 x 2.1 cm. Impression: Oblique/horizontal fracture of the posterior superior aspect of the T12 vertebral body with horizonta l extension to the bilateral posterior elements and spinous process. This is an unstable fracture, an d spinal surgical consultation is recommended. MR imaging can be considered to better evaluate for un derlying spinal cord injury or canal compromise, or possible epidural hematoma, as indicated. Nondisplaced minimally displaced fractures of the right L1 transverse process on the right 11th and 1 2th ribs. Possible small left paravertebral/paraspinal hematoma at the T12 level, as detailed above. Posterior fusion from L5 to S1 with left hemilaminectomy. Severe degenerative spondylosis throughout the thoracolumbar spine, as detailed above. 3 mm probable chronic anterolisthesis of T1 over T2. 3 mm probable chronic retrolisthesis of L1 over L2. Reviewed, dictated and finalized at [facility]. Impression: Oblique/horizontal
--- NOTE | ~2023-04-15 | XR_ITS ---
EXAMINATION: XR hip RT 2V w AP pelvis INDICATION: Right hip pain after fall TECHNIQUE: AP view the pelvis and two views of the right hip are obtained. COMPARISON: 10/08/2021 FINDINGS: There are changes of right total hip arthroplasty. Bone alignment is normal. No fracture is identified. There are changes of fusion procedure in the lumbar spine at L5-S1. IMPRESSION: 1. No acute osseous abnormality. Reviewed, dictated and finalized at location F.
--- NOTE | ~2023-04-15 | CT_ITS ---
EXAMINATION: CT cervical spine wo con DATE: 04/15/2023 20:53 INDICATION: Head injury TECHNIQUE: Computed tomography (CT) of the cervical spine was performed without intravenous contrast. The dose-length product (DLP) was 569.02 mGy-cm. Automated exposure control and iterative reconstruc tion technique were employed. COMPARISON: 09/12/2014 FINDINGS: There are 3 mm of retrolisthesis of C5 on C6. There is chronic severe loss of intervertebra l disc space height at C5-6 and C6-7 and moderate loss of intervertebral disc space height throughout the remainder of the cervical spine. The odontoid process is intact. There is multilevel severe face t and uncovertebral joint osteoarthritis. Severe thoracic spondylosis is noted. IMPRESSION: 1. Severe cervical spondylosis without acute findings. Reviewed, dictated and finalized at location [facility].
--- NOTE | ~2023-04-15 | CT_ITS ---
EXAMINATION: CT brain wo con INDICATION: Head injury COMPARISON: 08/25/2018 TECHNIQUE: Standard unenhanced head CT. The dose-length product (DLP) was 605.33 mGy-cm. The mA was a djusted according to patient size. Iterative reconstruction technique was employed. FINDINGS: No acute intraparenchymal hemorrhage. No evidence of mass lesion. No evidence of acute infa rction. There is mild periventricular and subcortical hypodensity probably related to small vessel is chemic disease. There is mild prominence of the sulci and ventricles related to cerebral atrophy. Int racranial calcified cerebral atherosclerosis is noted. No extra-axial collections. No mass effect or midline shift. Changes in the globes are likely from ocular lens surgery. There is chronic left sphen oid and left maxillary sinusitis. Drusen is noted in the optic nerve heads. IMPRESSION: 1. No acute intracranial abnormality. 2. Age related findings. Reviewed, dictated and finalized at location F.
[2023-04-15 20:06] VITALS: BP 124/89; PULSE 83; RESP 18; TEMP 36.8; O2SAT 97
[2023-04-15 20:22] LABS: Basophils Percent Auto 0.1 % (0.2-1.2); Eosinophils Percent Auto 0.1 % (0-4.4); Hematocrit 32.4 % (37.0-47.0); Immature Granulocyte Absolute 0.05 K/mm3 (0.00-0.031); Immature Granulocyte Percent A 0.4 % (0-0.5); Lymphocytes Percent Auto 21.4 % (18.3-44.2); Mean Corpuscular HGB Conc 30.9 g/dl (32-36); Mean Corpuscular Hemoglobin 27.8 pg (26-34); Mean Platelet Volume 12.4 fl (7.4-10.4); Monocytes Absolute Auto 1.4 K/mm3 (0.1-0.6); Monocytes Percent Auto 11.8 % (2.6-8.5); Neutrophils Absolute Auto 7.8 K/mm3 (1.3-6.7); Neutrophils Percent Auto 66.2 % (45.5-73.1); Platelet Count Result 213 k/mm3 (150-375); Red Cell Distribution Width 14.6 % (11.5-14.5); White Blood Count 11.7 K/mm3 (4.5-10.0)
[2023-04-15 20:38] LABS: INR 2.5; Prothrombin Time 28.5 Seconds (11.1-14.7)
--- NOTE | 2023-04-15 20:39 | ED.FALL ---
HPI - Fall General Chief Complaint: Fall <Celina Stuart MD - Last Filed: 04/16/23 11:51> Stated Complaint: fall, head injury <Celina Stuart MD - Last Filed: 04/16/23 11:51> Time Seen by Provider: 04/15/23 20:38 <Celina Stuart MD - Last Filed: 04/16/23 11:51> History of Present Illness HPI Narrative: Patient is an 83-year-old female with history of afib, on coumadin, arthritis, CKD, chronic back pain here after a fall. Patient notes that she was in the kitchen standing at the counter getting ready to take her nighttime medications when she suddenly began feeling very dizzy she noted that her bilateral legs felt quite unsteady and she then fell to the ground hitting her back of her head on the floor. She denies any loss of consciousness. She describes her dizziness is everything spinning around her, is unsure if she felt like she may pass out. She denies any chest pain or shortness of breath prior to the fall. She does note that she was feeling generally weak and dizzy throughout the day today. She had a fall yesterday in the yd and did talk to her primary care doctor today and outpatient lumbar x-rays were performed. She denies any numbness or weakness in her arms or legs. She does note some upper abdominal pain after her fall yesterday along with some right hip pain. <Celina Stuart MD - Last Filed: 04/16/23 11:51> Related Data Home Medications: Home Medications Medication Instructions Recorded Confirmed sotalol 80 mg tablet 80 mg PO BID 07/24/19 04/16/23 metoprolol tartrate 25 mg tablet 25 mg PO BID 07/25/19 04/16/23 fluticasone propionate 50 2 spray intranasal DAILY PRN 11/25/20 04/16/23 mcg/actuation nasal Allergy Symptoms spray,suspension loratadine 10 mg tablet (Claritin) 10 mg PO DAILY 11/25/20 04/16/23 trimethoprim 100 mg tablet 100 mg PO QHS 08/28/21 04/16/23 acetaminophen 325 mg capsule 650 mg PO PRN PRN Pain 09/21/22 04/16/23 (Tylenol) ascorbic acid (vitamin C) 1,000 mg 1 g PO DAILY 09/21/22 04/16/23 tablet (Vitamin C With Roseanne Hips) calcium carbonate 600 mg-vitamin 1 cap PO DAILY 09/21/22 04/16/23 D3 10 mcg (400 unit) capsule cholecalciferol (vitamin D3) 125 125 mcg PO DAILY 09/21/22 04/16/23 mcg (5,000 unit) capsule glucosamine sulf dipot 2 cap PO DAILY 09/21/22 04/16/23 chlr,msm,chond 550 mg-C 30 mg-dipti 1 mg capsule (Glucosamine Chondroitin) multivitamin (Daily Multi-Vitamin 1 tablet PO DAILY 09/21/22 04/16/23 tablet) atorvastatin 10 mg tablet 10 mg PO DAILY 02/24/23 04/16/23 benazepril 10 mg tablet 10 mg PO DAILY 02/24/23 04/16/23 celecoxib 100 mg capsule (Celebrex) 100 mg PO DAILY 02/24/23 04/16/23 levothyroxine 50 mcg tablet 50 mcg PO DAILY 02/24/23 04/16/23 loperamide 2 mg capsule 2 mg PO DAILY 02/24/23 04/16/23 venlafaxine 150 mg 150 mg PO DAILY 02/24/23 04/16/23 capsule,extended release 24 hr warfarin 4 mg tablet 4 mg PO QPM 04/16/23 04/16/23 <Celina Stuart MD - Last Filed: 04/16/23 11:51> Allergies/Adverse Reactions: Allergies Allergy/AdvReac Type Severity Reaction Status Date / Time Cephalosporins AdvReac Mild upset Verified 04/15/23 21:00 stomach ciprofloxacin AdvReac Mild rash Verified 04/15/23 21:00 cefaclor AdvReac Unknown upset Verified 04/15/23 21:00 stomach hydrocodone AdvReac Unknown UPSET Verified 04/15/23 21:00 STOMACH ibuprofen AdvReac Unknown UPSET Verified 04/15/23 21:00 STOMACH oxycodone AdvReac Unknown VERY Verified 04/15/23 21:00 ADDICTIVE propoxyphene AdvReac Unknown UPSET Verified 04/15/23 21:00 STOMACH Quinolones AdvReac Unknown Rash Verified 04/15/23 21:00 rofecoxib AdvReac Unknown UPSET Verified 04/15/23 21:00 STOMACH <Celina Stuart MD - Last Filed: 04/16/23 11:51> Review of Systems Review of Systems: CONSTITUTIONAL: Denies fever, chills, or sweats. EYES: Denies visual changes, redness, or discharge. ENT: Denies rhinorrhea, congestion, sore throat, or otalgia. CARDIOVASCULAR: D
[2023-04-15 20:42] LABS: Alanine Aminotransferase 22 U/L (6-35); Alkaline Phosphatase 79 U/L (38-126); Anion Gap 8 mmol/L (8-16); Aspartate Amino Transferase 39 U/L (14-36); Bilirubin,Total 0.9 mg/dL (0.2-1.3); Blood Urea Nitrogen 27 mg/dL (7-17); Calcium 9.1 mg/dL (8.4-10.2); Carbon Dioxide 25 mmol/L (22-30); Chloride 99 mmol/L (98-107); Estimated CRCL calculation 30 ml/min; Estimated Glomerular Filt Rate 36; Glucose 112 mg/dL (65-110); Potassium 4.7 mmol/L (3.4-5.0); Sodium 132 mmol/L (137-145)
[2023-04-15 20:56] VITALS: BP 144/66; PULSE 99; RESP 19; O2SAT 99
--- NOTE | 2023-04-15 20:58 | ECG_ITS ---
Measurements Intervals [place] Rate: 78 P: 16 CT: 190 QRS: -15 QRSD: 83 T: 8 QT: 391 QTc: 446 Interpretive Statements SINUS RHYTHM DELAYED PRECORDIAL R/S TRANSITION LOW QRS VOLTAGE IN PRECORDIAL LEADS BORDERLINE T WAVE ABNORMALITY- INFERIOR LEADS BORDERLINE ECG COMPARED TO ECG 02/18/2022 12:04:45 SINUS RHYTHM NOW PRESENT Electronically Signed On 04-16-2023 6:23:17 CDT by Boby Bales D.O.
[2023-04-15 21:19] LABS: Magnesium 2.3 mg/dL (1.6-2.3)
[2023-04-15 21:31] LABS: Troponin I 0.024 ng/mL (0.000-0.034)
[2023-04-15 21:45] VITALS: BP 137/84; PULSE 86; RESP 22; O2SAT 97
--- NOTE | 2023-04-15 21:55 | PC.NURSE ---
This RN placed pt on bedpan. Pt unable to void at this time. Pt to xray at this time.
[2023-04-15] MEDS: SODIUM CHLORIDE 0.9% IV 500 ML 999 ML IV CONT (22:12)
[2023-04-15] MEDS: ONDANSETRON INJ 4 MG/2 ML VIAL IV PUSH (23:21)
[2023-04-15] MEDS: MORPHINE SULFATE (*CRX) 2 MG/ML INJ IV PUSH (23:22)
[2023-04-15 23:26] VITALS: BP 135/62; PULSE 73; RESP 20; O2SAT 100
[2023-04-16] VITALS (12 sets, daily range): BP systolic 94–142; BP diastolic 37–60; PULSE 66–99; RESP 14–20; TEMP 36.2–36.8; O2SAT 91–99; BMI 37.0
[2023-04-16] MEDS: MORPHINE SULFATE (*CRX) 4 MG/ML INJ IV PUSH ×4 (01:17→14:11)
--- NOTE | 2023-04-16 01:39 | PM.IMHP ---
H&P: HPI History of Present Illness Date/Time: 04/16/23 00:45 Chief Complaint: Back pain following a fall. Narrative: This a very pleasant 83-year-old female with paroxysmal atrial fibrillation on anticoagulation, hypertension, hyperlipidemia, chronic kidney disease, and hypothyroidism who presented to the emergency department via private vehicle from home for evaluation of back pain after a fall. The patient provides the following history. Wednesday she and her were working together to put up an umbrella on their picnic table when she slid off of the bench onto the concrete, landing on her buttocks and back. She was able to get up with the help of her and son but she had some troubles walking due to pain in the right buttock and mid to low back so she has been using a walker since that time. She spoke with her primary care provider and had outpatient lumbar x-rays which showed severe lumbar spondylosis with levoscoliosis in fusion at L5-S1. A couple of hours after she had those x-rays taken she was standing in the kitchen about 18:30, taking her medications, when she suddenly felt weak, dizzy, and her legs began to shake. She fell backwards and struck her head and back on the wood floor. There was no loss of consciousness in either fall. She has some mild discomfort at the back of her head from the fall this evening but her main discomfort is in her mid to lower back and right hip. She describes a nearly constant sharp pain which does not seem to radiate. It is worse with palpation, movement, and deep inspiration. She denies saddle anesthesia, focal weakness, sensory changes in the lower extremities, urinary retention, and bladder incontinence. In the ED: She was afebrile on arrival in her vital signs have been stable. Her labs were significant for a WBC count of 11.7, hemoglobin 10.0, hematocrit 32.4, INR 2.5, sodium 132, BUN 27, creatinine 1.40, troponin 0.024. EKG showed sinus rhythm without ST segment depressions or elevations. CT of the head was negative. Cervical spine CT showed severe cervical spondylosis without acute findings. Chest CT was read as having an on stable fracture of the T12 vertebral bladder and posterior elements with fractures of the right 9th and 10th ribs as well as a small L1 transverse process fracture. CT of the abdomen and pelvis showed small pleural effusions and a large soft tissue hematoma of the right buttocks. Hip and pelvis x-ray shows no acute osseous abnormality. ED physician spoke with the neurosurgeon on-call who suggested the patient could be admitted to this facility and they will see her in the morning. It was not felt that this fracture was unstable or needed emergent surgery. Review of Systems Review of Systems: Twelve systems were reviewed and are negative except for as per HPI. [facility], [facility] Past Medical History Medical History (Updated 04/16/23 @ 03:40 by Maite Majano PA-C) Arthritis Chronic anticoagulation Chronic kidney disease Degenerative disc disease Depression with anxiety Gastroesophageal reflux disease Hypothyroidism Iron deficiency anemia Mixed hyperlipidemia Oral cancer Status post resection and radiation therapy. Paroxysmal atrial fibrillation Surgical History Surgical History (Updated 04/16/23 @ 03:26 by Maite Majano PA-C) History of back surgery History of cardiac pacemaker History of cataract extraction History of dilation and curettage History of hysterectomy History of laparoscopy History of myomectomy History of oral surgery History of permanent cardiac pacemaker placement History of right hip replacement History of thyroidectomy History of total knee arthroplasty Family History Family History Mother Family history of malignant neoplasm of ovary Acute myocardial infarction Father No problems noted. Sibling No problems noted. Other Family
[2023-04-16] MEDS: LEVOTHYROXINE SODIUM 50 MCG TABLET PO (05:42)
[2023-04-16 06:20] LABS: Mean Corpuscular Volume 90.3 fl (80-100); Mean Platelet Volume 11.4 fl (7.4-10.4); Platelet Count Result 176 k/mm3 (150-375); Red Blood Count 3.21 M/mm3 (4.2-5.4); Red Cell Distribution Width 14.6 % (11.5-14.5); White Blood Count 12.7 K/mm3 (4.5-10.0)
[2023-04-16 06:31] LABS: Anion Gap 6 mmol/L (8-16); Blood Urea Nitrogen 29 mg/dL (7-17); Calcium 8.4 mg/dL (8.4-10.2); Carbon Dioxide 27 mmol/L (22-30); Chloride 100 mmol/L (98-107); Estimated CRCL calculation 32 ml/min; Estimated Glomerular Filt Rate 39; Glucose 115 mg/dL (65-110); Potassium 4.4 mmol/L (3.4-5.0); Sodium 133 mmol/L (137-145)
[2023-04-16 06:32] LABS: Appearance Urine Clear (Clear); Bilirubin Urine Negative (Negative); Blood Urine Negative (Negative); Color Urine Yellow (Yellow); Glucose Urine UA Negative (Negative); Ketones Urine Negative (Negative); Leukocyte Esterase Ur Negative LEU/UL (Negative); Nitrate Urine Negative (Negative); Protein Urine Negative (Negative); Urobilinogen Urine 0.2 mg/dL (<2.0); pH Urine 5.5 (5.0-9.0)
[2023-04-16 06:44] LABS: INR 2.6; Prothrombin Time 29.8 Seconds (11.1-14.7)
[2023-04-16 06:45] LABS: Add Urine Microscopic? NO; Specific Grav Ur 1.063 (1.001-1.035)
[2023-04-16] MEDS: ONDANSETRON INJ 4 MG/2 ML VIAL IV PUSH (08:43)
[2023-04-16] MEDS: CHOLECALCIFEROL 1,000 UNITS TABLET 5000 UNITS PO (08:43)
[2023-04-16] MEDS: MULTIVITAMINS THERAPEUTIC TAB (*BKC) 1 TABLET PO (08:44)
[2023-04-16] MEDS: ASCORBIC ACID 500 MG TABLET 1000 MG PO (08:44)
[2023-04-16] MEDS: PANTOPRAZOLE 40 MG TABLET PO ×2 (08:44→21:25)
[2023-04-16] MEDS: VENLAFAXINE HCL XR 75 MG CAP.ER.24H 150 MG PO (08:44)
[2023-04-16] MEDS: ATORVASTATIN 10 MG TABLET PO (08:44)
[2023-04-16] MEDS: METOPROLOL TARTRATE 25 MG TABLET PO (08:44)
[2023-04-16] MEDS: SOTALOL HCL 80 MG TABLET PO (08:44)
[2023-04-16] MEDS: lisinopriL 10 MG TABLET PO (08:44)
[2023-04-16] MEDS: LORATADINE 10 MG TABLET PO (08:45)
[2023-04-16] MEDS: LOPERAMIDE HCL 2 MG CAPSULE PO (08:45)
[2023-04-16 10:47] LABS: Hemoglobin 8.4 g/dL (12.0-15.0)
--- NOTE | 2023-04-16 13:53 | WPDNEUROSGPN ---
Subjective Date/time seen: 04/16/23 13:53 Interval history: I have reviewed the patient's CT of the thoracic and lumbar spine. There is a fracture of T12 that involves the anterior and middle column, but the pediclees are intact bilaterally and not involved. There is no suggestion of listhesis and no involvement of the posterior elements. I do not suspect a grossly unstable fracture and support managment of the pateint in an LSO brace. The patient can mobilze with PT and OT. Once pain is better controlled with respect to her rib and spine fracture, outpatient follow up would be appropriate. Ideally we would obtain AP and lateral thoracic and lumbar xrays (standing) prior to discharge for baseline for comparison. Please do not hesitate to contact me with any additional questions during the patient's hospitalization. Objective Data Vital Signs Vital Signs: Vital Signs - 24 hr 04/15/23 20:06 04/15/23 20:56 04/15/23 21:45 Temperature 98.3 F Pulse Rate 83 99 86 Respiratory Rate 18 19 22 H Blood Pressure 124/89 144/66 H 137/84 Pulse Oximetry 97 99 97 Oxygen Delivery Room Air Room Air 04/15/23 23:26 04/16/23 00:58 04/16/23 01:43 Temperature 98.2 F Pulse Rate 73 99 81 Respiratory Rate 20 20 16 Blood Pressure 135/62 130/60 142/55 H Pulse Oximetry 100 98 99 Oxygen Delivery 04/16/23 02:00 04/16/23 01:38 04/16/23 04:00 Temperature Pulse Rate 81 70 Respiratory Rate Blood Pressure Pulse Oximetry Oxygen Delivery Room Air 04/16/23 06:39 04/16/23 08:00 Temperature 98.0 F Pulse Rate 84 86 Respiratory Rate 14 Blood Pressure 132/54 L Pulse Oximetry 96 Oxygen Delivery Intake/Output Intake/Output: Intake & Output 04/13/23 04/14/23 04/15/23 04/16/23 23:59 23:59 23:59 23:59 Intake Total 500 700 Output Total 400 Balance 500 300 Meds/Results Medications: Active Medications Generic Name Dose Route Start Last Admin Trade Name Freq PRN Reason Stop Dose Admin Acetaminophen 650 mg 04/16/23 03:51 Acetaminophen 325 Mg Tablet PO Q4H PRN Pain 1-3 or fever Ascorbic Acid 1,000 mg 04/16/23 09:00 04/16/23 08:44 Ascorbic Acid 500 Mg Tablet PO 1,000 mg DAILY CÉASR Administration Atorvastatin Calcium 10 mg 04/16/23 09:00 04/16/23 08:44 Atorvastatin 10 Mg Tablet PO 10 mg DAILY CÉSAR Administration Calcium Carbonate 500 mg 04/16/23 12:00 04/16/23 11:33 Calcium/Vitamin D 500 Mg Tablet PO 500 mg DAILY@1200 CÉSAR Administration Fluticasone Propionate 2 spray 04/16/23 03:51 Fluticasone Propionate 0.05% Na Spr 16 Gm Btl (*Bkc) NASAL DAILY PRN Allergy Symptoms Furosemide 20 mg 04/17/23 09:00 Furosemide 20 Mg Tablet PO DAILY [facility] Levothyroxine Sodium 50 mcg 04/16/23 06:30 04/16/23 05:42 Levothyroxine Sodium 50 Mcg Tablet PO 50 mcg DAILY@0630 [facility] Administration Lisinopril 10 mg 04/16/23 09:00 04/16/23 08:44 Lisinopril 10 Mg Tablet PO 05/16/23 08:59 10 mg DAILY [facility] Administration Loperamide HCl 2 mg 04/16/23 09:00 04/16/23 08:45 Loperamide Hcl 2 Mg Capsule PO 2 mg DAILY [facility] Administration Loratadine 10 mg 04/16/23 09:00 04/16/23 08:45 Loratadine 10 Mg Tablet PO 10 mg DAILY [facility] Administration Melatonin 5 mg 04/16/23 21:00 Melatonin 5 Mg Tablet PO [facility] Metoprolol Tartrate 25 mg 04/16/23 09:00 04/16/23 08:44 Metoprolol Tartrate 25 Mg Tablet PO 25 mg Q12HR [facility] Administration Morphine Sulfate 4 mg 04/16/23 00:43 04/16/23 11:29 Morphine Sulfate (*Crx) 4 Mg/Ml Inj IV PUSH 4 mg Q2H PRN Administration Pain Rated 7-10 Morphine Sulfate 2 mg 04/16/23 03:52 Morphine Sulfate (*Crx) 2 Mg/Ml Inj IV PUSH Q4H PRN Pain Rated 4-6 Multivitamins Therapeutic 1 tablet 04/16/23 09:00 04/16/23 08:44 Multivitamins Therapeutic Tab (*Bkc) PO 1 tablet DAILY CÉSAR Administration Non-Formulary Medication 2 cap 04/16/23 09:00
--- NOTE | 2023-04-16 14:57 | PM.IMPN ---
Progress Note: A&P Assessment and Plan (1) Closed T12 spinal fracture: Code(s): S22.089A - Unspecified fracture of T11-T12 vertebra, initial encounter for closed fracture Status: Acute (2) Rib fractures: Code(s): S22.49XA - Multiple fractures of ribs, unspecified side, initial encounter for closed fracture Status: Acute (3) Traumatic hematoma of buttock: Code(s): S30.0XXA - Contusion of lower back and pelvis, initial encounter Status: Acute Plan # closed T12 fracture -mechanical fall -NSGY reviewed T/L CT scan images, recs for LSO brace and PT/OT. no surgery at this time -PT/OT consulted, will remove bedrest order -pain control: PRN tylenol, norco, morphine #chronic conditions -HLD: statin -essential HTN: lisinopril, metoprolol -paroxysmal atrial fibrillation: For rate control meds sotalol and metoprolol, will resume anticoagulation warfarin with no surgery plan -vitamins: may continue home vit C, D, calcium, multivitamin -allergies: fluticasone, claritin -peripheral edema: lasix 20mg daily -osteoarthritis: glucosamine -hypothyroidism: levothyroxine -insomnia: melatonin -depression: effexor Diet: heart healthy DVT prophylaxis: SCDs, on warfarin GI prophylaxis: protonix Code status: Full code Disposition: Possibly inpatient rehab, pending PT eval Subjective Date/time seen: 04/16/23 14:57 Interval history: Patient seen and examined. She is still having significant pain. NSGY to provide LSO brace as no surgery is indicated at this time. We will ambulate with PT/OT once we have the brace. Patient may need inpatient rehab for ongoing therapy, will have PT assessment. Patient denies fever, chills, nausea vomiting, diarrhea. Review of Systems Review of Systems: 10 point ROS complete, negative other than what is specified in HPI. Exam Narrative: - GENERAL: Pleasant elderly woman in no acute distress. Well-nourished. - EYES: EOMI. Anicteric. - HENT: Moist mucous membranes. - LUNGS: Clear to auscultation bilaterally, no wheezing, rhonchi, or rales. - CARDIOVASCULAR: Regular rate and rhythm. No murmur. No JVD. - ABDOMEN: Soft, non-tender and non-distended. No palpable masses. Tender back on movement - EXTREMITIES: No edema. Peripheral pulses 2+. Non-tender. - NEUROLOGIC: No focal neurological deficits. CN II-XII grossly intact. - PSYCHIATRIC: Awake, Alert and oriented x 3. Appropriate mood and affect. - SKIN: No rashes or lesions. Warm. - LYMPH: No cervical lymphadenopathy. Objective Data Vital Signs Vital Signs: Vital Signs - 24 hr 04/15/23 20:06 04/15/23 20:56 04/15/23 21:45 Temperature 36.8 C Pulse Rate 83 99 86 Respiratory Rate 18 19 22 H Blood Pressure 124/89 144/66 H 137/84 Pulse Oximetry 97 99 97 Oxygen Delivery Room Air Room Air 04/15/23 23:26 04/16/23 00:58 04/16/23 01:43 Temperature 36.8 C Pulse Rate 73 99 81 Respiratory Rate 20 20 16 Blood Pressure 135/62 130/60 142/55 H Pulse Oximetry 100 98 99 Oxygen Delivery 04/16/23 02:00 04/16/23 01:38 04/16/23 04:00 Temperature Pulse Rate 81 70 Respiratory Rate Blood Pressure Pulse Oximetry Oxygen Delivery Room Air 04/16/23 06:39 04/16/23 08:00 04/16/23 13:47 Temperature 36.7 C 36.2 C L Pulse Rate 84 86 80 Respiratory Rate 14 16 Blood Pressure 132/54 L 100/52 L Pulse Oximetry 96 94 Oxygen Delivery Intake/Output Intake/Output: Intake & Output 04/13/23 04/14/23 04/15/23 04/16/23 23:59 23:59 23:59 23:59 Intake Total 500 700 Output Total 400 Balance 500 300 Meds/Results Medications: Active Medications Generic Name Dose Route Start Last Admin Trade Name Freq PRN Reason Stop Dose Admin Acetaminophen 650 mg 04/16/23 03:51 Acetaminophen 325 Mg Tablet PO Q4H PRN Pain 1-3 or fever Ascorbic Acid 1,000 mg 04/16/23 09:00 04/16/23 08:44 Ascorbic Acid 500 Mg Tablet PO 1,000 mg DAILY CÉSAR Administration Atorvasta
[2023-04-16 16:40] LABS: Hematocrit 28.1 % (37.0-47.0); Hemoglobin 8.2 g/dL (12.0-15.0)
[2023-04-16] MEDS: SODIUM CHLORIDE 0.9% IV 1,000 ML 75 ML IV CONT (19:45)
[2023-04-16] MEDS: TRIMETHOPRIM 100 MG TABLET PO (21:25)
[2023-04-16] MEDS: MELATONIN 5 MG TABLET PO (21:25)
[2023-04-17] VITALS (10 sets, daily range): BP systolic 95–120; BP diastolic 48–58; PULSE 66–86; RESP 16–18; TEMP 36.6–37.1; O2SAT 91–94
[2023-04-17 05:53] LABS: Basophils Percent Auto 0.2 % (0.2-1.2); Eosinophils Percent Auto 0.3 % (0-4.4); Hematocrit 24.9 % (37.0-47.0); Hemoglobin 7.5 g/dL (12.0-15.0); Immature Granulocyte Absolute 0.08 K/mm3 (0.00-0.031); Immature Granulocyte Percent A 0.6 % (0-0.5); Lymphocytes Percent Auto 28.9 % (18.3-44.2); Mean Corpuscular HGB Conc 30.1 g/dl (32-36); Mean Corpuscular Volume 92.9 fl (80-100); Mean Platelet Volume 11.6 fl (7.4-10.4); Monocytes Absolute Auto 1.5 K/mm3 (0.1-0.6); Monocytes Percent Auto 12.1 % (2.6-8.5); Neutrophils Absolute Auto 7.2 K/mm3 (1.3-6.7); Neutrophils Percent Auto 57.9 % (45.5-73.1); Nucleated Red Blood Cells Perc 0.3 % (0.0-0.2); Platelet Count Result 160 k/mm3 (150-375); Red Blood Count 2.68 M/mm3 (4.2-5.4); Red Cell Distribution Width 14.7 % (11.5-14.5); White Blood Count 12.5 K/mm3 (4.5-10.0)
[2023-04-17 05:55] LABS: Anion Gap 4 mmol/L (8-16); Blood Urea Nitrogen 43 mg/dL (7-17); Calcium 8.5 mg/dL (8.4-10.2); Carbon Dioxide 28 mmol/L (22-30); Chloride 98 mmol/L (98-107); Estimated CRCL calculation 17 ml/min; Estimated Glomerular Filt Rate 18; Glucose 91 mg/dL (65-110); Magnesium 2.3 mg/dL (1.6-2.3); Potassium 4.7 mmol/L (3.4-5.0); Sodium 130 mmol/L (137-145)
[2023-04-17] MEDS: SODIUM CHLORIDE 0.9% IV 1,000 ML 100 ML IV CONT (06:34)
[2023-04-17] MEDS: LEVOTHYROXINE SODIUM 50 MCG TABLET PO (06:34)
[2023-04-17] MEDS: CHOLECALCIFEROL 1,000 UNITS TABLET 5000 UNITS PO (08:40)
[2023-04-17] MEDS: ASCORBIC ACID 500 MG TABLET 1000 MG PO (08:40)
[2023-04-17] MEDS: VENLAFAXINE HCL XR 75 MG CAP.ER.24H 150 MG PO (08:40)
[2023-04-17] MEDS: MULTIVITAMINS THERAPEUTIC TAB (*BKC) 1 TABLET PO (08:40)
[2023-04-17] MEDS: ATORVASTATIN 10 MG TABLET PO (08:40)
[2023-04-17] MEDS: PANTOPRAZOLE 40 MG TABLET PO ×2 (08:40→21:01)
[2023-04-17] MEDS: LORATADINE 10 MG TABLET PO (08:41)
[2023-04-17] MEDS: ACETAMINOPHEN 325 MG TABLET 650 MG PO ×2 (08:44→23:24)
--- NOTE | 2023-04-17 11:13 | PM.IMPN ---
Progress Note: A&P Assessment and Plan (1) Closed T12 spinal fracture: Code(s): S22.089A - Unspecified fracture of T11-T12 vertebra, initial encounter for closed fracture Status: Acute (2) Rib fractures: Code(s): S22.49XA - Multiple fractures of ribs, unspecified side, initial encounter for closed fracture Status: Acute (3) Anemia: Code(s): D64.9 - Anemia, unspecified Status: Acute (4) Traumatic hematoma of buttock: Code(s): S30.0XXA - Contusion of lower back and pelvis, initial encounter Status: Acute (5) Acute kidney injury: Code(s): N17.9 - Acute kidney failure, unspecified Status: Acute Plan # closed T12 fracture -mechanical fall -NSGY reviewed T/L CT scan images, recs for LSO brace and PT/OT. no surgery at this time -PT/OT consulted, activity with assistance -pain control: PRN tylenol, norco, morphine # traumatic hematoma # acute blood loss anemia -hgb dropped to 7.5, will transfuse if <7. No dizziness or syncope or clinical signs of anemia -bruise appears stable -continue to hold warfarin #Hypotension #Acute kidney injury on CKD 3B -may be from poor PO intake as well as from the blood loss. Likely pre-renal injury -SERGIO may be from ATN from low BP and likely hypoperfusion of kidneys -Cr from 1.3 to 2.5 -continue IVF NS 125cc/hr -monitor BP -holding antihypertensives #chronic conditions -HLD: statin -essential HTN: holding lisinopril, metoprolol for hypotension -paroxysmal atrial fibrillation:? For rate control meds sotalol and metoprolol, holding AC with bleed -vitamins: may continue home vit C, D, calcium, multivitamin -allergies: fluticasone, claritin -peripheral edema: holding lasix 20mg daily -osteoarthritis: glucosamine -hypothyroidism: levothyroxine -insomnia: melatonin -depression: effexor Diet: heart healthy DVT prophylaxis:?SCDs, on warfarin GI prophylaxis: protonix Code status: Full code Disposition:??Possibly inpatient rehab, pending PT eval Subjective Date/time seen: 04/17/23 11:13 Interval history: Patient seen and examined. She has no new complaints. Patient has LSO brace plan to work with therapy. Hemoglobin dropped to 7.5, continue on her warfarin. Hematoma appears to be stable. Continue pain control. With rising creatinine likely secondary to dehydration, continue IV fluids, NS to 125cc/hr. Patient denies fever, chills nausea vomiting, diarrhea. She is eating well. Review of Systems Review of Systems: 10 point ROS complete, negative other than what is specified in HPI. Exam Narrative: - GENERAL:? Pleasant elderly woman in no acute distress. Well-nourished. - EYES: EOMI. Anicteric. - HENT: Moist mucous membranes. - LUNGS: Clear to auscultation bilaterally, no wheezing, rhonchi, or rales. - CARDIOVASCULAR: Regular rate and rhythm. No murmur. No JVD. - ABDOMEN: Soft, non-tender and non-distended. No palpable masses. - EXTREMITIES: No edema. Peripheral pulses 2+. Non-tender. Right buttocks hematoma with ecchymosis present - NEUROLOGIC: No focal neurological deficits. CN II-XII grossly intact. - PSYCHIATRIC: Awake, Alert and oriented x 3. Appropriate mood and affect. - SKIN: No rashes or lesions. Warm. - LYMPH: No cervical lymphadenopathy. Objective Data Vital Signs Vital Signs: Vital Signs - 24 hr 04/16/23 13:47 04/16/23 17:29 04/16/23 12:00 Temperature 36.2 C L Pulse Rate 80 78 Respiratory Rate 16 Blood Pressure 100/52 L 98/58 L Pulse Oximetry 94 Oxygen Delivery 04/16/23 16:00 04/16/23 21:29 04/16/23 20:00 Temperature 36.8 C Pulse Rate 72 66 85 Respiratory Rate 18 Blood Pressure 94/37 L Pulse Oximetry 91 Oxygen Delivery 04/17/23 00:00 04/17/23 04:00 04/17/23 08:10 Temperature 37.1 C Pulse Rate 68 66 86 Respiratory Rate 18 Blood Pressure 118/52 L Pulse Oximetry 93 Oxygen Delivery 04/17/23 08:40 04/17/23 08:40 04/17/23 09:25 Temperature
[2023-04-17] MEDS: HYDROcodone/acetaminophen (*CRX) 10-325 MG TABLET 1 TAB PO ×2 (12:30→21:03)
[2023-04-17] MEDS: SODIUM CHLORIDE 0.9% IV 1,000 ML 125 ML IV CONT ×2 (15:07→23:23)
[2023-04-17] MEDS: MELATONIN 5 MG TABLET PO (21:01)
[2023-04-17] MEDS: SOTALOL HCL 80 MG TABLET PO (21:02)
[2023-04-17] MEDS: TRIMETHOPRIM 100 MG TABLET PO (21:03)
[2023-04-18] VITALS (14 sets, daily range): BP systolic 107–148; BP diastolic 47–59; PULSE 64–81; RESP 13–18; TEMP 36.2–36.6; O2SAT 90–98
[2023-04-18] MEDS: MORPHINE SULFATE (*CRX) 2 MG/ML INJ IV PUSH (00:04)
[2023-04-18 05:43] LABS: Basophils Percent Auto 0.3 % (0.2-1.2); Eosinophils Absolute Auto 0.1 K/mm3 (0-0.3); Eosinophils Percent Auto 1.7 % (0-4.4); Hematocrit 22.2 % (37.0-47.0); Immature Granulocyte Absolute 0.04 K/mm3 (0.00-0.031); Immature Granulocyte Percent A 0.6 % (0-0.5); Lymphocytes Absolute Auto 2.67 K/mm3 (0.9-3.2); Lymphocytes Percent Auto 36.7 % (18.3-44.2); Mean Corpuscular HGB Conc 30.6 g/dl (32-36); Mean Corpuscular Hemoglobin 28.1 pg (26-34); Mean Corpuscular Volume 91.7 fl (80-100); Mean Platelet Volume 11.2 fl (7.4-10.4); Monocytes Absolute Auto 0.9 K/mm3 (0.1-0.6); Monocytes Percent Auto 12.9 % (2.6-8.5); Neutrophils Absolute Auto 3.5 K/mm3 (1.3-6.7); Neutrophils Percent Auto 47.8 % (45.5-73.1); Nucleated Red Blood Cells Absolute Auto 0.1 K/mm3 (0.0-0.012); Nucleated Red Blood Cells Perc 0.8 % (0.0-0.2); Platelet Count Result 151 k/mm3 (150-375); Red Blood Count 2.42 M/mm3 (4.2-5.4); Red Cell Distribution Width 14.6 % (11.5-14.5); White Blood Count 7.3 K/mm3 (4.5-10.0)
[2023-04-18 05:49] LABS: Hemoglobin 6.8 g/dL (12.0-15.0)
[2023-04-18] MEDS: LEVOTHYROXINE SODIUM 50 MCG TABLET PO (05:52)
[2023-04-18] MEDS: HYDROcodone/acetaminophen (*CRX) 10-325 MG TABLET 1 TAB PO ×3 (05:52→21:08)
[2023-04-18 05:56] LABS: Anion Gap 1 mmol/L (8-16); Blood Urea Nitrogen 35 mg/dL (7-17); Carbon Dioxide 27 mmol/L (22-30); Chloride 102 mmol/L (98-107); Estimated CRCL calculation 26 ml/min; Estimated Glomerular Filt Rate 31; Glucose 93 mg/dL (65-110); Magnesium 2.3 mg/dL (1.6-2.3); Potassium 4.1 mmol/L (3.4-5.0); Sodium 130 mmol/L (137-145)
[2023-04-18] MEDS: SODIUM CHLORIDE 0.9% IV 1,000 ML 125 ML IV CONT (08:13)
[2023-04-18] MEDS: ASCORBIC ACID 500 MG TABLET 1000 MG PO (09:35)
[2023-04-18] MEDS: PANTOPRAZOLE 40 MG TABLET PO ×2 (09:35→21:05)
[2023-04-18] MEDS: SODIUM CHLORIDE 0.9% IV 250 ML 30 ML IV CONT (09:35)
[2023-04-18] MEDS: ATORVASTATIN 10 MG TABLET PO (09:36)
[2023-04-18] MEDS: LORATADINE 10 MG TABLET PO (09:36)
[2023-04-18] MEDS: VENLAFAXINE HCL XR 75 MG CAP.ER.24H 150 MG PO (09:36)
[2023-04-18] MEDS: CHOLECALCIFEROL 1,000 UNITS TABLET 5000 UNITS PO (09:36)
[2023-04-18] MEDS: MULTIVITAMINS THERAPEUTIC TAB (*BKC) 1 TABLET PO (09:36)
--- NOTE | 2023-04-18 10:25 | PM.IMPN ---
Progress Note: A&P Assessment and Plan (1) Acute kidney injury: Code(s): N17.9 - Acute kidney failure, unspecified Status: Acute (2) Anemia: Code(s): D64.9 - Anemia, unspecified Status: Acute (3) Traumatic hematoma of buttock: Code(s): S30.0XXA - Contusion of lower back and pelvis, initial encounter Status: Acute (4) Rib fractures: Code(s): S22.49XA - Multiple fractures of ribs, unspecified side, initial encounter for closed fracture Status: Acute (5) Closed T12 spinal fracture: Code(s): S22.089A - Unspecified fracture of T11-T12 vertebra, initial encounter for closed fracture Status: Acute (6) Iron deficiency anemia: Code(s): D50.9 - Iron deficiency anemia, unspecified Status: Acute Plan # closed T12 fracture -mechanical fall -NSGY reviewed T/L CT scan images, recs for LSO brace and PT/OT. no surgery at this time -PT/OT consulted, activity with assistance -pain control: PRN tylenol, norco, morphine # traumatic hematoma # acute blood loss anemia -hgb dropped to 6.8, will give 1 unit packed red blood cells, goal transfusion hgb>7. No dizziness or syncope -hemoglobin drop is likely partially dilutional with IV fluids being administered -hematoma appears to be stable on physical exam. 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 Likely pre-renal injury -SERGIO may be from ATN from low BP and likely hypoperfusion of kidneys, improving -Cr from 1.3 to 2.5 to 1.6 -continue will decrease IV fluid rate to normal saline 75 cc/hour -monitor BP -holding antihypertensives #chronic conditions -HLD: statin -essential HTN: holding lisinopril, metoprolol for hypotension -paroxysmal atrial fibrillation:? For rate control meds sotalol and metoprolol, holding AC with bleed -vitamins: may continue home vit C, D, calcium, multivitamin -allergies: fluticasone, claritin -peripheral edema: holding lasix 20mg daily -osteoarthritis: glucosamine -hypothyroidism: levothyroxine -insomnia: melatonin -depression: effexor Diet: heart healthy DVT prophylaxis:?SCDs, on warfarin GI prophylaxis: protonix Code status: Full code Disposition:??possibly inpatient rehab Subjective Date/time seen: 04/18/23 10:25 Interval history: Patient seen and examined. She states she is doing well no new complaints. Hemoglobin dropped further to 6.8, giving 1 unit packed red blood cells. This may be hemodilution no with IV fluids we had been giving however patient has had significant hemoglobin drop since admission. Her hematoma appears to be stable with ecchymosis, no other signs of overt bleeding. Will consult general surgeon to evaluate considering the drop in hemoglobin. SERGIO improving with IV fluids, will decrease the rate of infusion. Patient's lungs are clear and she appears to be tolerating the volume. He denies fever, chills, nausea vomiting, diarrhea. Review of Systems Review of Systems: 10 point ROS complete, negative other than what is specified in HPI. Exam Narrative: - GENERAL:? Pleasant elderly woman in no acute distress. Well-nourished. - EYES: EOMI. Anicteric. - HENT: Moist mucous membranes. - LUNGS: Clear to auscultation bilaterally, no wheezing, rhonchi, or rales. - CARDIOVASCULAR: Regular rate and rhythm. No murmur. No JVD. - ABDOMEN: Soft, non-tender and non-distended. No palpable masses. - EXTREMITIES: No edema. Peripheral pulses 2+. Non-tender.? Right buttocks hematoma with ecchymosis present, appears stable, unchanging - NEUROLOGIC: No focal neurological deficits. CN II-XII grossly intact. - PSYCHIATRIC: Awake, Alert and oriented x 3. Appropriate mood and affect. - SKIN: No rashes or lesions. Warm. - LYMPH: No cervical lymphadenopathy. Objective Data Vit
--- NOTE | 2023-04-18 11:56 | WPDCN ---
Assessment and Plan Assessment and plan (1) Traumatic hematoma of buttock: Code(s): S30.0XXA - Contusion of lower back and pelvis, initial encounter Status: Acute Assessment and Plan: Patient developed a 10cm hematoma in the right buttock region after a fall. She was anticoagulated on Coumadin at the time. Recommend continuing to hold Coumadin for now. Examination reveals the right buttock to be soft without evidence of pressure necrosis of the skin and without evidence of cellulitis of the buttock. These would be the only 2 reasons to consider incision and drainage of the right buttock hematoma. Otherwise continue observation of the area and transfuse as necessary. No obvious need for any surgical intervention at this time. HPI Data of Consult Date/Time: 04/18/23 11:56 Requesting Physician: Emeka Winters DO Primary Care Provider: Víctor Benson MD Consult Narrative Reason for consult: Right buttock hematoma Narrative: Arlet Richard is a 83 year old female admitted to [facility] after falling twice in the course of 24hours in which she suffered a thoracic vertebrae fracture is nondisplaced number fractures. She is also on Coumadin for atrial fibrillation subsequent developed a large right buttock hematoma as well. She has always been hemodynamically stable. Her hemoglobin has drifted down to 6.8 likely due to acute blood loss and hemodilution. She is receiving blood transfusion at this time. I have been asked to evaluate the patient for any need for surgical drainage of the right buttock hematoma. Review of Systems Review of Systems: The remainder of the review of systems to include constitutional, HEENT, cardiovascular, respiratory, GI, , integumentary, musculoskeletal, endocrine, immunologic, hematologic, psychiatric, and neurologic are all negative except for which is mentioned above in the HPI. [facility] Past Medical History Medical History Arthritis Chronic anticoagulation Chronic kidney disease Degenerative disc disease Depression with anxiety Gastroesophageal reflux disease Hypothyroidism Iron deficiency anemia Mixed hyperlipidemia Oral cancer Status post resection and radiation therapy. Paroxysmal atrial fibrillation Surgical History Surgical History History of back surgery History of cardiac pacemaker History of cataract extraction History of dilation and curettage History of hysterectomy History of laparoscopy History of myomectomy History of oral surgery History of permanent cardiac pacemaker placement History of right hip replacement History of thyroidectomy History of total knee arthroplasty Family History Family History Mother Family history of malignant neoplasm of ovary Acute myocardial infarction Father No problems noted. Sibling No problems noted. Other Family history of arthritis Social History Social History Social History: Surrogate medical decision maker: Jose (spouse) or Samantha (daughter) Hilary. Code status: Full code. Smoking status: Never smoker Second hand tobacco smoke exposure: No Alcohol intake: never Substance use: never Substance use type: does not use Lack of Transportation: No Lack of Food: Never True Current Housing: I Have Housing Concerned About Future Housing: No Difficulty Paying Gas/Electric Bills: No Difficulty Paying for Meds: No Currently Unemployed: No Education: High School Diploma/GED Difficulty w/ Childcare or Family Care: No Living arrangements: with family Additional living arrangements comments: Lives with family in [place]. Occupation/Education: retired Additional occupation/education comments: Retired from [employer]
[2023-04-18 13:55] LABS: Hematocrit 27.7 % (37.0-47.0); Hemoglobin 8.6 g/dL (12.0-15.0)
[2023-04-18] MEDS: TRIMETHOPRIM 100 MG TABLET PO (21:05)
[2023-04-18] MEDS: SOTALOL HCL 80 MG TABLET PO (21:05)
[2023-04-18] MEDS: MELATONIN 5 MG TABLET PO (21:06)
[2023-04-19] VITALS (18 sets, daily range): BP systolic 140–154; BP diastolic 50–72; PULSE 67–95; RESP 14–18; TEMP 36.4–36.8; O2SAT 95–100
[2023-04-19] MEDS: SODIUM CHLORIDE 0.9% IV 1,000 ML 75 ML IV CONT (01:46)
[2023-04-19 05:45] LABS: Basophils Percent Auto 0.3 % (0.2-1.2); Eosinophils Absolute Auto 0.2 K/mm3 (0-0.3); Eosinophils Percent Auto 2.1 % (0-4.4); Hematocrit 26.6 % (37.0-47.0); Hemoglobin 8.2 g/dL (12.0-15.0); Immature Granulocyte Absolute 0.03 K/mm3 (0.00-0.031); Immature Granulocyte Percent A 0.4 % (0-0.5); Lymphocytes Absolute Auto 1.77 K/mm3 (0.9-3.2); Lymphocytes Percent Auto 24.6 % (18.3-44.2); Mean Corpuscular HGB Conc 30.8 g/dl (32-36); Mean Corpuscular Hemoglobin 28.3 pg (26-34); Mean Corpuscular Volume 91.7 fl (80-100); Mean Platelet Volume 11.5 fl (7.4-10.4); Monocytes Absolute Auto 0.9 K/mm3 (0.1-0.6); Monocytes Percent Auto 12.5 % (2.6-8.5); Neutrophils Absolute Auto 4.3 K/mm3 (1.3-6.7); Neutrophils Percent Auto 60.1 % (45.5-73.1); Nucleated Red Blood Cells Perc 0.6 % (0.0-0.2); Platelet Count Result 183 k/mm3 (150-375); Red Cell Distribution Width 14.3 % (11.5-14.5); White Blood Count 7.2 K/mm3 (4.5-10.0)
[2023-04-19 05:55] LABS: Anion Gap 2 mmol/L (8-16); Blood Urea Nitrogen 19 mg/dL (7-17); Calcium 8.2 mg/dL (8.4-10.2); Carbon Dioxide 27 mmol/L (22-30); Chloride 104 mmol/L (98-107); Estimated CRCL calculation 38 ml/min; Estimated Glomerular Filt Rate 48; Glucose 97 mg/dL (65-110); Magnesium 2.3 mg/dL (1.6-2.3); Potassium 4.4 mmol/L (3.4-5.0); Sodium 133 mmol/L (137-145)
[2023-04-19] MEDS: LEVOTHYROXINE SODIUM 50 MCG TABLET PO (06:37)
[2023-04-19] MEDS: LOPERAMIDE HCL 2 MG CAPSULE PO (09:50)
[2023-04-19] MEDS: ATORVASTATIN 10 MG TABLET PO (09:51)
[2023-04-19] MEDS: LORATADINE 10 MG TABLET PO (09:51)
[2023-04-19] MEDS: VENLAFAXINE HCL XR 75 MG CAP.ER.24H 150 MG PO (09:51)
[2023-04-19] MEDS: ASCORBIC ACID 500 MG TABLET 1000 MG PO (09:51)
[2023-04-19] MEDS: CHOLECALCIFEROL 1,000 UNITS TABLET 5000 UNITS PO (09:51)
[2023-04-19] MEDS: PANTOPRAZOLE 40 MG TABLET PO ×2 (09:51→21:32)
[2023-04-19] MEDS: HYDROcodone/acetaminophen (*CRX) 10-325 MG TABLET 1 TAB PO ×3 (09:51→23:37)
[2023-04-19] MEDS: MULTIVITAMINS THERAPEUTIC TAB (*BKC) 1 TABLET PO (09:51)
[2023-04-19] MEDS: SOTALOL HCL 80 MG TABLET PO ×2 (09:54→21:32)
--- NOTE | 2023-04-19 10:11 | PM.IMPN ---
Progress Note: A&P Assessment and Plan (1) Acute kidney injury: Code(s): N17.9 - Acute kidney failure, unspecified Status: Acute (2) Anemia: Code(s): D64.9 - Anemia, unspecified Status: Acute (3) Traumatic hematoma of buttock: Code(s): S30.0XXA - Contusion of lower back and pelvis, initial encounter Status: Acute (4) Rib fractures: Code(s): S22.49XA - Multiple fractures of ribs, unspecified side, initial encounter for closed fracture Status: Acute (5) Closed T12 spinal fracture: Code(s): S22.089A - Unspecified fracture of T11-T12 vertebra, initial encounter for closed fracture Status: Acute (6) Iron deficiency anemia: Code(s): D50.9 - Iron deficiency anemia, unspecified Status: Acute (7) Paroxysmal atrial fibrillation: Code(s): I48.0 - Paroxysmal atrial fibrillation Status: Chronic (8) Other intervertebral disc degeneration, lumbar region: Code(s): M51.36 - Other intervertebral disc degeneration, lumbar region Status: Acute (9) Mixed hyperlipidemia: Code(s): E78.2 - Mixed hyperlipidemia Status: Acute (10) Depression with anxiety: Code(s): F41.8 - Other specified anxiety disorders Status: Chronic (11) Cervical disc disorder, unspecified, unspecified cervical region: Code(s): M50.90 - Cervical disc disorder, unspecified, unspecified cervical region Status: Acute (12) Fecal incontinence with incomplete defecation: Code(s): R15.9 - Full incontinence of feces; R15.0 - Incomplete defecation Status: Acute Plan Plan # closed T12 fracture -mechanical fall -NSGY reviewed T/L CT scan images, recs for LSO brace and PT/OT. no surgery at this time -PT/OT consulted, activity with assistance -pain control: PRN tylenol, norco, morphine - Per CM, inpatient rehab interested in pt once she is stable from a blood loss perspective. # traumatic hematoma # acute blood loss anemia -hgb dropped to 6.8, will give?1 unit packed red blood cells, goal transfusion hgb>7. No dizziness or syncope -hemoglobin drop is likely partially dilutional with IV fluids being administered -hematoma appears to be stable on physical exam.? With hemoglobin drop from 11.3 on admission is 6.8, I will?consult general surgery to evaluate -continue to hold warfarin - per gen surg, Recommend continuing to hold Coumadin for now.? Examination reveals the right buttock to be soft without evidence of pressure necrosis of the skin and without evidence of cellulitis of the buttock.? These would be the only 2 reasons to consider incision and drainage of the right buttock hematoma.? Otherwise continue observation of the area and transfuse as necessary.? No obvious need for any surgical intervention at this time. - per uptodate, can restart coumadin at any time. Recommend 5-7 days to restart coumadin. Today would be day 3 of holding coumadin. - Will give an additional 1u of prbc for symptomatic anemia for pt's complaints of generalized weakness that are holding back dc. - hb slightly decreased 8.6 to 8.2. Monitor again today and transfuse 1 more u. - Should monitor her for a few more days off coumadin and after giving 1 more U of blood because I suspect this hematoma is a slow bleed and may need cauterization. - F/u daily cbc's. #Hypotension, improving #Acute kidney injury on CKD 3B, improving -may be from poor PO intake as well as from the blood loss. Likely pre-renal injury -SERGIO may be from ATN from low BP and likely hypoperfusion of kidneys, improving -Cr from 1.3 to 2.5 to 1.6 -continue will?decrease IV fluid rate to normal saline 75 cc/hour -monitor BP -holding antihypertensives - stopped IVF. Cr has improved/normalized. #chronic conditions -HLD: statin -essential HTN: holding lisinopril, metoprolol for hypotension -paroxysmal atrial fibrillation:? For rate control meds sotalol and metoprolol, holding AC with bleed -vitamins: may c
[2023-04-19 17:11] LABS: Hematocrit 32.2 % (37.0-47.0); Hemoglobin 10.3 g/dL (12.0-15.0)
[2023-04-19] MEDS: ALBUTEROL SULFATE (*SP) AEROSOL 1 PUFF 2 PUFF INHALATION (19:46)
[2023-04-19] MEDS: MELATONIN 5 MG TABLET PO (21:32)
[2023-04-19] MEDS: TRIMETHOPRIM 100 MG TABLET PO (21:32)
[2023-04-20] VITALS (13 sets, daily range): BP systolic 154–176; BP diastolic 61–85; PULSE 65–98; RESP 14–20; TEMP 36–36.8; O2SAT 95–97
[2023-04-20 05:49] LABS: Basophils Percent Auto 0.2 % (0.2-1.2); Eosinophils Absolute Auto 0.2 K/mm3 (0-0.3); Eosinophils Percent Auto 2.8 % (0-4.4); Hematocrit 31.9 % (37.0-47.0); Hemoglobin 10.2 g/dL (12.0-15.0); Immature Granulocyte Absolute 0.05 K/mm3 (0.00-0.031); Immature Granulocyte Percent A 0.6 % (0-0.5); Lymphocytes Absolute Auto 2.03 K/mm3 (0.9-3.2); Lymphocytes Percent Auto 24.8 % (18.3-44.2); Mean Corpuscular Hemoglobin 28.8 pg (26-34); Mean Corpuscular Volume 90.1 fl (80-100); Mean Platelet Volume 10.7 fl (7.4-10.4); Monocytes Absolute Auto 0.9 K/mm3 (0.1-0.6); Monocytes Percent Auto 11.1 % (2.6-8.5); Neutrophils Absolute Auto 4.9 K/mm3 (1.3-6.7); Neutrophils Percent Auto 60.5 % (45.5-73.1); Nucleated Red Blood Cells Perc 0.5 % (0.0-0.2); Platelet Count Result 176 k/mm3 (150-375); Red Blood Count 3.54 M/mm3 (4.2-5.4); Red Cell Distribution Width 15.6 % (11.5-14.5); White Blood Count 8.2 K/mm3 (4.5-10.0)
[2023-04-20] MEDS: LEVOTHYROXINE SODIUM 50 MCG TABLET PO (06:53)
[2023-04-20] MEDS: ALBUTEROL SULFATE (*SP) AEROSOL 1 PUFF 2 PUFF INHALATION (08:53)
[2023-04-20] MEDS: CHOLECALCIFEROL 1,000 UNITS TABLET 5000 UNITS PO (09:54)
[2023-04-20] MEDS: ASCORBIC ACID 500 MG TABLET 1000 MG PO (09:55)
[2023-04-20] MEDS: SOTALOL HCL 80 MG TABLET PO ×2 (09:55→21:32)
[2023-04-20] MEDS: VENLAFAXINE HCL XR 75 MG CAP.ER.24H 150 MG PO (09:55)
[2023-04-20] MEDS: MULTIVITAMINS THERAPEUTIC TAB (*BKC) 1 TABLET PO (09:55)
[2023-04-20] MEDS: HYDROcodone/acetaminophen (*CRX) 10-325 MG TABLET 1 TAB PO ×2 (09:56→21:32)
[2023-04-20] MEDS: LORATADINE 10 MG TABLET PO (09:56)
[2023-04-20] MEDS: ATORVASTATIN 10 MG TABLET PO (09:56)
[2023-04-20] MEDS: PANTOPRAZOLE 40 MG TABLET PO ×2 (09:56→21:32)
--- NOTE | 2023-04-20 11:37 | PC.NURSE ---
On 04/20/23, the student, [Bailey Felix], provided care and completed [facility] documentation on this patient. I have reviewed the student's documentation and agree with the findings.
[2023-04-20] MEDS: polyethylene glycoL 3350 17 GM POWD.PACK PO (13:02)
--- NOTE | 2023-04-20 21:08 | PM.IMPN ---
Progress Note: A&P Assessment and Plan (1) Acute kidney injury: Code(s): N17.9 - Acute kidney failure, unspecified Status: Acute (2) Anemia: Code(s): D64.9 - Anemia, unspecified Status: Acute (3) Traumatic hematoma of buttock: Code(s): S30.0XXA - Contusion of lower back and pelvis, initial encounter Status: Acute (4) Rib fractures: Code(s): S22.49XA - Multiple fractures of ribs, unspecified side, initial encounter for closed fracture Status: Acute (5) Closed T12 spinal fracture: Code(s): S22.089A - Unspecified fracture of T11-T12 vertebra, initial encounter for closed fracture Status: Acute (6) Iron deficiency anemia: Code(s): D50.9 - Iron deficiency anemia, unspecified Status: Acute (7) Paroxysmal atrial fibrillation: Code(s): I48.0 - Paroxysmal atrial fibrillation Status: Chronic (8) Other intervertebral disc degeneration, lumbar region: Code(s): M51.36 - Other intervertebral disc degeneration, lumbar region Status: Acute (9) Mixed hyperlipidemia: Code(s): E78.2 - Mixed hyperlipidemia Status: Acute (10) Depression with anxiety: Code(s): F41.8 - Other specified anxiety disorders Status: Chronic (11) Cervical disc disorder, unspecified, unspecified cervical region: Code(s): M50.90 - Cervical disc disorder, unspecified, unspecified cervical region Status: Acute (12) Fecal incontinence with incomplete defecation: Code(s): R15.9 - Full incontinence of feces; R15.0 - Incomplete defecation Status: Acute (13) Decreased GFR: Code(s): R94.4 - Abnormal results of kidney function studies Status: Acute (14) Acute dysfunction of eustachian tube: Qualifiers: Laterality: unspecified laterality Qualified Code(s): H69.80 - Other specified disorders of Eustachian tube, unspecified ear Code(s): H69.80 - Other specified disorders of Eustachian tube, unspecified ear Status: Acute Plan # closed T12 fracture -mechanical fall -NSGY reviewed T/L CT scan images, recs for LSO brace and PT/OT. no surgery at this time -PT/OT consulted, activity with assistance -pain control: PRN tylenol, norco, morphine - Per , inpatient rehab interested in pt once she is stable from a blood loss perspective. # traumatic hematoma # acute blood loss anemia -hgb dropped to 6.8, will give?1 unit packed red blood cells, goal transfusion hgb>7. No dizziness or syncope -hemoglobin drop is likely partially dilutional with IV fluids being administered -hematoma appears to be stable on physical exam.? With hemoglobin drop from 11.3 on admission is 6.8, I will?consult general surgery to evaluate -continue to hold warfarin - per gen surg, Recommend continuing to hold Coumadin for now.? Examination reveals the right buttock to be soft without evidence of pressure necrosis of the skin and without evidence of cellulitis of the buttock.? These would be the only 2 reasons to consider incision and drainage of the right buttock hematoma.? Otherwise continue observation of the area and transfuse as necessary.? No obvious need for any surgical intervention at this time. - per uptodate, can restart coumadin at any time. Recommend 5-7 days to restart coumadin. Today would be day 3 of holding coumadin. - now hb is ~ 10 after 2 u of blood. - Should monitor her for a few more days off coumadin and after giving 1 more U of blood if this hematoma is a slow bleed and may need cauterization. - F/u daily cbc's. - discussed with dr. velasquez from surgery. pt does not have a current indication for surgery #Hypotension, improving #Acute kidney injury on CKD 3B, improving -may be from poor PO intake as well as from the blood loss. Likely pre-renal injury -SERGIO may be from ATN from low BP and likely hypoperfusion of kidneys, improving -Cr from 1.3 to 2.5 to 1.6 - stop ivf - hypertensive now. - resume lisinopril and met
[2023-04-20 21:31] LABS: Anion Gap 1 mmol/L (8-16); Blood Urea Nitrogen 14 mg/dL (7-17); Calcium 8.6 mg/dL (8.4-10.2); Carbon Dioxide 31 mmol/L (22-30); Chloride 100 mmol/L (98-107); Estimated CRCL calculation 45 ml/min; Estimated Glomerular Filt Rate 60; Glucose 99 mg/dL (65-110); Potassium 4.1 mmol/L (3.4-5.0); Sodium 132 mmol/L (137-145)
[2023-04-20] MEDS: TRIMETHOPRIM 100 MG TABLET PO (21:31)
[2023-04-20] MEDS: MELATONIN 5 MG TABLET PO (21:32)
[2023-04-20] MEDS: AMOXICILLIN 500 MG CAPSULE PO (22:18)
[2023-04-21] VITALS (16 sets, daily range): BP systolic 127–159; BP diastolic 63–95; PULSE 69–119; RESP 16–20; TEMP 36.4–36.8; O2SAT 94–96
[2023-04-21] MEDS: METOPROLOL TARTRATE 25 MG TABLET PO (02:18)
[2023-04-21] MEDS: METOPROLOL TARTRATE INJ 5 MG/5 ML VIAL IV PUSH (02:40)
[2023-04-21] MEDS: HYDROcodone/acetaminophen (*CRX) 5-325 MG TABLET 1 TAB PO (02:43)
[2023-04-21 05:52] LABS: Basophils Percent Auto 0.3 % (0.2-1.2); Eosinophils Absolute Auto 0.2 K/mm3 (0-0.3); Eosinophils Percent Auto 2.4 % (0-4.4); Hematocrit 35.6 % (37.0-47.0); Hemoglobin 11.5 g/dL (12.0-15.0); Immature Granulocyte Absolute 0.06 K/mm3 (0.00-0.031); Immature Granulocyte Percent A 0.6 % (0-0.5); Lymphocytes Absolute Auto 2.15 K/mm3 (0.9-3.2); Lymphocytes Percent Auto 21.4 % (18.3-44.2); Mean Corpuscular HGB Conc 32.3 g/dl (32-36); Mean Corpuscular Hemoglobin 28.5 pg (26-34); Mean Corpuscular Volume 88.3 fl (80-100); Mean Platelet Volume 10.6 fl (7.4-10.4); Monocytes Percent Auto 10.2 % (2.6-8.5); Neutrophils Absolute Auto 6.5 K/mm3 (1.3-6.7); Neutrophils Percent Auto 65.1 % (45.5-73.1); Nucleated Red Blood Cells Perc 0.3 % (0.0-0.2); Platelet Count Result 205 k/mm3 (150-375); Red Blood Count 4.03 M/mm3 (4.2-5.4); Red Cell Distribution Width 15.9 % (11.5-14.5); White Blood Count 10.1 K/mm3 (4.5-10.0)
[2023-04-21] MEDS: LEVOTHYROXINE SODIUM 50 MCG TABLET PO (06:18)
[2023-04-21] MEDS: AMOXICILLIN 500 MG CAPSULE PO ×3 (06:18→22:12)
--- NOTE | 2023-04-21 09:14 | PCPTNOTE ---
Attempted to see patient for PT, however patient reported her pacemaker has not been working properly. Patient's heart rate increased to 130s with minimal bed mobility. RN notified and discussed with RN. Patient not appropriate for therapy at this time until heart rate more controlled.
--- NOTE | 2023-04-21 09:30 | PCOTNOTE ---
Per RN, no therapy at this time due to the MD in with Patient, some changes to her medications regarding her pacemaker.
[2023-04-21] MEDS: VENLAFAXINE HCL XR 75 MG CAP.ER.24H 150 MG PO (10:28)
[2023-04-21] MEDS: lisinopriL 10 MG TABLET PO (10:28)
[2023-04-21] MEDS: METOPROLOL TARTRATE 50 MG TAB PO ×2 (10:30→20:35)
[2023-04-21] MEDS: ATORVASTATIN 10 MG TABLET PO (10:31)
[2023-04-21] MEDS: PANTOPRAZOLE 40 MG TABLET PO ×2 (10:31→20:35)
[2023-04-21] MEDS: MULTIVITAMINS THERAPEUTIC TAB (*BKC) 1 TABLET PO (10:31)
[2023-04-21] MEDS: CHOLECALCIFEROL 1,000 UNITS TABLET 5000 UNITS PO (10:31)
[2023-04-21] MEDS: HYDROcodone/acetaminophen (*CRX) 10-325 MG TABLET 1 TAB PO ×2 (10:32→20:35)
[2023-04-21] MEDS: SOTALOL HCL 80 MG TABLET PO ×2 (10:32→20:35)
[2023-04-21] MEDS: LORATADINE 10 MG TABLET PO (10:32)
[2023-04-21] MEDS: polyethylene glycoL 3350 17 GM POWD.PACK PO (10:35)
[2023-04-21] MEDS: ASCORBIC ACID 500 MG TABLET 1000 MG PO (10:35)
--- NOTE | 2023-04-21 11:17 | P.PNIM_ITS ---
Progress Note: A&P Assessment and Plan (1) Acute kidney injury: Code(s): N17.9 - Acute kidney failure, unspecified Status: Acute (2) Anemia: Code(s): D64.9 - Anemia, unspecified Status: Acute (3) Traumatic hematoma of buttock: Code(s): S30.0XXA - Contusion of lower back and pelvis, initial encounter Status: Acute (4) Rib fractures: Code(s): S22.49XA - Multiple fractures of ribs, unspecified side, initial encounter for closed fracture Status: Acute (5) Closed T12 spinal fracture: Code(s): S22.089A - Unspecified fracture of T11-T12 vertebra, initial encounter for closed fracture Status: Acute (6) Iron deficiency anemia: Code(s): D50.9 - Iron deficiency anemia, unspecified Status: Acute (7) Paroxysmal atrial fibrillation: Code(s): I48.0 - Paroxysmal atrial fibrillation Status: Chronic (8) Other intervertebral disc degeneration, lumbar region: Code(s): M51.36 - Other intervertebral disc degeneration, lumbar region Status: Acute (9) Mixed hyperlipidemia: Code(s): E78.2 - Mixed hyperlipidemia Status: Acute (10) Depression with anxiety: Code(s): F41.8 - Other specified anxiety disorders Status: Chronic (11) Cervical disc disorder, unspecified, unspecified cervical region: Code(s): M50.90 - Cervical disc disorder, unspecified, unspecified cervical region Status: Acute (12) Fecal incontinence with incomplete defecation: Code(s): R15.9 - Full incontinence of feces; R15.0 - Incomplete defecation Status: Acute (13) Decreased GFR: Code(s): R94.4 - Abnormal results of kidney function studies Status: Acute (14) Acute dysfunction of eustachian tube: Qualifiers: Laterality: unspecified laterality Qualified Code(s): H69.80 - Other specified disorders of Eustachian tube, unspecified ear Code(s): H69.80 - Other specified disorders of Eustachian tube, unspecified ear Status: Acute Plan # closed T12 fracture -mechanical fall -NSGY reviewed T/L CT scan images, recs for LSO brace and PT/OT. no surgery at this time -PT/OT consulted, activity with assistance -pain control: PRN tylenol, norco, morphine - Per CM, inpatient rehab interested in pt once she is stable from a blood loss perspective. # traumatic hematoma # acute blood loss anemia -hgb dropped to 6.8, will give?1 unit packed red blood cells, goal transfusion hgb>7. No dizziness or syncope -hemoglobin drop is likely partially dilutional with IV fluids being administered -hematoma appears to be stable on physical exam.? With hemoglobin drop from 11.3 on admission is 6.8, I will?consult general surgery to evaluate -continue to hold warfarin - per gen surg, Recommend continuing to hold Coumadin for now.? Examination reveals the right buttock to be soft without evidence of pressure necrosis of the skin and without evidence of cellulitis of the buttock.? These would be the only 2 reasons to consider incision and drainage of the right buttock hematoma.? Otherwise continue observation of the area and transfuse as necessary.? No obvious need for any surgical intervention at this time. - per uptodate, can restart coumadin at any time. Recommend 5-7 days to restart coumadin. Today would be day 3 of holding coumadin. - now hb is ~ 10 after 2 u of blood. - Should monitor her for a few more days off coumadin and after giving 1 more U of blood if this hematoma is a slow bleed and may need cauterization. - F/u daily cbc's. - discussed with dr. velasquez from surgery.
--- NOTE | 2023-04-21 13:55 | PCOTNOTE ---
Patient refused to participate this afternoon. Patient verbal she isn't feeling well and needs some rest.
--- NOTE | 2023-04-21 16:34 | PM.CNCAR ---
Assessment and Plan Assessment and plan (1) SOB (shortness of breath): Code(s): R06.02 - Shortness of breath Status: Acute Assessment and Plan: Patient developed shortness of breath last night and today. Some of this correlated to being in AFib with a rapid ventricular rate. I however I also suspect she is volume overloaded from the fluid resuscitation and 2 units of packed cells that she received on admission. She also had small pleural effusions on admission by CT scan. --agree, at least for now, with increasing metoprolol dose help prevent AFib RVR --check chest x-ray and proBNP --check EKG for complaints of chest tightness --furosemide 20 mg IV push x1 (2) Paroxysmal atrial fibrillation: Code(s): I48.0 - Paroxysmal atrial fibrillation Status: Chronic Assessment and Plan: History of paroxysmal atrial fibrillation generally controlled with metoprolol and sotalol. Had episode last night, perhaps random, although perhaps aggravated by some volume overload. --continue sotalol --agree with increasing the metoprolol dose for now --agree with holding the warfarin for several days since she has had fractures and a very large hematoma (3) Pacemaker: Code(s): Z95.0 - Presence of cardiac pacemaker Status: Acute Assessment and Plan: Patient and family are concerned about her pacemaker which is nearing elective replacement interval. They are concerned that it caused the events of last night (reassured them that the pacemaker did not cause nor can treat the atrial fib). On 04/07/2023 a remote check showed that she had less than 3 months of battery energy left before the device went to elective replacement interval, at which time we plan on scheduling a generator change within 3 months. She has a remote monitor which is functioning. --explained the difference between nearing elective replacement interval and being at elective replacement interval, reassured patient and family we have plenty of time to change the battery when the elective replacement interval is tripped --in addition the patient is not pacemaker dependent. --her remote monitor is functioning and checking with the pacemaker nightly, when it is in the same room with her. I recommend that if she goes to rehab she take the remote monitor with her. --She in enrolled in our Device Monitoring Program and has a full remote download scheduled for May 19. (4) History of recent fall: Code(s): Z91.81 - History of falling Status: Acute Assessment and Plan: History of 2 recent falls, with vertebral fractures, rib fractures, and a very large hematoma with a history of vertigo. --physical therapy, rehab (5) Hematoma: Code(s): T14.8XXA - Other injury of unspecified body region, initial encounter Status: Acute Assessment and Plan: Large hematoma the buttocks, resulting in anemia with an hematocrit of 22. Status post 2 units of packed cells. --H&H stable --resume warfarin a few days (6) Acute kidney injury: Code(s): N17.9 - Acute kidney failure, unspecified Status: Acute Assessment and Plan: Had acute kidney injury on admission, resolved. History of Present Illness History of Present Illness Consult date/time: 04/21/23 16:34 Reason For Visit: Falls, Thoracic Spine Fracture, Rib Fractures Narrative: Arlet Richard is an 83-year-old female whom we are asked to see at the request of Dr. Woodall for my advice and opinion regarding her pacemaker battery which is nearing elective replacement interval, and telemetry changes, in consultation. The patient is followed in our office for her [employer] pacemaker. On 04/07/2023 a remote check showed that she had less than 3months of battery energy left before the device went to elective replacement interval, at which time we plan on scheduling a generator change within 3 months. She has a remote monitor which is functioning
[2023-04-21] MEDS: FUROSEMIDE INJ 40 MG/4 ML VIAL 20 MG IV PUSH (17:31)
[2023-04-21 19:25] LABS: NT Pro B Type Natriuretic Pept 3740 pg/mL (19.9-100)
[2023-04-21] MEDS: TRIMETHOPRIM 100 MG TABLET PO (20:35)
[2023-04-21] MEDS: MELATONIN 5 MG TABLET PO (20:35)
[2023-04-22] VITALS (13 sets, daily range): BP systolic 118–151; BP diastolic 63–80; PULSE 68–85; RESP 16–18; TEMP 35.9–37; O2SAT 93–96
--- NOTE | 2023-04-22 | ECG_ITS ---
Measurements Intervals [place] Rate: 80 P: 39 CO: 213 QRS: -16 QRSD: 83 T: 6 QT: 381 QTc: 440 Interpretive Statements SINUS RHYTHM WITH SINUS ARRHYTHMIA WITH FIRST DEGREE AV BLOCK COMPARED TO ECG 04/15/2023 21:30:08 SINUS ARRHYTHMIA NOW PRESENT FIRST DEGREE AV BLOCK NOW PRESENT Electronically Signed On 04-23-2023 14:10:06 CDT by Marianna Fishman M.D.
--- NOTE | 2023-04-22 04:14 | PC.NURSE ---
0 WHILE ROUNDING ON PT SHE INFORMED ME THAT SHE UNSTRAPPED HER BACK BRACE BECAUSE IT WAS HURTING TOO BADLY. I EDUCATED PT ON IMPORTANCE OF KEEPING THE BACK BRACE ON AND SHE UNDERSTOOD BUT STILL REFUSED TO KEEP IT ON.
[2023-04-22 05:41] LABS: Basophils Percent Auto 0.4 % (0.2-1.2); Eosinophils Absolute Auto 0.3 K/mm3 (0-0.3); Eosinophils Percent Auto 2.6 % (0-4.4); Hematocrit 36.1 % (37.0-47.0); Hemoglobin 11.2 g/dL (12.0-15.0); Immature Granulocyte Absolute 0.08 K/mm3 (0.00-0.031); Immature Granulocyte Percent A 0.8 % (0-0.5); Lymphocytes Absolute Auto 2.22 K/mm3 (0.9-3.2); Lymphocytes Percent Auto 21.5 % (18.3-44.2); Mean Corpuscular Hemoglobin 28.8 pg (26-34); Mean Corpuscular Volume 92.8 fl (80-100); Mean Platelet Volume 10.7 fl (7.4-10.4); Monocytes Absolute Auto 1.1 K/mm3 (0.1-0.6); Monocytes Percent Auto 10.9 % (2.6-8.5); Neutrophils Absolute Auto 6.6 K/mm3 (1.3-6.7); Neutrophils Percent Auto 63.8 % (45.5-73.1); Platelet Count Result 212 k/mm3 (150-375); Red Blood Count 3.89 M/mm3 (4.2-5.4); Red Cell Distribution Width 16.4 % (11.5-14.5); White Blood Count 10.3 K/mm3 (4.5-10.0)
[2023-04-22] MEDS: LEVOTHYROXINE SODIUM 50 MCG TABLET PO (05:43)
[2023-04-22] MEDS: HYDROcodone/acetaminophen (*CRX) 10-325 MG TABLET 1 TAB PO ×3 (05:43→21:33)
[2023-04-22] MEDS: AMOXICILLIN 500 MG CAPSULE PO ×3 (05:43→21:33)
--- NOTE | 2023-04-22 08:40 | PCOTNOTE ---
Per RN, Patient not to be seen. Patient has been put on bedrest until Patient has been fitted for a clam shell back brace, verbalized by the doctor regarding her back fracture. OT notified and will follow up with doctor for continued treatment.
[2023-04-22] MEDS: VENLAFAXINE HCL XR 75 MG CAP.ER.24H 150 MG PO (08:56)
[2023-04-22] MEDS: SOTALOL HCL 80 MG TABLET PO ×2 (08:56→21:32)
[2023-04-22] MEDS: ASCORBIC ACID 500 MG TABLET 1000 MG PO (08:57)
[2023-04-22] MEDS: LORATADINE 10 MG TABLET PO (08:57)
[2023-04-22] MEDS: METOPROLOL TARTRATE 50 MG TAB PO ×2 (08:57→21:32)
[2023-04-22] MEDS: lisinopriL 10 MG TABLET PO (08:57)
[2023-04-22] MEDS: PANTOPRAZOLE 40 MG TABLET PO ×2 (08:57→21:32)
[2023-04-22] MEDS: ATORVASTATIN 10 MG TABLET PO (08:57)
[2023-04-22] MEDS: MULTIVITAMINS THERAPEUTIC TAB (*BKC) 1 TABLET PO (08:58)
[2023-04-22] MEDS: CHOLECALCIFEROL 1,000 UNITS TABLET 5000 UNITS PO (08:58)
[2023-04-22] MEDS: polyethylene glycoL 3350 17 GM POWD.PACK PO (08:59)
--- NOTE | 2023-04-22 09:44 | PCPTNOTE ---
The patient treatment was not able to be completed on 04/22/2023 due to patient waiting on hard shell back brace and on bedrest until back brace comes. Will plan to continue treatment per plan of care.
--- NOTE | 2023-04-22 10:29 | PM.DS ---
DS: Admitting Diagnosis Discharge Date Five hundred twenty-three Admitting Diagnosis Fall, T-spine fracture, hematoma DS: Discharge Diagnosis Discharge Diagnosis (1) Acute kidney injury: Code(s): N17.9 - Acute kidney failure, unspecified Status: Acute (2) Anemia: Code(s): D64.9 - Anemia, unspecified Status: Acute (3) Traumatic hematoma of buttock: Code(s): S30.0XXA - Contusion of lower back and pelvis, initial encounter Status: Acute (4) Rib fractures: Code(s): S22.49XA - Multiple fractures of ribs, unspecified side, initial encounter for closed fracture Status: Acute (5) Closed T12 spinal fracture: Code(s): S22.089A - Unspecified fracture of T11-T12 vertebra, initial encounter for closed fracture Status: Acute (6) Iron deficiency anemia: Code(s): D50.9 - Iron deficiency anemia, unspecified Status: Acute (7) Paroxysmal atrial fibrillation: Code(s): I48.0 - Paroxysmal atrial fibrillation Status: Chronic (8) Other intervertebral disc degeneration, lumbar region: Code(s): M51.36 - Other intervertebral disc degeneration, lumbar region Status: Acute (9) Mixed hyperlipidemia: Code(s): E78.2 - Mixed hyperlipidemia Status: Acute (10) Depression with anxiety: Code(s): F41.8 - Other specified anxiety disorders Status: Chronic (11) Cervical disc disorder, unspecified, unspecified cervical region: Code(s): M50.90 - Cervical disc disorder, unspecified, unspecified cervical region Status: Acute (12) Fecal incontinence with incomplete defecation: Code(s): R15.9 - Full incontinence of feces; R15.0 - Incomplete defecation Status: Acute (13) Decreased GFR: Code(s): R94.4 - Abnormal results of kidney function studies Status: Acute (14) Acute dysfunction of eustachian tube: Qualifiers: Laterality: unspecified laterality Qualified Code(s): H69.80 - Other specified disorders of Eustachian tube, unspecified ear Code(s): H69.80 - Other specified disorders of Eustachian tube, unspecified ear Status: Acute Plan # closed T12 fracture -mechanical fall -NSGY reviewed T/L CT scan images, recs for LSO brace and PT/OT. no surgery at this time -PT/OT consulted, activity with assistance -pain control: PRN tylenol, norco, morphine - Per CM, inpatient rehab interested in pt once she is stable from a blood loss perspective. # traumatic hematoma # acute blood loss anemia -hgb dropped to 6.8, will give?1 unit packed red blood cells, goal transfusion hgb>7. No dizziness or syncope -hemoglobin drop is likely partially dilutional with IV fluids being administered -hematoma appears to be stable on physical exam.? With hemoglobin drop from 11.3 on admission is 6.8, I will?consult general surgery to evaluate -continue to hold warfarin - per gen surg, Recommend continuing to hold Coumadin for now.? Examination reveals the right buttock to be soft without evidence of pressure necrosis of the skin and without evidence of cellulitis of the buttock.? These would be the only 2 reasons to consider incision and drainage of the right buttock hematoma.? Otherwise continue observation of the area and transfuse as necessary.? No obvious need for any surgical intervention at this time. - per uptodate, can restart coumadin at any time. Recommend 5-7 days to restart coumadin. Today would be day 3 of holding coumadin. - now hb is ~ 10 after 2 u of blood. - Should monitor her for a few more days off coumadin and after giving 1 more U of blood if this hematoma is a slow bleed and may need cauterization. - F/u daily cbc's. - discussed with dr. velasquez from surgery. pt does not have a current indication for surgery #Hypotension, improving #Acute kidney injury on CKD 3B, improving -may be from poor PO intake as well as from the blood loss. Likely pre-renal injury -SERGIO may be from ATN from low BP and li
--- NOTE | 2023-04-22 10:59 | PM.PNCARD ---
Progress Note: A&P Assessment and Plan (1) SOB (shortness of breath): Code(s): R06.02 - Shortness of breath Status: Acute Assessment and Plan: Patient developed shortness of breath 04/20-04/21.? Some of this correlated to being in AFib with a rapid ventricular rate.? However, also suspect she was volume overloaded from the fluid resuscitation and 2 units of packed cells that she received on admission.? She also had small pleural effusions on admission by CT scan. --Agree with increased dose of Metoprolol for AFIB rate control. --Given Lasix 20mg x 1 with improvement. --Does not need additional IV Lasix. Can resume home PO Lasix 20mg. (2) Paroxysmal atrial fibrillation: Code(s): I48.0 - Paroxysmal atrial fibrillation Status: Chronic Assessment and Plan: History of paroxysmal atrial fibrillation generally controlled with metoprolol and sotalol.? Had episode 04/20, perhaps random, although perhaps aggravated by some volume overload. --Continue sotalol --Agree with increased dose of Metoprolol 50mg BID --Agree with holding the warfarin for several days since she has had fractures and a very large hematoma (3) Pacemaker: Code(s): Z95.0 - Presence of cardiac pacemaker Status: Acute Assessment and Plan: Patient and family are concerned about her pacemaker which is nearing elective replacement interval. They are concerned that it caused the events of last night (reassured them that the pacemaker did not cause nor can treat the atrial fib).? On 04/07/2023 a remote check showed that she had less than 3 months of battery energy left before the device went to elective replacement interval, at which time we plan on scheduling a generator change within 3 months.? She has a remote monitor which is functioning. --Explained the difference between nearing elective replacement interval and being at elective replacement interval, reassured patient and family we have plenty of time to change the battery when the elective replacement interval is tripped --In addition the patient is not pacemaker dependent. --Her remote monitor is functioning and checking with the pacemaker nightly, when it is in the same room with her.? I recommend that if she goes to rehab she take the remote monitor with her. --She in enrolled in our Device Monitoring Program and has a full remote download scheduled for May 19. (4) History of recent fall: Code(s): Z91.81 - History of falling Status: Acute Assessment and Plan: History of 2 recent falls, with vertebral fractures, rib fractures, and a very large hematoma with a history of vertigo. --Physical therapy, rehab (5) Hematoma: Code(s): T14.8XXA - Other injury of unspecified body region, initial encounter Status: Acute Assessment and Plan: Large hematoma in the buttocks, resulting in anemia with an hematocrit of 22.? Status post 2 units of packed cells. --H&H stable --Resume warfarin in a few days (6) Acute kidney injury: Code(s): N17.9 - Acute kidney failure, unspecified Status: Acute Assessment and Plan: Had acute kidney injury on admission, resolved. Plan Cardiology will sign off at this time. Please call us back if needed. Will arrange outpatient follow up in our office. Subjective Date/time seen: 04/22/23 10:59 Interval history: Reason for consult: Pacemaker evaluation HPI: Arlet Richard is an 83-year-old female whom we are asked to see at the request of Dr. Woodall for my advice and opinion regarding her pacemaker battery which is nearing elective replacement interval, and telemetry changes, in consultation. The patient is followed in our office for her [employer] pacemaker.? On 04/07/2023 a remote check showed that she had less than 3months of battery energy left before the device went to elective replacement interval, at which time we plan on scheduling a generator change within 3 months.? She has a remote
--- NOTE | 2023-04-22 11:03 | WPDNEUROSGCN ---
Assessment and Plan Assessment and plan (1) Closed T12 spinal fracture: Code(s): S22.089A - Unspecified fracture of T11-T12 vertebra, initial encounter for closed fracture Status: Acute Plan The patient is a very pleasant 83 year old female who presents to the hospital after a fall. She has had a significant hematoma, rib fractures, and a finding of a T12 fracture that appears to involve all three columns. The patient and I have had an extended discussion regarding the fracture. I have also spoken at length with the patient's daughter. The patient currently denies signifiant pain and has no neurological deficit. While by definition the fracture is unstable, the intervention to stabilize the fracture would be a significant surgery including a thoracolumbar fusion. The patinet has medical comorbidities that make that operation a not insignificant endavour. We have discussed an alternative of thoracolumbar bracing with a more rigid clamshell TLSO brace, to be worn at all times. While there is remains a possibility that the fracture might not heal in a brace, and that the patient would ultimately still require surgery, the patient and her daughter both emphasize that their strong preference would be to attempt TLSO bracing rather than to proceed to surgery at this point. I have explained that this is a reasonable option, I have spoken with our brace representatives who will fit her for the brace today. The patient will maintain on bedrest until she is fitted for the clamshell brace. She may mobilize and ambulate with PT/OT once she is fitted for the brace. She will need to follow up in the neurosurgical clinic with a CT of the thoracic spine 3-4 weeks after discharge to document stability of the fracture. Please contact me if the patient develops a worsening of pain or any other neurological symptoms. Consult date: 04/22/23 HPI: Arlet Richard is an 83-year-old female with history of afib, on coumadin, arthritis, CKD, chronic back pain who presented to the ED at [facility] after a fall.? The patient notes that she was in the kitchen standing at the counter getting ready to take her nighttime medications when she suddenly began feeling very dizzy she noted that her bilateral legs felt quite unsteady and she then fell to the ground hitting her back of her head on the floor.? She denied any loss of consciousness.? She did note that she was feeling generally weak and dizzy throughout the day on the day of presentation.? She also had a fall yesterday in the yard which in speaking with the patient and her daughter was a fall where her mid back struck a concrete edge in the yard. She did talk to her primary care doctor today and outpatient lumbar x-rays were performed. She denies any numbness or weakness in her arms or legs. She did note some upper abdominal pain after her fall on the day prior to admission along with some right hip pain In the emergency room the patient underwent a CT of the head which was negative. She underwent CT imaging of the chest abdomen and pelvis which was suggestive of a fracture at T12. The patient was admitted. Rib fractures were also identified. The Abdomen / Pelvis CT was reformatted on 04/21 to better evaluate the fracture and the fracture clearly extends through the pedicles and does appear to extend to the facet complexes bilaterally although there is no widening or displacement of the facet complexes. There is autofusion of numerous vertebral bodies above and below the fracture. There is an old spinal fusion at L5-S1 The patient was ambulatory in the 24 hours following the fall. She had other injuries that included rib fractures as well as a gluteal hematoma. She had a drop in her hemoglobin and has received blood. She also has a cardiac history including a pacemaker and was on warfarin prior to admission. She had an episode of a fib with RVR yesterday and cardiology is following. Today the patient den
[2023-04-22] MEDS: ALBUTEROL SULFATE (*SP) AEROSOL 1 PUFF 2 PUFF INHALATION (12:37)
--- NOTE | 2023-04-22 12:56 | PC.NURSE ---
On 04/22/23, the student, [Chai Saldana], provided care and completed [facility] documentation on this patient. I have reviewed the student's documentation and agree with the findings.
[2023-04-22] MEDS: MELATONIN 5 MG TABLET PO (21:32)
[2023-04-22] MEDS: TRIMETHOPRIM 100 MG TABLET PO (21:32)
[2023-04-23] VITALS (7 sets, daily range): BP systolic 140–146; BP diastolic 60–68; PULSE 66–83; RESP 18–20; TEMP 36.1–36.4; O2SAT 96–100
[2023-04-23] MEDS: HYDROcodone/acetaminophen (*CRX) 10-325 MG TABLET 1 TAB PO ×2 (05:59→14:03)
[2023-04-23] MEDS: AMOXICILLIN 500 MG CAPSULE PO ×2 (05:59→14:03)
[2023-04-23] MEDS: LEVOTHYROXINE SODIUM 50 MCG TABLET PO (05:59)
[2023-04-23 06:10] LABS: Basophils Percent Auto 0.2 % (0.2-1.2); Eosinophils Absolute Auto 0.3 K/mm3 (0-0.3); Eosinophils Percent Auto 3.3 % (0-4.4); Hematocrit 35.5 % (37.0-47.0); Hemoglobin 11.2 g/dL (12.0-15.0); Immature Granulocyte Absolute 0.05 K/mm3 (0.00-0.031); Immature Granulocyte Percent A 0.6 % (0-0.5); Lymphocytes Absolute Auto 2.22 K/mm3 (0.9-3.2); Mean Corpuscular HGB Conc 31.5 g/dl (32-36); Mean Corpuscular Hemoglobin 28.6 pg (26-34); Mean Corpuscular Volume 90.6 fl (80-100); Mean Platelet Volume 10.4 fl (7.4-10.4); Monocytes Absolute Auto 0.9 K/mm3 (0.1-0.6); Monocytes Percent Auto 10.6 % (2.6-8.5); Neutrophils Absolute Auto 5.4 K/mm3 (1.3-6.7); Neutrophils Percent Auto 60.3 % (45.5-73.1); Platelet Count Result 203 k/mm3 (150-375); Red Blood Count 3.92 M/mm3 (4.2-5.4); Red Cell Distribution Width 16.1 % (11.5-14.5); White Blood Count 8.9 K/mm3 (4.5-10.0)
[2023-04-23] MEDS: CHOLECALCIFEROL 1,000 UNITS TABLET 5000 UNITS PO (08:30)
[2023-04-23] MEDS: lisinopriL 10 MG TABLET PO (08:30)
[2023-04-23] MEDS: ATORVASTATIN 10 MG TABLET PO (08:30)
[2023-04-23] MEDS: LORATADINE 10 MG TABLET PO (08:30)
[2023-04-23] MEDS: ASCORBIC ACID 500 MG TABLET 1000 MG PO (08:30)
[2023-04-23] MEDS: METOPROLOL TARTRATE 50 MG TAB PO (08:31)
[2023-04-23] MEDS: MULTIVITAMINS THERAPEUTIC TAB (*BKC) 1 TABLET PO (08:32)
[2023-04-23] MEDS: polyethylene glycoL 3350 17 GM POWD.PACK PO (08:32)
[2023-04-23] MEDS: VENLAFAXINE HCL XR 75 MG CAP.ER.24H 150 MG PO (08:32)
[2023-04-23] MEDS: PANTOPRAZOLE 40 MG TABLET PO (08:32)
[2023-04-23] MEDS: SOTALOL HCL 80 MG TABLET PO (08:32)
--- NOTE | 2023-04-23 11:13 | P.DS_ITS ---
DS: Admitting Diagnosis Discharge Date 04/23/23 Admitting Diagnosis fall DS: Discharge Diagnosis Discharge Diagnosis (1) Acute kidney injury: Code(s): N17.9 - Acute kidney failure, unspecified Status: Acute (2) Anemia: Code(s): D64.9 - Anemia, unspecified Status: Acute (3) Traumatic hematoma of buttock: Code(s): S30.0XXA - Contusion of lower back and pelvis, initial encounter Status: Acute (4) Rib fractures: Code(s): S22.49XA - Multiple fractures of ribs, unspecified side, initial encounter for closed fracture Status: Acute (5) Closed T12 spinal fracture: Code(s): S22.089A - Unspecified fracture of T11-T12 vertebra, initial encounter for closed fracture Status: Acute (6) Iron deficiency anemia: Code(s): D50.9 - Iron deficiency anemia, unspecified Status: Acute (7) Paroxysmal atrial fibrillation: Code(s): I48.0 - Paroxysmal atrial fibrillation Status: Chronic (8) Other intervertebral disc degeneration, lumbar region: Code(s): M51.36 - Other intervertebral disc degeneration, lumbar region Status: Acute (9) Mixed hyperlipidemia: Code(s): E78.2 - Mixed hyperlipidemia Status: Acute (10) Depression with anxiety: Code(s): F41.8 - Other specified anxiety disorders Status: Chronic (11) Cervical disc disorder, unspecified, unspecified cervical region: Code(s): M50.90 - Cervical disc disorder, unspecified, unspecified cervical region Status: Acute (12) Fecal incontinence with incomplete defecation: Code(s): R15.9 - Full incontinence of feces; R15.0 - Incomplete defecation Status: Acute (13) Decreased GFR: Code(s): R94.4 - Abnormal results of kidney function studies Status: Acute (14) Acute dysfunction of eustachian tube: Qualifiers: Laterality: unspecified laterality Qualified Code(s): H69.80 - Other specified disorders of Eustachian tube, unspecified ear Code(s): H69.80 - Other specified disorders of Eustachian tube, unspecified ear Status: Acute Plan # closed T12 fracture -mechanical fall -NSGY reviewed T/L CT scan images, recs for LSO brace and PT/OT. no surgery at this time -PT/OT consulted, activity with assistance -pain control: PRN tylenol, norco, morphine - Per , inpatient rehab interested in pt once she is stable from a blood loss perspective. # traumatic hematoma # acute blood loss anemia -hgb dropped to 6.8, will give?1 unit packed red blood cells, goal transfusion hgb>7. No dizziness or syncope -hemoglobin drop is likely partially dilutional with IV fluids being administered -hematoma appears to be stable on physical exam.? With hemoglobin drop from 11.3 on admission is 6.8, I will?consult general surgery to evaluate -continue to hold warfarin - per gen surg, Recommend continuing to hold Coumadin for now.? Examination reveals the right buttock to be soft without evidence of pressure necrosis of the skin and without evidence of cellulitis of the buttock.? These would be the only 2 reasons to consider incision and drainage of the right buttock hematoma.? Otherwise continue observation of the area and transfuse as necessary.? No obvious need for any surgical intervention at this time. - per uptodate, can restart coumadin at any time. Recommend 5-7 days to restart coumadin. Today would be day 3 of holding coumadin. - now hb is ~ 10 after 2 u of blood. - Should monitor her for a few more days off coumadin and after giving 1 more U of blood if this hematoma is a
--- NOTE | 2023-04-23 11:50 | PCNWS ---
Weekly nutritional screen. Patient is tolerating current diet with adequate intake. No weight loss reported. No nutritional needs at this time.
== END 2023-04-23 18:45 | DRG 552 ==
LOC: ANHED 04-16 00:43 → ANH2MED 04-16 01:00
PROVIDERS: Internal Medicine; Internal Medicine Cardiovascular Disease; Physician Assistant; Student in an Organized Health Care Education/Training Program; Admitting Provider Internal Medicine; Emergency Provider Emergency Medicine; PCP Family Medicine; Visit Provider Chiropractor
DX: S22.088A Other fracture of T11-T12 vertebra, initial encounter for closed fracture (principal); S32.019A Unspecified fracture of first lumbar vertebra, initial encounter for closed fracture; S22.41XA Multiple fractures of ribs, right side, initial encounter for closed fracture; N17.9 Acute kidney failure, unspecified; D62 Acute posthemorrhagic anemia; S30.0XXA Contusion of lower back and pelvis, initial encounter; W19.XXXA Unspecified fall, initial encounter; I12.9 Hypertensive chronic kidney disease with stage 1 through stage 4 chronic kidney disease, or unspecified chronic kidney disease; N18.32 Chronic kidney disease, stage 3b; E86.0 Dehydration; E78.5 Hyperlipidemia, unspecified; I48.0 Paroxysmal atrial fibrillation; M19.90 Unspecified osteoarthritis, unspecified site; E03.9 Hypothyroidism, unspecified; F41.8 Other specified anxiety disorders; G47.00 Insomnia, unspecified; K21.9 Gastro-esophageal reflux disease without esophagitis; F32.A Depression, unspecified; Z79.01 Long term (current) use of anticoagulants; Z85.819 Personal history of malignant neoplasm of unspecified site of lip, oral cavity, and pharynx; Z95.0 Presence of cardiac pacemaker; Z90.710 Acquired absence of both cervix and uterus; Z96.641 Presence of right artificial hip joint; Z96.659 Presence of unspecified artificial knee joint; R15.9 Full incontinence of feces; H69.80 Other specified disorders of Eustachian tube, unspecified ear; Z91.81 History of falling
CPT/HCPCS: 36415; 36430; 70450; 71045; 71250; 72100; 72125; 72128; 72131; 73502; 74177; 80048; 80053; 81003; 83735; 83880; 84484; 85014; 85018; 85025; 85027; 85610; 86850; 86900; 86901; 86923; 93005; 94640; 96361; 96374; 96375; 97110; 97161; 97165; 97530; 97535; 99285; A9270; G0378; J1940; J2270; J2405; J7030; J7040; J7050; P9016; Q9967

== ENCOUNTER 2023-05-17 14:03 | Outpatient (CLI) | payer MEDICARE, SELFPAY ==
[2023-05-17 14:52] LABS: Basophils Percent Auto 0.4 % (0.2-1.2); Eosinophils Absolute Auto 0.2 K/mm3 (0-0.3); Eosinophils Percent Auto 2.9 % (0-4.4); Hematocrit 39.5 % (37.0-47.0); Hemoglobin 12.7 g/dL (12.0-15.0); Immature Granulocyte Absolute 0.02 K/mm3 (0.00-0.031); Immature Granulocyte Percent A 0.3 % (0-0.5); Lymphocytes Absolute Auto 2.06 K/mm3 (0.9-3.2); Lymphocytes Percent Auto 28.3 % (18.3-44.2); Mean Corpuscular HGB Conc 32.2 g/dl (32-36); Mean Corpuscular Hemoglobin 29.7 pg (26-34); Mean Corpuscular Volume 92.5 fl (80-100); Mean Platelet Volume 10.8 fl (7.4-10.4); Monocytes Absolute Auto 0.7 K/mm3 (0.1-0.6); Monocytes Percent Auto 9.4 % (2.6-8.5); Neutrophils Absolute Auto 4.3 K/mm3 (1.3-6.7); Neutrophils Percent Auto 58.7 % (45.5-73.1); Platelet Count Result 277 k/mm3 (150-375); Red Blood Count 4.27 M/mm3 (4.2-5.4); Red Cell Distribution Width 15.7 % (11.5-14.5); White Blood Count 7.3 K/mm3 (4.5-10.0)
[2023-05-17 15:05] LABS: Anion Gap 4 mmol/L (8-16); Blood Urea Nitrogen 19 mg/dL (7-17); Calcium 9.3 mg/dL (8.4-10.2); Carbon Dioxide 31 mmol/L (22-30); Chloride 99 mmol/L (98-107); Estimated Glomerular Filt Rate 39; Glucose 102 mg/dL (65-110); Potassium 4.7 mmol/L (3.4-5.0); Sodium 134 mmol/L (137-145)
[2023-05-17 15:09] LABS: Appearance Urine Cloudy (Clear); Bacteria Urine Rare /hpf; Bilirubin Urine Negative (Negative); Blood Urine Negative (Negative); Color Urine Dark Yellow (Yellow); Glucose Urine UA Negative (Negative); Ketones Urine Trace mg/dL (Negative); Leukocyte Esterase Ur 3+ LEU/UL (Negative); Need Manual Microscopic Reviewed; Nitrate Urine Negative (Negative); Protein Urine 1+ mg/dL (Negative); RBC Urine 0-2 /hpf (0-2); Specific Grav Ur 1.027 (1.001-1.035); Squamous Epithelial Cell Urine Few /hpf (Few); WBC Urine >100 /hpf
[2023-05-17 15:12] LABS: Add Urine Microscopic? YES
== END 2023-05-17 14:04 | disposition home or self-care (01) ==
PROVIDERS: PCP Family Medicine; Visit Provider Physician Assistant Medical
DX: N17.9 Acute kidney failure, unspecified (principal); D64.9 Anemia, unspecified; M50.90 Cervical disc disorder, unspecified, unspecified cervical region; N39.0 Urinary tract infection, site not specified
CPT/HCPCS: 36415; 80048; 81001; 85025; 87086; 87088

== ENCOUNTER 2023-05-26 11:30 | Outpatient (CLI) | payer MEDICARE, SELFPAY ==
--- NOTE | ~2023-05-26 | XR_ITS ---
EXAMINATION: XR thoracic spine 3V DATE: 05/26/2023 12:02 INDICATION: T11 fracture. Fall. TECHNIQUE: 3 views of thoracic spine were obtained. COMPARISON: Thoracic spine radiographs 04/11/15, CT 04/15/23 FINDINGS: There is 4 degrees dextrocurvature of thoracic spine. There is mild chronic anterior wedgin g of T11 vertebral body. There is a fracture through the posterosuperior corner of T12 vertebral body with 6 mm craniocaudal displacement. There is distraction of the T10-T11 disc space anteriorly. Ther e is moderate to severely decreased disc height at most thoracic levels. There is interbody fusion fr om T2 to T4. There are bridging endplate osteophytes at multiple levels in the spine, consistent with diffuse idiopathic skeletal hyperostosis (DISH). There is a left chest wall pacer with leads in the right atrium and right ventricle. There are surgical clips in right neck. Again seen are fractures of right 11th and 12th ribs. IMPRESSION: 1. Unstable T12 fracture, unchanged from 04/15/23. 2. Severe thoracic spondylosis. 3. DISH. Reviewed, dictated and finalized at location E. COVER ESTIMATOR
--- NOTE | ~2023-05-26 | XR_ITS ---
EXAMINATION: XR lumbar spine 2-3V DATE: 05/26/2023 12:02 INDICATION: Fall. T11 fracture. TECHNIQUE: 3 views of lumbar spine were obtained. COMPARISON: Lumbar spine radiographs 04/14/23 FINDINGS: There is 13 degrees levoscoliosis of lumbar spine. There are changes of anterior and branch administrator ior fusion procedures at L5-S1 with interbody device and pedicle screws. There is 3 mm retrolisthesis of T12 on L1, L1 on L2, L2 on L3, and L3 on L4. There is mild chronic anterior wedging of T11 and T1 2 vertebral bodies. There is severely decreased disc height from T12-L1 through L4-L5 with endplate r emodeling. There is multilevel facet joint osteoarthritis, severe at multiple levels. There is a righ t hip arthroplasty. IMPRESSION: 1. Severe lumbar spondylosis. 2. Anterior and posterior fusion procedures at L5-S1. 3. Lumbar levoscoliosis. Reviewed, dictated and finalized at location E. CARPENTER MECHANIC
== END 2023-05-26 11:31 | disposition home or self-care (01) ==
LOC: ANHIMG 11:33
PROVIDERS: PCP Family Medicine; Visit Provider Nurse Practitioner Family
DX: M54.9 Dorsalgia, unspecified (principal); S22.089A Unspecified fracture of T11-T12 vertebra, initial encounter for closed fracture; W19.XXXA Unspecified fall, initial encounter; M47.814 Spondylosis without myelopathy or radiculopathy, thoracic region; M48.14 Ankylosing hyperostosis [Forestier], thoracic region; M47.816 Spondylosis without myelopathy or radiculopathy, lumbar region
CPT/HCPCS: 72072; 72100

== ENCOUNTER 2023-05-31 13:12 | Outpatient (CLI) | payer MEDICARE, SELFPAY ==
[2023-05-31 13:55] LABS: Hematocrit 43.5 % (37.0-47.0); Hemoglobin 13.3 g/dL (12.0-15.0); Mean Corpuscular HGB Conc 30.6 g/dl (32-36); Mean Corpuscular Hemoglobin 28.9 pg (26-34); Mean Corpuscular Volume 94.4 fl (80-100); Mean Platelet Volume 11.3 fl (7.4-10.4); Platelet Count Result 261 k/mm3 (150-375); Red Blood Count 4.61 M/mm3 (4.2-5.4); Red Cell Distribution Width 16.3 % (11.5-14.5); White Blood Count 7.5 K/mm3 (4.5-10.0)
[2023-05-31 13:59] LABS: Creatinine Urine 52.7 mg/dL; Total Protein Urine Random 11 mg/dL; Ur Ttl Prot Creatinine Ratio 0.21 mg/mg (0-0.20)
[2023-05-31 14:22] LABS: Albumin Level 4.3 g/dL (3.5-5.1); Anion Gap 11 mmol/L (8-16); Blood Urea Nitrogen 20 mg/dL (7-17); Calcium 9.8 mg/dL (8.4-10.2); Carbon Dioxide 28 mmol/L (22-30); Chloride 98 mmol/L (98-107); Estimated Glomerular Filt Rate 48; Glucose 95 mg/dL (65-110); Phosphorus 3.8 mg/dL (2.5-4.5); Potassium 4.7 mmol/L (3.4-5.0); Sodium 137 mmol/L (137-145)
[2023-05-31 14:31] LABS: Parathyroid Intact 47.1 pg/mL (7.5-53.5)
[2023-05-31 15:11] LABS: Vitamin D 25 Hydroxy 47.7 ng/mL
== END 2023-05-31 13:13 | disposition home or self-care (01) ==
PROVIDERS: PCP Family Medicine; Visit Provider Internal Medicine Nephrology
DX: M50.90 Cervical disc disorder, unspecified, unspecified cervical region (principal); N18.32 Chronic kidney disease, stage 3b; E21.1 Secondary hyperparathyroidism, not elsewhere classified; N18.31 Chronic kidney disease, stage 3a
CPT/HCPCS: 36415; 80069; 82306; 82570; 83970; 84156; 85027

== ENCOUNTER 2023-06-22 10:58 | Outpatient (CLI) | payer MEDICARE, SELFPAY ==
--- NOTE | ~2023-06-22 | CT_ITS ---
EXAMINATION: CT thoracic spine wo con DATE: 06/22/2023 11:28 INDICATION: Unspecified fracture of T11-T12 vertebra TECHNIQUE: Computed tomography (CT) of the thoracic spine was performed without intravenous contrast. Automated exposure control and iterative reconstruction technique were employed. The dose-length pro duct was 1404.31 mGy-cm. COMPARISON: 04/15/23 FINDINGS: 3 mm retrolisthesis C5 on C6, 2-3 mm anterolisthesis of T1 on T2 one-2 mm anterolisthesis of T10 on T 11 and 2-2 mm retrolisthesis L1 on L2. There is anterior fusion at T6 to-T4 and at T12-L1. There is p osterior fusion across the bilateral facet joints at T2-T3. Chronic mild anterior wedging at T11. T12 Chance fracture which extends obliquely across the posterior superior vertebral body and posteriorly across the bilateral pedicles and pars interarticularis. There is some not yet solidly bridging call us formation about the fracture at the posterior elements. There is slight decrease in the degree of separation of the fracture planes within the vertebral body but without evident productive changes of healing. There is an obliquely oriented fracture plane extending across the superolateral aspect of the vertebral body which remains attached to the T11 vertebral body via a large bridging osteophyte. Interval decrease in the prior prominent widening of the anterior T11-T12 disc space with vacuum phen omena. There is some callus formation about posterior right 11th and 12th rib fractures. There is mul tilevel severe disc height loss at C5-C6 and C6-C7, T1-T2, T4-T5 through T9-T10. Moderate disc height loss at T10-T11 and C7-T1. There are bridging nearly bridging anterior endplate osteophytes from T2 through L2 consistent with diffuse idiopathic skeletal hyperostosis (DISH). Partially visualized card iac pacemaker leads extending into the right atrium and right ventricle. Small left pleural effusion with dependent atelectasis in the left lower lobe. IMPRESSION: 1. Unstable T12 Chance fracture with decrease in the degree of separation of the fracture planes with in the vertebral body and with some healing yet definitively solidly bridging callus formation at the portion of the fracture involving the posterior elements. 2. Severe thoracic spondylosis with extensive bridging and nonbridging osteophytes consistent with di ffuse idiopathic skeletal hyperostosis (DISH). 3. Healing nondisplaced fracture of the posterior right 11th and 12th ribs. 4. Small left pleural effusion. Reviewed, dictated and finalized at location A. IL MANAGER IN TRAINING IMPRESSION: 1. Unstable T12 Chance fracture with decrease in the degree of separation of th e fracture planes within the vertebral body and with some healing yet definitiv izaiah solidly bridging callus formation at the portion of the fracture involving the posterior elements. 2. Severe thoracic spondylosis with extensive bridging and nonbridging osteophy sophie consistent with diffuse idiopathic skeletal hyperostosis (DISH). 3. Healing nondisplaced fracture of the posterior right 11th and 12th ribs. 4. Small left pleural effusion.
== END 2023-06-22 10:59 | disposition home or self-care (01) ==
PROVIDERS: PCP Family Medicine; Visit Provider Neurological Surgery
DX: S22.089D Unspecified fracture of T11-T12 vertebra, subsequent encounter for fracture with routine healing (principal); J90 Pleural effusion, not elsewhere classified; M47.814 Spondylosis without myelopathy or radiculopathy, thoracic region; S22.41XD Multiple fractures of ribs, right side, subsequent encounter for fracture with routine healing
CPT/HCPCS: 72128

== ENCOUNTER 2023-07-28 13:42 | Outpatient (CLI) | payer MEDICARE, SELFPAY ==
--- NOTE | ~2023-07-28 | XR_ITS ---
XR thoracolumbar DATE: 07/28/2023 14:03 INDICATION: Fracture of T11-12 TECHNIQUE: Standing AP and lateral thoracolumbar views COMPARISON: 06/22/2023 CT thoracic spine 05/26/2023 thoracic and lumbar spine FINDINGS: There is mild levoscoliosis. Diffuse osteopenia. There is sclerosis consistent with healing at the T12 fracture, without interval change in position a nd alignment. There is severe degenerative disc disease at T12-L1 through L4-5, with particularly prominent spurrin g at L3-4. There is posterior and interbody spinal surgical fusion at L5-S1. No recent fracture since 06/22/2023. The sacroiliac joints are intact. Bipolar pacemaker with leads overlying right atrium and right ventricle. IMPRESSION: No significant change since 06/22/2023 Reviewed, dictated and finalized at location B. DRINIER TENDER
== END 2023-07-28 13:43 | disposition home or self-care (01) ==
PROVIDERS: PCP Family Medicine; Visit Provider Physician Assistant
DX: S22.089A Unspecified fracture of T11-T12 vertebra, initial encounter for closed fracture (principal); X58.XXXA Exposure to other specified factors, initial encounter
CPT/HCPCS: 72080

== ENCOUNTER 2023-08-23 01:22 | Day surgery (SDC) | payer MEDICARE, SELFPAY ==
[2023-08-06 13:22] VITALS: BMI 38.0
[2023-08-23] VITALS (8 sets, daily range): BP systolic 100–131; BP diastolic 46–65; PULSE 60–71; RESP 14–16; TEMP 36.7–36.8; O2SAT 96–100
[2023-08-23 08:59] LABS: Basophils Percent Auto 0.6 % (0.2-1.2); Eosinophils Absolute Auto 0.1 K/mm3 (0-0.3); Eosinophils Percent Auto 2.8 % (0-4.4); Hematocrit 40.2 % (37.0-47.0); Hemoglobin 12.6 g/dL (12.0-15.0); Immature Granulocyte Absolute 0.01 K/mm3 (0.00-0.031); Immature Granulocyte Percent A 0.2 % (0-0.5); Lymphocytes Absolute Auto 1.92 K/mm3 (0.9-3.2); Lymphocytes Percent Auto 41.6 % (18.3-44.2); Mean Corpuscular HGB Conc 31.3 g/dl (32-36); Mean Corpuscular Hemoglobin 29.9 pg (26-34); Mean Corpuscular Volume 95.3 fl (80-100); Mean Platelet Volume 10.8 fl (7.4-10.4); Monocytes Absolute Auto 0.3 K/mm3 (0.1-0.6); Monocytes Percent Auto 7.4 % (2.6-8.5); Neutrophils Absolute Auto 2.2 K/mm3 (1.3-6.7); Neutrophils Percent Auto 47.4 % (45.5-73.1); Platelet Count Result 182 k/mm3 (150-375); Red Blood Count 4.22 M/mm3 (4.2-5.4); Red Cell Distribution Width 13.2 % (11.5-14.5); White Blood Count 4.6 K/mm3 (4.5-10.0)
[2023-08-23 09:17] LABS: Prothrombin Time 13.4 Seconds (11.1-14.7)
[2023-08-23 09:19] LABS: Anion Gap 5 mmol/L (8-16); Blood Urea Nitrogen 19 mg/dL (7-17); Calcium 9.4 mg/dL (8.4-10.2); Carbon Dioxide 29 mmol/L (22-30); Chloride 104 mmol/L (98-107); Estimated CRCL calculation 38 ml/min; Estimated Glomerular Filt Rate 48; Glucose 99 mg/dL (65-110); Potassium 4.5 mmol/L (3.4-5.0); Sodium 138 mmol/L (137-145)
--- NOTE | 2023-08-23 10:25 | WPDMODSED ---
Moderate Sedation Note-Pt Data Patient Data Diagnosis: Chronically implanted pacemaker at [facility] Present Complaint: no complaints Procedure to be performed/Plan: pacemaker generator change Allergies Allergy/AdvReac Type Severity Reaction Status Date / Time Cephalosporins AdvReac Mild upset Verified 08/06/23 11:10 stomach ciprofloxacin AdvReac Mild rash Verified 08/06/23 11:10 cefaclor AdvReac Unknown upset Verified 08/06/23 11:10 stomach hydrocodone AdvReac Unknown UPSET Verified 08/06/23 11:10 STOMACH ibuprofen AdvReac Unknown UPSET Verified 08/06/23 11:10 STOMACH oxycodone AdvReac Unknown VERY Verified 08/06/23 11:10 ADDICTIVE propoxyphene AdvReac Unknown UPSET Verified 08/06/23 11:10 STOMACH Quinolones AdvReac Unknown Rash Verified 08/06/23 11:10 rofecoxib AdvReac Unknown UPSET Verified 08/06/23 11:10 STOMACH Home Medications Medication Instructions Recorded Confirmed Type sotalol 80 mg tablet 80 mg PO BID 07/24/19 08/07/23 History fluticasone propionate 50 2 spray intranasal DAILY PRN 11/25/20 08/07/23 History mcg/actuation nasal Allergy Symptoms spray,suspension loratadine 10 mg tablet (Claritin) 10 mg PO DAILY 11/25/20 08/07/23 History melatonin 5 mg tablet 5 mg PO HS #30 tabs 11/30/20 08/07/23 Rx trimethoprim 100 mg tablet 100 mg PO QHS 08/28/21 08/07/23 History meclizine 25 mg tablet 25 mg PO BID PRN dizziness #20 tabs 02/11/22 08/07/23 Rx acetaminophen 325 mg capsule 650 mg PO PRN PRN Pain 09/21/22 08/07/23 History (Tylenol) ascorbic acid (vitamin C) 1,000 mg 1 g PO DAILY 09/21/22 08/07/23 History tablet (Vitamin C With Roseanne Hips) calcium carbonate 600 mg-vitamin 1 cap PO DAILY 09/21/22 08/07/23 History D3 10 mcg (400 unit) capsule cholecalciferol (vitamin D3) 125 125 mcg PO DAILY 09/21/22 08/07/23 History mcg (5,000 unit) capsule glucosamine sulf dipot 2 cap PO DAILY 09/21/22 08/07/23 History chlr,msm,chond 550 mg-C 30 mg-dipti 1 mg capsule (Glucosamine Chondroitin) multivitamin (Daily Multi-Vitamin 1 tablet PO DAILY 09/21/22 08/07/23 History tablet) benazepril 10 mg tablet 10 mg PO DAILY 02/24/23 08/07/23 History loperamide 2 mg capsule 2 mg PO DAILY 02/24/23 08/07/23 History metoprolol tartrate 50 mg tablet 50 mg PO Q12HR 30 days #60 tabs 04/22/23 08/07/23 Rx saliva stimulant comb. no.3 1 spray PO TID #44.3 mL 05/02/23 08/07/23 Rx (Biotene Moisturizing Mouth mucosal spray) hydrocodone 5 mg-acetaminophen 325 1 tablet PO Q8H PRN Pain Rated 6 05/28/23 08/07/23 Rx mg tablet Or Greater #21 tabs atorvastatin 10 mg tablet 10 mg PO DAILY #90 tabs 06/04/23 08/07/23 Rx venlafaxine 150 mg 150 mg PO DAILY #90 caps 06/04/23 08/07/23 Rx capsule,extended release 24 hr furosemide 20 mg tablet 20 mg PO DAILY 08/20/23 08/20/23 History levothyroxine 50 mcg tablet 50 mcg PO DAILY 08/20/23 08/20/23 History omeprazole 40 mg capsule,delayed 40 mg PO DAILY 08/20/23 08/20/23 History release warfarin 4 mg tablet 4 mg PO DAILY 08/20/23 08/20/23 History Current Medications: Active Medications Vancomycin HCl (Vancomycin 1,500 Mg/Ns 500 Ml) 1,500 mg in 500 mls @ 333.3333 mls/hr 15.625 mg/kg (1500 mg) IVPB ONCE ONE Stop: 08/23/23 10:52 Sedation/Anesthesia: No previous sedation/anesthesia problems (including family history). [facility] Past Medical History Medical History Arthritis BMI 35.0-35.9,adult Chronic anticoagulation Chronic kidney disease Degenerative disc disease Depression with anxiety Gastroesophageal reflux disease Hypothyroidism Iron deficiency anemia Mixed hyperlipidemia Oral cancer Status post resection and radiation therapy. Pacemaker Paroxysmal atrial fibrillation Surgical History Surgical History History of back surgery History of cardiac pacemaker History of cataract extraction History of dilation
--- NOTE | 2023-08-23 11:52 | ECG_ITS ---
Measurements Intervals [place] Rate: 60 P: 101 CT: 207 QRS: -21 QRSD: 91 T: -14 QT: 424 QTc: 424 Interpretive Statements ELECTRONIC ATRIAL PACEMAKER BORDERLINE LEFT AXIS DEVIATION [QRS AXIS < -20] LOW QRS VOLTAGE IN PRECORDIAL LEADS [QRS DEFLECTION < 1.0 mV IN CHEST LEADS] ABNORMAL RHYTHM ECG COMPARED TO ECG 04/22/2023 14:57:57 ATRIAL RHYTHM IS NOW PACED Electronically Signed On 08-23-2023 17:01:23 FLOOR CARE TECHNICIAN by Jorge Guadalupe M.D.
--- NOTE | 2023-08-23 11:53 | WPDCARDPROC ---
Cardiac Cath Procedure Note Date of procedure:: 08/23/23 Performing physician:: Jorge Guadalupe MD Indication:: Permanent pacemaker at [facility]. Brief clinical history:: This is an 83-year-old lady with a history of sick sinus syndrome who has permanent cardiac pacemaker at [facility]. The original device was implanted in 1996. The patient has had 3 subsequent generator change procedures. The current generator is approximately 10 years old. There is a previously implanted atrial lead which is abandoned. That lead is not discussed in the notes that I see in the chart. Procedure Procedure performed:: Explantation of depleted dual-chamber pulse change implantation of new permanent pacemaker pulse generator Sedation/Medication given:: fentanyl 50 mg Versed 2 mg Access site:: left anterior chest wall Estimated blood loss:: minimal Procedure note:: patient was brought to the cardiac catheterization lab in the postabsorptive state where the left anterior chest wall was scrubbed and prepped in the usual fashion. Anesthesia was infiltrated with 20 cc of lidocaine locally above the pocket. An incision was then made using the plasma blade at the region of the anesthesia at the lower most previous incision. The patient is significanly obese and there was significant dissection of subcutaneous fat and electrocautery for cutaneous hemostasis that was provided. The fibrous capsule was encountered. As this is the 5th device in this pocket there was a fair amount of careful dissection to open this fibrous capsule with the plasma blade. The pacemaker device was then removed a with the attached leads and was found to be visually intact and unremarkable in appearance. The torque wrench was used to disconnect the leads from the depleted generator and connected to the new generator as detailed below. The pocket was then irrigated with vancomycin infused saline. Following this the device was placed back into the pocket the abandoned lead was not encountered during this dissection. The entire assembly was placed into the pocket was then closed in layers using 3-0 Vicryl interrupted fashion for the subcutaneous tissue and 4-0 Vicryl in a subcutaneous running fashion for the skin. The wound was dressed with an Aquacel and she was taken to the holding area in stable condition postop antibiotics for home were ordered. Procedure was well tolerated and uncomplicated. Findings:: The depleted pacemaker pulse generator is a [employer] dual-chamber pacemaker model K173 serial number [id number]. Device was originally implanted December 04, 2013. The new pacemaker is [employer] dual-chamber pacemaker model L311: ACCOLADE MRI IS-1. serial number [id number]. Device is programmed in the DDDR mode lower rate limit 30 upper rate limit 130. Av delay 220/400 millisecond. The atrial lead is a Guidant bipolar lead model 4136: SEXTRUS IS 1 Bi Positive Fix 53 CM. serial number [id number]. originally implanted 12/04/2013 atrial threshold is 0.9 volts at 0.4 millisecond pacing impedance 571 Ohms. P-waves are sensed at 4.6 mV. The ventricular lead is a TapZen model 4024, serial number [id number]. originally implanted 01/08/1997. Ventricular threshold is 0.7 volts at 0.4 milliseconds impedance 730 Ohms. R-waves are sensed at 15.3 mV. Conclusion:: 1. Successful uncomplicated explantation of depleted pacemaker pulse generator 2. successful uncomplicated implantation of new dual-chamber pulse generator for ongoing treatment of sick sinus syndrome in this 83-year-old patient. 3. Chronic atrial and ventricular leads are functioning well. A previously implanted atrial lead is present but again was not encountered during the dissection for this generator change. Jorge Guadalupe MD [facility]
== END 2023-08-23 14:35 | disposition home or self-care (01) ==
PROVIDERS: PCP Family Medicine; Visit Provider Specialist
PROC: 0JPT0PZ Removal of Cardiac Rhythm Related Device from Trunk Subcutaneous Tissue and Fascia, Open Approach (ICD-10-PCS; CPT 33228; principal; 2023-08-23 10:00)
DX: Z45.010 Encounter for checking and testing of cardiac pacemaker pulse generator [battery] (principal); I48.0 Paroxysmal atrial fibrillation; N18.9 Chronic kidney disease, unspecified; F41.8 Other specified anxiety disorders; K21.9 Gastro-esophageal reflux disease without esophagitis; E03.9 Hypothyroidism, unspecified; D50.9 Iron deficiency anemia, unspecified; E78.2 Mixed hyperlipidemia; Z85.819 Personal history of malignant neoplasm of unspecified site of lip, oral cavity, and pharynx; Z92.3 Personal history of irradiation; Z79.01 Long term (current) use of anticoagulants; Z79.891 Long term (current) use of opiate analgesic
CPT/HCPCS: 33228; 36415; 80048; 85025; 85610; C1786; J2250; J3010; J3370; J7040

== ENCOUNTER 2023-10-11 17:14 | Outpatient (CLI) | payer MEDICARE, SELFPAY ==
[2023-10-11 18:04] LABS: Anion Gap 2 mmol/L (8-16); Blood Urea Nitrogen 23 mg/dL (7-17); Calcium 9.4 mg/dL (8.4-10.2); Carbon Dioxide 32 mmol/L (22-30); Chloride 101 mmol/L (98-107); Estimated Glomerular Filt Rate 39; Glucose 89 mg/dL (65-110); Phosphorus 3.6 mg/dL (2.5-4.5); Potassium 4.6 mmol/L (3.4-5.0); Sodium 135 mmol/L (137-145)
[2023-10-11 18:05] LABS: Hematocrit 39.9 % (37.0-47.0); Hemoglobin 12.9 g/dL (12.0-15.0); Mean Corpuscular HGB Conc 32.3 g/dl (32-36); Mean Corpuscular Hemoglobin 30.7 pg (26-34); Mean Platelet Volume 11.6 fl (7.4-10.4); Platelet Count Result 203 k/mm3 (150-375); White Blood Count 6.7 K/mm3 (4.5-10.0)
[2023-10-11 18:15] LABS: Parathyroid Intact 89.9 pg/mL (7.5-53.5)
[2023-10-11 18:36] LABS: Total Protein Urine Random < 5 mg/dL; Ur Ttl Prot Creatinine Ratio < 0.03 mg/mg (0-0.20)
== END 2023-10-11 17:15 | disposition home or self-care (01) ==
LOC: ANHLAB 17:18
PROVIDERS: PCP Family Medicine; Visit Provider Internal Medicine Nephrology
DX: M50.90 Cervical disc disorder, unspecified, unspecified cervical region (principal); N18.32 Chronic kidney disease, stage 3b
CPT/HCPCS: 36415; 80069; 82570; 83970; 84156; 85027

== ENCOUNTER 2024-04-05 11:39 | Outpatient (CLI) | payer MEDICARE, SELFPAY ==
--- NOTE | ~2024-04-05 | XR_ITS ---
3 VIEWS THORACIC SPINE Ordering provider: Adri Coyle NP History: . UPPER BACK PAIN WHEN BREATHING X4 WEEKS, NO INJURY . Comparison: None. FINDINGS: VERTEBRAL BODIES: Indeterminate age compression fracture of T12. MRI evaluation is advised. Clinical suspicion is high. Slight loss of height anteriorly seen in T11. Otherwise, Normal height and alignme nt. No visible fracture or subluxation. DISK SPACES: Multilevel degenerative disc disease involving the thoracic and lumbar area SOFT TISSUES: Normal. Left tripolar pacemaker. IMPRESSION: Compression fracture of T12 of indeterminate age. Chronic compression fracture of T11. Multilevel degenerative disc disease. Reviewed, dictated and finalized at location A.
--- NOTE | ~2024-04-05 | XR_ITS ---
[id number] Ordering provider: Adri Coyle History: . UPPER BACK PAIN WHEN BREATHING X4 WEEKS, NO INJURY . Comparison: None. FINDINGS: VERTEBRAL BODIES: Normal height and alignment. No visible fracture or subluxation. The dens is intact . DISK SPACES: Narrowing of the disc spaces C4-C5, C5-C6 and C6-C7. Multilevel facet joint disease. Mul tilevel uncovertebral joint osteoarthritic changes. PARASPINOUS SOFT TISSUES: No prevertebral soft tissue swelling. IMPRESSION: No acute osseous abnormality cervical spine. Multilevel degenerative disc disease. Reviewed, dictated and finalized at location A.
== END 2024-04-05 11:40 | disposition home or self-care (01) ==
LOC: ANHIMG 11:42
PROVIDERS: PCP Family Medicine; Visit Provider Family Medicine
DX: M50.90 Cervical disc disorder, unspecified, unspecified cervical region (principal); M51.34 Other intervertebral disc degeneration, thoracic region
CPT/HCPCS: 72040; 72070

== ENCOUNTER 2024-04-19 11:37 | Outpatient (CLI) | payer MEDICARE, SELFPAY ==
[2024-04-19 12:07] LABS: Hematocrit 38.5 % (37.0-47.0); Hemoglobin 12.4 g/dL (12.0-15.0); Mean Corpuscular HGB Conc 32.2 g/dl (32-36); Mean Corpuscular Hemoglobin 30.1 pg (26-34); Mean Corpuscular Volume 93.4 fl (80-100); Mean Platelet Volume 11.2 fl (7.4-10.4); Platelet Count Result 202 k/mm3 (150-375); Red Blood Count 4.12 M/mm3 (4.2-5.4); Red Cell Distribution Width 13.2 % (11.5-14.5); White Blood Count 6.2 K/mm3 (4.5-10.0)
[2024-04-19 12:16] LABS: Creatinine Urine 42.1 mg/dL; Total Protein Urine Random 8 mg/dL; Ur Ttl Prot Creatinine Ratio 0.19 mg/mg (0-0.20)
[2024-04-19 12:19] LABS: Albumin Level 3.9 g/dL (3.5-5.1); Anion Gap 7 mmol/L (4-12); Blood Urea Nitrogen 18 mg/dL (7-17); Calcium 9.1 mg/dL (8.4-10.2); Carbon Dioxide 29 mmol/L (22-30); Chloride 103 mmol/L (98-107); Estimated Glomerular Filt Rate 39; Glucose 103 mg/dL (65-110); Phosphorus 3.6 mg/dL (2.5-4.5); Potassium 4.7 mmol/L (3.4-5.0); Sodium 139 mmol/L (137-145)
[2024-04-19 12:30] LABS: Parathyroid Intact 57.7 pg/mL (14.5-75.2)
[2024-04-19 12:43] LABS: Vitamin D 25 Hydroxy 42.7 ng/mL
== END 2024-04-19 11:38 | disposition home or self-care (01) ==
PROVIDERS: PCP Family Medicine; Visit Provider Internal Medicine Nephrology
DX: M50.90 Cervical disc disorder, unspecified, unspecified cervical region (principal); N18.31 Chronic kidney disease, stage 3a; N18.32 Chronic kidney disease, stage 3b; E21.1 Secondary hyperparathyroidism, not elsewhere classified
CPT/HCPCS: 36415; 80069; 82306; 82570; 83970; 84156; 85027

== ENCOUNTER 2024-07-04 10:27 | Emergency (ER) | payer MEDICARE, SELFPAY ==
--- NOTE | ~2024-07-04 | XR_ITS ---
XR ribs LT 2V Ordering provider: Sandy Damon APRN History: . felt posterior pop pain after twisting . Comparison: April 21, 2023 FINDINGS: Slight cardiomegaly left tripolar pacemaker. BONES: No acute left rib fracture or fracture of the visualized osseous structures. LEFT LUNG: No effusions or infiltrates. No pneumothorax. SOFT TISSUES: Normal. IMPRESSION: No definite left rib fracture. Reviewed, dictated and finalized at location A. [employer]
--- NOTE | 2024-07-04 10:42 | ED.GENADULT ---
HPI - General Adult General Chief complaint: Back Pain/Injury Stated complaint: RT side rib pain Time Seen by Provider: 07/04/24 10:50 Source: patient Mode of arrival: ambulatory Limitations: no limitations History of Present Illness HPI narrative: 84-year-old female presented for complaint of left lower rib pain. Onset this morning. She states while sitting on the toilet she shifted and felt a pop in the left lower ribs. She is endorsing pain since then, described as dull. Rates pain 03/28. Took Tylenol. Denies shortness of breath, wheezing, hemoptysis, or any abdominal or urinary complaints. Related Data Home Medications ?Medication ?Instructions ?Recorded ?Confirmed ?Last Taken ?Type sotalol 80 mg tablet 80 mg PO BID 07/24/19 06/13/24 08/06/23 History fluticasone propionate 50 2 spray intranasal DAILY PRN 11/25/20 06/13/24 08/06/23 History mcg/actuation nasal Allergy Symptoms spray,suspension loratadine 10 mg tablet (Claritin) 10 mg PO DAILY 11/25/20 06/13/24 08/06/23 History trimethoprim 100 mg tablet 100 mg PO QHS 08/28/21 06/13/24 08/06/23 History acetaminophen 325 mg capsule 650 mg PO PRN PRN Pain 09/21/22 06/13/24 08/06/23 History (Tylenol) ascorbic acid (vitamin C) 1,000 mg 1 g PO DAILY 09/21/22 06/13/24 08/06/23 History tablet (Vitamin C With Roseanne Hips) calcium 600 mg (as 1 cap PO DAILY 09/21/22 06/13/24 08/06/23 History carbonate)-vitamin D3 10 mcg (400 unit) capsule cholecalciferol (vitamin D3) 125 125 mcg PO DAILY 09/21/22 06/13/24 08/06/23 History mcg (5,000 unit) capsule glucosamine sulf dipot 2 cap PO DAILY 09/21/22 06/13/24 08/06/23 History chlr,msm,chond 550 mg-C 30 mg-dipti 1 mg capsule (Glucosamine Chondroitin) multivitamin (Daily Multi-Vitamin 1 tablet PO DAILY 09/21/22 06/13/24 08/06/23 History tablet) loperamide 2 mg capsule 2 mg PO DAILY 0806/13/24 08/06/23 History Allergies Allergy/AdvReac Type Severity Reaction Status Date / Time Cephalosporins AdvReac Mild upset Verified 07/04/24 10:40 stomach ciprofloxacin AdvReac Mild rash Verified 07/04/24 10:40 cefaclor AdvReac Unknown upset Verified 07/04/24 10:40 stomach hydrocodone AdvReac Unknown UPSET Verified 07/04/24 10:40 STOMACH ibuprofen AdvReac Unknown UPSET Verified 07/04/24 10:40 STOMACH oxycodone AdvReac Unknown VERY Verified 07/04/24 10:40 ADDICTIVE propoxyphene AdvReac Unknown UPSET Verified 07/04/24 10:40 STOMACH Quinolones AdvReac Unknown Rash Verified 07/04/24 10:40 rofecoxib AdvReac Unknown UPSET Verified 07/04/24 10:40 STOMACH Review of Systems Review of Systems: CONSTITUTIONAL: Denies body aches, fever, chills, or sweats. EYES: Denies visual changes, redness, or discharge. ENT: Denies rhinorrhea, congestion, sore throat, or otalgia. CARDIOVASCULAR: Denies chest pain, palpitations, or edema. RESPIRATORY: Denies cough or dyspnea. GASTROINTESTINAL: Denies abdominal pain, nausea, vomiting, or diarrhea. GENITOURINARY: Denies dysuria or hematuria. SKIN: Denies rash MUSCULOSKELETAL: reports left lower rib pain NEUROLOGIC: Denies numbness, tingling, or weakness. All systems reviewed & are unremarkable except as noted in HPI and below PMFSH Past Medical History Medical History Pacemaker Iron deficiency anemia Chronic kidney disease Gastroesophageal reflux disease Hypothyroidism Chronic anticoagulation Degenerative disc disease Arthritis Oral cancer Status post resection and radiation therapy. Depression with anxiety Mixed hyperlipidemia Paroxysmal atrial fibrillation Surgical History Surgical History History of right hip replacement History of permanent cardiac pacemaker placement History of cataract extraction History of cardiac pacemaker History of thyroidectomy History of myomectomy History of laparoscopy History of back surgery History of dilation and curettage History of hysterectomy History of total knee arthroplasty History of oral surgery Family History Family History Mother Family history of malignant neoplasm of ovary Acute myocardial infarction Father No problems noted. Sibling No problems noted. Other Family history of arthritis Social History Social History Social History: Surrogate medical decision maker: Jose (spouse) or Samantha (daughter) Hilary. Code status: Full code. Smoking status: Never smoker Second hand tobacco smoke exposure: No Alcohol intake: never Substance use: never Substance use type: does not use Do You Feel Safe in your Home?: Yes Lack of Transportation: No Lack of Food: Never True Current Housing: I Have Housing Concerned About Future Housing: No Difficulty Paying Gas/Electric Bills: No Difficulty Paying for Meds: No Currently Unemployed: No Education: High School Diploma/GED Difficulty w/ Childcare or Family Care: No Living arrangements: with family Additional living arrangements comments: Lives with family in [place]. Occupation/Education: retired Additional occupation/education comments: Retired from [employer]. Gender identity (if verbalized by the patient): Female Sexual Orientation (if Verbalized by the Patient): Straight or Heterosexual Spiritual care concerns: No Comments At time of signature, I have reviewed and agree with nursing past medical, surgical, social and family history unless otherwise noted. Please see nursing chart for further information. There is no relevant family history pertinent to the presenting complaint Exam Narrative: GENERAL: Well-appearing, EYES: EOMI. No redness or drainage. Conjunctivae normal. ENT: Mucous membranes pink and moist. No rhinorrhea. CHEST: No respiratory distress. Clear to auscultation. HEART: Regular rate and rhythm. No murmur appreciated. Normal peripheral pulses. ABDOMEN: Soft, nontender, nondistended, normal active bowel sounds. MUSCULOSKELETAL: Mildly tender to posterior left lower ribs; no bruising or rash. No vpt. EXTREMITIES: Normal range of motion. No edema. SKIN: Warm, dry, no rash. Capillary refill normal. Normal skin turgor. NEURO: No focal deficits. Alert and oriented x3. Gait steady. PSYCH: Normal affect. Course Course Emergency Course: Patient is aware of diagnosis, understands and agrees to treatment plan. Anticipatory guidance given. Patient agrees to follow-up as directed and is aware of reasons to seek care at the emergency department. Portions of this record may have been created with voice recognition software [employer] of Care: Express Care Visit Vital Signs Vital signs: Vital Signs Temperature 98.1 F 07/04/24 10:43 Pulse Rate 69 07/04/24 10:43 Respiratory Rate 18 07/04/24 10:43 Blood Pressure 144/77 H 07/04/24 10:43 Pulse Oximetry 95 07/04/24 10:43 Oxygen Delivery Room Air 07/04/24 10:43 Temperature 98.1 F 07/04/24 10:43 Pulse Rate 69 07/04/24 10:43 Respiratory Rate 18 07/04/24 10:43 Blood Pressure 144/77 H 07/04/24 10:43 Pulse Oximetry 95 07/04/24 10:43 Oxygen Delivery Room Air 07/04/24 10:43 Medical Decision Making MDM Narrative Medical decision making narrative: Discussed physical exam findings and xray. Pt with left flank/rib pain. Declined ER. Advised supportive measures and signs/symptoms to go to the ER. Pt is appropriate for outpt treatment and f/u. Differential Diagnosis Differential Diagnosis: rib contusion, fracture, dislocation, musculoskeletal strain, radiculopathy. Vital Signs Vital Signs: Vital Signs Temperature 98.1 F 07/04/24 10:43 Pulse Rate 69 07/04/24 10:43 Respiratory Rate 18 07/04/24 10:43 Blood Pressure 144/77 H 07/04/24 10:43 Pulse Oximetry 95 07/04/24 10:43 Oxygen Delivery Room Air 07/04/24 10:43 Temperature 98.1 F 07/04/24 10:43 Pulse Rate 69 07/04/24 10:43 Respiratory Rate 18 07/04/24 10:43 Blood Pressure 144/77 H 07/04/24 10:43 Pulse Oximetry 95 07/04/24 10:43 Oxygen Delivery Room Air 07/04/24 10:43 reviewed Imaging Data Radiologist's impression: Patient: Arlet Richard : 1940 MR#: [id number] Age: 84 Acct:[id number] Loc: [facility] ADM Date: 07/04/24Attending Dr: Ordering Physician: Sandy Damon APRN Date of Service: 07/04/24 Procedure(s): XR ribs LT Accession Number(s): [id number] cc: Sandy Damon APRN; Víctor Benson MD~ XR ribs LT 2V Ordering provider: Sandy Damon APRN History: . felt posterior pop pain after twisting . Comparison: April 21, 2023 FINDINGS: Slight cardiomegaly left tripolar pacemaker. BONES: No acute left rib fracture or fracture of the visualized osseous structures. LEFT LUNG: No effusions or infiltrates. No pneumothorax. SOFT TISSUES: Normal. IMPRESSION: No definite left rib fracture. Discharge Plan Discharge Clinical Impression: Acute flank pain Patient Disposition: Home, Self-Care Condition: Stable Instructions: Flank Pain (ED) Additional Instructions: Avoid lifting. pushing. pulling, or anything that worsens the pain. Take Tylenol 1000mg every 8 hours Over the counter pain cream like icy/hot or biofreeze, or Salon pas/lidocaine 4% patch. You may apply heat or cold to the area as needed. Do not apply heat/ice over the top of pain cream or patches Please follow up with your Primary Care Doctor within 48-72 hours - call for an appointment. Go to the ER for any worsening/persistent symptoms or concerns Patient Language: Ecuadorean Prescriptions: No Action sotalol 80 mg tablet 80 mg PO BID diclofenac sodium 3 % gel 1 applic topical BID Qty: 100 0RF trimethoprim 100 mg tablet 100 mg PO QHS tizanidine 4 mg tablet 4 mg PO BID PRN (Reason: muscle spasticity) Qty: 30 0RF cefuroxime axetil 500 mg tablet 500 mg PO Q12H Qty: 20 0RF fluticasone propionate 50 mcg/actuation [place],Suspension 2 spray INTRANASAL DAILY PRN (Reason: Allergy Symptoms) loratadine [Claritin] 10 mg Tablet 10 mg PO DAILY calcium carbonate-vitamin D3 600 mg-10 mcg (400 unit) Capsule 1 cap PO DAILY ascorbic acid (vitamin C) [Vitamin C With Roseanne Hips] 1,000 mg Tablet 1 g PO DAILY multivitamin [Daily Multi-Vitamin] Tablet 1 tablet PO DAILY Glucosamine Chondroitin 550-30-1 mg Capsule 2 cap PO DAILY cholecalciferol (vitamin D3) 125 mcg (5,000 unit) Capsule 125 mcg PO DAILY acetaminophen [Tylenol] 325 mg Capsule 650 mg PO PRN PRN (Reason: Pain) loperamide 2 mg Capsule 2 mg PO DAILY metoprolol tartrate 50 mg Tablet 50 mg PO Q12HR 30 Days Qty: 60 0RF meclizine 25 mg tablet 25 mg PO BID PRN (Reason: dizziness) Qty: 20 0RF atorvastatin 10 mg tablet 10 mg PO DAILY Qty: 90 1RF Rx Instructions: TAKE 1 TABLET BY MOUTH DAILY benazepril 10 mg tablet 10 mg PO DAILY Qty: 90 1RF Rx Instructions: TAKE 1 TABLET BY MOUTH DAILY venlafaxine 150 mg capsule,extended release 24hr 150 mg PO DAILY Qty: 90 1RF Patient Comments: Rx Instructions: TAKE 1 CAPSULE BY MOUTH EVERY DAY levothyroxine 50 mcg tablet 50 mcg PO DAILY Qty: 90 0RF furosemide 20 mg tablet See Rx Instructions .ROUTE .COMPLEX Qty: 90 3RF Dose Instruction: TAKE 1 TABLET BY MOUTH DAILY Rx Instructions: TAKE 1 TABLET BY MOUTH DAILY warfarin 4 mg tablet 4 mg PO DAILY Qty: 90 0RF omeprazole 40 mg capsule,delayed release(DR/EC) 40 mg PO DAILY Qty: 90 0RF Follow-up/Referrals: Víctor Benson MD [Primary Care Provider] - Time of Disposition: 11:46
[2024-07-04 10:43] VITALS: BP 144/77; PULSE 69; RESP 18; TEMP 36.7; O2SAT 95
== END 2024-07-04 11:47 | disposition home or self-care (01) ==
PROVIDERS: Emergency Provider Nurse Practitioner Family; PCP Family Medicine
DX: R07.81 Pleurodynia (principal); N18.9 Chronic kidney disease, unspecified; E03.9 Hypothyroidism, unspecified; E78.2 Mixed hyperlipidemia; I48.0 Paroxysmal atrial fibrillation
CPT/HCPCS: 71100; 99213; G0463

== ENCOUNTER 2024-10-25 12:50 | Outpatient (CLI) | payer MEDICARE, SELFPAY ==
[2024-10-25 13:14] LABS: Hematocrit 39.4 % (37.0-47.0); Hemoglobin 12.3 g/dL (12.0-15.0); Mean Corpuscular HGB Conc 31.2 g/dl (32-36); Mean Corpuscular Volume 92.9 fl (80-100); Mean Platelet Volume 11.2 fl (7.4-10.4); Platelet Count Result 194 k/mm3 (150-375); Red Blood Count 4.24 M/mm3 (4.2-5.4); Red Cell Distribution Width 13.4 % (11.5-14.5); White Blood Count 6.6 K/mm3 (4.5-10.0)
[2024-10-25 13:34] LABS: Albumin Level 4.1 g/dL (3.5-5.1); Anion Gap 8 mmol/L (4-12); Blood Urea Nitrogen 19 mg/dL (7-17); Calcium 9.2 mg/dL (8.4-10.2); Carbon Dioxide 28 mmol/L (22-30); Chloride 104 mmol/L (98-107); Estimated Glomerular Filt Rate 35; Glucose 93 mg/dL (65-110); Phosphorus 3.8 mg/dL (2.5-4.5); Potassium 4.8 mmol/L (3.4-5.0); Sodium 140 mmol/L (137-145)
[2024-10-25 14:05] LABS: Creatinine Urine 36.2 mg/dL; Total Protein Urine Random 6 mg/dL; Ur Ttl Prot Creatinine Ratio 0.17 mg/mg (0-0.20)
--- OUTSIDE RECORDS SUMMARY | 2024-10-25 14:05 | XMS_ITS | Continuity of Care Document ---
Author Organization [facility] Address [address] [place] [address] [place] [address] Phone Care Team Providers Care Highway Maintainer Name Role Phone Last Olivas MD Unavailable Unavailable Procedures Procedure Date Office Consultation Advance Directives Directive Yes / No Effective Date File Name No Information Encounters Encounter Description Practice Location Reason(s) For Visit Diagnoses Date Provider Providers Copied on Encounter Office Consultation [facility], [address], [place], [id number], tel:[phone] [facility] No Information [address] [facility] [place], [id number], [place]. tel:[phone] Referring Provider: Jose Jacobsen, [address] [place], [address]. tel:[phone] Family History Family Member Type Diagnosis Age At Onset No Information Payers Payer name Insurance type Covered constitution party ID Authoriza tiannamaria(s) [facility] CI [id number] Social History Type Description Quantity Date Captured Comments Sex Female Smoking Status No Information Chief Complaint And Reason For Visit No Information Reason For Referral Reason For Referral No Information History Of Present Illness Encounter Date Complaint History Of Prese nt Illness No Information Functional Status Date Functional Assessmen t No Information Instructions Date Instruction Additional Infor mation No Information Assessments Type Assessment Date No Information Patient Care Teams Name Effective Dates (start - stop) Status Members No Information
--- OUTSIDE RECORDS SUMMARY | 2024-10-25 14:05 | XMS_ITS | Clinical Summary ---
Author Organization [facility] Address [address] [place] [address] Phone Care Team Providers Care Straightening Machine Feeder Name Role Phone Víctor Benson MD Primary Care Provider [phone] Allergies Active Allergy Reactions Criticality Noted Date Comments Cefaclor Nausea and Vomiting High 06/13/2019 Ciprofloxacin Rash High 06/13/2019 Hydrocodone-Acetaminophen Nausea and Vomiting Medium 1 08/13/2018 Ibuprofen Nausea and Vomiting High 06/13/2019 Oxycodone-Acetaminophen Other (See Comments) addiction Rofecoxib Arrhythmia High 06/13/2019 Medications sotalol (BETAPACE) 80 mg tablet Take 80 mg by mouth 2 times daily. 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 Active furosemide (LASIX) 10 mg/mL Solution Take 10 mg by mouth daily. Active warfarin (COUMADIN) 4 mg tablet Take 4 mg by mouth daily. MWFSun takes 4 mg, TTHSat takes 5 mg Active benazepril-hydroC HLOROthiazide (LOTENSIN HCT) 10-12.5 mg Tablet Take 1 Tablet by mouth daily. Active metoprolol tartrate (LOPRESSOR) 25 mg tablet Take 25 mg by mouth 2 times daily. Active venlafaxine (EFFEXOR) 75 mg tablet Take 75 mg by mouth daily. Active atorvastatin (LIPITOR) 10 mg tablet Take 10 mg by mouth daily. Active fluticasone propionate (FLONASE) 50 mcg/spray [place], Suspension nasal inhaler Administer 2 Sprays in each nostril 1 time daily as needed for Rhinitis. Active celecoxib (CeleBREX) 100 mg capsule Take 100 mg by mouth 2 times daily. Active calcium carbonate/vitamin D3 (CALCIUM WITH VITAMIN D ORAL) Take 2 Tablets by mouth daily. Active ascorbic acid, vitamin C, (VITAMIN C) 1,000 mg Tablet Take 1,000 mg by mouth daily. Active therapeutic multivitamin (THERA TAB) Tablet Take 1 Tablet by mouth daily. Senior mvi Active glucosamine-chond roitin (GLUCOSAMINE 1500 COMPLEX) 500-400 mg Capsule Take 2 Capsules by mouth daily. Active cholecalciferol, vitamin D3, 5,000 unit Take 5,000 Units by mouth daily. Active Immunizations Immunization Administration Dates Next Due Influenza Seasonal Unspecified Formulation IM PREVNAR (PCV13) pneumococcal 13-valent conjugate Vaccine 05/22/2019 Social History Tobacco Use Types Packs/Day Years Used Date Smoking Tobacco: Never Smokeless Tobacco: Never Alcohol Use Standard Drinks/Week Comments Never 0 (1 standard drink = 0.6 oz pur e alcohol) Comments No Sex and Gender Information Value Date Recorded Sex Assigned at Not on file Legal Sex Female 1:31 PM TEAM LEAD Gender Identity Not on file Sexual Orientation Not on file Last Filed Vital Signs Vital Sign Reading Time Taken Comments Blood Pressure 127/60 06/19/2019 5:33 PM TEAM LEAD Pulse 60 06/19/2019 5:33 PM TEAM LEAD Temperature 36.4 C (97.5 F) 06/19/2019 5:33 PM TEAM LEAD Respiratory Rate 14 06/19/2019 5:33 PM TEAM LEAD Oxygen Saturation 95% 06/19/2019 5:33 PM TEAM LEAD Inhaled Oxygen Concentration - - Weight 95.8 kg (211 lb 3.2 oz) 06/19/2019 11:18 AM TEAM LEAD Height 157.5 cm (5' 2 ) 06/19/2019 11:18 AM TEAM LEAD Body Mass Index 38.63 06/19/2019 11:18 AM TEAM LEAD Plan of Treatment Health Maintenance Due Date Last Done Comments DTAP/TDAP/TD VACCINES (1 - Tdap) 1961 ZOSTER VACCINE (1 of 2) 1992 OSTEOPOROSIS SCREENING 2007 RSV VACCINE (60+ or ) (1 - 1-dose 75+ series) 2017 INFLUENZA VACCINE (#1) 2024 05/22/2019 PNEUMOCOCCAL VACCINE 50+ YEARS Completed 05/22/2019 , 05/18/2019 Medical Devices Implanted Type Area Hadoop Analyst Device Identifier Shelf Expiration Date Model / Serial / Lot Knee Knee Description:Right knee arthr oplasty 2006, left knee arthoplasty 2005 Pacemaker Pacemaker Insurance MEDICARE [address] [address] RX [employer] RX Member Subscriber Plan / Payer (Ef fective 2013-Present) Name:Trina Richardtchen Marilyn Relation to Subscriber:Self Name:Arlet Richard Payer ID:Not on file Group ID:[id number] Type:RX Medicare Part D Address: [address] MEDICARE [address] [facility] SUPP Advance Directives For more information, please contact: [phone] * Full Code (Latest Code Status on File) Date Activated Date Inactivated Comments 06/19/2019 11:11 AM 06/19/2019 7:56 PM Care Teams Straightening Machine Feeder Relationship Specialty Start Date End Date Víctor Benson MD [address] [place] [address] PCP - General Family Practice 06/13/19
--- OUTSIDE RECORDS SUMMARY | 2024-10-25 14:05 | XMS_ITS | CONTINUITY OF CARE DOCUMENT ---
Author Name landon navarrete Address Unknown Organization [facility] Address [address] [place] [address] Phone [phone] Care Team Providers Care Head Animal Trainer Name Role Phone Ernst CAPELLAN, Elise Unavailable [phone] BULMARO CAPELLAN, BEL F Unavailable BULMARO CAPELLAN, BEL F Unavailable PROBLEMS Condition Status Date Provider Notes SICK SINUS SYNDROME completed - Connor Bowles MD AORTIC STENOSIS MILD active - Elise Dukes MD DYSLIPIDEMIA active - Connor Bowles MD PACEMAKER, PERMANENT active - Connor Bowles MD DUAL CHAMB PCM - [employer] A [facility] completed - Elise Dukes MD DIASTOLIC DYSFUNCTION;EF 60% 09/2016 active Elise Dukes MD TRICUSPID REGURGITATION, MIL D TO MODERATE;2010 completed - Elise Dukes MD CAD;NML CATH 95 , nl stress nuc in 2011 active Elise Dukes MD (Rule out) HTN CONTROLLED active Elise Dukes MD Hyperlipidemia active Elda Jacob RN ANXIETY DISORDER; active Elise Dukes MD SHORTNESS OF BREATH active Elise Dukes MD Renal failure, chronic follows with Dr Harris CKD 3, GFR 44 active Elise Dukes MD CARDIOMYOPATHY completed - Elise Dukes MD HYPOTHYROIDISM active Elise Dukes MD AFIB, CHRONIC AFIB /FLUTTER on Coumadin, S/p [employer] pacemaker active Elise Dukes MD ENCOUNTERS Date Type Provider Location Encounter Diag nosis - In-person encounter Office Visit Elise Dukes MD [facility] - In-person encounter Office Visit Elise Dukes MD [facility] - In-person encounter Office Visit Elise Dukes MD [facility] DIASTOLIC DYSFUNCTION;EF 60% 09/2016SHORTNESS OF BREATH - In-person encounter Office Visit Elise Dukes MD [facility] - In-person encounter Office Visit Elise Dukes MD [facility] - In-person encounter Office Visit Elise Dukes MD [facility] AFIB, CHRONIC AFIB /FLUTTER on Coumadin, S/p [employer] pacemaker - In-person encounter Office Visit Elise Dukes MD [facility] - In-person encounter Office Visit Elise Dukes MD [facility] Renal failure, chronic follows with Dr Harris CKD 3, GFR 44 - In-person encounter Office Visit Elise Dukes MD [facility] - In-person encounter Office Visit Elise Dukes MD [facility] AFIB, CHRONIC AFIB /FLUTTER on Coumadin, S/p [employer] pacemakerHYPOTHYROIDISMDIASTOLIC DYSFUNCTION;EF 60% 09/2016TRICUSPID REGURGITATION, MILD TO MODERATE;2010CAD;NML CATH 95 , nl stress nuc in 2011HTN CONTROLLEDHyperlipidemiaSHORTNESS OF BREATHCARDIOMYOPATHYRenal failure, chronic follows with Dr Harris CKD 3, GFR 44 - In-person encounter Office Visit Hussain Livingston MD [facility] - In-person encounter Office Visit Elise Dukes MD [facility] - In-person encounter Office Visit Elise Dukes MD [facility] - In-person encounter Office Visit Kelly Adkins MD [facility] - In-person encounter Office Visit Kelly Adkins MD [facility] - In-person encounter Office Visit Kelly Adkins MD [facility] SHORTNESS OF BREATH - In-person encounter Office Visit Elise Dukes MD [facility] - In-person encounter Office Visit Elise Dukes MD [facility] - In-person encounter Office Visit Elise Dukes MD [facility] AFIB, CHRONIC AFIB /FLUTTER on Coumadin, S/p [employer] pacemaker - In-person encounter Office Visit Hussain Livingston MD [facility] - In-person encounter Office Visit Elise Dukes MD [facility] ANXIETY DISORDER; - In-person encounter Office Visit Connor Bowles MD [facility] SICK SINUS SYNDROMEDYSLIPIDEMIAPACEMAKER, PERMANENTAFIB, CHRONIC AFIB /FLUTTER on Coumadin, S/p [employer] pacemakerHYPOTHYROIDISMDUAL CHAMB PCM - [employer] AT [facility] WE'[facility] REPLACEDIASTOLIC DYSFUNCTION;EF 60% 09/2016CAD;NML CATH 95 , nl stress nuc in 2011HTN CONTROLLEDHyperlipidemiaANXIETY DISORDER; - In-person encounter Office Visit Elise Dukes MD [facility] - In-person encounter Office Visit Elise Dukes MD [facility] - In-person encounter Office Visit Elise Dukes MD [facility] AORTIC STENOSIS MILDAFIB, CHRONIC AFIB /FLUTTER on Coumadin, S/p [employer] pacemakerHYPOTHYROIDISM - In-person encounter Office Visit Elise Dukes MD [facility] VITAL SIGNS Date Observation Value Provider Body Mass Index (Ratio) 34.94 kg/m2 Rome Dukes MD blood pressure, diastolic 80 mm[Hg] Claude Maher blood pressure, systolic 140 mm[Hg] Mendez Maher pulse rate 73 /min Katie Maher oxygen saturation, oximetry 96 % Katie Maher respiratory rate E&M 17 /min Katie Markle blood pressure, cuff size regular Claude Maher weight E&M 210 [lb_av] Katie Chou height E&M 65 [in_i] Katie Gunnar Body Mass Index (Ratio) 33.61 kg/m2 Rome Dukes MD blood pressure, diastolic 62 mm[Hg] [facility], systolic 110 mm[Hg] Cesia salvador [place] oxygen saturation, oximetry 98 % [facility] respiratory rate E&M 16 /min [facility] pulse rate 66 /min [facility] weight E&M 202 [lb_av] [facility] height E&M 65 [in_i] [facility] Body Mass Index (Ratio) 34.11 kg/m2 Rome Dukes MD blood pressure, diastolic 68 mm[Hg] Tone Ontiveros blood pressure, systolic 132 mm[Hg] Joan Ontiveros oxygen saturation, oximetry 96 % Eleanor Ontiveros respiratory rate E&M 18 /min Isra Ontiveros pulse rate 64 /min Eleanor penn weight E&M 205 [lb_av] Eleanor Griffithe isamar height E&M 65 [in_i] Eleanor penn Body Mass Index (Ratio) 32.95 kg/m2 Rome Dukes MD blood pressure, cuff size regular Ronen Rice blood pressure, diastolic 80 mm[Hg] Ronen Rice blood pressure, systolic 132 mm[Hg] Gabriel Croninbrentalyssa oxygen saturation, oximetry 95 % Sharon Rice respiratory rate E&M 18 /min Sharon Hayes paresh pulse rate 66 /min Sharon Almonte [facility] weight E&M 198 [lb_av] Sharon Almonte [facility] height E&M 65 [in_i] Sharon Almonte [facility] Body Mass Index (Ratio) 33.94 kg/m2 Rome Dukes MD blood pressure, cuff size regular Manas Smith blood pressure, diastolic 84 mm[Hg] Anita Payton blood pressure, systolic 130 mm[Hg] Cristina Payton oxygen saturation, oximetry 96 % Gladys Payton respiratory rate E&M 16 /min Gladys Payton pulse rate 71 /min Gladys Payton weight E&M 204 [lb_av] Gladys Payton height E&M 65 [in_i] Gladys Payton blood pressure, diastolic 69 mm[Hg] Me lolis Michelle blood pressure, systolic 145 mm[Hg] Kinga azarmarilyn Martinez pulse rate 62 /min Nati Martinez oxygen saturation, oximetry 96 % Nati Martinez respiratory rate E&M 14 /min Nati Martinez Body Mass Index (Ratio) 34.78 kg/m2 Latanya Martinez weight E&M 209 [lb_av] Nati Martinez blood pressure, diastolic 80 mm[Hg] Me lolis Martinez blood pressure, systolic 131 mm[Hg] Kinga azar Martinez pulse rate 78 /min Nati Martinez oxygen saturation, oximetry 97 % Nati Martinez respiratory rate E&M 15 /min Nati Martinez Body Mass Index (Ratio) 34.61 kg/m2 Latanya villalpando Martinez weight E&M 208 [lb_av] Nati Martinez Body Mass Index (Ratio) 35.41 kg/m2 Latanya Ricci blood pressure, diastolic 78 mm[Hg] La lolis Ricci blood pressure, systolic 135 mm[Hg] Kinga Ricci pulse rate 55 /min Nati Ricci oxygen saturation, oximetry 92 % Nati Ricci respiratory rate E&M 16 /min Nati Ricci weight E&M 212.8 [lb_av] Nati Ricci Body Mass Index (Ratio) 35.94 kg/m2 Harrison i Krystal blood pressure, diastolic 60 mm[Hg] Ke rri Krystal blood pressure, systolic 130 mm[Hg] Gabriel ri Krystal pulse rate 66 /min Sharon Suzy [facility] oxygen saturation, oximetry 95 % Sharonindiana Rice respiratory rate E&M 16 /min Sharon Freddy yoder weight E&M 216 [lb_av] Sharon Almonte [facility] Body Mass Index (Ratio) 33.94 kg/m2 Anea abdi [facility] blood pressure, diastolic 76 mm[Hg] An eatris Brown blood pressure, systolic 142 mm[Hg] Ane atris Brown pulse rate 61 /min Aneatris Brown oxygen saturation, oximetry 95 % Aneatris Brown respiratory rate E&M 20 /min Aneatri s Brown weight E&M 204 [lb_av] Aneatris Brown Body Mass Index (Ratio) 34.07 kg/m2 [facility] blood pressure, diastolic 74 mm[Hg] Me mominsa Martinez blood pressure, systolic 124 mm[Hg] Kinga vasqueza Martinez pulse rate 70 /min Nati Martinez oxygen saturation, oximetry 98 % Nati Martinez respiratory rate E&M 14 /min Nati Martinez weight E&M 204 [lb_av] Nati Martinez Body Mass Index (Ratio) 34.40 kg/m2 Latanya irasema Martinez blood pressure, diastolic 71 mm[Hg] Me mominsa Martinez blood pressure, systolic 130 mm[Hg] Kinga vasqueza Martinez pulse rate 60 /min Nati Martinez oxygen saturation, oximetry 98 % Nati Martinez respiratory rate E&M 12 /min Nati Martinez weight E&M 206 [lb_av] Nati Martinez Body Mass Index (Ratio) 33.13 kg/m2 Josue mullen Sharma blood pressure, diastolic, left arm 62 mm [Hg] Jaydenyean Sharma blood pressure, systolic, left arm 140 mm [Hg] Denyean Sharma blood pressure, diastolic, right arm 60 m m[Hg] Jaydenyeleon Sharma blood pressure, systolic, right arm 140 m m[Hg] Jaydenyean Sharma blood pressure, diastolic 60 mm[Hg] Epstein Sharma blood pressure, systolic 140 mm[Hg] Jayden leon Sharma pulse rate 60 /min [facility] oxygen saturation, oximetry 97 % Jaydenleon Sharma respiratory rate E&M 16 /min Jaydenleon Sharma weight E&M 198.38 [lb_av] Jaydenleon Andres leon Body Mass Index (Ratio) 32.48 kg/m2 Josue Sharma blood pressure, diastolic 71 mm[Hg] Foy blood pressure, systolic 131 mm[Hg] Jayden cobb Sharma pulse rate 60 /min Ashley Sharma oxygen saturation, oximetry 94 % Ashley Sharma respiratory rate E&M 16 /min Ashley Sharma weight E&M 194.50 [lb_av] Ashley Andresr an height E&M 65 [in_i] Ashley Sharma blood pressure, diastolic 60 mm[Hg] Carlota Casas blood pressure, systolic 120 mm[Hg] Fiorella Casas pulse rate 60 /min Kimberly Casas oxygen saturation, oximetry 95 % Kimberly Casas respiratory rate E&M 17 /min Kimberly Casas weight E&M 192 [lb_av] Kimberly Casas Body Mass Index (Ratio) 33.08 kg/m2 Brittani serafin Fernandez blood pressure, diastolic 76 mm[Hg] Ernesto paez Fernandez blood pressure, systolic 130 mm[Hg] Trent romano Fernandez pulse rate 62 /min Susan Fernandez oxygen saturation, oximetry 94 % Susan Fernandez respiratory rate E&M 17 /min Susan Fernandez weight E&M 192 [lb_av] Susan Rebecca blood pressure, diastolic, left arm 80 mm [Hg] Marcos Sutherland RN blood pressure, systolic, left arm 150 mm [Hg] Marcos Sutherland RN blood pressure, diastolic, right arm 86 m m[Hg] Marcos Sutherland RN blood pressure, systolic, right arm 150 m m[Hg] Marcos Sutherland RN blood pressure, diastolic 80 mm[Hg] Neto Sutherland RN blood pressure, systolic 150 mm[Hg] Marcos Sutherland RN pulse rate 58 /min Marcos Sutherland RN oxygen saturation, oximetry 98 % Marcos Sutherland RN respiratory rate E&M 16 /min Marcos jones RN Body Mass Index (Ratio) 33.08 kg/m2 Marcos Koko RN weight E&M 192 [lb_av] Marcos Sutherland RN height E&M 64 [in_i] Marcos Koko RN blood pressure, diastolic 70 mm[Hg] Isaias Israel blood pressure, systolic 128 mm[Hg] Maxwell mcneala Lindy pulse rate 60 /min Yann Riverated oxygen saturation, oximetry 95 % Yann Israel respiratory rate E&M 16 /min Violaylannamarie Lindy weight E&M 190 [lb_av] Yann Israel blood pressure, diastolic 88 mm[Hg] Isaias myers Lindy blood pressure, systolic 148 mm[Hg] Maxwell mcneala Lindy pulse rate 68 /min Yann Riverated oxygen saturation, oximetry 94 % Yann Israel respiratory rate E&M 16 /min Violaylelizabeta Lindy weight E&M 192.5 [lb_av] Violaylannamarie iRverate d blood pressure, diastolic, left arm 69 mm [Hg] Mihaela Keys MA blood pressure, systolic, left arm 131 mm [Hg] Mihaela Keys MA blood pressure, diastolic, right arm 77 m m[Hg] Mihaela Keys MA blood pressure, systolic, right arm 133 m m[Hg] Mihaela Keys MA oxygen saturation, oximetry 98 % Mihaela Keys MA blood pressure, diastolic 77 mm[Hg] Cindy Keys MA blood pressure, systolic 133 mm[Hg] Serafin Keys MA pulse rate 62 /min Mihaela Keys MA respiratory rate E&M 18 /min Mihaela Keys MA weight E&M 194 [lb_av] Mihaela Keys MA blood pressure, diastolic 76 mm[Hg] Olga Collier blood pressure, systolic 102 mm[Hg] Yuri atkins [facility] pulse rate 64 /min Chris [facility] oxygen saturation, oximetry 97 % [facility] respiratory rate E&M 20 /min [facility] weight E&M 196 [lb_av] [facility] blood pressure, diastolic, left arm 74 mm [Hg] Mihaelaaakash Keys [place] blood pressure, systolic, left arm 132 mm [Hg] Mihaelamarilyn Keys [place] blood pressure, diastolic, right arm 69 m m[Hg] Mihaelaaakash [place] blood pressure, systolic, right arm 129 m m[Hg] Mihaelaaakash [place] oxygen saturation, oximetry 98 % Mihaelamarilyn [place] blood pressure, diastolic 74 mm[Hg] Cindy aakash [place] blood pressure, systolic 132 mm[Hg] Cindypasquale ranjit [place] pulse rate 67 /min Mihaelamarilyn [place] respiratory rate E&M 18 /min Mihaela Massimo [place] weight E&M 193 [lb_av] Mihaela Keys [place] blood pressure, diastolic, left arm 72 mm [Hg] Susan Fernandez blood pressure, systolic, left arm 116 mm [Hg] Susan Fernandez blood pressure, diastolic, right arm 67 m m[Hg] Susan Fernandez blood pressure, systolic, right arm 106 m m[Hg] Susan Fernandez blood pressure, diastolic 72 mm[Hg] Ernesto Fernandez blood pressure, systolic 116 mm[Hg] Trent Fernandez pulse rate 86 /min Susan Fernandez oxygen saturation, oximetry 96 % Susan Fernandez respiratory rate E&M 16 /min Susan Fernandez weight E&M 192 [lb_av] Susan Fernandez blood pressure, diastolic, left arm 76 mm [Hg] Kayley Sweet blood pressure, systolic, left arm 122 mm [Hg] Kayley Stantonmann blood pressure, diastolic, right arm 72 m m[Hg] Kayley [facility] blood pressure, systolic, right arm 118 m m[Hg] Kayley [facility] blood pressure, diastolic 76 mm[Hg] Ca ted [facility] blood pressure, systolic 122 mm[Hg] Car jonnie [facility] pulse rate 72 /min Kayley [facility] oxygen saturation, oximetry 96 % Kayley [facility] respiratory rate E&M 16 /min Kayley Schafer christian weight E&M 198 [lb_av] Kayley [facility] blood pressure, diastolic, left arm 73 mm [Hg] Kayley [facility] blood pressure, systolic, left arm 112 mm [Hg] Kayley [facility] blood pressure, diastolic, right arm 67 m m[Hg] Kayley [facility] blood pressure, systolic, right arm 112 m m[Hg] Kayley [facility] pulse rate 52 /min Kayley [facility] oxygen saturation, oximetry 95 % Kayley [facility] respiratory rate E&M 16 /min Kayley Schafer christian weight E&M 200 [lb_av] Kayley [facility] blood pressure, diastolic 72 mm[Hg] Olga seph [place] blood pressure, systolic 118 mm[Hg] Yuri eph [place] pulse rate 75 /min Chris [place] oxygen saturation, oximetry 96 % Chris [place] respiratory rate E&M 16 /min Chris [place] weight E&M 198 [lb_av] Chris [place] ALLERGIES Allergy Name Onset Date Reaction Criticality Status PERCOCET Low Criticality active VIOXX Low Criticality active CIPRO Low Criticality active VICODIN Low Criticality active MOTRIN Low Criticality active CECLOR Low Criticality active RESULTS Date Observation Value Provider Reference Range Interpretation Location epithelial cells, urine, per microscopy moderate [facility] bacteria, urine microscopy trace [facility] leukocyte esterase, urine, by dipstick Trace [facility] urobilinogen, urine, semiquantitative (dipstick) normal [facility] nitrite, urine, semiquantitative Negative [facility] RBC, urine, dipstick Negative [facility] bilirubin, urine Negative [facility] ketones, urine, by test strip Negative [facility] glucose, urine, semiquantitative Negative [facility] protein, urine, semiquantitative (dipstick) Trace [facility] pH, urine, semiquantitative 7.5 [facility] specific gravity, urine 1.015 [facility] urine color Yellow [facility] appearance, urine Clear [facility] thyroid stimulating hormone, serum 2.500 u[IU]/mL [facility] B-type natriuretic peptide 1459 pg/mL [facility] creatinine, serum 1.30 mg/dL [facility] urea nitrogen, blood 27 mg/dL [facility] carbon dioxide, serum, total 31 mmol/L [facility] chloride, serum 107 mmol/L [facility] potassium, serum 4.3 mmol/L [facility] sodium, serum 140 mmol/L [facility] HISTORY OF MEDICATION USE Medication Status Instructions Dates Provider Indications Com ments NALTREXONE HCL TABLET active 1.5 tablet by mouth once daiy Katie Gunnar [facility] CALCIUM 600 & VITAMIN D3 600-800 MG-UNIT ORAL TABLET active 2 tabs daily [facility] VITAMIN C-KEILA HIPS 1000 MG ORAL TABLET active 1 tab daily [facility] MULTIVITAMIN ADULTS 50+ ORAL TABLET active 1 tab daily [facility] FLUTICASONE PROPIONATE 50 MCG/ACT NASAL SUSPENSION active 2 sprays daily prn [facility] ATORVASTATIN CALCIUM 10MG TABLET (ATORVASTATIN CALCIUM TABS) active 1 tab once daily Yuan Zambrano NITROFURANTOIN MACROCRYSTAL 100 MG ORAL CAPSULE completed twice daily - Elise Dukes MD TIZANIDINE HCL 4 MG ORAL CAPSULE completed twice daily as needed - Sharon Rice MORPHINE SULFATE 15 MG ORAL TABLET completed twice daily - Katie Maher NUCYNTA ER 50 MG ORAL TABLET EXTENDED RELEASE 12 HOUR completed one tab twice daily - Nati Martinez VENLAFAXINE HCL 75 MG ORAL TABLET active once daily Nati Radhames FLAX SEED OIL CAPSULE completed take one pill a day - Elise Dukes MD CINNAMON CAPSULE completed take on pill a day - Nati Martinez OMEPRAZOLE 20 MG ORAL CAPSULE DELAYED RELEASE active 1 tab twice daily Elise Dukes MD ALPRAZOLAM 0.5 MG ORAL TABLET DISINTEGRATING completed 1 tab daliy - Ashley Sharma SOTALOL HCL 80 MG ORAL TABLET active 1 tab daily Yuan Zambrano BENAZEPRIL HCL 10 MG ORAL TABLET active 1 tab daily Elise Dukes MD GLUCOSAMINE-CHOND ROITIN TABLET completed 2,000 2 tabs dily - Ashley Sharma VITAMIN D 1000 UNIT ORAL TABLET active 2,000iu daily Elise Dukes MD METOPROLOL TARTRATE 25 MG ORAL TABLET active 1 tab po twice daily Elise Dukes MD LASIX 20 MG ORAL TABLET active 1 tab daily Elise Dukes MD PANTOPRAZOLE SODIUM 40 MG ORAL TABLET DELAYED RELEASE completed one in the morning and one in the evening - Ashley Shrama VITAMIN C-KEILA HIPS 1000 MG ORAL TABLET completed once dialy - Elise Dukes MD CLINDAMYCIN HCL 300 MG ORAL CAPSULE completed once every 6 hours - Chris Collier ALPRAZOLAM 0.5 MG ORAL TABLET completed three times daily - Sharon Rice TRAMADOL-ACETAMIN OPHEN 37.5-325 MG ORAL TABLET completed three times daily - Nati Ricci FLUTICASONE PROPIONATE SUSPENSION completed 2 sprays in each nostril daily - Marcos Sutherland RN SERTRALINE HCL 50 MG ORAL TABLET completed 1 tablets by mouth daily - Nati Ricci VIVELLE 0.05 MG/24HR PTTW completed Once daily - Nati Ricci CALCIUM + D TABS completed 500mg 2 tablets by mouth daily in the morning - Elise Dukes MD VITAMIN C-KEILA HIPS 1000 MG ORAL TABLET completed 1 tablet by mouth daily - Susan Fernandez PILOCARPINE HCL 5 MG ORAL TABLET completed 1 tablet by mouth three times daily - Mihaela Keys MA MELOXICAM 15 MG ORAL TABLET completed 1 tablet by mouth daily - Sharon Rice LEVOTHYROXINE SODIUM 20 MCG ORAL TABLET active 1 tablet by mouth daily Katie RAJPUT GLUCOSAMINE HCL TABLET active 2 tablets daily Susan Fernandez MULTIVITAMINS ORAL CAPSULE completed PLUS CALCIUM, VITAMIN C ONE TAB. DAILY - Elise Dukes MD ACIPHEX 20 MG ORAL TABLET DELAYED RELEASE completed DAILY - Chris Manac[place]co OXYCODONE-ACETAMI NOPHEN TABLET completed 5/325MG Q 6 HOURS PRN FOR PAIN - Chris Manacopacheco OMEPRAZOLE 20 MG ORAL CAPSULE DELAYED RELEASE completed 1 capsule by mouth twice daily - Yann Israel SALAGEN completed 5MG TID - Chris Manbetty METROGEL GEL completed 1-2 times daily - Susan Fernandez BENAZEPRIL HCL 5 MG ORAL TABLET completed 1 tablet by mouth daily - Susan Fernandez COMPAZINE 10MG completed ONE TAB PRN NAUSEA - Chris Manacop[place]co CELEBREX 200 MG ORAL CAPSULE completed BID - Chris Manacop[place]co PRAVACHOL 20 MG ORAL TABLET completed ONE TAB. DAILY - Sharon Rice ZETIA 10 MG ORAL TABLET completed ONE TAB. DAILY - Chris Andersonacopacheco COUMADIN TABLET active DIRECTED Marcos Sutherland RN POTASSIUM CHLORIDE MACEY ER 10 MEQ ORAL TABLET EXTENDED RELEASE completed ONE TAB. DAILY - Nati Ricci AMIODARONE HCL 200 MG ORAL TABLET completed ONE TAB. DAILY - Kelly Adkins MD SOCIAL HISTORY Date Observation Value Provider social history E&M Marital Statu s: L kayla with family/friends E thnicity: Smoking History: P atalmas has never smoked. Elise Dukes MD social history reviewed E&M revi ewed - no changes required Elise Dukes MD exercise type walks at home [facility] physical exercise, f requency, days per week 7 /wk [facility] alcohol use, average drinks per day none [facility] alcohol use no [facility] caffeine use, averag e drinks per day no [facility] drug use none [facility] passive cigarette sm tony exposure no [facility] smoking status Never smoker [facility] exercise type walks at home [facility] physical exercise, f requency, days per week 7 /wk [facility] social history reviewed E&M revi ewed - no changes required Elise Dukes MD number of grandchildren Elise hunter [place] physical exercise, f requency, days per week no [facility] alcohol use, average drinks per day none [facility] alcohol use no Yuan Zambrano caffeine use, averag e drinks per day no [facility] drug use none [facility] passive cigarette sm tony exposure no [facility] smoking status [facility]oker [facility] social history reviewed E&M revi ewed - no changes required Elise Dukes MD social history E&M Marital Statu s: L kayla with family/friends E thnicity: Smoking History: P yoana has never smoked. Elise Dukes MD physical exercise, f requency, days per week no Eleanor Ontiveros alcohol use, average drinks per day none Eleanor Ontiveros alcohol use no Eleanor penn caffeine use, averag e drinks per day no Eleanor Ontiveros drug use none Eleanor penn passive cigarette sm tony exposure no Eleanor Ontiveros smoking status Never smoker Eleanor Guo social history reviewed E&M revi ewed - no changes required Elise Dukes MD physical exercise, f requency, days per week no Sharon Krystal alcohol use, average drinks per day none Sharon Krystal alcohol use no Sharon Suzy er caffeine use, averag e drinks per day no Sharon Krystal drug use none Sharon Camarasarah er passive cigarette sm tony exposure no Sharon Camarastan smoking status Never smoker Sharon Herrerashmuel cullen social history reviewed E&M revi ewed - no changes required Elise Dukes MD physical exercise, f requency, days per week no Gladys Payton alcohol use, average drinks per day none Gladys Payton alcohol use no Gladys Payton caffeine use, averag e drinks per day no Gladys Payton drug use none Gladys Payton passive cigarette sm tony exposure no Gladys Payton smoking status Never smoker Gladys Payton social history reviewed E&M revi ewed - no changes required Nati Martinez physical exercise, f requency, days per week no Nati Martinez alcohol use, average drinks per day none Nati Martinez alcohol use no Nati Martinez caffeine use, averag e drinks per day no Nati Martinez drug use none Nati Martinez passive cigarette sm tony exposure no Nati Martinez smoking status Never smoker Nati Kaplan n social history reviewed E&M revi ewed - no changes required Elise Dukes MD physical exercise, f requency, days per week no Nati Martinez alcohol use, average drinks per day none Nati Martinez alcohol use no Nati Martinez caffeine use, averag e drinks per day no Nati Martinez drug use none Nati Martinez passive cigarette sm tony exposure no Nati Martinez smoking status Never smoker Nati ramirez social history reviewed E&M revi ewed - no changes required Elise Dukes MD physical exercise, f requency, days per week no Nati Ricci alcohol use, average drinks per day none Nati Ricci alcohol use no Nati Ricci caffeine use, averag e drinks per day no Nati Ricci drug use none Nati Ricci passive cigarette sm tony exposure no Nati Ricci smoking status Never smoker Nati Ricci social history reviewed E&M revi ewed - no changes required Elise Dukes MD alcohol use no Sharon lundberg smoking status Never smoker Sharon cullen social history reviewed E&M revi ewed - no changes required Elise Dukes MD social history reviewed E&M reviewed Hussain Livingston MD social history reviewed E&M reviewed Elise Dukes MD social history reviewed E&M reviewed Elise Dukes MD drug use none Elise Dukes MD social history reviewed E&M reviewed Kelly Adkins MD smoking/tobacco cess ation, patient education and counseling yes Kelly Adkins MD drug use none Kelly kohli MD social history reviewed E&M reviewed Kelly Adkins MD drug use no Marcos Sutherland RN passive cigarette sm tony exposure no Marcos Sutherland RN social history reviewed E&M reviewed Marcos Sutherland RN smoking status never smoker Marcos Sutherland RN social history reviewed E&M reviewed Elise Dukes MD social history E&M Marital Statu s: L kayla with family/friends E thnicity: Elise Dukes MD social history reviewed E&M reviewed Elise Dukes MD social history reviewed E&M reviewed Hussain Livingston MD social history reviewed E&M reviewed Elise Dukes MD social history reviewed E&M reviewed Connor Bowles MD social history reviewed E&M reviewed Elise Dukes MD social history reviewed E&M reviewed Elise Dukes MD social history E&M L kayla with family/friends E thnicity: Elise Dukes MD drug use none Elise Dukes MD social history reviewed E&M reviewed Elise Dukes MD physical exercise, f requency, days per week no [employer] caffeine use, averag e drinks per day no [employer] alcohol use, average drinks per day none [employer] smoking status Non-smoker [employer] FUNCTIONAL STATUS Date Observation Value Provider HRA, CV Assess/Plan, Angina (inactive) Management Plan continue current therapy Elise Dukes MD HRA, CV Assess/Plan, Angina (inactive) Management Plan continue current therapy Elise Dukes MD HRA, CV Assess/Plan, Angina (inactive) Management Plan continue current therapy Elise Dukes MD HRA, CV Assess/Plan, Angina (inactive) Management Plan continue current therapy Elise Dukes MD HRA, CV Assess/Plan, Angina (inactive) Management Plan continue current therapy Elise Dukes MD MENTAL STATUS Date Observation Value Provider assessment of judgme nt and insight E&M Alert and oriented to time, place and person. Mood and affect are normal. Hussain Livingston MD assessment of judgme nt and insight E&M Alert and oriented to time, place and person. Mood and affect are normal. Elise Dukes MD assessment of judgme nt and insight E&M Alert and oriented to time, place and person. Mood and affect are normal. Elise Dukes MD assessment of judgme nt and insight E&M Alert and oriented to time, place and person. Mood and affect are normal. Kelly Adkins MD assessment of judgme nt and insight E&M Alert and oriented to time, place and person. Mood and affect are normal. Kelly Adkins MD assessment of judgme nt and insight E&M Alert and oriented to time, place and person. Mood and affect are normal. Elise Dukes MD assessment of judgme nt and insight E&M Alert and oriented to time, place and person. Mood and affect are normal. Elise Dukes MD assessment of judgme nt and insight E&M Alert and oriented to time, place and person. Mood and affect are normal. Elise Dukes MD assessment of judgme nt and insight E&M Alert and oriented to time, place and person. Mood and affect are normal. Hussain Livingston MD assessment of judgme nt and insight E&M Alert and oriented to time, place and person. Mood and affect are normal. Elise Dukes MD assessment of judgme nt and insight E&M Alert and oriented to time, place and person. Mood and affect are normal. Connor Bowles MD assessment of judgme nt and insight E&M Alert and oriented to time, place and person. Mood and affect are normal. Elise Dukes MD assessment of judgme nt and insight E&M Alert and oriented to time, place and person. Mood and affect are normal. Elise Dukes MD assessment of judgme nt and insight E&M Alert and oriented to time, place and person. Mood and affect are normal. Elise Dukes MD FAMILY HISTORY Family Member Condition First Degree Blood Relative No Known Fam fransico History INSURANCE PROVIDERS Payer name Policy type / Coverage type Sergo bailey libertarian ID [employer] Medicare [id number] FAMILY INS [place] Commercial insurance company [id number] ADVANCE DIRECTIVES Name Date DISCUSSED - NO DECISION MADE TREATMENT PLAN Date Name Performer Cardiology Elise Dukes MD Cardiology Elise Dukes MD Cardiology Elise Dkues MD Cardiology Elise Dukes MD Cardiology lEise Dukes MD Cardiology Elise Dukes MD Cardiology: B P today: 110/62 P rior BP: 132/68 (10/05/2017) Elise Dukes MD Cardiology Elise Dukes MD Cardiology Elise Dukes MD Cardiology Elise Dukes MD Cardiology Elise Dukes MD Cardiology Elise Dukes MD Cardiology Elise Dukes MD Cardiology Elise Dukes MD Cardiology:Well controlled. Rome Dukes MD Cardiology Follow up Elise weber MD Cardiology Follow up Elise collier MD Cardiology Follow up Elise collire MD Cardiology Follow up Elise collier MD Cardiology Follow up Elise collier MD Cardiology Follow up Elise collier MD Cardiology Follow up Elise collier MD Cardiology Follow up Elise collier MD Cardiology Follow up Elise collier MD Cardiology Follow up Elise collier MD Cardiology Elise Dukes MD Cardiology Elise Dukes MD Cardiology Elise Dukes MD Cardiology Elise Dukes MD Cardiology Elise Dukes MD Cardiology Elise Dukes MD Cardiology Elise Dukes MD Cardiology Elise Dukes MD Cardiology Elise Dukes MD Cardiology Elise Dukes MD Cardiology Elise Dukes MD Cardiology Elise Dukes MD Cardiology Elise Dukes MD Follow up : H er updated medication list for this problem includes: Metoprolol Tartrate 25 Mg Tabs (Metoprolol tartrate) ..... 1 tab po twice daily Benazepril Hcl 10 Mg Tabs (Benazepril hcl) ..... 1 tab daily Sotalol Hcl 80 Mg Tabs (Sotalol hcl) ..... One tab. twice daily Lasix 20 Mg Tabs (Furosemide) ..... 2 tabs in the am and 1 tabs in the pm BP today: 130/60 P rior BP: 142/76 (02/26/2014) Labs Reviewed: Keri reat: 1.30 (04/07/2011) Elise Dukes MD follow up: H er updated medication list for this problem includes: Levothyroxine Sodium 50 Mcg Tabs (Levothyroxine sodium) ..... 1 tablet by mouth daily Labs Reviewed: T SH: 2.500 (04/07/2011) Elise Dukes MD follow up: H er updated medication list for this problem includes: Lasix 20 Mg Tabs (Furosemide) ..... 2 tabs in the am and 1 tabs in the pm Metoprolol Tartrate 25 Mg Tabs (Metoprolol tartrate) ..... 1 tab po twice daily Benazepril Hcl 10 Mg Tabs (Benazepril hcl) ..... 1 tab daily Sotalol Hcl 80 Mg Tabs (Sotalol hcl) ..... One tab. twice daily BP today: 142/76 P rior BP: 124/74 (01/03/2014) Labs Reviewed: C reat: 1.30 (04/07/2011) Elise Dukse MD Follow Up: H er updated medication list for this problem includes: Lasix 20 Mg Tabs (Furosemide) ..... 2 tabs in the am and 1 tabs in the pm Coumadin Tabs (Warfarin sodium tabs) ..... As directed Metoprolol Tartrate 25 Mg Tabs (Metoprolol tartrate) ..... 1 tab po twice daily Sotalol Hcl 80 Mg Tabs (Sotalol hcl) ..... One tab. twice daily Orders: E KG (CPT-66698) B P today: 130/71 Prior BP: 140/60 (06/05/2013) B UN: 27 (04/07/2011) Creat: 1.30 (04/07/2011) Na+: 140 (04/07/2011) K+: 4.3 (04/07/2011) Cl: 107 (04/07/2011) TSH: 2.500 (04/07/2011) Nuclear Stress Findings: Negative clinical portion of Lexiscan myocardial perfusion study. N o scintigraphic evidence of resting or Lexiscan induced perfusion abnormality. Normal left ventricle ejection fraction measuring 79%. - [facility] (01/01/2012) Elise Dukes MD Follow Up: H er updated medication list for this problem includes: Pravachol 20 Mg Tabs (Pravastatin sodium) ..... One tab. daily BP today: 130/71 Prior BP: 140/60 (06/05/2013) Elise Dukes MD Follow Up: H er updated medication list for this problem includes: Potassium Chloride Macey Cr 10 Meq Tbcr (Potassium chloride macey cr) ..... One tab. daily Lasix 20 Mg Tabs (Furosemide) ..... 2 tabs in the am and 1 tabs in the pm Calcium + D Tabs (Calcium-vitamin d tabs) ..... 500mg 2 tablets by mouth daily in the morning Metoprolol Tartrate 25 Mg Tabs (Metoprolol tartrate) ..... 1 tab po twice daily Benazepril Hcl 10 Mg Tabs (Benazepril hcl) ..... 1 tab daily Sotalol Hcl 80 Mg Tabs (Sotalol hcl) ..... One tab. twice daily BP today: 130/71 Prior BP: 140/60 (06/05/2013) N uclear Stress Findings: Negative clinical portion of Lexiscan myocardial perfusion study. N o scintigraphic evidence of resting or Lexiscan induced perfusion abnormality. Normal left ventricle ejection fraction measuring 79%. - [facility] (01/01/2012) B UN: 27 (04/07/2011) Creat: 1.30 (04/07/2011) Na+: 140 (04/07/2011) K+: 4.3 (04/07/2011) Cl: 107 (04/07/2011) TSH: 2.500 (04/07/2011) Elise Dukes MD Follow Up: H er updated medication list for this problem includes: Lasix 20 Mg Tabs (Furosemide) ..... 2 tabs in the am and 1 tabs in the pm Coumadin Tabs (Warfarin sodium tabs) ..... As directed Metoprolol Tartrate 25 Mg Tabs (Metoprolol tartrate) ..... 1 tab po twice daily Benazepril Hcl 10 Mg Tabs (Benazepril hcl) ..... 1 tab daily Sotalol Hcl 80 Mg Tabs (Sotalol hcl) ..... One tab. twice daily BP today: 130/71 Prior BP: 140/60 (06/05/2013) N uclear Stress Findings: Negative clinical portion of Lexiscan myocardial perfusion study. N o scintigraphic evidence of resting or Lexiscan induced perfusion abnormality. Normal left ventricle ejection fraction measuring 79%. - [facility] (01/01/2012) B UN: 27 (04/07/2011) Creat: 1.30 (04/07/2011) Na+: 140 (04/07/2011) K+: 4.3 (04/07/2011) Cl: 107 (04/07/2011) TSH: 2.500 (04/07/2011) Elise Dukes MD follow up: H er updated medication list for this problem includes: Lasix 20 Mg Tabs (Furosemide) ..... 2 tabs in the am and 1 tabs in the pm Coumadin Tabs (Warfarin sodium tabs) ..... As directed Metoprolol Tartrate 25 Mg Tabs (Metoprolol tartrate) ..... 1 tab po twice daily Sotalol Hcl 80 Mg Tabs (Sotalol hcl) ..... One tab. twice daily BP today: 140/60 Prior BP: 131/71 (05/12/2013) B UN: 27 (04/07/2011) Creat: 1.30 (04/07/2011) Na+: 140 (04/07/2011) K+: 4.3 (04/07/2011) Cl: 107 (04/07/2011) TSH: 2.500 (04/07/2011) Nuclear Stress Findings: Negative clinical portion of Lexiscan myocardial perfusion study. N o scintigraphic evidence of resting or Lexiscan induced perfusion abnormality. Normal left ventricle ejection fraction measuring 79%. - [facility] (01/01/2012) Elise Dukes MD follow up: H er updated medication list for this problem includes: Pravachol 20 Mg Tabs (Pravastatin sodium) ..... One tab. daily BP today: 140/60 Prior BP: 131/71 (05/12/2013) Elise Dukes MD follow up: H er updated medication list for this problem includes: Lasix 20 Mg Tabs (Furosemide) ..... 2 tabs in the am and 1 tabs in the pm Coumadin Tabs (Warfarin sodium tabs) ..... As directed Metoprolol Tartrate 25 Mg Tabs (Metoprolol tartrate) ..... 1 tab po twice daily Benazepril Hcl 10 Mg Tabs (Benazepril hcl) ..... 1 tab daily Sotalol Hcl 80 Mg Tabs (Sotalol hcl) ..... One tab. twice daily BP today: 140/60 Prior BP: 131/71 (05/12/2013) N uclear Stress Findings: Negative clinical portion of Lexiscan myocardial perfusion study. N o scintigraphic evidence of resting or Lexiscan induced perfusion abnormality. Normal left ventricle ejection fraction measuring 79%. - [facility] (01/01/2012) B UN: 27 (04/07/2011) Creat: 1.30 (04/07/2011) Na+: 140 (04/07/2011) K+: 4.3 (04/07/2011) Cl: 107 (04/07/2011) TSH: 2.500 (04/07/2011) Elise Dukes MD follow up,device fiorella ck: H er updated medication list for this problem includes: Amiodarone Hcl 200 Mg Tabs (Amiodarone hcl) ..... One tab. daily Lasix 20 Mg Tabs (Furosemide) ..... 2 tabs in the am and 1 tabs in the pm Coumadin Tabs (Warfarin sodium tabs) ..... As directed Metoprolol Tartrate 25 Mg Tabs (Metoprolol tartrate) ..... 1 tab po twice daily Patient will undergo a change in the settings of her pacemaker and Dr. Adkins will make further decisions regarding the leads. Orders: Pasquale AVILA ([id number]) Kaylie Tran NP routine: H er updated medication list for this problem includes: Lasix 20 Mg Tabs (Furosemide) ..... 2 tabs in the am and 1 tabs in the pm Benazepril Hcl 5 Mg Tabs (Benazepril hcl) ..... 1 tablet by mouth daily BP today: 150/80 Prior BP: 128/70 (11/27/2011) B UN: 27 (04/07/2011) Creat: 1.30 (04/07/2011) Na+: 140 (04/07/2011) K+: 4.3 (04/07/2011) Cl: 107 (04/07/2011) TSH: 2.500 (04/07/2011) Nuclear Stress Findings: Negative clinical portion of Lexiscan myocardial perfusion study. N o scintigraphic evidence of resting or Lexiscan induced perfusion abnormality. Normal left ventricle ejection fraction measuring 79%. [facility] (01/01/2012) Elise Dukes MD routine: H er updated medication list for this problem includes: Amiodarone Hcl 200 Mg Tabs (Amiodarone hcl) ..... One tab. daily Lasix 20 Mg Tabs (Furosemide) ..... 2 tabs in the am and 1 tabs in the pm Coumadin Tabs (Warfarin sodium tabs) ..... As directed BP today: 150/80 Prior BP: 128/70 (11/27/2011) B UN: 27 (04/07/2011) Creat: 1.30 (04/07/2011) Na+: 140 (04/07/2011) K+: 4.3 (04/07/2011) Cl: 107 (04/07/2011) TSH: 2.500 (04/07/2011) Nuclear Stress Findings: Negative clinical portion of Lexiscan myocardial perfusion study. N o scintigraphic evidence of resting or Lexiscan induced perfusion abnormality. Normal left ventricle ejection fraction measuring 79%. - [facility] (01/01/2012) Eilse Dukes MD routine: H er updated medication list for this problem includes: Pravachol 20 Mg Tabs (Pravastatin sodium) ..... One tab. daily BP today: 150/80 Prior BP: 128/70 (11/27/2011) Elise Dueks MD follow up: H er updated medication list for this problem includes: Amiodarone Hcl 200 Mg Tabs (Amiodarone hcl) ..... One tab. daily Lasix 20 Mg Tabs (Furosemide) ..... 3 tabs in the am and 2 tabs in the pm (dose increased today) Coumadin Tabs (Warfarin sodium tabs) ..... As directed BP today: 128/70 Prior BP: 148/88 (09/25/2011) B UN: 27 (04/07/2011) Creat: 1.30 (04/07/2011) Na+: 140 (04/07/2011) K+: 4.3 (04/07/2011) Cl: 107 (04/07/2011) TSH: 2.500 (04/07/2011) Echocardiogram: There is E to A wave reversal consistent with impaired LV relaxation. Normal E/E` 8.0. Left ventricular ejection fraction is estimated at 60%. The left atrium is normal in size. Linear artifact in right atrium suggestive of catheter, pacer lead, or ICD lead. T here is mild to moderate tricuspid regurgitation. Estimated peak pulmonary artery systolic pressure is 28.0 mmHg. Normal aortic root size. Normal pericardium with no pericardial or pleural effusion. - [facility] (11/28/2010) Elise Dukes MD follow up: H er updated medication list for this problem includes: Coumadin Tabs (Warfarin sodium tabs) ..... As directed Pravachol 20 Mg Tabs (Pravastatin sodium) ..... One tab. daily Benazepril Hcl 5 Mg Tabs (Benazepril hcl) ..... 1 tablet by mouth daily BP today: 128/70 Prior BP: 148/88 (09/25/2011) B UN: 27 (04/07/2011) Creat: 1.30 (04/07/2011) Na+: 140 (04/07/2011) K+: 4.3 (04/07/2011) Cl: 107 (04/07/2011) TSH: 2.500 (04/07/2011) Elise Dukes MD follow up: H er updated medication list for this problem includes: Pravachol 20 Mg Tabs (Pravastatin sodium) ..... One tab. daily BP today: 128/70 Prior BP: 148/88 (09/25/2011) Elise Dukes MD follow up: H er updated medication list for this problem includes: Levothyroxine Sodium 50 Mcg Tabs (Levothyroxine sodium) ..... 1 tablet by mouth daily Labs Reviewed: T SH: 2.500 (04/07/2011) Elise Dukes MD follow up: H er updated medication list for this problem includes: Lasix 20 Mg Tabs (Furosemide) ..... 3 tabs in the am and 2 tabs in the pm (dose increased today) Benazepril Hcl 5 Mg Tabs (Benazepril hcl) ..... 1 tablet by mouth daily BP today: 148/88 P rior BP: 133/77 (05/05/2011) Labs Reviewed: C reat: 1.30 (04/07/2011) Elise Dukes MD follow up: H er updated medication list for this problem includes: Pravachol 20 Mg Tabs (Pravastatin sodium) ..... One tab. daily Elise Dukes MD follow up: H er updated medication list for this problem includes: Amiodarone Hcl 200 Mg Tabs (Amiodarone hcl) ..... One tab. daily Lasix 20 Mg Tabs (Furosemide) ..... 3 tabs in the am and 2 tabs in the pm (dose increased today) Coumadin Tabs (Warfarin sodium tabs) ..... As directed Elise Dukes MD Not feeling well ove rall, c/o shortness of breath: H er updated medication list for this problem includes: Lasix 20 Mg Tabs (Furosemide) ..... 2 in the am and one in the afternoon Benazepril Hcl 5 Mg Tabs (Benazepril hcl) ..... 1 tablet by mouth daily BP today: 102/76 P rior BP: 132/74 (03/24/2011) Elise Dukes MD Not feeling well ove rall, c/o shortness of breath: H er updated medication list for this problem includes: Pravachol 20 Mg Tabs (Pravastatin sodium) ..... One tab. daily BP today: 102/76 Prior BP: 132/74 (03/24/2011) Elise Dukes MD Not feeling well overall, c/o sh ortness of breath Elise Dukes MD FU: H er updated medication list for this problem includes: Pravachol 20 Mg Tabs (Pravastatin sodium) ..... One tab. daily Connor Bowles MD FU: H er updated medication list for this problem includes: Lasix 20 Mg Tabs (Furosemide) ..... 2 in the am and one in the afternoon Benazepril Hcl 5 Mg Tabs (Benazepril hcl) ..... 1 tablet by mouth daily Connor Bowles MD FU: H er updated medication list for this problem includes: Coumadin Tabs (Warfarin sodium tabs) ..... As directed Pravachol 20 Mg Tabs (Pravastatin sodium) ..... One tab. daily Benazepril Hcl 5 Mg Tabs (Benazepril hcl) ..... 1 tablet by mouth daily Orders: S lee Study (*) Connor Bowles MD FU: H er updated medication list for this problem includes: Amiodarone Hcl 200 Mg Tabs (Amiodarone hcl) ..... One tab. daily Lasix 20 Mg Tabs (Furosemide) ..... 2 in the am and one in the afternoon Coumadin Tabs (Warfarin sodium tabs) ..... As directed Orders: H olter Monitor 24 Hr ([id number]) C omplete Echo ([id number]) S lee Study (*) Connor Bowles MD FU: H er updated medication list for this problem includes: Lasix 20 Mg Tabs (Furosemide) ..... 2 in the am and one in the afternoon Benazepril Hcl 5 Mg Tabs (Benazepril hcl) ..... 1 tablet by mouth daily Orders: H olter Monitor 24 Hr ([id number]) C omplete Echo ([id number]) S lee Study (*) Connor Bowles MD FU: O rders: H olter Monitor 24 Hr ([id number]) C omplete Echo ([id number]) S leep Study (*) Connor Bowles MD FU: O rders: H olter Monitor 24 Hr ([id number]) C omplete Echo ([id number]) S lee Study (*) Connor Bowles MD FU: H er updated medication list for this problem includes: Levothyroxine Sodium 50 Mcg Tabs (Levothyroxine sodium) ..... 1 tablet by mouth daily Orders: H olter Monitor 24 Hr ([id number]) C omplete Echo ([id number]) S lee Study (*) Connor Bowles MD echo, follow up: H er updated medication list for this problem includes: Amiodarone Hcl 200 Mg Tabs (Amiodarone hcl) ..... One tab. daily Coumadin Tabs (Warfarin sodium tabs) ..... As directed Benazepril Hcl 5 Mg Tabs (Benazepril hcl) ..... 1 tablet by mouth daily Alprazolam 0.5 Mg Tabs (Alprazolam) ..... 1 tablet by mouth daily BP today: 116/72 Prior BP: 122/76 (12/06/2009) E chocardiogram: Normal LV systolic function. Normal LV size. Normal LV wall thickness. There is E to A wave reversal consistent with impaired LV relaxation. Normal E/E` 12.0. LVEF 65%. Normal RV size. Normal RV systolic function. Linear artifact seen in the right ventricle is suggestive of a catheter, pacer lead, or ICD lead. T race MR. Non-specific thickening of the MVL. Trace to mild TR. R VSP is consistent with mild PH. The RA pressure is estimated at8 mmHg. PASP is 31 mmHg. Non-specific thickening of the TV. IVC is normal in size. - [place] office (07/05/2009) Elise Dukes MD echo, follow up: H er updated medication list for this problem includes: Pravachol 20 Mg Tabs (Pravastatin sodium) ..... One tab. daily BP today: 116/72 Prior BP: 122/76 (12/06/2009) Elise Dukes MD echo, follow up: H er updated medication list for this problem includes: Levothyroxine Sodium 50 Mcg Tabs (Levothyroxine sodium) ..... 1 tablet by mouth daily Elise Dukes MD echo, follow up: H er updated medication list for this problem includes: Amiodarone Hcl 200 Mg Tabs (Amiodarone hcl) ..... One tab. daily Lasix 20 Mg Tabs (Furosemide) ..... Twice daily 2 in the am and one in the afternoon Coumadin Tabs (Warfarin sodium tabs) ..... As directed Orders: E KG ([id number]) BP today: 116/72 Prior BP: 122/76 (12/06/2009) E chocardiogram: Normal LV systolic function. Normal LV size. Normal LV wall thickness. There is E to A wave reversal consistent with impaired LV relaxation. Normal E/E` 12.0. LVEF 65%. Normal RV size. Normal RV systolic function. Linear artifact seen in the right ventricle is suggestive of a catheter, pacer lead, or ICD lead. T race MR. Non-specific thickening of the MVL. Trace to mild TR. R VSP is consistent with mild PH. The RA pressure is estimated at8 mmHg. PASP is 31 mmHg. Non-specific thickening of the TV. IVC is normal in size. - [place] office (07/05/2009) Elise Dukes MD f/u: H er updated medication list for this problem includes: Amiodarone Hcl 200 Mg Tabs (Amiodarone hcl) ..... One tab. daily Coumadin Tabs (Warfarin sodium tabs) ..... As directed Benazepril Hcl 5 Mg Tabs (Benazepril hcl) ..... 1 tablet by mouth daily Alprazolam 0.5 Mg Tabs (Alprazolam) ..... 1 tablet by mouth twice daily BP today: 122/76 Prior BP: 118/72 (12/24/2008) E chocardiogram: Normal LV systolic function. Normal LV size. Normal LV wall thickness. There is E to A wave reversal consistent with impaired LV relaxation. Normal E/E` 12.0. LVEF 65%. Normal RV size. Normal RV systolic function. Linear artifact seen in the right ventricle is suggestive of a catheter, pacer lead, or ICD lead. T race MR. Non-specific thickening of the MVL. Trace to mild TR. R VSP is consistent with mild PH. The RA pressure is estimated at8 mmHg. PASP is 31 mmHg. Non-specific thickening of the TV. IVC is normal in size. - [place] office (07/05/2009) Elise Dukes MD f/u: H er updated medication list for this problem includes: Pravachol 20 Mg Tabs (Pravastatin sodium) ..... One tab. daily BP today: 122/76 Prior BP: 118/72 (12/24/2008) Elise Dukes MD f/u: H er updated medication list for this problem includes: Levothyroxine Sodium 50 Mcg Tabs (Levothyroxine sodium) ..... 1 tablet by mouth daily Elise Dukes MD f/u: H er updated medication list for this problem includes: Amiodarone Hcl 200 Mg Tabs (Amiodarone hcl) ..... One tab. daily Lasix 20 Mg Tabs (Furosemide) ..... Twice daily Coumadin Tabs (Warfarin sodium tabs) ..... As directed BP today: 122/76 Prior BP: 118/72 (12/24/2008) E chocardiogram: Normal LV systolic function. Normal LV size. Normal LV wall thickness. There is E to A wave reversal consistent with impaired LV relaxation. Normal E/E` 12.0. LVEF 65%. Normal RV size. Normal RV systolic function. Linear artifact seen in the right ventricle is suggestive of a catheter, pacer lead, or ICD lead. T race MR. Non-specific thickening of the MVL. Trace to mild TR. R VSP is consistent with mild PH. The RA pressure is estimated at8 mmHg. PASP is 31 mmHg. Non-specific thickening of the TV. IVC is normal in size. - [place] office (07/05/2009) Elise Dukes MD yearly follow-up: H er updated medication list for this problem includes: Lasix 20 Mg Tabs (Furosemide) ..... Twice daily BP today: 118/72 Prior BP: / () E chocardiogram: The LV chamber size is normal. Mild concentric LVH. Normal LV function. EF 60%. Diastolic dysfunction. RV is normal in size. There is a linear artifact in RV suggestive of catheter, pacer lead, or ICD lead. (11/18/2007) Elise Dukes MD Date Name Dual Chamber w/o Rep rogramming Spirometry Spirometry Complete Echo Holter Monitor 24 Hr Dual Chamber with Re programming HISTORY OF PROCEDURES Procedure Date Procedure Name Provider Procedure Notes S tatus ICM Interrogation, Remote (Prof) Elise Dukes MD INTERROGATION EVAL REMOTE </30 D CV MNTR SYS completed Pacemaker Interrogation, Remote (Tech) Elise Dukes MD INTERROGATION REMOTE </90 D INSTRUCTIONAL TECHNOLOGY INSTRUCTOR REVIEW completed Pacemaker Interrogation, Remote (Prof) Elise Dukes MD INTERROGATION EVAL REMOTE </90 D 1/2/ENTERTAINMENT DANCER LEAD P completed ICM Interrogation, Remote (Prof) Elise Dukes MD INTERROGATION EVAL REMOTE </30 D CV MNTR SYS completed ICM Interrogation, Remote (Tech) Elise Dukes MD INTERROGATION EVAL REMOTE </30 D TECH REVIEW completed ICM Interrogation, Remote (Prof) Elise Dukes MD INTERROGATION EVAL REMOTE </30 D CV MNTR SYS completed ICM Interrogation, Remote (Tech) Elise Dukes MD INTERROGATION EVAL REMOTE </30 D TECH REVIEW completed ICM Interrogation, Remote (Prof) Elise Dukes MD INTERROGATION EVAL REMOTE </30 D CV MNTR SYS completed Pacemaker Interrogation, Remote (Tech) Elise Dukes MD INTERROGATION REMOTE </90 D INSTRUCTIONAL TECHNOLOGY INSTRUCTOR REVIEW completed Pacemaker Interrogation, Remote (Prof) Elise Dukes MD INTERROGATION EVAL REMOTE </90 D 1/2/ENTERTAINMENT DANCER LEAD P completed ICM Interrogation, Remote (Prof) Elise Dukes MD INTERROGATION EVAL REMOTE </30 D CV MNTR SYS completed ICM Interrogation, Remote (Tech) Elise Dukes MD INTERROGATION EVAL REMOTE </30 D TECH REVIEW completed ICM Interrogation, Remote (Prof) Elise Dukes MD INTERROGATION EVAL REMOTE </30 D CV MNTR SYS completed ICM Interrogation, Remote (Tech) Elise Dukes MD INTERROGATION EVAL REMOTE </30 D TECH REVIEW completed ICM Interrogation, Remote (Prof) Elise Dukes MD INTERROGATION EVAL REMOTE </30 D CV MNTR SYS completed ICM Interrogation, Remote (Tech) Elise Dukes MD INTERROGATION EVAL REMOTE </30 D TECH REVIEW completed ICM Interrogation, Remote (Prof) Elise Dukes MD INTERROGATION EVAL REMOTE </30 D CV MNTR SYS completed ICM Interrogation, Remote (Tech) Elise Dukes MD INTERROGATION EVAL REMOTE </30 D TECH REVIEW completed EKG Elise Dukes MD completed ICM Interrogation, Remote (Prof) Elise Dukes MD INTERROGATION EVAL REMOTE </30 D CV MNTR SYS completed Pacemaker Interrogation, Remote (Tech) Elise Dukes MD INTERROGATION REMOTE </90 D INSTRUCTIONAL TECHNOLOGY INSTRUCTOR REVIEW completed Pacemaker Interrogation, Remote (Prof) Elise Dukes MD INTERROGATION EVAL REMOTE </90 D 1/2/ENTERTAINMENT DANCER LEAD P completed ICM Interrogation, Remote (Prof) Elise Dukes MD INTERROGATION EVAL REMOTE </30 D CV MNTR SYS completed ICM Interrogation, Remote (Tech) Elise Dukes MD INTERROGATION EVAL REMOTE </30 D TECH REVIEW completed ICM Interrogation, Remote (Prof) Elise Dukes MD INTERROGATION EVAL REMOTE </30 D CV MNTR SYS completed ICM Interrogation, Remote (Tech) Elise Dukes MD INTERROGATION EVAL REMOTE </30 D TECH REVIEW completed ICM Interrogation, Remote (Prof) Elise Dukes MD INTERROGATION EVAL REMOTE </30 D CV MNTR SYS completed ICM Interrogation, Remote (Tech) Elise Dukes MD INTERROGATION EVAL REMOTE </30 D TECH REVIEW completed ICM Interrogation, Remote (Prof) Elise Dukes MD INTERROGATION EVAL REMOTE </30 D CV MNTR SYS completed ICM Interrogation, Remote (Tech) Elise Dukes MD INTERROGATION EVAL REMOTE </30 D TECH REVIEW completed ICM Interrogation, Remote (Prof) Elise Dukes MD INTERROGATION EVAL REMOTE </30 D CV MNTR SYS completed ICM Interrogation, Remote (Tech) Elise Dukes MD INTERROGATION EVAL REMOTE </30 D TECH REVIEW completed ICM Interrogation, Remote (Prof) Elise Dukes MD INTERROGATION EVAL REMOTE </30 D CV MNTR SYS completed Pacemaker Interrogation, Remote (Tech) Elise Dukes MD INTERROGATION REMOTE </90 D INSTRUCTIONAL TECHNOLOGY INSTRUCTOR REVIEW completed Pacemaker Interrogation, Remote (Prof) Elise Dukes MD INTERROGATION EVAL REMOTE </90 D 1/2/ENTERTAINMENT DANCER LEAD P completed ICM Interrogation, Remote (Prof) Elise Dukes MD INTERROGATION EVAL REMOTE </30 D CV MNTR SYS completed ICM Interrogation, Remote (Tech) Elise Dukes MD INTERROGATION EVAL REMOTE </30 D TECH REVIEW completed ICM Interrogation, Remote (Prof) Elise Dukes MD INTERROGATION EVAL REMOTE </30 D CV MNTR SYS completed ICM Interrogation, Remote (Tech) Elise Dukes MD INTERROGATION EVAL REMOTE </30 D TECH REVIEW completed ICM Interrogation, Remote (Prof) Elise Dukes MD INTERROGATION EVAL REMOTE </30 D CV MNTR SYS completed Pacemaker Interrogation, Remote (Tech) Elise Dukes MD INTERROGATION REMOTE </90 D INSTRUCTIONAL TECHNOLOGY INSTRUCTOR REVIEW completed Pacemaker Interrogation, Remote (Prof) Elise Dukes MD INTERROGATION EVAL REMOTE </90 D 1/2/ENTERTAINMENT DANCER LEAD P completed ICM Interrogation, Remote (Prof) Elise Dukes MD INTERROGATION EVAL REMOTE </30 D CV MNTR SYS completed ICM Interrogation, Remote (Tech) Elise Dukes MD INTERROGATION EVAL REMOTE </30 D TECH REVIEW completed SNOMED-CT: [id number] Physical Exam, Performed: Pulse Exam of Foot Elise Dukes MD completed EKG Elise Dukes MD completed SNOMED-CT: [id number] Current Medications Documented Elise Dukes MD completed ICM Interrogation, Remote (Prof) Elise Dukes MD INTERROGATION EVAL REMOTE </30 D CV MNTR SYS completed ICM Interrogation, Remote (Tech) Elise Dukes MD INTERROGATION EVAL REMOTE </30 D TECH REVIEW completed ICM Interrogation, Remote (Prof) Elise Dukes MD INTERROGATION EVAL REMOTE </30 D CV MNTR SYS completed Pacemaker Interrogation, Remote (Tech) Elise Dukes MD INTERROGATION REMOTE </90 D INSTRUCTIONAL TECHNOLOGY INSTRUCTOR REVIEW completed Pacemaker Interrogation, Remote (Prof) Elise Dukes MD INTERROGATION EVAL REMOTE </90 D 1/2/ENTERTAINMENT DANCER LEAD P completed ICM Interrogation, Remote (Prof) Elise Dukes MD INTERROGATION EVAL REMOTE </30 D CV MNTR SYS completed ICM Interrogation, Remote (Tech) Elise Dukes MD INTERROGATION EVAL REMOTE </30 D TECH REVIEW completed ICM Interrogation, Remote (Prof) Elise Dukes MD INTERROGATION EVAL REMOTE </30 D CV MNTR SYS completed ICM Interrogation, Remote (Tech) Elise Dukes MD INTERROGATION EVAL REMOTE </30 D TECH REVIEW completed SNOMED-CT: [id number] Physical Exam, Performed: Pulse Exam of Foot Elise Dukes MD completed BLOOD COUNT HEMOGLOBIN Elise Dukes MD completed FVC - 48433 Elise Dukes MD complete d FRC - 57381 Elise Dukes MD complete d DLCO - 72225 Elise Dukes MD complet ed SNOMED-CT: [id number] Current Medications Documented Elise Dukes MD completed ICM Interrogation, Remote (Prof) Elise Dukes MD INTERROGATION EVAL REMOTE </30 D CV MNTR SYS completed Pacemaker Interrogation, Remote (Tech) Elise Dukes MD INTERROGATION REMOTE </90 D INSTRUCTIONAL TECHNOLOGY INSTRUCTOR REVIEW completed Pacemaker Interrogation, Remote (Prof) Elise Dukes MD INTERROGATION EVAL REMOTE </90 D 1/2/ENTERTAINMENT DANCER LEAD P completed ICM Interrogation, Remote (Prof) Elies Dukes MD INTERROGATION EVAL REMOTE </30 D CV MNTR SYS completed ICM Interrogation, Remote (Tech) Elise Dukes MD INTERROGATION EVAL REMOTE </30 D TECH REVIEW completed ICM Interrogation, Remote (Prof) Elise Dukes MD INTERROGATION EVAL REMOTE </30 D CV MNTR SYS completed ICM Interrogation, Remote (Tech) Elise Dukes MD INTERROGATION EVAL REMOTE </30 D TECH REVIEW completed ICM Interrogation, Remote (Prof) Elise Dukes MD INTERROGATION EVAL REMOTE </30 D CV MNTR SYS completed Pacemaker Interrogation, Remote (Tech) Elise Dukes MD INTERROGATION REMOTE </90 D INSTRUCTIONAL TECHNOLOGY INSTRUCTOR REVIEW completed Pacemaker Interrogation, Remote (Prof) Elise Dukes MD INTERROGATION EVAL REMOTE </90 D 1/2/ENTERTAINMENT DANCER LEAD P completed ICM Interrogation, Remote (Prof) Elise Dukes MD INTERROGATION EVAL REMOTE </30 D CV MNTR SYS completed ICM Interrogation, Remote (Tech) Elise Dukes MD INTERROGATION EVAL REMOTE </30 D TECH REVIEW completed ICM Interrogation, Remote (Prof) Elise Dukes MD INTERROGATION EVAL REMOTE </30 D CV MNTR SYS completed ICM Interrogation, Remote (Tech) Elise Dukes MD INTERROGATION EVAL REMOTE </30 D TECH REVIEW completed SNOMED-CT: [id number] Physical Exam, Performed: Pulse Exam of Foot Elise Dukes MD completed EKG Elise Dukes MD completed SNOMED-CT: [id number] Current Medications Documented Elise Dukes MD completed ICM Interrogation, Remote (Prof) Elise Dukes MD INTERROGATION EVAL REMOTE </30 D CV MNTR SYS completed ICM Interrogation, Remote (Tech) Elise Dukes MD INTERROGATION EVAL REMOTE </30 D TECH REVIEW completed ICM Interrogation, Remote (Prof) Elise Dukes MD INTERROGATION EVAL REMOTE </30 D CV MNTR SYS completed Pacemaker Interrogation, Remote (Tech) Elise Dukes MD INTERROGATION REMOTE </90 D INSTRUCTIONAL TECHNOLOGY INSTRUCTOR REVIEW completed Pacemaker Interrogation, Remote (Prof) Elise Dukes MD INTERROGATION EVAL REMOTE </90 D 1/2/ENTERTAINMENT DANCER LEAD P completed ICM Interrogation, Remote (Prof) Elise Dukes MD INTERROGATION EVAL REMOTE </30 D CV MNTR SYS completed Pacemaker Interrogation, Remote (Tech) Elise Dukes MD INTERROGATION REMOTE </90 D INSTRUCTIONAL TECHNOLOGY INSTRUCTOR REVIEW completed Pacemaker Interrogation, Remote (Prof) Elise Dukes MD INTERROGATION EVAL REMOTE </90 D 1/2/ENTERTAINMENT DANCER LEAD P completed ICM Interrogation, Remote (Prof) Elise Dukes MD INTERROGATION EVAL REMOTE </30 D CV MNTR SYS completed Pacemaker Interrogation, Remote (Tech) Elise Dukes MD INTERROGATION REMOTE </90 D INSTRUCTIONAL TECHNOLOGY INSTRUCTOR REVIEW completed Pacemaker Interrogation, Remote (Prof) Elise Dukes MD INTERROGATION EVAL REMOTE </90 D 1/2/ENTERTAINMENT DANCER LEAD P completed ICM Interrogation, Remote (Prof) Elise Dukes MD INTERROGATION EVAL REMOTE </30 D CV MNTR SYS completed Pacemaker Interrogation, Remote (Tech) Elise Dukes MD INTERROGATION REMOTE </90 D INSTRUCTIONAL TECHNOLOGY INSTRUCTOR REVIEW completed Pacemaker Interrogation, Remote (Prof) Elise Dukes MD INTERROGATION EVAL REMOTE </90 D 1/2/ENTERTAINMENT DANCER LEAD P completed ICM Interrogation, Remote (Prof) Elise Dukes MD INTERROGATION EVAL REMOTE </30 D CV MNTR SYS completed ICM Interrogation, Remote (Tech) Elise Dukes MD INTERROGATION EVAL REMOTE </30 D TECH REVIEW completed SNOMED-CT: [id number] Physical Exam, Performed: Pulse Exam of Foot Elise Dukes MD completed SNOMED-CT: [id number] Current Medications Documented Elise Dukes MD completed ICM Interrogation, Remote (Prof) Elise Dukes MD INTERROGATION EVAL REMOTE </30 D CV MNTR SYS completed ICM Interrogation, Remote (Tech) Elise Dukes MD INTERROGATION EVAL REMOTE </30 D TECH REVIEW completed ICM Interrogation, Remote (Prof) Elise Dukes MD INTERROGATION EVAL REMOTE </30 D CV MNTR SYS completed Pacemaker Interrogation, Remote (Tech) Elise Dukes MD INTERROGATION REMOTE </90 D INSTRUCTIONAL TECHNOLOGY INSTRUCTOR REVIEW completed Pacemaker Interrogation, Remote (Prof) Elise Dukes MD INTERROGATION EVAL REMOTE </90 D 1/2/ENTERTAINMENT DANCER LEAD P completed ICM Interrogation, Remote (Prof) Elise Dukes MD INTERROGATION EVAL REMOTE </30 D CV MNTR SYS completed Pacemaker Interrogation, Remote (Tech) Elise Dukes MD INTERROGATION REMOTE </90 D INSTRUCTIONAL TECHNOLOGY INSTRUCTOR REVIEW completed Pacemaker Interrogation, Remote (Prof) Elise Dukes MD INTERROGATION EVAL REMOTE </90 D 1/2/ENTERTAINMENT DANCER LEAD P completed ICM Interrogation, Remote (Prof) Elise Dukes MD INTERROGATION EVAL REMOTE </30 D CV MNTR SYS completed ICM Interrogation, Remote (Tech) Elise Dukes MD INTERROGATION EVAL REMOTE </30 D TECH REVIEW completed ICM Interrogation, Remote (Prof) Elise Dukes MD INTERROGATION EVAL REMOTE </30 D CV MNTR SYS completed ICM Interrogation, Remote (Tech) Elise Dukes MD INTERROGATION EVAL REMOTE </30 D TECH REVIEW completed ICM Interrogation, Remote (Prof) Elise Dukes MD INTERROGATION EVAL REMOTE </30 D CV MNTR SYS completed ICM Interrogation, Remote (Tech) Elise Dukes MD INTERROGATION EVAL REMOTE </30 D TECH REVIEW completed EKG Elise Dukes MD completed ICM Interrogation, Remote (Prof) Elise Dukes MD INTERROGATION EVAL REMOTE </30 D CV MNTR SYS completed ICM Interrogation, Remote (Tech) Elise Dukes MD INTERROGATION EVAL REMOTE </30 D TECH REVIEW completed ICM Interrogation, Remote (Prof) Elise Dukes MD INTERROGATION EVAL REMOTE </30 D CV MNTR SYS completed Pacemaker Interrogation, Remote (Tech) Elise Dukes MD INTERROGATION REMOTE </90 D INSTRUCTIONAL TECHNOLOGY INSTRUCTOR REVIEW completed Pacemaker Interrogation, Remote (Prof) Elise Dukes MD INTERROGATION EVAL REMOTE </90 D 1/2/ENTERTAINMENT DANCER LEAD P completed ICM Interrogation, Remote (Prof) Elise Dukes MD INTERROGATION EVAL REMOTE </30 D CV MNTR SYS completed ICM Interrogation, Remote (Tech) Elise Dukes MD INTERROGATION EVAL REMOTE </30 D TECH REVIEW completed ICM Interrogation, Remote (Prof) Elise Dukes MD INTERROGATION EVAL REMOTE </30 D CV MNTR SYS completed ICM Interrogation, Remote (Tech) Elise Dukes MD INTERROGATION EVAL REMOTE </30 D TECH REVIEW completed ICM Interrogation, Remote (Prof) Elise Dukes MD INTERROGATION EVAL REMOTE </30 D CV MNTR SYS completed Pacemaker Interrogation, Remote (Tech) Elies Dukes MD INTERROGATION REMOTE </90 D INSTRUCTIONAL TECHNOLOGY INSTRUCTOR REVIEW completed Pacemaker Interrogation, Remote (Prof) Elise Dukes MD INTERROGATION EVAL REMOTE </90 D 1/2/ENTERTAINMENT DANCER LEAD P completed ICM Interrogation, Remote (Prof) Elise Dukes MD INTERROGATION EVAL REMOTE </30 D CV MNTR SYS completed ICM Interrogation, Remote (Tech) Elise Dukes MD INTERROGATION EVAL REMOTE </30 D TECH REVIEW completed ICM Interrogation, Remote (Prof) Elise Dukes MD INTERROGATION EVAL REMOTE </30 D CV MNTR SYS completed ICM Interrogation, Remote (Tech) Elise Dukes MD INTERROGATION EVAL REMOTE </30 D TECH REVIEW completed ICM Interrogation, Remote (Prof) Elise Dukes MD INTERROGATION EVAL REMOTE </30 D CV MNTR SYS completed Pacemaker Interrogation, Remote (Tech) Elise Dukes MD INTERROGATION REMOTE </90 D INSTRUCTIONAL TECHNOLOGY INSTRUCTOR REVIEW completed Pacemaker Interrogation, Remote (Prof) Elise Dukes MD INTERROGATION EVAL REMOTE </90 D 1/2/ENTERTAINMENT DANCER LEAD P completed Pacemaker Interrogation, Remote (Tech) Elise Dukes MD INTERROGATION REMOTE </90 D INSTRUCTIONAL TECHNOLOGY INSTRUCTOR REVIEW completed Pacemaker Interrogation, Remote (Prof) Elise Dukes MD INTERROGATION EVAL REMOTE </90 D 1/2/ENTERTAINMENT DANCER LEAD P completed ICM Interrogation, Remote (Prof) Elise Dukes MD INTERROGATION EVAL REMOTE </30 D CV MNTR SYS completed ICM Interrogation, Remote (Tech) Elise Dukes MD INTERROGATION EVAL REMOTE </30 D TECH REVIEW completed EKG Hussain Livingston MD complet ed EKG Elise Dukes MD completed Pacemaker Interrogation, Remote (Tech) Elise Dukes MD INTERROGATION REMOTE </90 D INSTRUCTIONAL TECHNOLOGY INSTRUCTOR REVIEW completed Pacemaker Interrogation, Remote (Prof) Elise Dukes MD INTERROGATION EVAL REMOTE </90 D 1/2/ENTERTAINMENT DANCER LEAD P completed Pacemaker Interrogation, Remote (Tech) Elise Dukes MD INTERROGATION REMOTE </90 D INSTRUCTIONAL TECHNOLOGY INSTRUCTOR REVIEW completed Pacemaker Interrogation, Remote (Prof) Elise Dukes MD INTERROGATION EVAL REMOTE </90 D 1/2/ENTERTAINMENT DANCER LEAD P completed EKG Kelly allen MD completed Pacemaker Interrogation, Remote (Tech) Elise Dukes MD INTERROGATION REMOTE </90 D INSTRUCTIONAL TECHNOLOGY INSTRUCTOR REVIEW completed Pacemaker Interrogation, Remote (Prof) Elise Dukes MD INTERROGATION EVAL REMOTE </90 D 1/2/ENTERTAINMENT DANCER LEAD P completed ePrescribe - Check t his box if eRx is used Kelly Adkins MD completed Schedule Followup Kelly marin MD fu for a.fib in 3months with [facility] completed EKG Kelly allen MD completed Pacemaker Programmin g (Dual Lead) Kelly Adkins MD PROGRAM EVAL IMPLANTABLE IN PERSN DUAL LD PACER completed ePrescribe - Check t his box if eRx is used Kelly Adkins MD completed Schedule Followup Kelly marin MD fu in month with [facility] completed EKG Kelly allen MD completed Pacemaker Programmin g (Dual Lead) Elise Dukes MD PROGRAM EVAL IMPLANTABLE IN PERSN DUAL LD PACER completed Pacemaker Programmin g (Dual Lead) Elise Dukes MD PROGRAM EVAL IMPLANTABLE IN PERSN DUAL LD PACER completed Pacemaker Interrogation, Remote (Tech) Elise Dukes MD INTERROGATION REMOTE </90 D INSTRUCTIONAL TECHNOLOGY INSTRUCTOR REVIEW completed Pacemaker Interrogation, Remote (Prof) Elise Dukes MD INTERROGATION EVAL REMOTE </90 D 1/2/ENTERTAINMENT DANCER LEAD P completed Pacemaker Programmin g (Dual Lead) Elise Dukes MD PROGRAM EVAL IMPLANTABLE IN PERSN DUAL LD PACER completed TRANSTELEPHONIC RHYT HM STRIP PACEMAKER EVAL Elise Dukes MD completed Pacemaker Interrogation, Remote (Tech) Elise Dukes MD INTERROGATION REMOTE </90 D INSTRUCTIONAL TECHNOLOGY INSTRUCTOR REVIEW completed Pacemaker Interrogation, Remote (Prof) Elise Dukes MD INTERROGATION EVAL REMOTE </90 D 1/2/ENTERTAINMENT DANCER LEAD P completed EKG Elise Dukes MD completed EKG Olga kaiser
--- OUTSIDE RECORDS SUMMARY | 2024-10-25 14:05 | XMS_ITS | Referral Summary ---
Author Organization [facility] Address [address] [place] [address] Care Team Providers Care Hydrological Technical Officer Name Role Phone Víctor Benson MD Primary Care Provider [phone] Encounters Date Type Department Care Team Description 09/13/2024 Orders Only [facility] Cardiology [address] [facility] [address] [address] Marianna Fishman MD Pacemaker (Primary Dx); Paroxysmal atrial fibrillation (HCC); SSS (sick sinus syndrome) (HCC) 09/13/2024 1:30 PM JANITOR HELPER Ancillary Procedure [facility] Cardiology [address] [facility] [facility] [address] [place] [address] SSS (sick sinus syndrome) (HCC); Paroxysmal atrial fibrillation (HCC); Pacemaker from Last 3 Months Allergies Active Allergy Reactions Criticality Noted Date Comments Acarbose Other (See comments) Low 11/05/2023 Cefaclor Stomach upset Low 11/02/2012 Ciprofloxacin Rash Medium 11/02/2012 Hydrocodone Unknown 05/04/2023 Hydrocodone-Acetaminophe n Stomach upset Medium 07/05/2009 Ibuprofen Stomach upset Medium 11/02/2012 Oxycodone Unknown 05/04/2023 Oxycodone-Acetaminophen Other (See comments) Medium 07/05/2009 VERY ADDICTIVE Propoxyphene Unknown 05/04/2023 Rofecoxib Other (See comments) Medium 11/02/2012 AFFECTS HEART RHYTHM Medications benazepril (LOTENSIN) 10 mg tabletIndicatio ns:hypertension Take 1 tablet (10 mg total) by mouth daily with breakfast 7 Active warfarin (COUMADIN) 5 mg tabletIndicatio ns:atrial fibrillation,RE START 04/14/20 Take 1 tablet (5 mg total) by mouth 3 (three) times a week Take as directed per After Visit Summary. Active calcium carbonate-vitam in D3 1,500 mg (600mg elemental) -800 unit per tabletIndicatio ns:Hypocalcemia Prevention,Oste oporosis Take 2 tablets by mouth daily with breakfast Active ascorbic acid (VITAMIN C) 500 mg tablet,chewable Take 1 tablet by mouth 2 times daily until finished 60 tablet/chew tab 7 Active Additional Information Patient taking differently: 1,000 mg oral Daily, (No instructions reported), Reported on 07/21/2024 levothyroxine (SYNTHROID, LEVOTHROID) 50 mcg tabletIndicatio ns:hypothyroidi sm Take 1 tablet (50 mcg total) by mouth filter tank tender helper before breakfast 7 Active cholecalciferol (VITAMIN D-3) 2,000 unit tabletIndicatio ns:Vitamin D Deficiency Take 2.5 tablets (5,000 Units total) by mouth daily with breakfast Active warfarin (COUMADIN) 4 mg tabletIndicatio ns:atrial fibrillation,RE START 04/14/20 Take 1 tablet (4 mg total) by mouth 4 (four) times a week Last dose 04/03 7 Active atorvastatin (LIPITOR) 10 mg tabletIndicatio ns:hyperlipidem ia Take 1 tablet (10 mg total) by mouth daily with breakfast Active multivitamin capsuleIndicati ons:Vitamin Deficiency Prevention Take 1 capsule by mouth daily with breakfast Active acetaminophen (TYLENOL) 500 mg tabletIndicatio ns:Pain Take 2 tablets (1,000 mg total) by mouth 2 (two) times a day Active loratadine (CLARITIN) 10 mg tabletIndicatio ns:Allergic Rhinitis Take 1 tablet (10 mg total) by mouth daily with breakfast Active loperamide (IMODIUM) 2 mg capsuleIndicati ons:diarrhea Take 1 capsule (2 mg total) by mouth daily with breakfast Active omeprazole (PriLOSEC) 20 mg capsule Take 2 capsules (40 mg total) by mouth 2 (two) times a day 0 Active fluticasone propionate (FLONASE) 50 mcg/actuation nasal spray Administer into affected nostril(s) 7 Active trimethoprim (TRIMPEX) 100 mg tablet 2 Active warfarin (COUMADIN) 1 mg tablet 2 Active glucosamine HCl 1,500 mg tablet SM GLUCOSAMINE HCL TABLET 0 Active cyclobenzaprine (FLEXERIL) 10 mg tablet Active meclizine (ANTIVERT) 25 mg tablet meclizine 25 mg tablet TAKE 1 TABLET BY MOUTH TWICE DAILY NEEDED FOR DIZZINESS 2 Active venlafaxine XR (EFFEXOR-XR) 150 mg 24 hr capsule Take 75 mg by mouth daily 3 Active furosemide (LASIX) 20 mg tabletIndicatio ns:Edema,hypert ension Take 1 tablet (20 mg total) by mouth daily with breakfast 30 tablet 11 3 Active metoprolol tartrate (LOPRESSOR) 25 mg immediate release tablet Take 1 tablet (25 mg total) by mouth 2 (two) times a day 180 tablet 3 4 Active sotaloL (BETAPACE) 80 mg tablet Take 1 tablet (80 mg total) by mouth 2 (two) times a day 180 tablet 3 4 Active Active Problems Problem Noted Date Diagnosed Date High risk medication use 07/21/2024 Foreign body in nose 03/14/2024 Visit for wound check 08/30/2023 CAUSEY (dyspnea on exertion) 12/02/2022 Postnasal drip 12/01/2022 Mixed hyperlipidemia 05/13/2021 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 Dx; SSS, PAF. DOI 08/23/2023-Anayeli. Chronic A-lead 12/04/2013, chronic RV lead 12/1996. Latitude remote monitoring. Hypothyroidism (acquired) 11/22/2018 Encounter for monitoring sotalol therapy 019 Chronic anticoagulation 11/22/2018 Resolved Problems Problem Noted Date Diagnosed Date Resolved Date Dyslipidemia 11/22/2018 05/13/2021 Social History Tobacco Use Types Packs/Day Years Used Date Smoking Tobacco: Never Smokeless Tobacco: Never Alcohol Use Standard Drinks/Week Comments Not Currently 0 (1 standard drink = 0.6 oz pur e alcohol) Comments No Sex and Gender Information Value Date Recorded Sex Assigned at Not on file Legal Sex Female 12:40 AM JANITOR HELPER Gender Identity Female 01/06/2021 11:01 AM CDT Sexual Orientation Straight 12/18/2019 3: 24 PM CDT Last Filed Vital Signs Vital Sign Reading Time Taken Comments Blood Pressure 138/60 07/21/2024 11:08 AM JANITOR HELPER Pulse 72 07/21/2024 11:08 AM JANITOR HELPER Temperature 36.4 C (97.6 F) 11/02/2023 10:06 AM CDT Respiratory Rate 20 03/14/2024 10:31 AM CDT Oxygen Saturation 98% 07/21/2024 11:08 AM JANITOR HELPER Inhaled Oxygen Concentration - - Weight 95.3 kg (210 lb) 07/21/2024 11:08 AM JANITOR HELPER Height 157.5 cm (5' 2 ) 07/21/2024 11:08 AM JANITOR HELPER Body Mass Index 38.41 07/21/2024 11:08 AM JANITOR HELPER Plan of Treatment Not on file Medical Devices Implanted Type Area Telegrapher Agent Device Identifier Shelf Expiration Date Model / Serial / Lot Pacemaker Pacemaker Left: Chest [employer] Procedures Procedure Name Priority Date/Time Associated Diagnosis Comments DEVICE CHECK - IN OFFICE Routine 09/13/2024 1:12 PM JANITOR HELPER SSS (sick sinus syndrome) (HCC) Paroxysmal atrial fibrillation (HCC) Pacemaker from Last 3 Months Results * DEVICE CHECK - IN OFFICE (09/13/2024 1:12 PM JANITOR HELPER) Anatomical Region Laterality Modality Other Narrative 09/13/2024 4:28 PM JANITOR HELPER [employer] Accolade Dual Pacemaker. Dx; SSS, PAF. DOI 08/23/2023-Anayeli. Chronic A-lead 12/04/2013, chronic RV lead 12/1996. Latitude remote monitoring. Supervising MD: Dr Jacobson. Office DDD Pacemaker evaluation demonstrated appropriate device function. Left pectoral incision well healed without signs of infection noted. Battery function:Ok, 8.0 years remaining battery life to LETTY. Appropriate lead measurements noted. Presenting rhythm- AP-VS/-VS. Underlying rhythm- SR 60 bpm. AP- 57%, CLOTH PAINTER- <1%. 10 Atrial high rate episodes noted., iegm's Atach, longest 4 seconds. No Ventricular high rate episodes noted. Medications; Coumadin, Sotalol, Lopressor. Atrial auto capture turned off and amplitude set to 1.5V. See scanned report. Office device f/u 10/10/2025. Latitude remote f/u 12/13/2024. Lexie Puga RN Rony Beltran MD [facility] PROC EDURES Final Result from Last 3 Months Insurance MEDICARE [employer] COMMERCIAL GENERIC MEDICARE [employer]ER[employer] GENERIC Advance Directives For more information, please contact: [phone] * Full Code (Latest Code Status on File) Date Activated Date Inactivated Comments 04/09/2020 9:05 PM 04/10/2020 9:31 PM Care Teams Hydrological Technical Officer Relationship Specialty Start Date End Date Víctor Benson MD PCP - General 12/18/16
--- OUTSIDE RECORDS SUMMARY | 2024-10-25 14:05 | XMS_ITS | Clinical Summary ---
Author Organization [facility] Address [address] [place] [address] Phone Care Team Providers Care Actimize Architect Name Role Phone Víctor Benson MD Primary Care Provider [phone] Allergies Active Allergy Reactions Criticality Noted Date Comments Cefaclor Low 11/02/2012 Other reaction(s): Stomach upset UPSET STOMACH Ciprofloxacin Rash Medium 11/02/2012 RASH Homatropine Hydrocodone-Acetaminophen Medium 11/02/2012 Other reaction(s): Stomach upset UPSET STOMACH Ibuprofen Medium 11/02/2012 Other reaction(s): Stomach upset UPSET STOMACH Oxycodone-Acetaminophen Medium 11/02/2012 Other reaction(s): Other (See comments) VERY ADDICTIVE VERY ADDICTIVE Rofecoxib Medium 11/02/2012 Other reaction(s): Other (See comments) AFFECTS HEART RHYTHM AFFECTS HEART RHYTHM Medications Multiple Vitamins-Minera ls (MULTIVITAMIN WITH MINERALS) tablet 2 Active calcium carbonate (TUMS) 500 MG chewable tablet 1 tid with meals 04/25/20 1 4 Active sotalol (BETAPACE) 80 MG tablet 1 bid 3 Active Ascorbic Acid (VITAMIN C) 500 MG chewable tablet 2 Active cholecalciferol (VITAMIN D-3) 2000 units capsule 1 daily 0 6 Active morphine (AVINza) 30 MG 24 hr capsule 15mg q12 h 0 6 Active traMADol-acetam inophen (ULTRACET) 37.5-325 MG per tablet 2 Active potassium chloride (KLOR-CON) 20 MEQ CR tablet 5 Active pilocarpine (SALAGEN) 5 MG tablet 1 bid 0 7 Active atorvastatin (LIPITOR) 10 MG tablet 1 daily 0 8 Active Tapentadol HCl ER (NUCYNTA ER) 50 MG tablet sustained-relea se 12 hour 1 bid 5 Active calcium 500 MG tablet 2 daily 2 Active Flaxseed, Linseed, (FLAXSEED OIL) 1000 MG capsule 1 tid 0 6 Active metoprolol tartrate (LOPRESSOR) 25 MG tablet 1 bid 3 Active fluticasone (FLONASE) 50 MCG/ACT nasal spray 2 puffs prn 0 7 Active morphine (MS CONTIN) 15 MG 12 hr tablet 1 tablet (15 mg) orally every 12 hours as needed 0 7 Active PROAIR HFA 108 (90 Base) MCG/ACT inhaler INL 2 PFS PO Q 4 TO 6 H PRN 0 9 Active celecoxib (CeleBREX) 100 MG capsule 1 9 Active benazepril (LOTENSIN) 10 MG tablet 0 Active levothyroxine (SYNTHROID) 50 MCG tablet 0 Active Warfarin Sodium 4 MG tablet 0 Active warfarin (COUMADIN) 5 MG tablet Take 5 mg by mouth 3 (three) times a week Active omeprazole (PriLOSEC) [address] capsule TK ONE C PO D. 0 Active loratadine (CLARITIN) 10 MG tablet Take 10 mg by mouth daily Active loperamide (IMODIUM) 2 MG capsule Take 2 mg by mouth daily Active ipratropium (ATROVENT) 0.06 % nasal spray Administer 2 sprays into affected nostril(s) 3 times daily 0 Active Calcium Carb-Cholecalci ferol 600-800 MG-UNIT tablet Take 2 tablets by mouth daily Active trimethoprim (TRIMPEX) 100 MG tablet Take 100 mg by mouth every night 1 Active Premarin vaginal cream APPLY A FINGERTIP AMOUNT TO VAGINA EVERY OTHER DAY BEFORE BEDTIME 1 Active furosemide (LASIX) 20 MG tablet 2 Active venlafaxine XR (EFFEXOR-XR) 150 MG 24 hr capsule 1 Active meclizine (ANTIVERT) 25 MG tablet TAKE 1 TABLET BY MOUTH TWICE DAILY NEEDED FOR DIZZINESS 2 Active Glucosamine HCl 1500 MG tablet SM GLUCOSAMINE HCL TABLET 0 Active Active Problems Problem Noted Date Diagnosed Date Mixed hyperlipidemia 05/13/2021 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, oral cavity, 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/02/2020 Generalized edema 11/20/2015 Hypertensive chronic kidney disease with stage 1 through stage 4 chronic kidney disease, or unspecified chronic kidney disease 04/25/2014 Stage 3a chronic kidney disease 01/07/2012 Disorder of thyroid 01/07/2012 Atrial fibrillation 01/07/2012 Immunizations Immunization Administration Dates Next Due Fluzone High-Dose 04/22/2020 Influenza TIV (IM) 06/18/2021,05/22/2019 Pneumococcal Conjugate 13-Valent 05/22/2019 Pneumococcal Polysaccharide 05/18/2019 Family History Medical History Relation Comments Kidney disease Mother Kidney stone Neg Hx Relation Status Comments Mother Social History Tobacco Use Types Packs/Day Years Used Date Smoking Tobacco: Never Smokeless Tobacco: Never Alcohol Use Standard Drinks/Week Comments No 0 (1 standard drink = 0.6 oz pur e alcohol) AUDIT-C Answer Date Recorded Frequency of Alcohol Consumption Never 11/12/2018 Average Number of Drinks Not on file 019 Frequency of Binge Drinking Not on file 10/18 Comments Unknown Sex and Gender Information Value Date Recorded Sex Assigned at Not on file Legal Sex Female 8:[address] [facility] Gender Identity Not on file Sexual Orientation Not on file Last Filed Vital Signs Vital Sign Reading Time Taken Comments Blood Pressure 108/64 04/22/2022 2:04 PM CDT Pulse 72 04/22/2022 2:04 PM CDT Temperature 36.9 C (98.5 F) 04/22/2022 2:04 PM CDT Respiratory Rate 18 01/30/2013 12:01 AM CDT Oxygen Saturation - - Inhaled Oxygen Concentration - - Weight 95.7 kg (211 lb) 04/22/2022 2:04 PM CDT Height 162.6 cm (5' 4 ) 04/22/2022 2:04 PM CDT Body Mass Index 36.22 04/22/2022 2:04 PM CDT Plan of Treatment Health Maintenance Due Date Last Done Comments Influenza Vaccine (Season Ended) 2025 06/18/20 21, 05/22/2019 Pneumococcal PPSV23/PCV13 65 + Years / High and Highest Risk Completed 05/22/2019, 05/18/2019 Insurance MEDICARE [email or web address] Care Teams Actimize Architect Relationship Specialty Start Date End Date Víctor Benson MD [address] [place] [address] PCP - General Family Medicine 11/16/18
--- OUTSIDE RECORDS SUMMARY | 2024-10-25 14:05 | XMS_ITS | Clinical Summary ---
Author Organization [facility] Address [address] [place] [address] Care Team Providers Care Travel Freight And Passenger Agent Name Role Phone Víctor Benson MD Primary Care Provider [phone] Source Comments [facility],non-owned Affiliates and Associated Physician Practices is amultiple site organization consisting of ambulatory clinics and hospital sitesin [place], [place], [place] and [place]. This disclosure is being madepursuant to the Care Everywhere program and may not contain all information available regarding this patient. Last updated 18.[facility] Allergies Active Allergy Reactions Criticality Noted Date Comments Cefaclor 11/02/2012 UPSET STOMACH Ciprofloxacin 11/02/2012 RASH Ibuprofen 11/02/2012 UPSET STOMACH Oxycodone-Acetaminophen 11/02/2012 VERY ADDICTIVE Hydrocodone-Acetaminophen 11/02/2012 UPSET STOMACH Vioxx 11/02/2012 AFFECTS HEART RHYTHM Medications * Be aware that medications may not be up to date on this document. Alwaysverify current medications with the patient. Medication Sig Dispensed Refills Start Date End Date Status amiodarone (CORDARONE) 200 MG tablet Take 200 mg by mouth once daily. Active levothyroxine (SYNTHROID) 50 MCG tablet Take 50 mcg by mouth daily before breakfast. Active furosemide (LASIX) 20 MG tablet Take 20 mg by mouth once daily. Active estradiol (ESTRACE) 0.5 MG tablet Take 0.5 mg by mouth once daily. Active Warfarin Sodium (COUMADIN PO) Take by mouth. Active meloxicam (MOBIC) 15 MG tablet Take 15 mg by mouth once daily. Active benazepril (LOTENSIN) 10 MG tablet Take 10 mg by mouth once daily. Active OMEPRAZOLE PO Take 20 mg by mouth. Active traMADol (ULTRAM) 50 MG tablet Take 50 mg by mouth every 6 hours as needed. Active ALPRAZOLAM PO Take 0.5 mg by mouth. Active sertraline (ZOLOFT) 50 MG tablet Take 50 mg by mouth once daily. Active Ergocalciferol (VITAMIN D PO) Take 800 mg by mouth. Active calcium 500 MG TABS tablet Take 500 mg by mouth once daily. Active Ascorbic Acid (VITAMIN C-KEILA HIPS) 1000 MG TABS Take by mouth. Active Multiple Vitamin (MULTIVITAMINS PO) Take by mouth. Ac tive vitamin D, cholecalciferol, 2000 UNITS tablet Take 2,000 Units by mouth once daily. Active Glucosamine-Chondroit- Vit C-Mn (GLUCOSAMINE-CHONDROIT IN) TABS Take by mouth. Active potassium chloride (KLOR-CON) 10 MEQ tablet Active pravastatin (PRAVACHOL) 20 MG tablet Active metoprolol tartrate IR (LOPRESSOR) 25 MG tablet Take 25 mg by mouth 2 times daily. Active Active Problems No known active problems Family History Medical History Relation Name Comments Cancer Father Relation Name Status Comments Brother Alive Father Mother Alive Sister Alive Social History Tobacco Use Types Packs/Day Years Used Date Smoking Tobacco: Never Alcohol Use Standard Drinks/Week Comments No 0 (1 standard drink = 0.6 oz pur e alcohol) Sex and Gender Information Value Date Recorded Sex Assigned at Not on file Gender Identity Not on file Sexual Orientation Not on file Last Filed Vital Signs Vital Sign Reading Time Taken Comments Blood Pressure 118/66 01/12/2013 9:28 AM CDT Pulse 60 01/12/2013 9:28 AM CDT Temperature 36.6 C (97.8 F) 01/12/2013 9:28 AM CDT Respiratory Rate 16 01/12/2013 9:28 AM CDT Oxygen Saturation 98% 01/12/2013 9:28 AM CDT Inhaled Oxygen Concentration - - Weight 86.2 kg (190 lb) 01/12/2013 9:28 AM CDT Height 160 cm (5' 3 ) 01/12/2013 9:28 AM CDT Body Mass Index 33.66 01/12/2013 9:28 AM CDT Plan of Treatment Health Maintenance Due Date Last Done Comments BONE DENSITY TESTING 1940 MEDICARE AWV 12 MONTHS 1942 DTAP/TDAP/TD VACCINES (1 - Tdap) 1961 PNEUMOCOCCAL VACCINE 50+ (1 of 1 - PCV) 1992 ZOSTER VACCINE (1 of 2) 1992 Respiratory Syncytial Virus (RSV) Vaccine Pt: or over 60 yrs (1 - 1-dose 75+ series) 2017 COVID-19 VACCINE ( - 2023-2 5 season) 2024 DEPRESSION SCREENING 07/19/2024 INFLUENZA VACCINE (Season Ended) 2025 HEPATITIS B VACCINE Aged Out No longe r eligible based on patient's age to complete this topic HIB VACCINE Aged Out No longer eligi ble based on patient's age to complete this topic HPV VACCINE Aged Out No longer eligi ble based on patient's age to complete this topic MENINGOCOCCAL (Group B) VACC INE SHARED DECISION-MAKING Aged Out No longer eligibl e based on patient's age to complete this topic MENINGOCOCCAL GROUPS A/C/Y/W VACCINE Aged Out No longer eligible b ased on patient's age to complete this topic Care Teams Travel Freight And Passenger Agent Relationship Specialty Start Date End Date Víctor Benson MD [address] [place] [address] PCP - General Family Medicine 11/02/12
--- OUTSIDE RECORDS SUMMARY | 2024-10-25 14:05 | XMS_ITS | Clinical Summary ---
Author Organization [facility] Address [address] [place] [address] Care Team Providers Care Cracking Machine Operator Name Role Phone Víctor Benson MD Primary Care Provider [phone] Social History Tobacco Use Types Packs/Day Years Used Date Smoking Tobacco: Never Assessed Comments Unknown Sex and Gender Information Value Date Recorded Sex Assigned at Not on file Legal Sex Female 7:15 PM CDT Gender Identity Not on file Sexual Orientation Not on file Plan of Treatment Health Maintenance Due Date Last Done Comments DTaP, Tdap and Td Vaccines ( 1 - Tdap) 1961 Zoster Vaccines (1 of 2) 1992 Annual Medicare Wellness Visit 2007 Dexa Scan (General) 2007 RSV Immunization or 60+ Years (1 - 1-dose 75+ series) 2017 Pneumococcal Vaccine: 65+ Ye ars (2 of 2 - PPSV23 or PCV20) 04/27/2019 04/27/2018 COVID-19 Vaccine (2023-2 5 season) 2024 Meningococcal B Vaccine Aged Out No l onger eligible based on patient's age to complete this topic Meningococcal Vaccine Aged Out No jason wilfredo eligible based on patient's age to complete this topic RSV Immunizations Under 20 Months Aged Out No longer eligible based on patient's age to complete this topic Insurance [employer]RO[employer] MEDICARE [facility] Care Teams Cracking Machine Operator Relationship Specialty Start Date End Date Víctor Benson MD [address] [place] [address] PCP - General FAMILY PRACTICE 05/12/19
--- OUTSIDE RECORDS SUMMARY | 2024-10-25 14:05 | XMS_ITS | Clinical Summary ---
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 Dx; SSS, PAF. DOI 08/23/2023-Anayeli. Chronic A-lead 12/04/2013, chronic RV lead 12/1996. Latitude remote monitoring. Hypothyroidism (acquired) 11/22/2018 Encounter for monitoring sotalol therapy 019 Chronic anticoagulation 11/22/2018 Resolved Problems Problem Noted Date Diagnosed Date Resolved Date Dyslipidemia 11/22/2018 05/13/2021 Encounters Date Type Department Care Team Description 09/13/2024 1:30 PM SMOCKING MACHINE OPERATOR Ancillary Procedure [facility] [address] [place] [address] SSS (sick sinus syndrome) (HCC); Paroxysmal atrial fibrillation (HCC); Pacemaker 09/13/2024 Orders Only [facility] [address] [facility] [address] [place] [id number] Marianna Fishman MD Pacemaker (Primary Dx); Paroxysmal atrial fibrillation (HCC); SSS (sick sinus syndrome) (HCC) from Last 3 Months Surgical History Surgery Date Site/Laterality Comments THYROID SURGERY 07/19/1986 - 07/18/1987 Bilateral SIALOENDOSCOPY 07/19/2000 - 07/18/2001 Bilateral DILATION AND CURETTAGE OF UTERUS 07/19/1981 - 07/18/1982 HAND SURGERY 03/04/2017 Right CTR and ulnar release MOUTH SURGERY 1982, 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 HYSTERECTOMY 07/19/1985 - 07/18/1986 CARDIAC PACEMAKER PLACEMENT 1996, 2005, 2010, 2013 BACK SURGERY 1999, 2007 LAPAROSCOPY 07/19/2003 - 07/18/2004 ovaries and cysts removed JOINT REPLACEMENT 2004, 2006 Bilateral TKA COLONOSCOPY 2008, 2014 CATARACT EXTRACTION Medical History Medical History Date Comments Hypertension Cancer (HCC) mouth Thyroid disease Gout Hyperlipidemia 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 GERD (gastroesophageal reflux disease) PONV (postoperative nausea and vomiting) relieved with IV medication, pt unsure if scope patch used in past Obesity Paroxysmal atrial fibrillation (HCC) CKD (chronic kidney disease) Covid-19 Arthritis Family History Medical History Relation Name Comments Cancer Mother Naomie Stanley Hypertension Mother Naomie Stanley Anesthesia problems Neg Hx Relation Name Status Comments Mother Naomie Stanley Social History Tobacco Use Types Packs/Day Years Used Date Smoking Tobacco: Never Smokeless Tobacco: Never Alcohol Use Standard Drinks/Week Comments Not Currently 0 (1 standard drink = 0.6 oz pur e alcohol) Comments No Sex and Gender Information Value Date Recorded Sex Assigned at Not on file Legal Sex Female 12:40 AM SMOCKING MACHINE OPERATOR Gender Identity Female 01/06/2021 11:01 AM CDT Sexual Orientation Straight 12/18/2019 3: 24 PM CDT Obstetrics History Last Filed Vital Signs Vital Sign Reading Time Taken Comments Blood Pressure 138/60 07/21/2024 11:08 AM SMOCKING MACHINE OPERATOR Pulse 72 07/21/2024 11:08 AM SMOCKING MACHINE OPERATOR Temperature 36.4 C (97.6 F) 11/02/2023 10:06 AM CDT Respiratory Rate 20 03/14/2024 10:31 AM CDT Oxygen Saturation 98% 07/21/2024 11:08 AM SMOCKING MACHINE OPERATOR Inhaled Oxygen Concentration - - Weight 95.3 kg (210 lb) 07/21/2024 11:08 AM SMOCKING MACHINE OPERATOR Height 157.5 cm (5' 2 ) 07/21/2024 11:08 AM SMOCKING MACHINE OPERATOR Body Mass Index 38.41 07/21/2024 11:08 AM SMOCKING MACHINE OPERATOR Plan of Treatment Health Maintenance Due Date Last Done Comments Depression Screening 1942 Osteoporosis Screening-Bone Density Scan 1942 DTaP/Tdap/Td Vaccine (1 - Tdap) 1953 Hepatitis B Screening 1960 Zoster Vaccine (1 of 2) 1992 Well Visit 65+ 2007 Fall Risk Assessment 04/10/2021 04/10/2020 Influenza Vaccine (Season Ended) 2025 06/18/2021, 05/22/2019, 05/18/2019, Additional history exists Pneumococcal vaccine 65+ Completed 019, 05/18/2019, 04/27/2018 Medical Devices Implanted Type Area Quality Control Supervisor Device Identifier Shelf Expiration Date Model / Serial / Lot Pacemaker Pacemaker Left: Chest [employer] Procedures Procedure Name Priority Date/Time Associated Diagnosis Comments DEVICE CHECK - IN OFFICE Routine 09/13/2024 1:12 PM SMOCKING MACHINE OPERATOR SSS (sick sinus syndrome) (HCC) Paroxysmal atrial fibrillation (HCC) Pacemaker from Last 3 Months Results * DEVICE CHECK - IN OFFICE (09/13/2024 1:12 PM SMOCKING MACHINE OPERATOR) Anatomical Region Laterality Modality Other Narrative 09/13/2024 4:28 PM SMOCKING MACHINE OPERATOR [employer] Accolade Dual Pacemaker. Dx; SSS, PAF. DOI 08/23/2023-Anayeli. Chronic A-lead 12/04/2013, chronic RV lead 12/1996. Lat[employer] remote monitoring. Supervising MD: Dr Jacobson. Office DDD Pacemaker evaluation demonstrated appropriate device function. Left pectoral incision well healed without signs of infection noted. Battery function:Ok, 8.0 years remaining battery life to LETTY. Appropriate lead measurements noted. Presenting rhythm- AP-VS/-VS. Underlying rhythm- SR 60 bpm. AP- 57%, EDI PROGRAMMER ANALYST- <1%. 10 Atrial high rate episodes noted., iegm's Atach, longest 4 seconds. No Ventricular high rate episodes noted. Medications; Coumadin, Sotalol, Lopressor. Atrial auto capture turned off and amplitude set to 1.5V. See scanned report. Office device f/u 10/10/2025. Latitude remote f/u 12/13/2024. Lexie Puga RN Rony Beltran MD [facility] PROC EDURES Final Result from Last 3 Months Insurance MEDICARE [employer] GENERIC MEDICARE [employer] GENERIC Advance Directives For more information, please contact: [phone] * Full Code (Latest Code Status on File) Date Activated Date Inactivated Comments 04/09/2020 9:05 PM 04/10/2020 9:31 PM Care Teams Unemployment Inspector Relationship Specialty Start Date End Date Víctor Benson MD PCP - General 12/18/16
[2024-10-25 18:40] LABS: Parathyroid Intact 58.6 pg/mL (14.5-75.2)
== END 2024-10-25 12:51 | disposition home or self-care (01) ==
PROVIDERS: PCP Family Medicine; Visit Provider Internal Medicine Nephrology
DX: N18.32 Chronic kidney disease, stage 3b (principal); M50.90 Cervical disc disorder, unspecified, unspecified cervical region
CPT/HCPCS: 36415; 80069; 82570; 83970; 84156; 85027

== ENCOUNTER 2025-04-27 11:18 | Outpatient (CLI) | payer MEDICARE, SELFPAY ==
[2025-04-27 12:00] LABS: Hematocrit 38.6 % (37.0-47.0); Hemoglobin 12.2 g/dL (12.0-15.0); Mean Corpuscular HGB Conc 31.6 g/dl (32-36); Mean Corpuscular Hemoglobin 28.4 pg (26-34); Mean Corpuscular Volume 90.0 fl (80-100); Platelet Count Result 188 k/mm3 (150-375); Red Blood Count 4.29 M/mm3 (4.2-5.4); White Blood Count 5.4 K/mm3 (4.5-10.0)
[2025-04-27 12:20] LABS: Albumin Level 4.0 g/dL (3.5-5.1); Anion Gap 5 mmol/L (4-12); Blood Urea Nitrogen 20 mg/dL (7-17); Calcium 9.2 mg/dL (8.4-10.2); Carbon Dioxide 29 mmol/L (22-30); Chloride 103 mmol/L (98-107); Estimated Glomerular Filt Rate 42; Glucose 93 mg/dL (65-110); Potassium 4.9 mmol/L (3.4-5.0); Sodium 137 mmol/L (137-145)
[2025-04-27 12:31] LABS: Total Protein Urine Random 6 mg/dL; Ur Ttl Prot Creatinine Ratio 0.14 mg/mg (0-0.20)
[2025-04-27 12:32] LABS: Parathyroid Intact 80.2 pg/mL (14.5-75.2)
== END 2025-04-27 11:19 | disposition home or self-care (01) ==
PROVIDERS: PCP Family Medicine; Visit Provider Internal Medicine Nephrology
DX: R94.4 Abnormal results of kidney function studies (principal); N18.32 Chronic kidney disease, stage 3b
CPT/HCPCS: 36415; 80069; 82570; 83970; 84156; 85027